=== PATIENT | male | born 1945 | race African-American/Black ===

== ENCOUNTER 2017-04-04 13:25 | Inpatient (IN) | payer OTHER, BC ==
[2017-04-04] MEDS ORDERED: VANCOMYCIN 1,000 MG in DEXTROSE 5%-WATER - 250 ML IVPB ONE (14:43)
[2017-04-04] MEDS ORDERED: PIPERACILLIN/TAZOB 3.375 GM 50 ML IVPB ONE (14:44)
[2017-04-04 14:45] LABS: BASO % 0.7 % (0-2.0); EOS % 0.5 % (0-4.5); MCH 29.4 pg (25.7-33.7); MCHC 32.6 g/dl (32.0-35.9); MEAN CELL VOLUME 90.2 fl (80-96); MEAN PLT VOLUME 8.1 fl (7.5-11.1); NEUT % 83.4 % (42.8-82.8); PLATELET COUNT 280 K/MM3 (134-434); RDW 16.9 % (11.9-15.9); WHITE BLOOD COUNT 18.4 K/mm3 (4.0-10.0)
[2017-04-04] MEDS ORDERED: VANCOMYCIN 1 GRAM (PRE-DOCKED) 1,000 MG/250 ML BAG IVPB ONE (14:48)
[2017-04-04] MEDS ORDERED: PIPERACILLIN/TAZOB 3.375 GM 3.375 GM/50 ML BAG IVPB ONE (14:48)
--- NOTE | 2017-04-04 14:48 | PDOC ---
History of Present Illness - General History Source: Patient - History of Present Illness Occurred: reports: other Severity: Yes: severe Lower Extremity Pain Location: right: 5th toe, leg <Francesco Valdivia - Last Filed: 04/04/17 16:01> <Sarah Yu - Last Filed: 04/04/17 16:41> - General Chief Complaint: Wound Infection Stated Complaint: WOUND CARE SENT Time Seen by Provider: 04/04/17 14:01 Past History - Past Medical History Cardiac Disorders: Yes (A-FIB) COPD: No Diabetes: Yes HTN: Yes - Suicide/Smoking/Psychosocial Hx Smoking History: Former smoker Have you smoked in the past 12 months: No Information on smoking cessation initiated: No <Francesco Valdivia - Last Filed: 04/04/17 16:01> <Sarah Yu - Last Filed: 04/04/17 16:41> - Past Medical History Allergies/Adverse Reactions: Allergies Allergy/AdvReac Type Severity Reaction Status Date / Time No Known Allergies Allergy Verified 04/04/17 13:40 Home Medications: Ambulatory Orders Finasteride 5 mg PO DAILY 04/04/17 Glipizide [Glipizide ER] 10 mg PO BID 04/04/17 Hydrochlorothiazide 50 mg PO BID 04/04/17 Metformin HCl [Glucophage -] 500 mg PO BID 04/04/17 Metoprolol Succinate [Toprol Xl -] 50 mg PO BID 04/04/17 Tamsulosin HCl [Flomax] 0.4 mg PO DAILY 04/04/17 Warfarin Sodium [Coumadin] 5 mg PO Q2D 04/04/17 Warfarin Sodium [Coumadin] 7.5 mg PO Q2D 04/04/17 Review of Systems - Review of Systems Constitutional: Yes: Chills. No: Fever Musculoskeletal: Yes: Joint Pain, Joint Swelling <Francesco Valdivia - Last Filed: 04/04/17 16:01> *Physical Exam - Vital Signs Last Vital Signs Temp Pulse Resp BP Pulse Ox 99.1 F 82 17 138/91 98 04/04/17 13:40 04/04/17 13:40 04/04/17 13:40 04/04/17 13:40 04/04/17 13:40 - Physical Exam General Appearance: Yes: Appropriately Dressed. No: Apparent Distress HEENT: positive: Normal Voice Neck: positive: Supple Respiratory/Chest: negative: Respiratory Distress Extremity: positive: Other (ulcer w/ foul odoor to lateral R 5th toe w/ erythema /warmth/ttp extending up to R lower leg, pedal pulses intact) Integumentary: positive: Dry, Warm Neurologic: positive: Fully Oriented, Alert, Normal Mood/Affect <PalauanFrancesco - Last Filed: 04/04/17 16:01> - Vital Signs Last Vital Signs Temp Pulse Resp BP Pulse Ox 99.1 F 82 17 138/91 98 04/04/17 13:40 04/04/17 13:40 04/04/17 13:40 04/04/17 13:40 04/04/17 13:40 <Sarah Yu - Last Filed: 04/04/17 16:41> ED Treatment Course - LABORATORY CBC & Chemistry Diagram: 04/04/17 14:35 04/04/17 14:35 - RADIOLOGY Radiology Studies Ordered: Category Date Time Status LOWER EXTREMITY MRI W/O-RIGHT [MRI] Stat MRI 04/04/17 14:43 Ordered FOOT-RIGHT [RAD] Stat Radiology 04/04/17 14:38 Ordered <PalauanColetteMarvel - Last Filed: 04/04/17 16:01> - LABORATORY CBC & Chemistry Diagram: 04/04/17 14:35 04/04/17 14:35 - ADDITIONAL ORDERS Additional order review: Laboratory Results 04/04/17 04/04/17 04/04/17 14:35 14:35 14:35 PT with INR 55.50 H INR 4.91 H* Sodium 138 Potassium 4.4 Chloride 103 Carbon Dioxide 25 Anion Gap 10 BUN 60 H D Creatinine 2.7 H D Creat Clearance w eGFR 23.41 Random Glucose 63 L D Calcium 7.9 L Total Bilirubin 1.0 D AST 121 H D ALT 94 H D Alkaline Phosphatase 134 H D C-Reactive Protein 27.1 H Total Protein 8.0 Albumin 3.0 L Blood Type Cancelled Antibody Screen Cancelled Spec Expiration Date Cancelled 04/04/17 14:35 RBC 3.81 L MCV 90.2 MCHC 32.6 RDW 16.9 H MPV 8.1 Neutrophils % 83.4 H Lymphocytes % 6.1 L Monocytes % 9.3 Eosinophils % 0.5 Basophils % 0.7 - Medications Given in the ED: ED Medications Discontinued Medications Generic Name Dose Route Start Last Admin Trade Name Karlie PRN Reason Stop Dose Admin Vancomycin HCl 1,000 mg/ 250 mls @ 250 mls/hr 04/04/17 14:43 04/04/17 15:06 Dextrose IVPB 04/04/17 15:42 250 mls/hr ONCE ONE Administration Protocol Piperacillin/Tazobactam/Dextrose 50 mls @ 100 mls/hr 04/04/17 14:44 04/04/17 15:06 Zosyn 3.375gm Ivpb (Premix) IVPB 04/04/17 15:13 100 mls/hr ONCE ONE Administration Protocol <Sarah Yu - Last Filed: 04/04/17 16:41> Medical Decision Making - Medical Decision Making 04/04/17 14:44 71-year-old male history of diabetes, hypertension, afib on coumadin, cardiomyopathy, sent to ER for admission for right foot ulcer and cellulitis by vascular. Patient states 4 weeks ago, he developed ulcer to lateral aspect of right fifth toe w/ foul odor, pain, swelling and erythema. Place on antibiotics several days ago by his manager athletics, but does not remember name at this time. Has some chills at home but no fever. Seen by Dr. Spencer of vascular today who was concerned about possible osteo. See exam Diabetic foot ulcer/cellulitis Stable w/ ulcer down to bone w/ foul odor to lateral R 5th digit w/ erythema/ warmth and ttp extending up to lower leg, pedal pulses intact -IV abx -labs -vascular requesting MRI r/o osteo -arrange admission 04/04/17 15:01 Case d/w Dr Conrad and pt admitted 04/04/17 16:01 INR 4, will hold coumadin. ARF w/ cr of 2.7, was 0.9 in 2014. IVF in progress 04/04/17 16:02 04/04/17 16:03 <Francesco Valdivia - Last Filed: 04/04/17 16:01> *DC/Admit/Observation/Transfer - Discharge Dispostion Admit: Yes <Francesco Valdivia - Last Filed: 04/04/17 16:01> - Attestations Physician Attestion: I reviewed the case with the mid-level practitioner and agree with the mid- level practitioner's assessment, diagnosis and disposition. <Sarah Yu - Last Filed: 04/04/17 16:41> Diagnosis at time of Disposition: Cellulitis of foot, Supratherapeutic INR Foot ulcer Qualifiers: Laterality: right Non-pressure ulcer stage: unspecified non-pressure ulcer stage Qualified Code(s): L97.519 - Non-pressure chronic ulcer of other part of right foot with unspecified severity ARF (acute renal failure) Qualifiers: Acute renal failure type: unspecified Qualified Code(s): N17.9 - Acute kidney failure, unspecified - Discharge Dispostion Condition at time of disposition: Fair
[2017-04-04 15:16] LABS: ANION GAP 10 (8-16); CALCIUM 7.9 mg/dL (8.5-10.1); CO2 25 mmol/L (21-32); CREATININE 2.7 mg/dL (0.7-1.3); GLUCOSE,RANDOM 63 mg/dL (74-106); SGPT/ALT 94 U/L (12-78)
[2017-04-04 15:20] LABS: PROTHROMBIN TIME (PATIENT) 55.5 SEC (9.98-11.88)
[2017-04-04 15:21] LABS: ALK PHOS 134 U/L (45-117); C-REACTIVE PROTEIN 27.1 MG/DL (0.00-0.3)
[2017-04-04 15:25] LABS: SGOT/AST 121 U/L (15-37)
[2017-04-04 15:26] LABS: INR 4.91 (0.82-1.09)
[2017-04-05] MEDS ORDERED: FINASTERIDE 5 MG TABLET (FP) PO SCH ×2 (10:30→10:33)
[2017-04-05] MEDS ORDERED: glipiZIDE-XL 10 MG TAB.ER.24 (FP) PO SCH (10:30)
[2017-04-05] MEDS ORDERED: HYDROCHLOROTHIAZIDE 50 MG TABLET PO SCH (10:30)
[2017-04-05] MEDS: TAMSULOSIN HCL 0.4 MG CAP.ER.24H (FP) PO SCH (10:52)
[2017-04-05] MEDS: metFORMIN HCL 500 MG TABLET (FP) PO SCH ×2 (10:52→16:38)
[2017-04-05] MEDS: METOPROLOL SUCCINATE 50 MG TAB.SR.24H (FP) PO SCH ×2 (10:52→21:11)
[2017-04-05] MEDS ORDERED: PIPERACILLIN/TAZOB 3.375 GM 3.375 GM in DEXTROSE 5%-WATER - 50 ML IVPB ONE (11:00)
[2017-04-05] MEDS ORDERED: VANCOMYCIN 1,000 MG in DEXTROSE 5%-WATER - 250 ML IVPB ONE (11:15)
[2017-04-05] MEDS: INSULIN SLIDING SCALE (NOVOLOG) 1 VIAL SQ SCH ×3 (11:24→21:11)
[2017-04-05] MEDS ORDERED: ACETAMINOPHEN 325 MG TABLET (FP) PO PRN (14:36)
[2017-04-05] MEDS: ALBUTEROL SO4 2.5/IPRATROPIUM 0.5 INH SOL 3 ML VIAL.NEB. NEB PRN (15:25)
[2017-04-05] MEDS: glipiZIDE-XL 10 MG TAB.ER.24 (FP) PO SCH (16:38)
[2017-04-05] MEDS ORDERED: PT OWN MED DRAWER 7, Y5N ONE ×2 (16:48→17:41)
--- NOTE | 2017-04-05 17:37 | HP ---
Admitting History and Physical - Admission History of Present Illness: Pt is a 71 y/o male who is a poor historian and presented to the ER bc of pain/ infection rt foot. Pt has PMH significant for HTN, Afib, cardiomyopathy, BPH and diabetes. Pt states that for the past month he has been having an ulcer on his rt 5th toe. This has gotten progressively gotten more painful and more foul smelling. Pt did she a doctor and was started on an antibx about 1 week but doesn't remember the name. Pt saw vascular surgeon(DR Spencer) who sent pt to ER bc of concern for osteo. Pt denies any fever but states he has been having some chills over the past week. Pt also c/o dry nonproductive cough x 1 week w/ some wheezing but no SOB and states he was supposed to see gauge maker apprentice for some ?testing but never went. History Source: Patient - Past Medical History Cardiovascular: Yes: AFIB, HTN Renal/: Yes: BPH Endocrine: Yes: Diabetes Mellitus - Smoking History Smoking history: Former smoker Have you smoked in the past 12 months: No - Alcohol/Substance Use Hx Alcohol Use: No Home Medications - Allergies Allergies/Adverse Reactions: Allergies Allergy/AdvReac Type Severity Reaction Status Date / Time No Known Allergies Allergy Verified 04/04/17 13:40 - Home Medications Home Medications: Ambulatory Orders Finasteride 5 mg PO DAILY 04/04/17 Glipizide [Glipizide ER] 10 mg PO BID 04/04/17 Hydrochlorothiazide 50 mg PO BID 04/04/17 Metformin HCl [Glucophage -] 500 mg PO BID 04/04/17 Metoprolol Succinate [Toprol Xl -] 50 mg PO BID 04/04/17 Tamsulosin HCl [Flomax] 0.4 mg PO DAILY 04/04/17 Warfarin Sodium [Coumadin] 5 mg PO Q2D 04/04/17 Warfarin Sodium [Coumadin] 7.5 mg PO Q2D 04/04/17 Family Disease History - Family Disease History Family History: Unremarkable Review of Systems - Review of Systems Constitutional: reports: Chills Eyes: reports: No Symptoms HENT: reports: No Symptoms Neck: reports: No Symptoms Cardiovascular: reports: No Symptoms Respiratory: reports: No Symptoms Gastrointestinal: reports: No Symptoms Physical Examination Vital Signs: Vital Signs Temperature 98.2 F 04/05/17 16:30 Pulse Rate 88 04/05/17 16:30 Respiratory Rate 20 04/05/17 16:30 Blood Pressure 138/90 04/05/17 16:30 O2 Sat by Pulse Oximetry (%) 100 04/05/17 15:32 Constitutional: Yes: Well Nourished HENT: Yes: WNL Neck: Yes: WNL, Supple Cardiovascular: Yes: WNL, Regular Rate and Rhythm Respiratory: Yes: Wheezes Gastrointestinal: Yes: WNL, Normal Bowel Sounds, Soft, Abdomen, Obese Extremities: Yes: Other (Rt 5th toe w/ ulcer and surrounding erythema) Edema: No Labs: CBC, BMP 04/04/17 14:35 04/04/17 14:35 Problem List - Problems (1) Diabetic foot ulcer Assessment/Plan: MRI Rt foot showed changes in 2nd/3rd/4th metatarsal suggestive of oste ID consult Cont IV vanco/zosyn Follow cultures Vascular consult Code(s): E11.621 - TYPE 2 DIABETES MELLITUS WITH FOOT ULCER; L97.509 - NON- PRESSURE CHRONIC ULCER OTH PRT UNSP FOOT W UNSP SEVERITY (2) Afib Assessment/Plan: PT/INR ws supratherapeutic Coumadi on hold Monitor pt/inr Heart rate controlled Code(s): I48.91 - UNSPECIFIED ATRIAL FIBRILLATION (3) Dyspnea Assessment/Plan: Cont duoneb q 6 prn Pulmonary consult Code(s): R06.00 - DYSPNEA, UNSPECIFIED (4) Diabetes Assessment/Plan: Cont metformin/glipizide Cont FS tid w/ sliding scale Code(s): E11.9 - TYPE 2 DIABETES MELLITUS WITHOUT COMPLICATIONS (5) HTN (hypertension) Assessment/Plan: BP stable Cont metoprolol Code(s): I10 - ESSENTIAL (PRIMARY) HYPERTENSION (6) BPH (benign prostatic hyperplasia) Assessment/Plan: Cont proscar Code(s): N40.0 - BENIGN PROSTATIC HYPERPLASIA WITHOUT LOWER URINRY TRACT SYMP (7) Cardiomyopathy Code(s): I42.9 - CARDIOMYOPATHY, UNSPECIFIED (8) Morbid obesity Code(s): E66.01 - MORBID (SEVERE) OBESITY DUE TO EXCESS CALORIES
[2017-04-05] MEDS ORDERED: PIPERACILLIN/TAZOB 3.375 GM 3.375 GM/50 ML BAG IVPB SCH (18:00)
[2017-04-06] MEDS ORDERED: PT OWN MED DRAWER 7, Y5N ONE ×3 (06:12→17:49)
[2017-04-06] MEDS: HYDROCHLOROTHIAZIDE 50 MG TABLET PO SCH ×2 (06:13→17:52)
[2017-04-06] MEDS: glipiZIDE-XL 10 MG TAB.ER.24 (FP) PO SCH ×2 (06:47→17:27)
[2017-04-06] MEDS: INSULIN SLIDING SCALE (NOVOLOG) 1 VIAL SQ SCH ×4 (06:49→21:34)
[2017-04-06] MEDS: metFORMIN HCL 500 MG TABLET (FP) PO SCH ×2 (06:49→17:27)
--- NOTE | 2017-04-06 08:27 | PN ---
Progress Note, Physician Chief Complaint: ID Full note dictated - Current Medication List Current Medications: Active Medications Acetaminophen (Tylenol -) 650 mg PO Q6H PRN PRN Reason: PAIN Albuterol/Ipratropium (Duoneb -) 1 amp NEB Q6H PRN Last Admin: 04/05/17 15:25 Dose: 1 amp Finasteride (Proscar -) 5 mg PO DAILY [facility] Glipizide (Glucotrol Xl -) 10 mg PO BIDAC [facility] Last Admin: 04/06/17 06:47 Dose: 10 mg Hydrochlorothiazide (Hctz -) 50 mg PO BID@0600,1800 [facility] Last Admin: 04/06/17 06:13 Dose: 50 mg Vancomycin HCl 1,000 mg/ (Dextrose) 250 mls @ 250 mls/hr IVPB BID [facility] PRN Reason: Protocol Piperacillin Sod/Tazobactam (Sod 3.375 gm/ Dextrose) 50 mls @ 100 mls/hr IVPB Q8H-IV [facility] Insulin Aspart (Novolog Vial Sliding Scale -) 1 vial SQ ACHS [facility] PRN Reason: Protocol Last Admin: 04/06/17 06:49 Dose: Not Given Metformin HCl (Glucophage -) 500 mg PO BIDAC [facility] Last Admin: 04/06/17 06:49 Dose: 500 mg Metoprolol Succinate (Toprol Xl -) 50 mg PO BID [facility] Last Admin: 04/05/17 21:11 Dose: 50 mg Tamsulosin HCl (Flomax -) 0.4 mg PO DAILY@0830 [facility] Last Admin: 04/05/17 10:52 Dose: 0.4 mg - Objective Vital Signs: Vital Signs Temperature 98.2 F 04/05/17 16:30 Pulse Rate 88 04/05/17 16:30 Respiratory Rate 20 04/05/17 16:30 Blood Pressure 138/90 04/05/17 16:30 O2 Sat by Pulse Oximetry (%) 100 04/05/17 21:00 Labs: CBC, BMP 04/04/17 14:35 04/04/17 14:35 INR, PTT INR 4.91 (0.82-1.09) H* 04/04/17 14:35 Problem List - Problems (1) Diabetes Code(s): E11.9 - TYPE 2 DIABETES MELLITUS WITHOUT COMPLICATIONS (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 Assessment/Plan Microbiology 04/04/17 14:30 Blood - Peripheral Venous Blood Culture - Preliminary NO GROWTH OBTAINED AFTER 24 HOURS, INCUBATION TO CONTINUE FOR 4 DAYS. Laboratory Tests 04/04/17 04/04/17 04/04/17 14:35 14:35 15:30 WBC 18.4 H D Hgb 11.2 L D Plt Count 280 D ESR 122 H BUN 60 H D Creatinine 2.7 H D C-Reactive Protein 27.1 H Assessment Diabetic wet gangrene right foot Plan Blood cultures x 2 Surgical debridement Vascular evaluation Deep wound cultures Will need assistant terminal manager treatment for osteomyelitis Sharan ENCISO
[2017-04-06] MEDS ORDERED: VANCOMYCIN 1,500 MG in DEXTROSE 5%-WATER - 500 ML IVPB ONE (08:28)
[2017-04-06] MEDS: PIPERACILLIN/TAZOB 3.375 GM 3.375 GM in DEXTROSE 5%-WATER - 50 ML IVPB SCH (08:39)
[2017-04-06] MEDS: VANCOMYCIN 1,000 MG in DEXTROSE 5%-WATER - 250 ML IVPB SCH (08:39)
--- NOTE | 2017-04-06 09:03 | CONS ---
DATE OF CONSULTATION: DATE OF DICTATION: 04/06/2017 INFECTIOUS DISEASE CONSULTATION HISTORY OF PRESENT ILLNESS: This is a 71-year-old male, known diabetic, on oral agents for his diabetes, admitted with a draining, foul-smelling wound of the lateral aspect of his right foot. He lives at home with his and denies any history of recent trauma to the foot. Within the last week he noted that he developed what he described as an ulcer on the lateral part of his foot near the 5th toe. It started to drain and he noted an odor. Intermittently he was experiencing fever, chills and sweats, for which he sought treatment in the emergency room yesterday. Already an MRI has been performed, which showed underlying osteomyelitis, and I am asked to see him for further evaluation and treatment. PAST MEDICAL HISTORY: Includes diabetes, hypertension, COPD, atrial fibrillation, cardiomyopathy, BPH, hepatitis C (treated, in remission). MEDICATIONS: Flomax, DuoNeb, Toprol, Glucophage, Proscar. ALLERGIES: None known. SOCIAL HISTORY: Former smoker. Retired school year nanny. Lives with his . States HIV tested previously in the past, negative. No travel. No pets. FAMILY HISTORY: Reviewed and noncontributory. REVIEW OF SYSTEMS: Respiratory: No cough, shortness of breath. Cardiac: History of atrial fibrillation. No palpitations, murmur. Gastrointestinal: No abdominal pain, nausea, vomiting, weight loss, diarrhea. Genitourinary: BPH. Denies dysuria, hematuria. PHYSICAL EXAMINATION: General: He was a heavyset, alert male in no acute distress. Vital Signs: Temperature 98.2, pulse 88, blood pressure 140/90, respirations 20. Neck: Supple, without adenopathy. Lungs: Clear to percussion and auscultation. Heart: S1, S2. Irregularly irregular, without murmur. Abdomen: Soft, nontender, without hepatosplenomegaly. Extremities: A necrotic 5-cm wound on the lateral aspect of the right foot adjacent to the 5th toe. Purulent drainage noted on the dressings. Cellulitis of the foot with erythema and swelling also noted. Ankle with full range of motion. DIAGNOSTIC STUDIES: White count 18.4, hemoglobin 11.2, platelets 280, ESR 122. INR 4.91. BUN 60, creatinine 2.7, bilirubin 1, AST 121, ALT 94, alkaline phosphatase 134, CRP 27. MRI of the foot obtained April 04 shows diffuse soft tissue swelling with loculated fluid adjacent to the lateral aspect of the distal 5th metatarsal bone, compatible with abscess, and signal intensity compatible with metatarsal osteomyelitis. ASSESSMENT: 1. Severe diabetic skin and soft tissue infection with wet gangrene and evolving abscess with underlying osteomyelitis. 2. History of atrial fibrillation, on anticoagulation. 3. History of hepatitis C, treated, sustained viral response. 4. Cardiomyopathy. 5. Diabetes mellitus. PLAN: Empiric antibiotic therapy with vancomycin, adjusted for creatinine, monitoring levels tomorrow, 1.5 g given now; piperacillin/tazobactam, adjusted for creatinine clearance. Vascular consultation with Dr. Spencer. Will need surgical debridement of the wound with deep wound cultures at the time of surgery. Ultimately I suspect going to need long-term therapy for treatment of osteomyelitis, including PICC line insertion. RISSA CASTILLO M.D. [id number]
[2017-04-06] MEDS: ALBUTEROL SO4 2.5/IPRATROPIUM 0.5 INH SOL 3 ML VIAL.NEB. NEB PRN (09:05)
[2017-04-06] MEDS: FINASTERIDE 5 MG TABLET (FP) PO SCH (09:41)
[2017-04-06] MEDS: TAMSULOSIN HCL 0.4 MG CAP.ER.24H (FP) PO SCH (09:41)
[2017-04-06] MEDS: METOPROLOL SUCCINATE 50 MG TAB.SR.24H (FP) PO SCH ×2 (09:41→21:33)
[2017-04-06] MEDS: PIPERACILLIN/TAZOB 2.25 GM 2.25 GM in DEXTROSE 5%-WATER - 50 ML IVPB SCH ×2 (09:41→17:27)
[2017-04-06] MEDS ORDERED: INSULIN (NOVOLOG) ASPART 100 UNITS/ML 10ML VIAL ONE (11:30)
--- NOTE | 2017-04-06 16:37 | PN ---
Progress Note (short form) - Note Progress Note: PULMONARY CONSULTATION DICTATED 04/06/17 IMP DYSPNEA COPD CHF CARDIOMYOPATHY AFIB RIGHT FOOT ULCER OSTEOMYELITIS LIKELY OSAS SUPRA-THERAPEUTIC INR PLAN IV ANTIBIOTICS O2 PRN INHALED BRONCHODILATORS CARDIOLOGY EVALUATION SLEEP SCREEN MONITOR INR DR VALERO Problem List - Problems (1) Dyspnea Code(s): R06.00 - DYSPNEA, UNSPECIFIED (2) Cellulitis of foot Code(s): L03.119 - CELLULITIS OF UNSPECIFIED PART OF LIMB (3) Diabetes Code(s): E11.9 - TYPE 2 DIABETES MELLITUS WITHOUT COMPLICATIONS (4) Foot ulcer Code(s): L97.509 - NON-PRESSURE CHRONIC ULCER OTH PRT UNSP FOOT W UNSP SEVERITY Qualifiers: Laterality: right Non-pressure ulcer stage: unspecified non-pressure ulcer stage Qualified Code(s): L97.519 - Non-pressure chronic ulcer of other part of right foot with unspecified severity (5) Supratherapeutic INR Code(s): R79.1 - ABNORMAL COAGULATION PROFILE (6) COPD (chronic obstructive pulmonary disease) Code(s): J44.9 - CHRONIC OBSTRUCTIVE PULMONARY DISEASE, UNSPECIFIED (7) Cardiomyopathy Code(s): I42.9 - CARDIOMYOPATHY, UNSPECIFIED (8) Cardiomyopathy Code(s): I42.9 - CARDIOMYOPATHY, UNSPECIFIED (9) Cardiomyopathy Code(s): I42.9 - CARDIOMYOPATHY, UNSPECIFIED (10) Afib Code(s): I48.91 - UNSPECIFIED ATRIAL FIBRILLATION (11) HTN (hypertension) Code(s): I10 - ESSENTIAL (PRIMARY) HYPERTENSION (12) Morbid obesity Code(s): E66.01 - MORBID (SEVERE) OBESITY DUE TO EXCESS CALORIES
--- NOTE | 2017-04-06 22:38 | PN ---
Progress Note, Physician History of Present Illness: NO new complaints - Current Medication List Current Medications: Active Medications Acetaminophen (Tylenol -) 650 mg PO Q6H PRN PRN Reason: PAIN Albuterol/Ipratropium (Duoneb -) 1 amp NEB Q6H PRN Last Admin: 04/06/17 09:05 Dose: 1 amp Finasteride (Proscar -) 5 mg PO DAILY [facility] Last Admin: 04/06/17 09:41 Dose: 5 mg Glipizide (Glucotrol Xl -) 10 mg PO BIDAC [facility] Last Admin: 04/06/17 17:27 Dose: 10 mg Hydrochlorothiazide (Hctz -) 50 mg PO BID@0600,1800 [facility] Last Admin: 04/06/17 17:52 Dose: 50 mg Piperacillin Sod/Tazobactam (Sod 2.25 gm/ Dextrose) 50 mls @ 100 mls/hr IVPB Q8H-IV [facility] PRN Reason: Protocol Last Admin: 04/06/17 17:27 Dose: 100 mls/hr Insulin Aspart (Novolog Vial Sliding Scale -) 1 vial SQ ACHS [facility] PRN Reason: Protocol Last Admin: 04/06/17 21:34 Dose: Not Given Metformin HCl (Glucophage -) 500 mg PO BIDAC [facility] Last Admin: 04/06/17 17:27 Dose: 500 mg Metoprolol Succinate (Toprol Xl -) 50 mg PO BID [facility] Last Admin: 04/06/17 21:33 Dose: 50 mg Tamsulosin HCl (Flomax -) 0.4 mg PO DAILY@0830 [facility] Last Admin: 04/06/17 09:41 Dose: 0.4 mg - Objective Vital Signs: Vital Signs Temperature 97.7 F 04/06/17 16:30 Pulse Rate 90 04/06/17 16:30 Respiratory Rate 20 04/06/17 16:30 Blood Pressure 142/48 04/06/17 16:30 O2 Sat by Pulse Oximetry (%) 100 04/06/17 09:00 Constitutional: Yes: Well Nourished HENT: Yes: WNL Neck: Yes: WNL, Supple Cardiovascular: Yes: WNL, Regular Rate and Rhythm Respiratory: Yes: WNL, Regular, CTA Bilaterally Gastrointestinal: Yes: WNL, Normal Bowel Sounds, Soft, Abdomen, Obese Extremities: Yes: Other (RT 5th RT toe w/ ulcer a/ surrounding erythema) Edema: LLE: Trace, RLE: Trace Labs: CBC, BMP 04/04/17 14:35 04/04/17 14:35 INR, PTT INR 4.91 (0.82-1.09) H* 04/04/17 14:35 Problem List - Problems (1) Diabetic foot ulcer Assessment/Plan: MRI Rt foot showed changes in 2nd/3rd/4th metatarsal suggestive of oste ID consult noted Cont IV vanco/zosyn Follow cultures Check WBC in am Vascular consult Code(s): E11.621 - TYPE 2 DIABETES MELLITUS WITH FOOT ULCER; L97.509 - NON- PRESSURE CHRONIC ULCER OTH PRT UNSP FOOT W UNSP SEVERITY (2) Afib Assessment/Plan: PT/INR ws supratherapeutic Coumadi on hold Monitor pt/inr Heart rate controlled Code(s): I48.91 - UNSPECIFIED ATRIAL FIBRILLATION (3) BPH (benign prostatic hyperplasia) Assessment/Plan: Cont proscar Code(s): N40.0 - BENIGN PROSTATIC HYPERPLASIA WITHOUT LOWER URINRY TRACT SYMP (4) COPD (chronic obstructive pulmonary disease) Assessment/Plan: As per pulmonary Cont nebulizers Code(s): J44.9 - CHRONIC OBSTRUCTIVE PULMONARY DISEASE, UNSPECIFIED (5) Cardiomyopathy Assessment/Plan: Will get cardio consult due to elevated BNP Code(s): I42.9 - CARDIOMYOPATHY, UNSPECIFIED (6) Diabetes Assessment/Plan: Cont metformin/glipizide Cont FS tid w/ sliding scale Code(s): E11.9 - TYPE 2 DIABETES MELLITUS WITHOUT COMPLICATIONS (7) HTN (hypertension) Assessment/Plan: BP stable Cont metoprolol Code(s): I10 - ESSENTIAL (PRIMARY) HYPERTENSION
[2017-04-07] MEDS: PIPERACILLIN/TAZOB 2.25 GM 2.25 GM in DEXTROSE 5%-WATER - 50 ML IVPB SCH ×3 (01:59→18:26)
[2017-04-07] MEDS ORDERED: PT OWN MED DRAWER 7, Y5N ONE ×4 (05:50→18:23)
[2017-04-07] MEDS: HYDROCHLOROTHIAZIDE 50 MG TABLET PO SCH ×2 (06:12→18:22)
--- NOTE | 2017-04-07 06:13 | CONS ---
PULMONARY CONSULTATION DATE OF CONSULTATION: 04/06/2017 REFERRING PHYSICIAN: Dr. Garcia. HISTORY OF PRESENT ILLNESS: The patient is a 71-year-old black male with past medical history of diabetes, hypertension, atrial fibrillation maintained on Coumadin, cardiomyopathy, COPD, admitted to [facility] secondary to cellulitis in the right foot. The patient was sent to the ER for admission by Dr. Spencer after noting progressive right foot ulcer and cellulitis. Apparently, 4 weeks prior to admission, he developed the ulcer on the lateral aspect of the right fifth toe with foul odor, pain, swelling and erythema. He was placed on antibiotics a few days ago by his real estate utilization officer, but does not recall his name. Apparently at home he started having chills but no fever. He was seen by Dr. Spencer on April 04, at which time he was advised to be admitted for further therapy. The patient underwent an MRI on April 04 with most likely osteomyelitis of the second, third and the base of the fourth metatarsal bones in the right foot. He was placed on broad-spectrum antibiotics per Infectious Disease. Earlier today the patient developed increasing shortness of breath. He denied any chest pain, nausea or vomiting, diaphoresis. Denied any cough or bronchospasm. He was started on nebulizer therapy with good clinical response. The patient has a history of smoking, quit years ago. There was no history of occupational exposure to chemical fumes. He does complain of shortness of breath with exertion. He states he has been placed on home O2 secondary to previous hospitalization with pneumonia. He denies any chronic cough or hemoptysis. Denies any chills. Denies any chest congestion. PAST MEDICAL HISTORY: Again includes atrial fibrillation, cardiomyopathy, COPD, hypertension, diabetes. REVIEW OF SYSTEMS: No orthopnea, no PND. Positive dyspnea on exertion. No chest pain, no palpitations, no cough, no hemoptysis. Positive right lower extremity foot pain. MEDICATIONS: Current medications include Flomax, Tylenol, tryptophan, DuoNeb, Toprol, Glucophage, NovoLog, Crestor, Glucotrol and hydrochlorothiazide. PHYSICAL EXAMINATION:General: The patient is an obese male, was awake, alert, in no acute distress. Vital Signs: He is afebrile. Blood pressure 158/82. Respirations 18. O2 saturation is 96% on room air. HEENT: Head is normocephalic, atraumatic. Neck: Supple. Heart: Irregular, irregular with normal S1, S2. Chest: Clear. Abdomen: Soft. Bowel sounds positive. Extremities: Right lower extremity there is a bandage. No cyanosis or edema appreciated. DIAGNOSTIC DATA: WBC is 18.4, hemoglobin 11.2, hematocrit 34.4, platelet count of 280,000. INR 4.91. Electrolytes: BUN 16, creatinine 0.9. Chest x-ray reveals no acute infiltrates and no effusions with cardiomegaly. IMPRESSION: 1. Right lower extremity wound, with cellulitis, possible osteomyelitis. 2. Dyspnea, likely exacerbation of mild chronic obstructive pulmonary disease. 3. Tachycardia. 4. Cardiomyopathy. 5. History of chronic obstructive pulmonary disease. 6. Diabetes. 7. Hypertension. 8. Likely obstructive sleep apnea. 9. Supratherapeutic INR. 10. Atrial fibrillation. PLAN: Inhaled bronchodilators, supplemental O2, check BMP, cardiology evaluation, broad-spectrum antibiotics as per Infectious Disease. Coumadin as per INR. CBC, electrolytes. CONCEPCION VALERO M.D. [id number]
[2017-04-07] MEDS: metFORMIN HCL 500 MG TABLET (FP) PO SCH ×2 (06:31→19:30)
[2017-04-07] MEDS: glipiZIDE-XL 10 MG TAB.ER.24 (FP) PO SCH ×2 (06:31→19:30)
[2017-04-07] MEDS: INSULIN SLIDING SCALE (NOVOLOG) 1 VIAL SQ SCH ×4 (06:31→21:51)
--- NOTE | 2017-04-07 07:43 | CONSULT ---
- Consultation REQUESTING PROVIDER: Romel Spencer DO CONSULT REQUEST: We have been asked to surgically evaluate this patient for right foot infection (5th toe). PCP: Romeo Conrad History Source: Patient HPI: Called to eval 71 yo male w/ PMHx noted below. Presents to [facility] ED w/ c/o right foot pain/infection (x1 month). Sent in by DO Tj to r/o osteo. Currently, resting comfortably in bed without complaint. Has numbness/tingling associated with his DM neuropathy. Since admit to hospital, he's had the following imaging studies: 1. RLE MRI 04/04: Osteo of 2nd, 3rd and base of 4th MT. Diffuse soft tissue swelling w/ loculated fluid adjacent to lateral aspect of 5th MT --> evolving abscess. 2. Foot Xray 04/04: Significant dorsal soft tissue swelling. Vascular calcifications. No fx, dislocations or bony destruction or periosteal elevation. Small soft tissue mass lateral to 5th toe Smoking history: Former smoker PMHx: DM, BPH, AFIB, HTN PSHx: Home Meds: Finasteride 5 mg PO DAILY 04/04/17 Glipizide [Glipizide ER] 10 mg PO BID 04/04/17 Hydrochlorothiazide 50 mg PO BID 04/04/17 Metformin HCl [Glucophage -] 500 mg PO BID 04/04/17 Metoprolol Succinate [Toprol Xl -] 50 mg PO BID 04/04/17 Tamsulosin HCl [Flomax] 0.4 mg PO DAILY 04/04/17 Warfarin Sodium [Coumadin] 5 mg PO Q2D 04/04/17 Warfarin Sodium [Coumadin] 7.5 mg PO Q2D 04/04/17 Allergies: NKDA ROS: Constitutional: reports: Chills Eyes: reports: No Symptoms HENT: reports: No Symptoms Neck: reports: No Symptoms Cardiovascular: reports: No Symptoms Respiratory: reports: No Symptoms Gastrointestinal: reports: No Symptoms PE: GENERAL: alert, oriented, in no acute distress. LUNGS: CTA bilat anteriorly HEART: afib (rate controlled) ABDOMEN: Obese. Soft. NT. RLE: ulcer to lateral aspect of 5th MT. + foul odor. Large necrotic eschar ( slightly boggy). Just distal to eschar is opening which probes to bone. Mild rosalind-wound erythema. Minimal drainage expressed. +DP/PT. Warm. Cap refill <2 seconds. No peripheral edema. Last Vital Signs Temp Pulse Resp BP Pulse Ox 98.1 F 88 20 150/98 100 04/07/17 06:42 04/07/17 06:42 04/07/17 06:42 04/07/17 06:42 04/06/17 21:00 Lab Results WBC 18.4 K/mm3 (4.0-10.0) H D 04/04/17 14:35 RBC 3.81 M/mm3 (4.00-5.60) L 04/04/17 14:35 Hgb 11.2 GM/dL (11.7-16.9) L D 04/04/17 14:35 Hct 34.4 % (35.4-49) L D 04/04/17 14:35 MCV 90.2 fl (80-96) 04/04/17 14:35 MCHC 32.6 g/dl (32.0-35.9) 04/04/17 14:35 RDW 16.9 % (11.9-15.9) H 04/04/17 14:35 Plt Count 280 K/MM3 (134-434) D 04/04/17 14:35 Sodium 138 mmol/L (136-145) 04/04/17 14:35 Potassium 4.4 mmol/L (3.5-5.1) 04/04/17 14:35 Chloride 103 mmol/L (98-107) 04/04/17 14:35 Carbon Dioxide 25 mmol/L (21-32) 04/04/17 14:35 Anion Gap 10 (8-16) 04/04/17 14:35 BUN 60 mg/dL (7-18) H D 04/04/17 14:35 Creatinine 2.7 mg/dL (0.7-1.3) H D 04/04/17 14:35 Random Glucose 63 mg/dL (74-106) L D 04/04/17 14:35 Calcium 7.9 mg/dL (8.5-10.1) L 04/04/17 14:35 Blood Type Cancelled 04/04/17 14:35 Antibody Screen Cancelled 04/04/17 14:35 INR 4.91 (0.82-1.09) H* 04/04/17 14:35 Microbiology 04/04/17 14:30 Blood - Peripheral Venous Blood Culture - Preliminary NO GROWTH AFTER 48 HOURS, INCUBATION TO CONT x3 days 04/06/17 11:30 Foot - Right Lateral Gram Stain - Final Problem List - Problems (1) Diabetic foot ulcer Assessment/Plan: After speaking with Dr. Spencer, he has asked JOSE Dos Santos for cousult to surgically decompress/debride RIGHT foot. IV abx per ID Type and Screen ordered Coags Medical optimization / clearance Cont medical management at this time Code(s): E11.621 - TYPE 2 DIABETES MELLITUS WITH FOOT ULCER; L97.509 - NON- PRESSURE CHRONIC ULCER OTH PRT UNSP FOOT W UNSP SEVERITY Qualifiers: Diabetic foot ulcer location: toe Laterality: right (2) Afib Code(s): I48.91 - UNSPECIFIED ATRIAL FIBRILLATION (3) HTN (hypertension) Code(s): I10 - ESSENTIAL (PRIMARY) HYPERTENSION Visit type - Case Type Case Type: ED Admission - Emergency Emergency Visit: Yes ED Registration Date: 04/04/17 Care time: The patient presented to the Emergency Department on the above date and was hospitalized for further evaluation of their emergent condition. - New patient This patient is new to me today: Yes Date on this admission: 04/07/17
[2017-04-07 07:55] LABS: MCH 29.5 pg (25.7-33.7); MCHC 32.8 g/dl (32.0-35.9); MEAN PLT VOLUME 8.8 fl (7.5-11.1); PLATELET COUNT 323 K/MM3 (134-434); RDW 17.1 % (11.9-15.9); WHITE BLOOD COUNT 11.9 K/mm3 (4.0-10.0)
[2017-04-07 08:07] LABS: INR 2.04 (0.82-1.09); PROTHROMBIN TIME (PATIENT) 23.1 SEC (9.98-11.88)
[2017-04-07 08:40] LABS: MCH 29.7 pg (25.7-33.7); MCHC 33.1 g/dl (32.0-35.9); MEAN CELL VOLUME 89.9 fl (80-96); MEAN PLT VOLUME 8.2 fl (7.5-11.1); PLATELET COUNT 339 K/MM3 (134-434); RDW 17.2 % (11.9-15.9); WHITE BLOOD COUNT 12.7 K/mm3 (4.0-10.0)
[2017-04-07 09:21] LABS: ALBUMIN 2.8 g/dl (3.4-5.0); ANION GAP 8 (8-16); BILIRUBIN,TOTAL 0.8 mg/dL (0.2-1.0); CALCIUM 8.9 mg/dL (8.5-10.1); CO2 26 mmol/L (21-32); CREATININE 1.3 mg/dL (0.7-1.3); GLUCOSE,RANDOM 85 mg/dL (74-106); SGOT/AST 75 U/L (15-37); SGPT/ALT 119 U/L (12-78); TOT PROT 8.2 g/dl (6.4-8.2)
[2017-04-07 09:22] LABS: ALK PHOS 226 U/L (45-117)
[2017-04-07 09:30] LABS: INR 1.97 (0.82-1.09); PROTHROMBIN TIME (PATIENT) 22.3 SEC (9.98-11.88)
[2017-04-07] MEDS: FINASTERIDE 5 MG TABLET (FP) PO SCH (09:45)
[2017-04-07] MEDS: TAMSULOSIN HCL 0.4 MG CAP.ER.24H (FP) PO SCH (09:45)
[2017-04-07] MEDS: METOPROLOL SUCCINATE 50 MG TAB.SR.24H (FP) PO SCH ×2 (09:45→21:53)
[2017-04-07] MEDS: ALBUTEROL SO4 2.5/IPRATROPIUM 0.5 INH SOL 3 ML VIAL.NEB. NEB PRN (09:47)
[2017-04-07] MEDS ORDERED: WARFARIN NA 5 MG TABLET (UD) PO SCH (10:00)
--- NOTE | 2017-04-07 10:17 | CON.CARD ---
Consult Consult Specialty:: Cardiology Referred by:: Dr. Nolan/Dr. Garcia Reason for Consultation:: SOB, Preop for foot debridement - History of Present Illness Chief Complaint: foot ulcer History of Present Illness: 71 year old man with a h/o HTN, DMII, HLD, Afib on coumadin, non-obs CAD, mild pulm HTN, mild thoracic aortic aneursym, HCV, ashtma admitted with R foot ulcer with discharge concerned for osteo. Pt seen and examined today in nad. Denies any complaints other than discomfort from his foot ulcer. He has chronic sob which is at baseline. Denies any chest pain, palpitations, pnd, orthopnea, or LE edema. no lightheadedness, dizziness, syncope, or near syncope. - History Source History Provided By: Patient, Medical Record Limitations to Obtaining History: No Limitations - Past Medical History Cardio/Vascular: Yes: AFIB, CAD, HTN, Hyperlipdemia Renal/: Yes: BPH Endocrine: Yes: Diabetes Mellitus - Alcohol/Substance Use Hx Alcohol Use: No - Smoking History Smoking history: Former smoker Have you smoked in the past 12 months: No - Social History Usual Living Arrangement: With Spouse ADL: Independent History of Recent Travel: No Home Medications - Allergies Allergies/Adverse Reactions: Allergies Allergy/AdvReac Type Severity Reaction Status Date / Time No Known Allergies Allergy Verified 04/04/17 13:40 - Home Medications Home Medications: Ambulatory Orders Finasteride 5 mg PO DAILY 04/04/17 Glipizide [Glipizide ER] 10 mg PO BID 04/04/17 Hydrochlorothiazide 50 mg PO BID 04/04/17 Metformin HCl [Glucophage -] 500 mg PO BID 04/04/17 Metoprolol Succinate [Toprol Xl -] 50 mg PO BID 04/04/17 Tamsulosin HCl [Flomax] 0.4 mg PO DAILY 04/04/17 Warfarin Sodium [Coumadin] 5 mg PO Q2D 04/04/17 Warfarin Sodium [Coumadin] 7.5 mg PO Q2D 04/04/17 Family Disease History - Family Disease History Family History: Denies Review of Systems - Review of Systems Constitutional: denies: No Symptoms, Chills, Diaphoresis, Fever, Lethargy, Loss of Appetite, Malaise, Night Sweats, Unintentional Wgt. Loss, Weakness, Other Eyes: denies: No Symptoms, Blind Spots, Blurred Vision, Double Vision, Eye Pain , Floaters, Photophobia, Recent Change in Vision, Other HENT: denies: No Symptoms, Difficult Swallowing, Ear Discharge, Ear Pain, Epistaxis, Gingival Bleeding, Hearing Loss, Mouth Swelling, Nasal Congestion, Ocular Prosthesis, Throat Pain, Toothache, Ringing in Ears, Other Neck: denies: No Symptoms, Decreased ROM, Lumps, Pain on Movement, Stiffness, Swollen Glands, Tenderness, Other Cardiovascular: reports: Edema, Shortness of Breath. denies: No Symptoms, Chest Pain, Palpitations, Other Respiratory: reports: SOB on Exertion. denies: No Symptoms, Cough, Exercise Intolerance, Hemoptysis, Orthopnea, PND, Snoring, SOB, Wheezing, Other Gastrointestinal: denies: No Symptoms, Abdominal Pain, Bloating, Constipation, Diarrhea, Dysphagia, Indigestion, Melena, Nausea, Rectal Bleeding, Vomiting, Vomiting Blood, Other Genitourinary: denies: No Symptoms, Burning, Discharge, Dysuria, Flank Pain, Frequency, Hematuria, Incontinence, Lesions, Menses, Pain, Testicular Mass, Testicular Pain, Testicular Swelling, Urgency, Vaginal Bleeding, Other Breasts: denies: No Symptoms Reported, See HPI, Breast Implants, Discharge from Nipple, Lumps, Pain, Skin Changes, Other Musculoskeletal: reports: Extremity Pain. denies: No Symptoms, Back Pain, Crepitus, Decreased ROM, Joint Pain, Joint Swelling, Muscle Pain, Muscle Cramps , Muscle Weakness, Other Integumentary: reports: Wound. denies: No Symptoms, Blister, Bruising, Change in Color, Eczema, Erythema, Incision, Lesions, Lump, Pallor, Pruritis, Rash, Other Neurological: denies: No Symptoms, Change in LOC, Change in Speech, Confusion, Dizziness, Headache, Incoordination, Numbness, Parasthesia, Pre-Existing Deficit , Seizure, Syncope, Tremors, Unsteady Gait, Weakness, Other Endocrine: denies: No Symptoms, Excessive Sweating, Flushing, Increased Hunger, Increased Thirst, Intolerance to Cold, Intolerance to Heat, Unexplained Weight Gain, Unexplained Weight Loss, Other Hematology/Lymphatic: denies: No Symptoms, Easily Bruised, Excessive Bleeding, Swollen Glands, Other Psychiatric: denies: No Symptoms, Altered Sleep Pattern, Anxiety, Depression, Hallucinations, Panic, Paranoia, Suicidal, Other - Risk Factors Known Risk Factors: Yes: Diabetes Mellitus, Hypercholesterolemia, Hypertension Vital Signs: Vital Signs Temperature 98.1 F 04/07/17 06:42 Pulse Rate 88 04/07/17 06:42 Respiratory Rate 20 04/07/17 06:42 Blood Pressure 150/98 04/07/17 06:42 O2 Sat by Pulse Oximetry (%) 100 04/06/17 21:00 Constitutional: Yes: Well Nourished, No Distress, Calm Eyes: Yes: WNL, Conjunctiva Clear, EOM Intact, PERRL HENT: Yes: WNL, Atraumatic, Normocephalic Neck: Yes: WNL, Supple, Trachea Midline Respiratory: Yes: WNL, Regular, CTA Bilaterally. No: Rales, Rhonchi, Wheezes Gastrointestinal: Yes: WNL, Normal Bowel Sounds, Soft. No: Distention, Tenderness Renal/: Yes: WNL Cardiovascular: Yes: Pulse Irregular. No: Regular Rate and Rhythm, Bradycardia , Tachycardia, Gallop, Rub, Varicosities JVD: No Carotid Bruit: No PMI: Non-Displaced Heart Sounds: Yes: S1, S2. No: Split S2, S3, S4, Clicks, Gallop, Rub, Bruit Murmur: No: Systolic Murmur, Diastolic Murmur Musculoskeletal: Yes: WNL Extremities: Yes: Other (ulcer). No: WNL, Amputation, Calf Tenderness, Cold, Cool, Cyanosis, Deformity, Delayed Capillary Refill, Erythema, External Rotation , Internal Rotation, Pallor, Shortened Edema: LLE: Trace, RLE: Trace Peripheral Pulses WNL: Yes Integumentary: Yes: Other (ulcer) Neurological: Yes: Alert, Oriented Psychiatric: Yes: Alert, Oriented - Other Data Labs, Other Data: CBC, BMP 04/07/17 08:10 04/07/17 06:40 INR, PTT INR 1.97 (0.82-1.09) H 04/07/17 08:10 Troponin, BNP 04/06/17 19:20 B-Natriuretic Peptide 1596.73 H Troponin, BNP 04/06/17 19:20 B-Natriuretic Peptide 1596.73 H reviewed Echo: Report Reviewed Ejection Fraction %: LVEF > or = 40 % Imaging - Results Chest X-ray: Report Reviewed, Image Reviewed EKG: Report Reviewed, Image Reviewed Other: Report Reviewed, Image Reviewed Assessment/Plan 71 year old man with a h/o HTN, DMII, HLD, Afib on coumadin, non-obs CAD, mild pulm HTN, mild thoracic aortic aneursym, HCV, ashtma admitted with R foot ulcer with discharge concerned for osteo. Preop for wound debridement -at this time there is no cardiac contraindication to the planned procedure and pt may proceed without delay for additional cardiac work up -INR is <2 today, coumadin was held, if procedure going to be delayed would start heparin gtt to bridge through surgery with plan to resume Coumadin barbra post op -nuclear stress test was done this year and showed no ischemia (09/18- 4:00 [place] , ecg neg, diaphragm, no ischemia, lvef 67%) -last echo 09/03/16- low nml/mildly reduced lv fxn, nml rv -CTA heart done 10/14- showed- <50% prox lad, otherwise nml coronary arteries, asc aorta 4.2cm Non-obstructive CAD based on CTA 2011 - Nuclear stress test this year showed no ischemia and normal LVEF -Echo this year showed borderline LV function -Euvolemic on exam -Chronic mild dyspnea multifactorieal including copd, pulm htn, likely chronic diastolic chf -cont home medical regimen Afib- HR adequately controlled currently -cont home medical regimen -AC plan as above
--- NOTE | 2017-04-07 10:36 | PN ---
Progress Note (short form) - Note Progress Note: Vascular surgery AVSS WBC count trending down Patient has 2+ DP pulses bilaterally with good capillary refill Right foot has lateral ulcer with foul smelling purulent discharge patient to go to OR with Podiatry for intervention and debridement No Vascular contraindication to proceeding with podiatry to OR for debridement Continue Anticoagulation consider switching to heparin gtt prior to procedure
[2017-04-07 11:21] LABS: TOTAL CELLS COUNTED 100
[2017-04-07 11:22] LABS: PLATELET ESTIMATE ADEQUATE
--- NOTE | 2017-04-07 11:25 | PN ---
Progress Note (short form) - Note Progress Note: Stable overnight. NAD on 2 L NC O2. CXR: yesterday: no acute findings Intake & Output 04/04/17 04/05/17 04/06/17 04/07/17 23:59 23:59 23:59 23:59 Intake Total 0 960 1560 450 Balance 0 960 1560 450 Weight 274 lb 14.4 oz Last Vital Signs Temp Pulse Resp BP Pulse Ox 98.1 F 88 20 150/98 100 04/07/17 06:42 04/07/17 06:42 04/07/17 06:42 04/07/17 06:42 04/06/17 21:00 Active Medications Acetaminophen (Tylenol -) 650 mg PO Q6H PRN PRN Reason: PAIN Albuterol/Ipratropium (Duoneb -) 1 amp NEB Q6H PRN Last Admin: 04/07/17 09:47 Dose: 1 amp Finasteride (Proscar -) 5 mg PO DAILY [facility] Last Admin: 04/07/17 09:45 Dose: 5 mg Glipizide (Glucotrol Xl -) 10 mg PO BIDAC [facility] Last Admin: 04/07/17 06:31 Dose: 10 mg Hydrochlorothiazide (Hctz -) 50 mg PO BID@0600,1800 [facility] Last Admin: 04/07/17 06:12 Dose: 50 mg Piperacillin Sod/Tazobactam (Sod 2.25 gm/ Dextrose) 50 mls @ 100 mls/hr IVPB Q8H-IV [facility] PRN Reason: Protocol Last Admin: 04/07/17 09:45 Dose: 100 mls/hr Insulin Aspart (Novolog Vial Sliding Scale -) 1 vial SQ ACHS [facility] PRN Reason: Protocol Last Admin: 04/07/17 06:31 Dose: Not Given Metformin HCl (Glucophage -) 500 mg PO BIDAC [facility] Last Admin: 04/07/17 06:31 Dose: 500 mg Metoprolol Succinate (Toprol Xl -) 50 mg PO BID [facility] Last Admin: 04/07/17 09:45 Dose: 50 mg Tamsulosin HCl (Flomax -) 0.4 mg PO DAILY@0830 [facility] Last Admin: 04/07/17 09:45 Dose: 0.4 mg Constitutional: Yes: NAD HENT: Yes: WNL Neck: Yes: WNL, Supple Cardiovascular: Yes: WNL, Regular Rate and Rhythm Respiratory: Yes: WNL, Regular, CTA Bilaterally Gastrointestinal: Yes: WNL, Normal Bowel Sounds, Soft, Abdomen, Obese Extremities: Yes: Other (RT 5th RT toe w/ ulcer a/ surrounding erythema) Edema: LLE: Trace, RLE: Trace Labs: Laboratory Results - last 24 hr 04/06/17 04/06/17 04/06/17 11:36 17:26 19:20 WBC RBC Hgb Hct MCV MCH MCHC RDW Plt Count MPV Total Counted Neutrophils % Neutrophils % (Manual) Lymphocytes % Lymphocytes % (Manual) Monocytes % (Manual) Eosinophils % (Manual) Basophils % (Manual) Platelet Estimate PT with INR INR Sodium Potassium Chloride Carbon Dioxide Anion Gap BUN Creatinine Creat Clearance w eGFR POC Glucometer 166 92 Random Glucose Calcium Total Bilirubin AST ALT Alkaline Phosphatase B-Natriuretic Peptide 1596.73 H Total Protein Albumin Random Vancomycin Blood Type Antibody Screen 04/06/17 04/07/17 04/07/17 21:09 05:36 06:40 WBC 11.9 H D RBC 3.85 L Hgb 11.4 L Hct 34.7 L MCV 90.0 MCH 29.5 MCHC 32.8 RDW 17.1 H Plt Count 323 MPV 8.8 Total Counted 100 Neutrophils % No Result Required. Neutrophils % (Manual) 57.0 Lymphocytes % No Result Required. Lymphocytes % (Manual) 24.0 Monocytes % (Manual) 16 H* Eosinophils % (Manual) 1.0 Basophils % (Manual) 2.0 Platelet Estimate Adequate PT with INR INR Sodium Potassium Chloride Carbon Dioxide Anion Gap BUN Creatinine Creat Clearance w eGFR POC Glucometer 139 107 Random Glucose Calcium Total Bilirubin AST ALT Alkaline Phosphatase B-Natriuretic Peptide Total Protein Albumin Random Vancomycin Blood Type Antibody Screen 04/07/17 04/07/17 04/07/17 06:40 06:40 08:10 WBC RBC Hgb Hct MCV MCH MCHC RDW Plt Count MPV Total Counted Neutrophils % Neutrophils % (Manual) Lymphocytes % Lymphocytes % (Manual) Monocytes % (Manual) Eosinophils % (Manual) Basophils % (Manual) Platelet Estimate PT with INR 23.10 H INR 2.04 H D Sodium 138 Potassium 4.2 Chloride 104 Carbon Dioxide 26 Anion Gap 8 BUN 37 H D Creatinine 1.3 D Creat Clearance w eGFR 54.42 POC Glucometer Random Glucose 85 D Calcium 8.9 Total Bilirubin 0.8 AST 75 H D ALT 119 H D Alkaline Phosphatase 226 H D B-Natriuretic Peptide Total Protein 8.2 Albumin 2.8 L Random Vancomycin 10.069 Blood Type Antibody Screen 04/07/17 04/07/17 04/07/17 08:10 08:10 08:10 WBC 12.7 H RBC 3.91 L Hgb 11.6 L Hct 35.1 L MCV 89.9 MCH 29.7 MCHC 33.1 RDW 17.2 H Plt Count 339 MPV 8.2 Total Counted Neutrophils % Neutrophils % (Manual) Lymphocytes % Lymphocytes % (Manual) Monocytes % (Manual) Eosinophils % (Manual) Basophils % (Manual) Platelet Estimate PT with INR 22.30 H INR 1.97 H Sodium Potassium Chloride Carbon Dioxide Anion Gap BUN Creatinine Creat Clearance w eGFR POC Glucometer Random Glucose Calcium Total Bilirubin AST ALT Alkaline Phosphatase B-Natriuretic Peptide Total Protein Albumin Random Vancomycin Blood Type AB POSITIVE Antibody Screen Negative Problem List - Problems (1) Dyspnea Code(s): R06.00 - DYSPNEA, UNSPECIFIED (2) Cellulitis of foot Code(s): L03.119 - CELLULITIS OF UNSPECIFIED PART OF LIMB (3) Diabetes Code(s): E11.9 - TYPE 2 DIABETES MELLITUS WITHOUT COMPLICATIONS (4) Foot ulcer Code(s): L97.509 - NON-PRESSURE CHRONIC ULCER OTH PRT UNSP FOOT W UNSP SEVERITY Qualifiers: Laterality: right Non-pressure ulcer stage: unspecified non-pressure ulcer stage Qualified Code(s): L97.519 - Non-pressure chronic ulcer of other part of right foot with unspecified severity (5) Supratherapeutic INR Code(s): R79.1 - ABNORMAL COAGULATION PROFILE (6) COPD (chronic obstructive pulmonary disease) Code(s): J44.9 - CHRONIC OBSTRUCTIVE PULMONARY DISEASE, UNSPECIFIED (7) Cardiomyopathy Code(s): I42.9 - CARDIOMYOPATHY, UNSPECIFIED (8) Cardiomyopathy Code(s): I42.9 - CARDIOMYOPATHY, UNSPECIFIED (9) Cardiomyopathy Code(s): I42.9 - CARDIOMYOPATHY, UNSPECIFIED (10) Afib Code(s): I48.91 - UNSPECIFIED ATRIAL FIBRILLATION (11) HTN (hypertension) Code(s): I10 - ESSENTIAL (PRIMARY) HYPERTENSION IMP DYSPNEA COPD CHF CARDIOMYOPATHY AFIB RIGHT FOOT ULCER OSTEOMYELITIS LIKELY OSAS SUPRA-THERAPEUTIC INR PLAN IV ANTIBIOTICS PER ID O2 PRN INHALED BRONCHODILATORS SLEEP SCREEN NO PULMONARY CONTRAINDICATION FOR OR DR POSADA
--- NOTE | 2017-04-07 15:51 | PN ---
Progress Note (short form) - Note Progress Note: no complaints reports he is having operative debridement tomorrow Vital Signs Period Temp Pulse Resp BP Sys/Servin Pulse Ox Last 24 Hr 97.7 F-98.5 F 86-90 16-20 126-150/48-98 98-100 cor-rrr lungs clear abd soft,nt ext +erythema of the right foot with open ulcer draining pus on lateral aspect + necrotic CBC, BMP 04/07/17 08:10 04/07/17 06:40 Microbiology 04/04/17 14:30 Blood - Peripheral Venous Blood Culture - Preliminary NO GROWTH OBTAINED AFTER 72 HOURS, INCUBATION TO CONTINUE FOR 2 DAYS. 04/04/17 14:30 Blood - Peripheral Venous Blood Culture - Preliminary NO GROWTH OBTAINED AFTER 72 HOURS, INCUBATION TO CONTINUE FOR 2 DAYS. 04/06/17 11:30 Foot - Right Lateral Gram Stain - Final 04/06/17 11:30 Foot - Right Lateral Wound Culture - Preliminary Staphylococcus Coagulase Neg MRI +osteo a/p diabetic foot infection- with abscess/gangrene- for debridement will require residential iv antibiotics for osteomyelitis
[2017-04-07] MEDS ORDERED: HEPARIN NA (PORCINE) 5,000 UNITS/ML 1ML VIAL IVPUSH PRN ×2 (18:53)
[2017-04-07] MEDS ORDERED: HEPARIN INFUSION - 25,000 UNITS/500 ML INFUS.BAG IV SCH (19:00)
--- NOTE | 2017-04-07 21:30 | PN ---
Progress Note, Physician History of Present Illness: No new complaints - Current Medication List Current Medications: Active Medications Acetaminophen (Tylenol -) 650 mg PO Q6H PRN PRN Reason: PAIN Albuterol/Ipratropium (Duoneb -) 1 amp NEB Q6H PRN Last Admin: 04/07/17 09:47 Dose: 1 amp Finasteride (Proscar -) 5 mg PO DAILY [facility] Last Admin: 04/07/17 09:45 Dose: 5 mg Glipizide (Glucotrol Xl -) 10 mg PO BIDAC [facility] Last Admin: 04/07/17 06:31 Dose: 10 mg Heparin Sodium (Porcine) (Heparin -) 1,000 unit IVPUSH PRN PRN PRN Reason: Heparin Heparin Sodium (Porcine) (Heparin -) 5,000 unit IVPUSH PRN PRN PRN Reason: Heparin Hydrochlorothiazide (Hctz -) 50 mg PO BID@0600,1800 [facility] Last Admin: 04/07/17 18:22 Dose: 50 mg Piperacillin Sod/Tazobactam (Sod 2.25 gm/ Dextrose) 50 mls @ 100 mls/hr IVPB Q8H-IV [facility] PRN Reason: Protocol Last Admin: 04/07/17 18:26 Dose: 100 mls/hr Heparin Sodium/Dextrose (Heparin Infusion -) 25,000 units in 500 mls @ 20 mls/ hr IV TITR [facility] ALBERTO; 1,000 UNITS/HR PRN Reason: Protocol Insulin Aspart (Novolog Vial Sliding Scale -) 1 vial SQ ACHS [facility] PRN Reason: Protocol Last Admin: 04/07/17 18:05 Dose: Not Given Metformin HCl (Glucophage -) 500 mg PO BIDAC [facility] Last Admin: 04/07/17 06:31 Dose: 500 mg Metoprolol Succinate (Toprol Xl -) 50 mg PO BID [facility] Last Admin: 04/07/17 09:45 Dose: 50 mg Tamsulosin HCl (Flomax -) 0.4 mg PO DAILY@0830 [facility] Last Admin: 04/07/17 09:45 Dose: 0.4 mg - Objective Vital Signs: Vital Signs Temperature 98.4 F 04/07/17 17:31 Pulse Rate 82 04/07/17 17:31 Respiratory Rate 20 04/07/17 17:31 Blood Pressure 143/80 04/07/17 17:31 O2 Sat by Pulse Oximetry (%) 98 04/07/17 09:00 Constitutional: Yes: Well Nourished HENT: Yes: WNL Neck: Yes: WNL, Supple Cardiovascular: Yes: WNL, Regular Rate and Rhythm Respiratory: Yes: WNL, Regular, CTA Bilaterally Gastrointestinal: Yes: WNL, Normal Bowel Sounds, Soft Extremities: Yes: Other (Rt 5th toe odorous ulcer) Labs: CBC, BMP 04/07/17 08:10 04/07/17 06:40 INR, PTT INR 1.97 (0.82-1.09) H 04/07/17 08:10 Problem List - Problems (1) Diabetic foot ulcer Assessment/Plan: MRI Rt foot showed changes in 2nd/3rd/4th metatarsal suggestive of oste Cont IV vanco/zosyn Follow cultures Pt for surgical debridement in am Code(s): E11.621 - TYPE 2 DIABETES MELLITUS WITH FOOT ULCER; L97.509 - NON- PRESSURE CHRONIC ULCER OTH PRT UNSP FOOT W UNSP SEVERITY Qualifiers: Diabetic foot ulcer location: toe Laterality: right (2) Afib Assessment/Plan: Restart coumadin in am Monitor daily pt/inr Code(s): I48.91 - UNSPECIFIED ATRIAL FIBRILLATION (3) BPH (benign prostatic hyperplasia) Assessment/Plan: Cont proscar Code(s): N40.0 - BENIGN PROSTATIC HYPERPLASIA WITHOUT LOWER URINRY TRACT SYMP (4) COPD (chronic obstructive pulmonary disease) Assessment/Plan: As per pulmonary Cont nebulizers Code(s): J44.9 - CHRONIC OBSTRUCTIVE PULMONARY DISEASE, UNSPECIFIED (5) Cardiomyopathy Code(s): I42.9 - CARDIOMYOPATHY, UNSPECIFIED (6) Diabetes Assessment/Plan: Cont metformin/glipizide Cont FS tid w/ sliding scale Code(s): E11.9 - TYPE 2 DIABETES MELLITUS WITHOUT COMPLICATIONS (7) HTN (hypertension) Code(s): I10 - ESSENTIAL (PRIMARY) HYPERTENSION
[2017-04-08] MEDS ORDERED: WARFARIN NA 3 MG TABLET PO SCH (02:00)
[2017-04-08] MEDS: PIPERACILLIN/TAZOB 2.25 GM 2.25 GM in DEXTROSE 5%-WATER - 50 ML IVPB SCH ×2 (02:00→10:34)
[2017-04-08] MEDS: HYDROCHLOROTHIAZIDE 50 MG TABLET PO SCH (05:30)
[2017-04-08] MEDS: INSULIN SLIDING SCALE (NOVOLOG) 1 VIAL SQ SCH ×4 (06:33→22:04)
[2017-04-08 08:27] LABS: INR 1.87 (0.82-1.09); PROTHROMBIN TIME (PATIENT) 21.1 SEC (9.98-11.88)
--- NOTE | 2017-04-08 08:46 | PN ---
Progress Note, Physician Chief Complaint: no chest pain or SOB - Current Medication List Current Medications: Active Medications Acetaminophen (Tylenol -) 650 mg PO Q6H PRN PRN Reason: PAIN Albuterol/Ipratropium (Duoneb -) 1 amp NEB Q6H PRN Last Admin: 04/07/17 09:47 Dose: 1 amp Finasteride (Proscar -) 5 mg PO DAILY [facility] Last Admin: 04/07/17 09:45 Dose: 5 mg Heparin Sodium (Porcine) (Heparin -) 1,000 unit IVPUSH PRN PRN PRN Reason: Heparin Last Admin: 04/08/17 05:28 Dose: 1,000 unit Heparin Sodium (Porcine) (Heparin -) 5,000 unit IVPUSH PRN PRN PRN Reason: Heparin Hydrochlorothiazide (Hctz -) 50 mg PO BID@0600,1800 [facility] Last Admin: 04/08/17 05:30 Dose: Not Given Piperacillin Sod/Tazobactam (Sod 2.25 gm/ Dextrose) 50 mls @ 100 mls/hr IVPB Q8H-IV [facility]ES[facility] ALBERTO PRN Reason: Protocol Last Admin: 04/08/17 02:00 Dose: 100 mls/hr Heparin Sodium/Dextrose (Heparin Infusion -) 25,000 units in 500 mls @ 20 mls/ hr IV TITR JESUS ALBERTO; 1,000 UNITS/HR PRN Reason: Protocol Last Titration: 04/08/17 05:30 Dose: 1,100 units/hr, 22 mls/hr Insulin Aspart (Novolog Vial Sliding Scale -) 1 vial SQ ACHS JES[facility] ALBERTO PRN Reason: Protocol Last Admin: 04/08/17 06:33 Dose: Not Given Metoprolol Succinate (Toprol Xl -) 50 mg PO BID [facility] Last Admin: 04/07/17 21:53 Dose: 50 mg Tamsulosin HCl (Flomax -) 0.4 mg PO DAILY@0830 [facility] Last Admin: 04/07/17 09:45 Dose: 0.4 mg Warfarin Sodium (Coumadin -) 3 mg PO DAILY@1800 [facility] Last Admin: 04/08/17 02:16 Dose: Not Given - Objective Vital Signs: Vital Signs Temperature 98.1 F 04/08/17 06:03 Pulse Rate 89 04/08/17 06:03 Respiratory Rate 20 04/08/17 06:03 Blood Pressure 135/96 04/08/17 06:03 O2 Sat by Pulse Oximetry (%) 97 04/07/17 21:00 Constitutional: Yes: No Distress Cardiovascular: Yes: Pulse Irregular Respiratory: Yes: CTA Bilaterally Gastrointestinal: Yes: Soft, Abdomen, Obese Edema: No Neurological: Yes: Alert, Oriented ...Motor Strength: WNL Labs: CBC, BMP 04/07/17 08:10 04/08/17 07:21 INR, PTT INR 1.87 (0.82-1.09) H 04/08/17 07:21 Microbiology 04/06/17 11:30 Foot - Right Lateral Gram Stain - Final 04/06/17 11:30 Foot - Right Lateral Wound Culture - Preliminary Staphylococcus Coagulase Neg 04/04/17 14:30 Blood - Peripheral Venous Blood Culture - Preliminary NO GROWTH OBTAINED AFTER 72 HOURS, INCUBATION TO CONTINUE FOR 2 DAYS. 04/04/17 14:30 Blood - Peripheral Venous Blood Culture - Preliminary NO GROWTH OBTAINED AFTER 72 HOURS, INCUBATION TO CONTINUE FOR 2 DAYS. Laboratory Tests 04/07/17 04/07/17 04/08/17 06:40 08:10 07:21 WBC 12.7 H Hgb 11.6 L Plt Count 339 INR 1.87 H Potassium 4.2 Creatinine 1.3 D 04/08/17 07:21 WBC Hgb Plt Count INR Potassium Cancelled Creatinine Cancelled Assessment/Plan Assessment/Plan 71 year old man with a h/o HTN, DMII, HLD, Afib on coumadin, non-obs CAD, mild pulm HTN, mild thoracic aortic aneursym, HCV, ashtma admitted with R foot ulcer with discharge concerned for osteo. Preop for wound debridement -at this time there is no cardiac contraindication to the planned procedure and pt may proceed without delay for additional cardiac work up -nuclear stress test was done this year and showed no ischemia (09/18- 4:00 [place] , ecg neg, diaphragm, no ischemia, lvef 67%) -last echo 09/03/16- low nml/mildly reduced lv fxn, nml rv -CTA heart done 10/14- showed- <50% prox lad, otherwise nml coronary arteries, asc aorta 4.2cm Non-obstructive CAD based on CTA 2011 - Nuclear stress test this year showed no ischemia and normal LVEF -Echo this year showed borderline LV function -Euvolemic on exam -Chronic mild dyspnea multifactorieal including copd, pulm htn, likely chronic diastolic chf -cont home medical regimen Afib- HR adequately controlled currently -cont home medical regimen -On heparin gtts, transition hep to coumadin postop
--- NOTE | 2017-04-08 10:06 | CONSULT ---
Consult - text type - Consultation Consultation Note: Podiatry Consultation: Pleasant 71 year old IDDM M presents for admission for R 5th MTPJ diabetic ulcer , abscess, cellulitis. Patient relates 1 week history of ulcer with increasing swelling/pain to the foot. 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 He denies F/V/N/C/SOB/CP. Sugars fairly controlled. Currently afebrile. PMHx: IDDM, HTN, HLP, AFib on coumadin Meds: noted ALL: NKMA CUCA: R foot: pedal pulses palpable, TG wnl, CFT warm-warmer RLE. There is a necrotic , boggy diabetic ulcer 5th MTPJ with underlying fibrotic, liquefactive tissue, ( +) purulence, (+) probing to bone, no soft tissue crepitus. No tenderness to palpation. WBC: 12.7 Blood Cx: no growth x 72 hrs ESR: 122 R foot XR: no radiographic evidence of OM R foot MRI: evolving abscess, osteomyelitis 5th MTPJ Imp: 71 year old IDDM M with R 5th MTPJ abscess, osteomyelitis 1. IV abx per Infectious Disease 2. Discussed risks, benefits, alternatives to sx at length with patient. He is amenable for planned procedure. Plan for debridement/lavage with 5th metatarsal head resection and bone biopsy 3. 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 Discussed case with Cardiology, plan to stop heparin drip around 11 for planned procedure at 1 5. Will closely follow perioperatively. Thank you for the courtesy of this consultation. Christian Dos Santos DPM
[2017-04-08] MEDS ORDERED: PT OWN MED DRAWER 7, Y5N ONE ×2 (10:27→17:46)
[2017-04-08] MEDS: TAMSULOSIN HCL 0.4 MG CAP.ER.24H (FP) PO SCH (10:34)
[2017-04-08] MEDS: METOPROLOL SUCCINATE 50 MG TAB.SR.24H (FP) PO SCH ×2 (10:34→22:02)
[2017-04-08] MEDS: FINASTERIDE 5 MG TABLET (FP) PO SCH (10:34)
[2017-04-08 10:51] LABS: MCHC 32.2 g/dl (32.0-35.9); MEAN CELL VOLUME 90.1 fl (80-96); MEAN PLT VOLUME 8.2 fl (7.5-11.1); PLATELET COUNT 402 K/MM3 (134-434); RDW 16.9 % (11.9-15.9); WHITE BLOOD COUNT 12.6 K/mm3 (4.0-10.0)
[2017-04-08 11:24] LABS: ALBUMIN 2.7 g/dl (3.4-5.0); ANION GAP 9 (8-16); CO2 27 mmol/L (21-32); GLUCOSE,RANDOM 91 mg/dL (74-106)
[2017-04-08 11:29] LABS: ALK PHOS 216 U/L (45-117); BILIRUBIN,TOTAL 0.7 mg/dL (0.2-1.0); CREATININE 1.3 mg/dL (0.7-1.3); SGOT/AST 36 U/L (15-37); SGPT/ALT 85 U/L (12-78); TOT PROT 8.2 g/dl (6.4-8.2)
--- NOTE | 2017-04-08 11:37 | PN ---
Progress Note (short form) - Note Progress Note: Stable overnight. NAD. No acute events overnight. Intake & Output 04/05/17 04/06/17 04/07/17 04/08/17 23:59 23:59 23:59 23:59 Intake Total 960 1560 840 140 Balance 960 1560 840 140 Last Vital Signs Temp Pulse Resp BP Pulse Ox 98.1 F 89 20 135/96 97 04/08/17 06:03 04/08/17 06:03 04/08/17 06:03 04/08/17 06:03 04/07/17 21:00 Active Medications Acetaminophen (Tylenol -) 650 mg PO Q6H PRN PRN Reason: PAIN Albuterol/Ipratropium (Duoneb -) 1 amp NEB Q6H PRN Last Admin: 04/07/17 09:47 Dose: 1 amp Finasteride (Proscar -) 5 mg PO DAILY [facility] Last Admin: 04/08/17 10:34 Dose: 5 mg Hydrochlorothiazide (Hctz -) 50 mg PO BID@0600,1800 [facility] Last Admin: 04/08/17 05:30 Dose: Not Given Piperacillin Sod/Tazobactam (Sod 2.25 gm/ Dextrose) 50 mls @ 100 mls/hr IVPB Q8H-IV [facility]ERTO PRN Reason: Protocol Last Admin: 04/08/17 10:34 Dose: 100 mls/hr Insulin Aspart (Novolog Vial Sliding Scale -) 1 vial SQ ACHS [facility]ES[facility] ALBERTO PRN Reason: Protocol Last Admin: 04/08/17 06:33 Dose: Not Given Metoprolol Succinate (Toprol Xl -) 50 mg PO BID [facility] Last Admin: 04/08/17 10:34 Dose: 50 mg Tamsulosin HCl (Flomax -) 0.4 mg PO DAILY@0830 [facility] Last Admin: 04/08/17 10:34 Dose: 0.4 mg Warfarin Sodium (Coumadin -) 3 mg PO DAILY@1800 [facility] Last Admin: 04/08/17 02:16 Dose: Not Given Constitutional: Yes: NAD HENT: Yes: WNL Neck: Yes: WNL, Supple Cardiovascular: Yes: WNL, Regular Rate and Rhythm Respiratory: Yes: WNL, Regular, CTA Bilaterally Gastrointestinal: Yes: WNL, Normal Bowel Sounds, Soft, Abdomen, Obese Extremities: Yes: Other (RT 5th RT toe w/ ulcer a/ surrounding erythema) Edema: LLE: Trace, RLE: Trace Labs: Laboratory Results - last 24 hr 04/07/17 04/07/17 04/07/17 11:31 17:11 21:51 WBC RBC Hgb Hct MCV MCH MCHC RDW Plt Count MPV Neutrophils % Lymphocytes % PT with INR INR PTT (Actin FS) Sodium Potassium Chloride Carbon Dioxide Anion Gap BUN Creatinine Creat Clearance w eGFR POC Glucometer 146 90 145 Random Glucose Calcium Total Bilirubin AST ALT Alkaline Phosphatase Total Protein Albumin 04/08/17 04/08/17 04/08/17 04:20 05:29 07:21 WBC RBC Hgb Hct MCV MCH MCHC RDW Plt Count MPV Neutrophils % Lymphocytes % PT with INR 21.10 H INR 1.87 H PTT (Actin FS) 45.2 H Sodium Potassium Chloride Carbon Dioxide Anion Gap BUN Creatinine Creat Clearance w eGFR POC Glucometer 161 Random Glucose Calcium Total Bilirubin AST ALT Alkaline Phosphatase Total Protein Albumin 04/08/17 04/08/17 04/08/17 07:21 09:40 09:40 WBC 12.6 H RBC 4.00 Hgb 11.6 L Hct 36.0 MCV 90.1 MCH 29.0 MCHC 32.2 RDW 16.9 H Plt Count 402 MPV 8.2 Neutrophils % No Result Required. Lymphocytes % No Result Required. PT with INR INR PTT (Actin FS) Sodium Cancelled 137 Potassium Cancelled 4.7 Chloride Cancelled 101 Carbon Dioxide Cancelled 27 Anion Gap Cancelled 9 BUN Cancelled 33 H Creatinine Cancelled 1.3 Creat Clearance w eGFR Cancelled 54.42 POC Glucometer Random Glucose Cancelled 91 Calcium Cancelled 9.0 Total Bilirubin Cancelled 0.7 AST Cancelled 36 D ALT Cancelled 85 H D Alkaline Phosphatase Cancelled 216 H Total Protein Cancelled 8.2 Albumin Cancelled 2.7 L Problem List - Problems (1) Dyspnea Code(s): R06.00 - DYSPNEA, UNSPECIFIED (2) Cellulitis of foot Code(s): L03.119 - CELLULITIS OF UNSPECIFIED PART OF LIMB (3) Diabetes Code(s): E11.9 - TYPE 2 DIABETES MELLITUS WITHOUT COMPLICATIONS (4) Foot ulcer Code(s): L97.509 - NON-PRESSURE CHRONIC ULCER OTH PRT UNSP FOOT W UNSP SEVERITY Qualifiers: Laterality: right Non-pressure ulcer stage: unspecified non-pressure ulcer stage Qualified Code(s): L97.519 - Non-pressure chronic ulcer of other part of right foot with unspecified severity (5) Supratherapeutic INR Code(s): R79.1 - ABNORMAL COAGULATION PROFILE (6) COPD (chronic obstructive pulmonary disease) Code(s): J44.9 - CHRONIC OBSTRUCTIVE PULMONARY DISEASE, UNSPECIFIED (7) Cardiomyopathy Code(s): I42.9 - CARDIOMYOPATHY, UNSPECIFIED (8) Cardiomyopathy Code(s): I42.9 - CARDIOMYOPATHY, UNSPECIFIED (9) Cardiomyopathy Code(s): I42.9 - CARDIOMYOPATHY, UNSPECIFIED (10) Afib Code(s): I48.91 - UNSPECIFIED ATRIAL FIBRILLATION (11) HTN (hypertension) Code(s): I10 - ESSENTIAL (PRIMARY) HYPERTENSION IMP DYSPNEA COPD CHF CARDIOMYOPATHY AFIB RIGHT FOOT ULCER OSTEOMYELITIS LIKELY OSAS SUPRA-THERAPEUTIC INR PLAN IV ANTIBIOTICS PER ID O2 PRN INHALED BRONCHODILATORS SLEEP SCREEN NO PULMONARY CONTRAINDICATION FOR OR DR POSADA
[2017-04-08 12:14] LABS: TOTAL CELLS COUNTED 100
[2017-04-08 12:15] LABS: METAMYELOCYTE 3 % (0-2); MYELOCYTE 1 % (0-2); PLATELET ESTIMATE ADEQUATE
[2017-04-08] MEDS ORDERED: LIDOCAINE HCL 2% (20ML MULTI-DOSE VIAL) NR ONE (13:27)
[2017-04-08] MEDS ORDERED: MIDAZOLAM HCL 2 MG/2 ML SINGLE DOSE VIAL ONE (13:31)
[2017-04-08] MEDS ORDERED: PROPOFOL 20 ML ONE (13:47)
--- NOTE | 2017-04-08 15:03 | PN ---
Physical Exam: SUBJECTIVE: Patient seen and examined at the bedside. States he feels well, denies shortness of breath or pain. OBJECTIVE: s/p right diabetic foot ulcer with osteomyelitis s/p rfoot debridement/lavage with 5th metatarsal head resection, bone biopsy Vital Signs Period Temp Pulse Resp BP Sys/Servin Pulse Ox Last 24 Hr 98.1 F-98.6 F 82-93 20-20 135-143/62-96 97-97 GENERAL: The patient is awake, alert, and fully oriented, in no acute distress. HEAD: Normal with no signs of trauma. EYES: PERRL, extraocular movements intact, sclera anicteric, conjunctiva clear. No ptosis. ENT: Ears normal, nares patent, oropharynx clear without exudates, moist mucous membranes. NECK: Trachea midline, full range of motion, supple. ABDOMEN: Soft, nontender, nondistended, normoactive bowel sounds, no guarding, no rebound, no hepatosplenomegaly, no masses. EXTREMITIES: right foot diabetic ulcer, wound wrapped: for surgical debridement today NEUROLOGICAL: Normal speech, gait not observed. PSYCH: Normal mood, normal affect. Laboratory Results - last 24 hr 04/07/17 04/07/17 04/08/17 17:11 21:51 04:20 WBC RBC Hgb Hct MCV MCH MCHC RDW Plt Count MPV Total Counted Neutrophils % Neutrophils % (Manual) Band Neutrophils % Lymphocytes % Lymphocytes % (Manual) Monocytes % (Manual) Eosinophils % (Manual) Basophils % (Manual) Myelocytes % (Man) Metamyelocytes Platelet Estimate PT with INR INR PTT (Actin FS) 45.2 H Sodium Potassium Chloride Carbon Dioxide Anion Gap BUN Creatinine Creat Clearance w eGFR POC Glucometer 90 145 Random Glucose Calcium Total Bilirubin AST ALT Alkaline Phosphatase Total Protein Albumin Stool Occult Blood 04/08/17 04/08/17 04/08/17 05:29 07:21 07:21 WBC RBC Hgb Hct MCV MCH MCHC RDW Plt Count MPV Total Counted Neutrophils % Neutrophils % (Manual) Band Neutrophils % Lymphocytes % Lymphocytes % (Manual) Monocytes % (Manual) Eosinophils % (Manual) Basophils % (Manual) Myelocytes % (Man) Metamyelocytes Platelet Estimate PT with INR 21.10 H INR 1.87 H PTT (Actin FS) Sodium Cancelled Potassium Cancelled Chloride Cancelled Carbon Dioxide Cancelled Anion Gap Cancelled BUN Cancelled Creatinine Cancelled Creat Clearance w eGFR Cancelled POC Glucometer 161 Random Glucose Cancelled Calcium Cancelled Total Bilirubin Cancelled AST Cancelled ALT Cancelled Alkaline Phosphatase Cancelled Total Protein Cancelled Albumin Cancelled Stool Occult Blood 04/08/17 04/08/17 04/08/17 09:40 09:40 10:50 WBC 12.6 H RBC 4.00 Hgb 11.6 L Hct 36.0 MCV 90.1 MCH 29.0 MCHC 32.2 RDW 16.9 H Plt Count 402 MPV 8.2 Total Counted 100 Neutrophils % No Result Required. Neutrophils % (Manual) 71.0 D Band Neutrophils % 1.0 Lymphocytes % No Result Required. Lymphocytes % (Manual) 16.0 D Monocytes % (Manual) 4 Eosinophils % (Manual) 1.0 Basophils % (Manual) 3.0 H Myelocytes % (Man) 1 Metamyelocytes 3 H Platelet Estimate Adequate PT with INR INR PTT (Actin FS) Sodium 137 Potassium 4.7 Chloride 101 Carbon Dioxide 27 Anion Gap 9 BUN 33 H Creatinine 1.3 Creat Clearance w eGFR 54.42 POC Glucometer Random Glucose 91 Calcium 9.0 Total Bilirubin 0.7 AST 36 D ALT 85 H D Alkaline Phosphatase 216 H Total Protein 8.2 Albumin 2.7 L Stool Occult Blood Negative 04/08/17 12:38 WBC RBC Hgb Hct MCV MCH MCHC RDW Plt Count MPV Total Counted Neutrophils % Neutrophils % (Manual) Band Neutrophils % Lymphocytes % Lymphocytes % (Manual) Monocytes % (Manual) Eosinophils % (Manual) Basophils % (Manual) Myelocytes % (Man) Metamyelocytes Platelet Estimate PT with INR INR PTT (Actin FS) Sodium Potassium Chloride Carbon Dioxide Anion Gap BUN Creatinine Creat Clearance w eGFR POC Glucometer 110 Random Glucose Calcium Total Bilirubin AST ALT Alkaline Phosphatase Total Protein Albumin Stool Occult Blood Active Medications Generic Name Dose Route Start Last Admin Trade Name Freq PRN Reason Stop Dose Admin Acetaminophen 650 mg 04/05/17 14:36 Tylenol - PO Q6H PRN PAIN Albuterol/Ipratropium 1 amp 04/05/17 14:32 04/07/17 09:47 Duoneb - NEB 1 amp Q6H PRN Administration Finasteride 5 mg 04/05/17 10:36 04/08/17 10:34 Proscar - PO 5 mg DAILY [facility] Administration Hydrochlorothiazide 50 mg 04/06/17 06:00 04/08/17 05:30 Hctz - PO Not Given BID@0600,1800 [facility] Piperacillin Sod/Tazobactam 50 mls @ 100 mls/hr 04/06/17 10:00 04/08/17 10:34 Sod 2.25 gm/ Dextrose IVPB 100 mls/hr Q8H-IV JESUS ALBERTO Administration Protocol Insulin Aspart 1 vial 04/05/17 11:00 04/08/17 12:39 Novolog Vial Sliding Scale - SQ Not Given ACHS [facility] Protocol Metoprolol Succinate 50 mg 04/05/17 10:30 04/08/17 10:34 Toprol Xl - PO 50 mg BID [facility] Administration Tamsulosin HCl 0.4 mg 04/05/17 10:30 04/08/17 10:34 Flomax - PO 0.4 mg DAILY@0830 [facility] Administration Warfarin Sodium 3 mg 04/08/17 02:00 04/08/17 02:16 Coumadin - PO Not Given DAILY@1800 [facility] ASSESSMENT/PLAN: Patient is a 71 y/o male with a past medical history of HTN, Afib, cardiomyopathy, BPH and diabetes. He presented to the ER because of worsening pain and infected right foot. Imaging: MRI of RLE, likely osteomylitis Vascular/ID: Right diabetic foot ulcer with osteomyelitis s/p rfoot debridement/lavage with 5th metatarsal head resection, bone biopsy On Vancomycin/Zosyn as per ID S/P surgical debridement of wound today heparin drip stopped post procedure, continue Coumadin tonight Cardiology: Atrial Fibrillation, chronic S/P heparin drip, stopped after procedure Continue Coumadin tonight Hypertension, chronic BP not at goal but improving HCTZ BID, Toprol 50mg BID Monitor BP Pulmonary: COPD, not in acute exacerbation On Nebs Tolerating room air Incentive spirometer post op Endocrine: Diabetes continue sliding scale F.E.N. Fluids: tolerating PO Electrolytes: monitor Nutrition: diabetic diet Prophylaxis: DVT: On coumadin, monitor INR GI: deferred Disposition: full code. Visit type - Emergency Visit Emergency Visit: Yes ED Registration Date: 04/04/17 Care time: The patient presented to the Emergency Department on the above date and was hospitalized for further evaluation of their emergent condition. - New Patient This patient is new to me today: Yes Date on this admission: 04/08/17 - Critical Care Critical Care patient: No - Discharge Referral Referred to [facility] No
--- NOTE | 2017-04-08 16:00 | OP ---
Operative Note - Note: Operative Date: 04/08/17 Pre-Operative Diagnosis: R foot diabetic ulcer with osteomyelitis Operation: R foot debridement/lavage with 5th metatarsal head resection and bone biopsy Post-Operative Diagnosis: Same as Pre-op Surgeon: Forrest Dos Santos Anesthesia: Local, MAC Specimens Removed: Bone and soft tissue right foot Estimated Blood Loss (mls): 20 Instrument used (Debridements only): #15 blade and scissors Operative Report Dictated: Yes
[2017-04-08] MEDS: oxyCODONE HCL 5 MG TABLET PO PRN ×2 (16:48→22:01)
[2017-04-08] MEDS: ACETAMINOPHEN 325 MG TABLET (FP) PO PRN ×2 (16:50→22:01)
[2017-04-08] MEDS ORDERED: PIPERACILLIN/TAZOB 3.375 GM/50 ML PRE-DOCKED IVPB SCH (17:15)
[2017-04-08] MEDS ORDERED: VANCOMYCIN 1,250 MG in DEXTROSE 5%-WATER - 250 ML IVPB ONE (17:30)
[2017-04-08] MEDS ORDERED: glipiZIDE 10 MG TABLET (FP) PO SCH (17:30)
[2017-04-08] MEDS: WARFARIN NA 3 MG TABLET PO SCH (17:50)
[2017-04-08] MEDS: PIPERACILLIN/TAZOB 3.375 GM 3.375 GM in DEXTROSE 5%-WATER - 50 ML IVPB SCH (17:50)
[2017-04-08] MEDS ORDERED: PIPERACILLIN/TAZOB 2.25 GM 2.25 GM in DEXTROSE 5%-WATER - 50 ML IVPB SCH (18:00)
[2017-04-08] MEDS ORDERED: HYDROCHLOROTHIAZIDE 50 MG TABLET PO SCH (18:00)
[2017-04-09] MEDS: PIPERACILLIN/TAZOB 3.375 GM 3.375 GM in DEXTROSE 5%-WATER - 50 ML IVPB SCH ×3 (03:54→17:35)
[2017-04-09] MEDS: INSULIN SLIDING SCALE (NOVOLOG) 1 VIAL SQ SCH ×4 (06:58→23:31)
[2017-04-09] MEDS: glipiZIDE 5 MG TABLET (FP) PO SCH (06:59)
[2017-04-09 07:46] LABS: BASO % 0.8 % (0-2.0); EOS % 2.2 % (0-4.5); MCHC 32.3 g/dl (32.0-35.9); MEAN CELL VOLUME 89.7 fl (80-96); NEUT % 72.5 % (42.8-82.8); PLATELET COUNT 381 K/MM3 (134-434); WHITE BLOOD COUNT 14.1 K/mm3 (4.0-10.0)
[2017-04-09 07:56] LABS: INR 1.99 (0.82-1.09); PROTHROMBIN TIME (PATIENT) 22.5 SEC (9.98-11.88)
[2017-04-09 08:10] LABS: ALBUMIN 2.5 g/dl (3.4-5.0); ANION GAP 10 (8-16); CALCIUM 8.5 mg/dL (8.5-10.1); CO2 25 mmol/L (21-32); CREATININE 1.5 mg/dL (0.7-1.3); GLUCOSE,RANDOM 123 mg/dL (74-106); SGOT/AST 28 U/L (15-37)
[2017-04-09 08:14] LABS: ALK PHOS 188 U/L (45-117); SGPT/ALT 65 U/L (12-78); TOT PROT 7.7 g/dl (6.4-8.2)
--- NOTE | 2017-04-09 08:56 | PN ---
Progress Note, Physician Chief Complaint: no CP or SOB - Current Medication List Current Medications: Active Medications Acetaminophen (Tylenol -) 650 mg PO Q6H PRN PRN Reason: PAIN Last Admin: 04/08/17 22:01 Dose: 650 mg Albuterol/Ipratropium (Duoneb -) 1 amp NEB Q6H PRN Finasteride (Proscar -) 5 mg PO DAILY [facility] Glipizide (Glucotrol -) 10 mg PO DAILY@0700 [facility] Last Admin: 04/09/17 06:59 Dose: 10 mg Hydrochlorothiazide (Hctz -) 50 mg PO BID [facility] Piperacillin Sod/Tazobactam (Sod 3.375 gm/ Dextrose) 50 mls @ 100 mls/hr IVPB Q8H-IV [facility] Last Admin: 04/09/17 03:54 Dose: 100 mls/hr Insulin Aspart (Novolog Vial Sliding Scale -) 1 vial SQ ACHS JESUS ALBERTO PRN Reason: Protocol Last Admin: 04/09/17 06:58 Dose: Not Given Metoprolol Succinate (Toprol Xl -) 50 mg PO BID [facility] Last Admin: 04/08/17 22:02 Dose: 50 mg Oxycodone HCl (Roxicodone -) 5 mg PO Q4H PRN PRN Reason: PAIN LEVEL 1-5 Last Admin: 04/08/17 22:01 Dose: 5 mg Tamsulosin HCl (Flomax -) 0.4 mg PO DAILY@0830 [facility] Warfarin Sodium (Coumadin -) 3 mg PO DAILY@1800 [facility] Last Admin: 04/08/17 17:50 Dose: 3 mg - Objective Vital Signs: Vital Signs Temperature 98 F 04/09/17 06:33 Pulse Rate 92 H 04/09/17 06:33 Respiratory Rate 20 04/09/17 06:33 Blood Pressure 152/95 04/09/17 06:33 O2 Sat by Pulse Oximetry (%) 97 04/08/17 21:00 Constitutional: Yes: No Distress, Calm Cardiovascular: Yes: Pulse Irregular Respiratory: Yes: CTA Bilaterally Gastrointestinal: Yes: Soft, Abdomen, Obese Edema: Yes Edema: LLE: 1+, RLE: 1+ Neurological: Yes: Alert, Oriented ...Motor Strength: WNL Labs: CBC, BMP 04/09/17 05:35 04/09/17 05:35 INR, PTT INR 1.99 (0.82-1.09) H 04/09/17 05:35 Laboratory Tests 04/09/17 04/09/17 04/09/17 05:35 05:35 05:35 WBC 14.1 H Hgb 10.6 L Plt Count 381 INR 1.99 H Sodium 133 L Potassium 4.7 BUN 35 H Creatinine 1.5 H Assessment/Plan Assessment/Plan 71 year old man with a h/o HTN, DMII, HLD, Afib on coumadin, non-obs CAD, mild pulm HTN, mild thoracic aortic aneursym, HCV, ashtma admitted with R foot ulcer with osteo. S/p right foot debridement: -Tolerated well. Non-obstructive CAD based on CTA 2011 - Nuclear stress test this year showed no ischemia and normal LVEF -Echo this year showed borderline LV function -Euvolemic on exam -Chronic mild dyspnea multifactorieal including copd, pulm htn, likely chronic diastolic chf -cont home medical regimen Afib- HR adequately controlled currently -cont home medical regimen -INR goal 2-3
[2017-04-09] MEDS ORDERED: PT OWN MED DRAWER 7, Y5N ONE ×3 (10:03→17:32)
[2017-04-09] MEDS: HYDROCHLOROTHIAZIDE 25 MG TABLET (FP) PO SCH ×2 (10:06→23:32)
[2017-04-09] MEDS: TAMSULOSIN HCL 0.4 MG CAP.ER.24H (FP) PO SCH (10:06)
[2017-04-09] MEDS: METOPROLOL SUCCINATE 50 MG TAB.SR.24H (FP) PO SCH ×2 (10:07→23:32)
[2017-04-09] MEDS: FINASTERIDE 5 MG TABLET (FP) PO SCH (10:07)
[2017-04-09] MEDS: oxyCODONE HCL 5 MG TABLET PO PRN ×2 (10:10→23:33)
[2017-04-09] MEDS: ACETAMINOPHEN 325 MG TABLET (FP) PO PRN ×2 (10:11→23:34)
[2017-04-09 10:53] LABS: MCH 29.1 pg (25.7-33.7); MCHC 32.5 g/dl (32.0-35.9); MEAN CELL VOLUME 89.4 fl (80-96); MEAN PLT VOLUME 8.1 fl (7.5-11.1); PLATELET COUNT 382 K/MM3 (134-434); RDW 16.8 % (11.9-15.9); WHITE BLOOD COUNT 14.3 K/mm3 (4.0-10.0)
--- NOTE | 2017-04-09 11:06 | PN ---
Progress Note (short form) - Note Progress Note: Podiatry F/U: Seen/evaluated at bedside, NAD. Pain well controlled, denies F/V/N/C/SOB/CP. Afebrile, VSS. S/p R foot debridement/lavage with fifth metatarsal head resection for severe diabetic foot infection POD #1. CUCA: R foot: pedal pulses palpable, TG wnl, CFT brisk to all toes. Large post- surgical ulcer lateral 5th MTPJ, diabetic, with mixed fibrogranular wound base, no purulence, no fluctuance, no periwound erythema, no ascending cellulitis, no signs of acute infection. No tenderness to palpation. No ischemic skin changes exhibited to the foot. WBC: 14.3 OR Cx: pending Blood Cx: no growth x 96 hrs Imp: 71 year old IDDM M s/p R foot debridement/lavage with fifth metatarsal head resection POD#1 1. Dakin's irrigation at bedside with dakins gauze and DSD R foot 2. C/w IV abx per infectious disease 3. F/u OR cultures, path 4. Given severity of infection, would recommend prolonged IV abx therapy. +/- ZOHREH, patient is amenable. 5. Discussed potential of fifth toe amputation if infection does not improve and he understands. 6. Will follow. Christian Dos Santos DPM
--- NOTE | 2017-04-09 11:07 | PN ---
Progress Note (short form) - Note Progress Note: PULMONARY OFFERS NO RESP COMPLAINTS VSS/AFEBRILE ANICTERIC DISTANT BUT CLEAR BREATH SOUNDS S1S2 BS+ SOFT RIGHT FOOT S/P DEBRIDEMENT LABS/IMAGES/MICRO/MEDS NOTED DYSPNEA COPD CHF CARDIOMYOPATHY AFIB RIGHT FOOT ULCER OSTEOMYELITIS LIKELY OSAS PLAN IV ANTIBIOTICS PER ID O2 PRN INHALED BRONCHODILATORS SLEEP SCREEN CONTINUE BRONCHODILATORS Concetta LIVINGSTON MD
[2017-04-09] MEDS: SODIUM HYPOCHLORITE 0.25%- 473 ML BULK BOTTLE TP SCH (11:29)
[2017-04-09] MEDS: ALBUTEROL SO4 2.5/IPRATROPIUM 0.5 INH SOL 3 ML VIAL.NEB. NEB PRN (12:43)
--- NOTE | 2017-04-09 13:27 | OP ---
DATE OF OPERATION: 04/08/2017 PREOPERATIVE DIAGNOSIS: Right foot diabetic ulcer with abscess and osteomyelitis. POSTOPERATIVE DIAGNOSIS: Right foot diabetic ulcer with abscess and osteomyelitis. PROCEDURE: Right foot debridement and lavage with 5th metatarsal head resection and biopsy. SURGEON: Forrest Dos Santos DPM FORM MAKER: None. HEMOSTASIS: Surgical dissection. ANESTHESIA: Local with IV sedation. ESTIMATED BLOOD LOSS: 20 mL. PATHOLOGY: Bone and soft tissue, right foot. COMPLICATIONS: None. DESCRIPTION OF PROCEDURE: The patient was brought to the operating room and placed on the operating table in the supine position. Following the induction of IV sedation, local anesthesia was achieved utilizing 10 mL of 2% lidocaine plain. The right foot was then scrubbed, prepped, and draped in the usual sterile fashion. I elected to not use a tourniquet during the course of this procedure. I directed my attention to the right foot where a large lateral 5th metatarsophalangeal joint ulcer, which was necrotic and purulent, was visualized and appreciated. I began by performing an excisional debridement of the eschar down to subcutaneous tissue, eschar, and muscle utilizing a combination of sterile 15-blade and scissors. Upon debridement, there was purulent material expressed from the 5th metatarsophalangeal joint mainly the 5th metatarsal bone. Debridement was continued until no further purulent material was expressed, and bleeding granular tissue persisted. Next, I performed a lateral capsular incision overlying the 5th metatarsophalangeal joint. Of note, there was exposed 5th metatarsal head. The deep capsule and periosteum were reflected medially and laterally to expose the 5th metatarsal head. The 5th metatarsal head was resected utilizing a sagittal saw. This was sent for pathology and bone culture. Next a sliver of 5th metatarsal shaft was resected proximally for margins. This was sent for both culture and pathology. An appropriate soft tissue culture was obtained. Surgical site was copiously irrigated with sterile saline. The proximal aspect of the incision was coapted loosely using 3-0 nylon in a retention suture fashion. Remainder of the surgical wound was packed utilizing 0.25-inch Iodoform packing. Following the conclusion of the procedure, the surgical site was covered with Xeroform and sterile compressive dressing was applied to the right foot consisting of sterile gauze, Carmel, Kerlix, and Matt wrap. Patient tolerated the procedure and anesthesia well without complications. He was transferred from the operating room to the recovery unit with vital signs stable and neurovasculature intact to the right foot. JOSE STACK/[id number] cc: [facility]
--- NOTE | 2017-04-09 13:53 | PN ---
Progress Note (short form) - Note Progress Note: no complaints pod #1 s/p 5th metatarsal head resection and bone biopsy Vital Signs Period Temp Pulse Resp BP Sys/Servin Pulse Ox Last 24 Hr 97.5 F-98.3 F 79-93 16-20 120-168/66-100 97-99 cor-rrr lungs clear abd soft,nt ext dressing intact CBC, BMP 06/ 10:14 04/09/ 05:35 operative cultures pending MRI +osteo a/p diabetic foot infection- with abscess/gangrene- for debridement will require nursing home iv antibiotics for osteomyelitis vanco/zosyn day #2 f/u operative cultures and bone biopsy
[2017-04-09] MEDS ORDERED: VANCOMYCIN 1 GRAM (PRE-DOCKED) 1,000 MG/250 ML BAG IVPB SCH (14:00)
--- NOTE | 2017-04-09 14:13 | PN ---
Progress Note (short form) - Note Progress Note: Subjective: The patient was seen and examined at the bedside, he has no complaints at this time. Current Medications Generic Name Dose Route Start Last Admin Trade Name Freq PRN Reason Stop Dose Admin Acetaminophen 650 mg 04/08/17 15:25 04/09/17 10:11 Tylenol - PO 650 mg Q6H PRN Administration PAIN Albuterol/Ipratropium 1 amp 04/08/17 15:25 04/09/17 12:43 Duoneb - NEB 1 amp Q6H PRN Administration Finasteride 5 mg 04/09/17 10:00 04/09/17 10:07 Proscar - PO 5 mg DAILY JESUS ALBERTO Administration Glipizide 10 mg 04/08/17 17:31 04/09/17 06:59 Glucotrol - PO 10 mg DAILY@0700 JESUS ALBERTO Administration Hydrochlorothiazide 50 mg 04/09/17 10:00 04/09/17 10:06 Hctz - PO 50 mg BID JESUS ALBERTO Administration Piperacillin Sod/Tazobactam 50 mls @ 100 mls/hr 04/08/17 18:00 04/09/17 10:07 Sod 3.375 gm/ Dextrose IVPB 100 mls/hr Q8H-IV JESUS ALBERTO Administration Vancomycin HCl 1,000 mg/ 250 mls @ 500 mls/hr 04/09/17 14:15 Dextrose IVPB DAILY JESUS ALBERTO Insulin Aspart 1 vial 04/08/17 16:30 04/09/17 12:28 Novolog Vial Sliding Scale - SQ Not Given ACHS JESUS ALBERTO Protocol Metoprolol Succinate 50 mg 04/08/17 22:00 04/09/17 10:07 Toprol Xl - PO 50 mg BID JESUS ALBERTO Administration Oxycodone HCl 5 mg 04/08/17 15:18 04/09/17 10:10 Roxicodone - PO 5 mg Q4H PRN Administration PAIN LEVEL 1-5 Sodium Hypochlorite 1 applic 04/09/17 10:00 04/09/17 11:29 Dakin's Solution 0.25% (Half-Strength) - TP Not Given DAILY JESUS ALBERTO Tamsulosin HCl 0.4 mg 04/09/17 08:30 04/09/17 10:06 Flomax - PO 0.4 mg DAILY@0830 JESUS ALBERTO Administration Warfarin Sodium 3 mg 04/08/17 18:00 04/08/17 17:50 Coumadin - PO 3 mg DAILY@1800 JESUS ALBERTO Administration Objective: Vital Signs Period Temp Pulse Resp BP Sys/Servin Pulse Ox Last 24 Hr 97.5 F-98.3 F 79-93 16-20 120-168/66-100 97-99 Physical Exam: General: NAD, A&Ox3 Lungs: CTA bilaterally Heart: Irregular rate and rhythm Abd: Soft, non-tender, non-distended. Normoactive bowels sounds Ext: R foot with dressing, c/d/i CBCD WBC 14.3 K/mm3 (4.0-10.0) H 04/09/17 10:14 RBC 3.81 M/mm3 (4.00-5.60) L 04/09/17 10:14 Hgb 11.1 GM/dL (11.7-16.9) L 04/09/17 10:14 Hct 34.1 % (35.4-49) L 04/09/17 10:14 MCV 89.4 fl (80-96) 04/09/17 10:14 MCHC 32.5 g/dl (32.0-35.9) 04/09/17 10:14 RDW 16.8 % (11.9-15.9) H 04/09/17 10:14 Plt Count 382 K/MM3 (134-434) 04/09/17 10:14 MPV 8.1 fl (7.5-11.1) 04/09/17 10:14 CMP Sodium 133 mmol/L (136-145) L 04/09/17 05:35 Potassium 4.7 mmol/L (3.5-5.1) 04/09/17 05:35 Chloride 98 mmol/L (98-107) 04/09/17 05:35 Carbon Dioxide 25 mmol/L (21-32) 04/09/17 05:35 Anion Gap 10 (8-16) 04/09/17 05:35 BUN 35 mg/dL (7-18) H 04/09/17 05:35 Creatinine 1.5 mg/dL (0.7-1.3) H 04/09/17 05:35 Creat Clearance w eGFR 46.13 (>60) 04/09/17 05:35 Random Glucose 123 mg/dL (74-106) H D 04/09/17 05:35 Calcium 8.5 mg/dL (8.5-10.1) 04/09/17 05:35 Total Bilirubin 1.0 mg/dL (0.2-1.0) D 04/09/17 05:35 AST 28 U/L (15-37) D 04/09/17 05:35 ALT 65 U/L (12-78) D 04/09/17 05:35 Alkaline Phosphatase 188 U/L (45-117) H 04/09/17 05:35 Total Protein 7.7 g/dl (6.4-8.2) 04/09/17 05:35 Albumin 2.5 g/dl (3.4-5.0) L 04/09/17 05:35 Microbiology 04/04/17 14:30 Blood - Peripheral Venous Blood Culture - Preliminary NO GROWTH OBTAINED AFTER 96 HOURS, INCUBATION TO CONTINUE FOR 1 DAYS. 04/04/17 14:30 Blood - Peripheral Venous Blood Culture - Preliminary NO GROWTH OBTAINED AFTER 96 HOURS, INCUBATION TO CONTINUE FOR 1 DAYS. 04/06/17 11:30 Foot - Right Lateral Gram Stain - Final 04/06/17 11:30 Foot - Right Lateral Wound Culture - Final Staphylococcus Coagulase Neg Assessment: This is a 71 year old male with PMHx of HTN, A.fib, cardiomyopathy, BPH, and diabetes who presented to the ED with worsening right foot pain. Plan: 1) Severe right diabetic foot infection - POD#1: right foot debridement/lavage with 5th metatarsal head resection and bone biopsy - Awaiting bone biopsy results - Continue Vancomycin and Zosyn (Day 2) - Will need watermelon inspector abx - Appreciate podiatry consult - Appreciate ID consult 2) Chronic A.fib - Restart on Coumadin last night - INR 1.99 3) HTN - Continue Hctz - Continue Toprol XL 4) DM - BGM ACHS - ISS ACHS 4) F/E/N: - Monitor electrolytes - Diabetic diet, sodium controlled diet 5) Prophylaxis: - On Coumadin 6) Dispo: - Requires continued inpatient care CODE STATUS: FULL CODE Visit type - Emergency Visit Emergency Visit: Yes ED Registration Date: 04/04/17 Care time: The patient presented to the Emergency Department on the above date and was hospitalized for further evaluation of their emergent condition. - New Patient This patient is new to me today: Yes Date on this admission: 04/09/17 - Critical Care Critical Care patient: No
[2017-04-09] MEDS: VANCOMYCIN 1,000 MG in DEXTROSE 5%-WATER - 250 ML IVPB SCH (15:58)
[2017-04-09] MEDS: WARFARIN NA 3 MG TABLET PO SCH (17:35)
[2017-04-09] MEDS ORDERED: INSULIN (NOVOLOG) ASPART 100 UNITS/ML 10ML VIAL ONE (21:56)
[2017-04-10] MEDS: PIPERACILLIN/TAZOB 3.375 GM 3.375 GM in DEXTROSE 5%-WATER - 50 ML IVPB SCH ×3 (03:19→17:03)
[2017-04-10] MEDS: glipiZIDE 5 MG TABLET (FP) PO SCH (06:00)
[2017-04-10] MEDS: INSULIN SLIDING SCALE (NOVOLOG) 1 VIAL SQ SCH ×4 (06:00→21:45)
[2017-04-10] MEDS: ALBUTEROL SO4 2.5/IPRATROPIUM 0.5 INH SOL 3 ML VIAL.NEB. NEB PRN (06:20)
[2017-04-10] MEDS ORDERED: INSULIN (NOVOLOG) ASPART 100 UNITS/ML 10ML VIAL ONE (06:46)
[2017-04-10 08:01] LABS: MCH 29.5 pg (25.7-33.7); MCHC 32.8 g/dl (32.0-35.9); MEAN PLT VOLUME 8.1 fl (7.5-11.1); PLATELET COUNT 418 K/MM3 (134-434); RDW 17.2 % (11.9-15.9); WHITE BLOOD COUNT 12.4 K/mm3 (4.0-10.0)
[2017-04-10 08:05] LABS: ALBUMIN 2.6 g/dl (3.4-5.0); ANION GAP 11 (8-16); BILIRUBIN,TOTAL 0.7 mg/dL (0.2-1.0); CALCIUM 8.9 mg/dL (8.5-10.1); CO2 25 mmol/L (21-32); CREATININE 1.6 mg/dL (0.7-1.3); GLUCOSE,RANDOM 121 mg/dL (74-106); SGOT/AST 31 U/L (15-37); SGPT/ALT 63 U/L (12-78); TOT PROT 8.3 g/dl (6.4-8.2)
[2017-04-10 08:06] LABS: ALK PHOS 195 U/L (45-117)
[2017-04-10 08:26] LABS: INR 1.8 (0.82-1.09); PROTHROMBIN TIME (PATIENT) 20.3 SEC (9.98-11.88)
[2017-04-10] MEDS: TAMSULOSIN HCL 0.4 MG CAP.ER.24H (FP) PO SCH (10:48)
[2017-04-10] MEDS: oxyCODONE HCL 5 MG TABLET PO PRN ×2 (10:48→21:38)
[2017-04-10] MEDS: HYDROCHLOROTHIAZIDE 25 MG TABLET (FP) PO SCH ×2 (10:48→21:38)
[2017-04-10] MEDS: VANCOMYCIN 1,000 MG in DEXTROSE 5%-WATER - 250 ML IVPB SCH (10:49)
[2017-04-10] MEDS: FINASTERIDE 5 MG TABLET (FP) PO SCH (10:49)
[2017-04-10] MEDS: METOPROLOL SUCCINATE 50 MG TAB.SR.24H (FP) PO SCH ×2 (10:49→21:38)
[2017-04-10] MEDS: SODIUM HYPOCHLORITE 0.25%- 473 ML BULK BOTTLE TP SCH (10:49)
[2017-04-10] MEDS: ACETAMINOPHEN 325 MG TABLET (FP) PO PRN ×2 (10:49→21:39)
--- NOTE | 2017-04-10 10:49 | PN ---
Progress Note (short form) - Note Progress Note: Stable overnight. NAD. No acute events overnight. No CP or SOB. Intake & Output 04/07/17 04/08/17 04/09/17 04/10/17 23:59 23:59 23:59 23:59 Intake Total 840 490 700 50 Output Total 1015 700 350 Balance 840 -525 0 -300 Last Vital Signs Temp Pulse Resp BP Pulse Ox 97.9 F 85 20 126/73 97 04/10/17 06:43 04/10/17 06:43 04/10/17 06:43 04/10/17 06:43 04/09/17 21:00 Active Medications Acetaminophen (Tylenol -) 650 mg PO Q6H PRN PRN Reason: PAIN Last Admin: 04/10/17 10:49 Dose: 650 mg Albuterol/Ipratropium (Duoneb -) 1 amp NEB Q6H PRN Last Admin: 04/10/17 06:20 Dose: 1 amp Finasteride (Proscar -) 5 mg PO DAILY [facility] Last Admin: 04/10/17 10:49 Dose: 5 mg Glipizide (Glucotrol -) 10 mg PO DAILY@0700 [facility] Last Admin: 04/10/17 06:00 Dose: 10 mg Hydrochlorothiazide (Hctz -) 50 mg PO BID [facility] Last Admin: 04/10/17 10:48 Dose: 50 mg Piperacillin Sod/Tazobactam (Sod 3.375 gm/ Dextrose) 50 mls @ 100 mls/hr IVPB Q8H-IV [facility] Last Admin: 04/10/17 10:49 Dose: 100 mls/hr Vancomycin HCl 1,000 mg/ (Dextrose) 250 mls @ 500 mls/hr IVPB DAILY [facility] Last Admin: 04/10/17 10:49 Dose: 500 mls/hr Insulin Aspart (Novolog Vial Sliding Scale -) 1 vial SQ ACHS JESUS ALBERTO PRN Reason: Protocol Last Admin: 04/10/17 06:00 Dose: Not Given Metoprolol Succinate (Toprol Xl -) 50 mg PO BID [facility] Last Admin: 04/10/17 10:49 Dose: 50 mg Oxycodone HCl (Roxicodone -) 5 mg PO Q4H PRN PRN Reason: PAIN LEVEL 1-5 Last Admin: 04/10/17 10:48 Dose: 5 mg Sodium Hypochlorite (Dakin's Solution 0.25% (Half-Strength) -) 1 applic TP DAILY [facility] Last Admin: 04/10/17 10:49 Dose: Not Given Tamsulosin HCl (Flomax -) 0.4 mg PO DAILY@0830 [facility] Last Admin: 04/10/17 10:48 Dose: 0.4 mg Warfarin Sodium (Coumadin -) 3 mg PO DAILY@1800 [facility] Last Admin: 04/09/17 17:35 Dose: 3 mg Constitutional: Yes: NAD HENT: Yes: WNL Neck: Yes: WNL, Supple Cardiovascular: Yes: WNL, Regular Rate and Rhythm Respiratory: Yes: WNL, Regular, CTA Bilaterally Gastrointestinal: Yes: WNL, Normal Bowel Sounds, Soft, Abdomen, Obese Extremities: Yes: Other (RT 5th RT toe w/ ulcer a/ surrounding erythema) Edema: LLE: Trace, RLE: Trace Labs: Laboratory Results - last 24 hr 04/09/17 04/09/17 04/09/17 10:14 10:14 12:27 WBC 14.3 H RBC 3.81 L Hgb 11.1 L Hct 34.1 L MCV 89.4 MCH 29.1 MCHC 32.5 RDW 16.8 H Plt Count 382 MPV 8.1 PT with INR INR PTT (Actin FS) 47.2 H Sodium Potassium Chloride Carbon Dioxide Anion Gap BUN Creatinine Creat Clearance w eGFR POC Glucometer 89 Random Glucose Calcium Total Bilirubin AST ALT Alkaline Phosphatase Total Protein Albumin 04/09/17 04/09/17 04/10/17 17:30 23:31 05:53 WBC RBC Hgb Hct MCV MCH MCHC RDW Plt Count MPV PT with INR INR PTT (Actin FS) Sodium Potassium Chloride Carbon Dioxide Anion Gap BUN Creatinine Creat Clearance w eGFR POC Glucometer 140 145 131 Random Glucose Calcium Total Bilirubin AST ALT Alkaline Phosphatase Total Protein Albumin 04/10/17 04/10/17 04/10/17 06:00 06:00 06:00 WBC 12.4 H RBC 3.86 L Hgb 11.4 L Hct 34.7 L MCV 90.0 MCH 29.5 MCHC 32.8 RDW 17.2 H Plt Count 418 MPV 8.1 PT with INR 20.30 H INR 1.80 H PTT (Actin FS) Sodium 135 L Potassium 4.5 Chloride 99 Carbon Dioxide 25 Anion Gap 11 BUN 40 H Creatinine 1.6 H Creat Clearance w eGFR 42.82 POC Glucometer Random Glucose 121 H Calcium 8.9 Total Bilirubin 0.7 D AST 31 ALT 63 Alkaline Phosphatase 195 H Total Protein 8.3 H Albumin 2.6 L Problem List - Problems (1) Dyspnea Code(s): R06.00 - DYSPNEA, UNSPECIFIED (2) Cellulitis of foot Code(s): L03.119 - CELLULITIS OF UNSPECIFIED PART OF LIMB (3) Diabetes Code(s): E11.9 - TYPE 2 DIABETES MELLITUS WITHOUT COMPLICATIONS (4) Foot ulcer Code(s): L97.509 - NON-PRESSURE CHRONIC ULCER OTH PRT UNSP FOOT W UNSP SEVERITY Qualifiers: Laterality: right Non-pressure ulcer stage: unspecified non-pressure ulcer stage Qualified Code(s): L97.519 - Non-pressure chronic ulcer of other part of right foot with unspecified severity (5) Supratherapeutic INR Code(s): R79.1 - ABNORMAL COAGULATION PROFILE (6) COPD (chronic obstructive pulmonary disease) Code(s): J44.9 - CHRONIC OBSTRUCTIVE PULMONARY DISEASE, UNSPECIFIED (7) Cardiomyopathy Code(s): I42.9 - CARDIOMYOPATHY, UNSPECIFIED (8) Cardiomyopathy Code(s): I42.9 - CARDIOMYOPATHY, UNSPECIFIED (9) Cardiomyopathy Code(s): I42.9 - CARDIOMYOPATHY, UNSPECIFIED (10) Afib Code(s): I48.91 - UNSPECIFIED ATRIAL FIBRILLATION (11) HTN (hypertension) Code(s): I10 - ESSENTIAL (PRIMARY) HYPERTENSION IMP DYSPNEA COPD CHF CARDIOMYOPATHY AFIB RIGHT FOOT ULCER OSTEOMYELITIS LIKELY OSAS SUPRA-THERAPEUTIC INR PLAN ABX PER ID O2 PRN INHALED BRONCHODILATORS OUTPATIENT CT CHEST LOCAL WOUND CARE DR POSADA
--- NOTE | 2017-04-10 10:54 | PN ---
Progress Note (short form) - Note Progress Note: ID S/P debridement and resection 5th metatarsal head Selected Entries 04/10/17 06:43 Temperature 97.9 F Pulse Rate 85 Respiratory 20 Rate Blood Pressure 126/73 Post operative dressing Microbiology 04/06/17 11:30 Foot - Right Lateral Gram Stain - Final 04/06/17 11:30 Foot - Right Lateral Wound Culture - Final Staphylococcus Coagulase Neg Laboratory Tests 04/07/17 04/10/17 04/10/17 08:10 06:00 06:00 WBC 12.4 H Hgb 11.4 L Hct 34.7 L Plt Count 418 BUN 40 H Creatinine 1.6 H Creat Clearance w eGFR 42.82 Random Vancomycin 10.069 Assessment empiric therapy for osteomyelitis Plan Await bone biopsy culture Continue current therapy Problem List - Problems (1) Diabetes Code(s): E11.9 - TYPE 2 DIABETES MELLITUS WITHOUT COMPLICATIONS (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
--- NOTE | 2017-04-10 11:39 | PN ---
Progress Note, Physician History of Present Illness: seen and examined today in nad. resting comfortably. no new complaints. no overnight events. - Current Medication List Current Medications: Active Medications Acetaminophen (Tylenol -) 650 mg PO Q6H PRN PRN Reason: PAIN Last Admin: 04/10/17 10:49 Dose: 650 mg Albuterol/Ipratropium (Duoneb -) 1 amp NEB Q6H PRN Last Admin: 04/10/17 06:20 Dose: 1 amp Finasteride (Proscar -) 5 mg PO DAILY [facility] Last Admin: 04/10/17 10:49 Dose: 5 mg Glipizide (Glucotrol -) 10 mg PO DAILY@0700 [facility] Last Admin: 04/10/17 06:00 Dose: 10 mg Hydrochlorothiazide (Hctz -) 50 mg PO BID [facility] Last Admin: 04/10/17 10:48 Dose: 50 mg Piperacillin Sod/Tazobactam (Sod 3.375 gm/ Dextrose) 50 mls @ 100 mls/hr IVPB Q8H-IV [facility] Last Admin: 04/10/17 10:49 Dose: 100 mls/hr Vancomycin HCl 1,000 mg/ (Dextrose) 250 mls @ 500 mls/hr IVPB DAILY [facility] Last Admin: 04/10/17 10:49 Dose: 500 mls/hr Insulin Aspart (Novolog Vial Sliding Scale -) 1 vial SQ ACHS [facility] PRN Reason: Protocol Last Admin: 04/10/17 06:00 Dose: Not Given Metoprolol Succinate (Toprol Xl -) 50 mg PO BID [facility] Last Admin: 04/10/17 10:49 Dose: 50 mg Oxycodone HCl (Roxicodone -) 5 mg PO Q4H PRN PRN Reason: PAIN LEVEL 1-5 Last Admin: 04/10/17 10:48 Dose: 5 mg Sodium Hypochlorite (Dakin's Solution 0.25% (Half-Strength) -) 1 applic TP DAILY [facility] Last Admin: 04/10/17 10:49 Dose: Not Given Tamsulosin HCl (Flomax -) 0.4 mg PO DAILY@0830 [facility] Last Admin: 04/10/17 10:48 Dose: 0.4 mg Warfarin Sodium (Coumadin -) 3 mg PO DAILY@1800 [facility] Last Admin: 04/09/17 17:35 Dose: 3 mg - Objective Vital Signs: Vital Signs Temperature 97.9 F 04/10/17 06:43 Pulse Rate 85 04/10/17 06:43 Respiratory Rate 20 04/10/17 06:43 Blood Pressure 126/73 04/10/17 06:43 O2 Sat by Pulse Oximetry (%) 97 04/09/17 21:00 Constitutional: Yes: No Distress, Calm Eyes: Yes: Conjunctiva Clear, EOM Intact HENT: Yes: Atraumatic, Normocephalic Neck: Yes: Supple, Trachea Midline Cardiovascular: Yes: Pulse Irregular, S1, S2. No: Regular Rate and Rhythm, Bradycardia, Tachycardia, Bruit, JVD, Gallop, Murmur, Rub, S3, S4, Varicosities Respiratory: Yes: Regular, CTA Bilaterally. No: Rales, Rhonchi, Wheezes Gastrointestinal: Yes: Normal Bowel Sounds, Soft. No: Distention, Tenderness Edema: No Neurological: Yes: Alert, Oriented Labs: CBC, BMP 04/10/17 06:00 04/10/17 06:00 INR, PTT INR 1.80 (0.82-1.09) H 04/10/17 06:00 - ....Imaging Chest X-ray: Report Reviewed, Image Reviewed EKG: Report Reviewed, Image Reviewed Other: Report Reviewed, Image Reviewed Assessment/Plan 71 year old man with a h/o HTN, DMII, HLD, Afib on coumadin, non-obs CAD, mild pulm HTN, mild thoracic aortic aneursym, HCV, ashtma admitted with R foot ulcer with osteo. S/p right foot debridement: -Tolerated well without cardiac complications Non-obstructive CAD based on CTA 2011 -cont home medical regimen -outpatient f/up Afib- HR remains adequately controlled -cont toprol xl 50mg bid for HR control -cont coumadin for goal INR 2-3, currently receiving 3mg daily, home dose is alternating days of 7.5mg and 5mg -caution with coumadin as Antibiotics can elevated INR -INR subtherapeutic today, cont hep gtt bridging to goal INR -will increase coumadin dose to 5mg daily (which is less than outpatient dose as above)
--- NOTE | 2017-04-10 12:18 | PN ---
Progress Note (short form) - Note Progress Note: Podiatry: Seen/evaluated at bedside, NAD. S/p R foot debridement with 5th metatarsal head resection, bone biopsy POD#2. Afebrile, VSS. CUCA: R foot: lateral 5th MTPJ large post-surgical wound with fibrogranular base, no purulence, no fluctuance, no periwound erythema, no ascending cellulitis, no soft tissue crepitus, no signs of active infection. No tenderness to palpation. Sutures coapted proximally. WBC: 12.4 OR Cx: no growth, preliminary OR Path: pending Imp: 71 year old IDDM M s/p R foot debridement/lavage, bone biopsy for severe diabetic foot infection 1. IV abx per ID 2. F/u OR cultures, path 3. Recommend IV abx treatment given severity of infection 4. Partial WB R Heel with surgical shoe. PT on the case. 5. Discussed ZOHREH placement with patient and his amenable. 6. Glycemic control 7. Dakin's irrigation with dakin's gauze + DSD R foot 8. Will follow. Christian Dos Santos DPM
--- NOTE | 2017-04-10 14:32 | PATH ---
Surgical Pathology Report Patient Name: AUSTYN SHER Med. Rec. #: [id number] /Age/Gender: 1945 (Age: 71) / M Account: [id number] Location: [facility] MED/SURG Taken: 04/09/2017 Received: 04/09/2017 Reported: 04/10/2017 Physicians: JOSE Obrien M.D. Specimen(s) Received A: RIGHT FOOT 5TH METATARSAL HEAD B: RIGHT FOOT PROXIMAL BONE C: RIGHT FOOT ABSCESS Clinical History Ulcer of right foot Final Diagnosis A. BONE, RIGHT, FIFTH METATARSAL HEAD, EXCISION: BONE WITH ACUTE AND CHRONIC OSTEOMYELITIS. ATTACHED SOFT TISSUE WITH ACUTE INFLAMMATION AND GRANULATION TISSUE. B. PROXIMAL BONE, RIGHT FOOT, EXCISION: ACUTE AND CHRONIC OSTEOMYELITIS. C. FOOT, RIGHT, ABSCESS, EXCISION: SOFT TISSUE WITH MARKED ACUTE INFLAMMATION, ULCERATION, AND GANGRENOUS NECROSIS. Electronically Signed Sunita Gonzalez M.D. Gross Description A. Received in formalin labeled "right fifth metatarsal head," is a 2.4 x 1.3 x 1.2 cm portion of bone, consistent with a metatarsal head. The specimen displays smooth articular cartilage at one end. The opposing end displays smooth trabecular bone. Also received within the same container is a 2.0 x 1.4 x 0.7 cm additional, undesignated portion of bone. Drug Purchaser sections are submitted in 3 cassettes as follows: 1-end of bone with articular cartilage, following decalcification; 2-end of bone with trabecular bone, following decalcification; 9-izvd-azriqcfat sections of second portion of bone, following decalcification. B. Received in formalin labeled "right foot proximal bone," is a 1.4 x 1.3 x 0.7 cm hunter-yellow, irregular portion of bone. Drug Purchaser sections are submitted in one cassette, following decalcification. C. Received in formalin labeled "right foot abscess," is a 4.3 x 3.0 x 0.8 cm aggregate of hunter, necrotic portions of skin and soft tissue. Drug Purchaser sections are submitted in one cassette /04/09/2017 saudi04/09/2017
[2017-04-10] MEDS ORDERED: WARFARIN NA 5 MG TABLET (UD) PO SCH (18:00)
--- NOTE | 2017-04-10 23:28 | PN ---
Progress Note, Physician - Current Medication List Current Medications: Active Medications Acetaminophen (Tylenol -) 650 mg PO Q6H PRN PRN Reason: PAIN Last Admin: 04/10/17 21:39 Dose: 650 mg Albuterol/Ipratropium (Duoneb -) 1 amp NEB Q6H PRN Last Admin: 04/10/17 06:20 Dose: 1 amp Finasteride (Proscar -) 5 mg PO DAILY [facility] Last Admin: 04/10/17 10:49 Dose: 5 mg Glipizide (Glucotrol -) 10 mg PO DAILY@0700 [facility] Last Admin: 04/10/17 06:00 Dose: 10 mg Hydrochlorothiazide (Hctz -) 50 mg PO BID [facility] Last Admin: 04/10/17 21:38 Dose: 50 mg Piperacillin Sod/Tazobactam (Sod 3.375 gm/ Dextrose) 50 mls @ 100 mls/hr IVPB Q8H-IV [facility] Last Admin: 04/10/17 17:03 Dose: 100 mls/hr Vancomycin HCl 1,000 mg/ (Dextrose) 250 mls @ 500 mls/hr IVPB DAILY [facility] Last Admin: 04/10/17 10:49 Dose: 500 mls/hr Insulin Aspart (Novolog Vial Sliding Scale -) 1 vial SQ ACHS [facility] PRN Reason: Protocol Last Admin: 04/10/17 21:45 Dose: Not Given Metoprolol Succinate (Toprol Xl -) 50 mg PO BID [facility] Last Admin: 04/10/17 21:38 Dose: 50 mg Oxycodone HCl (Roxicodone -) 5 mg PO Q4H PRN PRN Reason: PAIN LEVEL 1-5 Last Admin: 04/10/17 21:38 Dose: 5 mg Sodium Hypochlorite (Dakin's Solution 0.25% (Half-Strength) -) 1 applic TP DAILY [facility] Last Admin: 04/10/17 10:49 Dose: Not Given Tamsulosin HCl (Flomax -) 0.4 mg PO DAILY@0830 [facility] Last Admin: 04/10/17 10:48 Dose: 0.4 mg Warfarin Sodium (Coumadin -) 5 mg PO DAILY@1800 [facility] Last Admin: 04/10/17 17:03 Dose: 5 mg - Objective Vital Signs: Vital Signs Temperature 97.6 F 04/10/17 17:00 Pulse Rate 69 04/10/17 17:00 Respiratory Rate 18 04/10/17 17:00 Blood Pressure 155/81 04/10/17 17:00 O2 Sat by Pulse Oximetry (%) 99 04/10/17 09:00 Labs: CBC, BMP 04/10/17 06:00 04/10/17 06:00 INR, PTT INR 1.80 (0.82-1.09) H 04/10/17 06:00 Problem List - Problems (1) Diabetic foot ulcer Code(s): E11.621 - TYPE 2 DIABETES MELLITUS WITH FOOT ULCER; L97.509 - NON- PRESSURE CHRONIC ULCER OTH PRT UNSP FOOT W UNSP SEVERITY Qualifiers: Diabetic foot ulcer location: toe Laterality: right (2) Afib Code(s): I48.91 - UNSPECIFIED ATRIAL FIBRILLATION (3) BPH (benign prostatic hyperplasia) Code(s): N40.0 - BENIGN PROSTATIC HYPERPLASIA WITHOUT LOWER URINRY TRACT SYMP (4) COPD (chronic obstructive pulmonary disease) Code(s): J44.9 - CHRONIC OBSTRUCTIVE PULMONARY DISEASE, UNSPECIFIED (5) Cardiomyopathy Code(s): I42.9 - CARDIOMYOPATHY, UNSPECIFIED (6) Diabetes Code(s): E11.9 - TYPE 2 DIABETES MELLITUS WITHOUT COMPLICATIONS (7) HTN (hypertension) Code(s): I10 - ESSENTIAL (PRIMARY) HYPERTENSION
[2017-04-11] MEDS: PIPERACILLIN/TAZOB 3.375 GM 3.375 GM in DEXTROSE 5%-WATER - 50 ML IVPB SCH ×3 (02:39→17:10)
[2017-04-11] MEDS: INSULIN SLIDING SCALE (NOVOLOG) 1 VIAL SQ SCH ×4 (06:13→22:01)
[2017-04-11] MEDS: glipiZIDE 5 MG TABLET (FP) PO SCH (06:34)
[2017-04-11 07:47] LABS: MCH 29.8 pg (25.7-33.7); MCHC 32.9 g/dl (32.0-35.9); MEAN CELL VOLUME 90.6 fl (80-96); MEAN PLT VOLUME 8.1 fl (7.5-11.1); PLATELET COUNT 455 K/MM3 (134-434); RDW 16.9 % (11.9-15.9)
[2017-04-11 08:01] LABS: ALBUMIN 2.6 g/dl (3.4-5.0); ANION GAP 7 (8-16); CALCIUM 8.8 mg/dL (8.5-10.1); CO2 25 mmol/L (21-32); GLUCOSE,RANDOM 123 mg/dL (74-106)
[2017-04-11 08:06] LABS: ALK PHOS 189 U/L (45-117); BILIRUBIN,TOTAL 0.8 mg/dL (0.2-1.0); CREATININE 1.5 mg/dL (0.7-1.3); SGOT/AST 26 U/L (15-37); SGPT/ALT 54 U/L (12-78); TOT PROT 8.2 g/dl (6.4-8.2)
[2017-04-11] MEDS: TAMSULOSIN HCL 0.4 MG CAP.ER.24H (FP) PO SCH (08:29)
[2017-04-11] MEDS ORDERED: PT OWN MED DRAWER 7, Y5N ONE ×3 (09:34→17:42)
[2017-04-11] MEDS: METOPROLOL SUCCINATE 50 MG TAB.SR.24H (FP) PO SCH ×2 (09:39→22:04)
[2017-04-11] MEDS: HYDROCHLOROTHIAZIDE 25 MG TABLET (FP) PO SCH ×2 (09:39→22:03)
[2017-04-11] MEDS: FINASTERIDE 5 MG TABLET (FP) PO SCH (09:39)
--- NOTE | 2017-04-11 10:08 | PN ---
Progress Note, Physician History of Present Illness: seen and examined today in nad. no overnight events. no new complaints. - Current Medication List Current Medications: Active Medications Acetaminophen (Tylenol -) 650 mg PO Q6H PRN PRN Reason: PAIN Last Admin: 04/10/17 21:39 Dose: 650 mg Albuterol/Ipratropium (Duoneb -) 1 amp NEB Q6H PRN Last Admin: 04/10/17 06:20 Dose: 1 amp Finasteride (Proscar -) 5 mg PO DAILY [facility] Last Admin: 04/11/17 09:39 Dose: 5 mg Glipizide (Glucotrol -) 10 mg PO DAILY@0700 [facility] Last Admin: 04/11/17 06:34 Dose: 10 mg Hydrochlorothiazide (Hctz -) 50 mg PO BID [facility] Last Admin: 04/11/17 09:39 Dose: 50 mg Piperacillin Sod/Tazobactam (Sod 3.375 gm/ Dextrose) 50 mls @ 100 mls/hr IVPB Q8H-IV [facility] Last Admin: 04/11/17 02:39 Dose: 100 mls/hr Vancomycin HCl 1,000 mg/ (Dextrose) 250 mls @ 500 mls/hr IVPB DAILY [facility] Last Admin: 04/10/17 10:49 Dose: 500 mls/hr Insulin Aspart (Novolog Vial Sliding Scale -) 1 vial SQ ACHS [facility] PRN Reason: Protocol Last Admin: 04/11/17 06:13 Dose: Not Given Metoprolol Succinate (Toprol Xl -) 50 mg PO BID [facility] Last Admin: 04/11/17 09:39 Dose: 50 mg Oxycodone HCl (Roxicodone -) 5 mg PO Q4H PRN PRN Reason: PAIN LEVEL 1-5 Last Admin: 04/10/17 21:38 Dose: 5 mg Sodium Hypochlorite (Dakin's Solution 0.25% (Half-Strength) -) 1 applic TP DAILY [facility] Last Admin: 04/10/17 10:49 Dose: Not Given Tamsulosin HCl (Flomax -) 0.4 mg PO DAILY@0830 [facility] Last Admin: 04/11/17 08:29 Dose: 0.4 mg Warfarin Sodium (Coumadin -) 5 mg PO DAILY@1800 [facility] Last Admin: 04/10/17 17:03 Dose: 5 mg - Objective Vital Signs: Vital Signs Temperature 97.9 F 04/10/17 22:00 Pulse Rate 81 04/10/17 22:00 Respiratory Rate 18 04/10/17 22:00 Blood Pressure 140/95 04/10/17 22:00 O2 Sat by Pulse Oximetry (%) 98 04/10/17 21:00 Constitutional: Yes: No Distress, Calm, Obese Eyes: Yes: Conjunctiva Clear, EOM Intact, PERRL HENT: Yes: Atraumatic, Normocephalic Neck: Yes: Supple, Trachea Midline Cardiovascular: Yes: Pulse Irregular, S1, S2. No: Bradycardia, Tachycardia, Bruit, JVD, Gallop, Murmur, Rub, S3, S4, Varicosities Respiratory: Yes: Regular, CTA Bilaterally. No: Rales, Rhonchi, Wheezes Gastrointestinal: Yes: Normal Bowel Sounds, Soft. No: Distention, Tenderness Edema: No Neurological: Yes: Alert, Oriented Psychiatric: Yes: Alert, Oriented Labs: CBC, BMP 04/11/17 07:20 04/11/17 07:20 INR, PTT INR 1.80 (0.82-1.09) H 04/10/17 06:00 - ....Imaging Chest X-ray: Report Reviewed, Image Reviewed EKG: Report Reviewed, Image Reviewed Other: Report Reviewed, Image Reviewed Assessment/Plan 71 year old man with a h/o HTN, DMII, HLD, Afib on coumadin, non-obs CAD, mild pulm HTN, mild thoracic aortic aneursym, HCV, ashtma admitted with R foot ulcer with osteo. S/p right foot debridement: -Tolerated well without cardiac complications Non-obstructive CAD based on CTA 2011 -cont home medical regimen -outpatient f/up Afib- HR remains adequately controlled -cont toprol xl 50mg bid for HR control -caution with coumadin as Antibiotics can elevated INR -correction to yesterday note, pt was not on heparin gtt post op, will check PT/ INR/PTT this am, if INR still significantly subtherapeutic will start heparin gtt to bridge to therapeutic INR -cont coumadin 5mg daily for now (which is less than outpatient dose of alternating days of 7.5mg and 5mg, as he is on Abx) -monitor daily INR
[2017-04-11 10:14] LABS: ACANTHOCYTES 0; ANISOCYTOSIS 0; BURR CELLS 0; CABBOT RINGS 0; HELMET CELLS 0; HOWELL-JOLLY BODIES 0; HYPOCHROMIA 0; MACROCYTOSIS 0; METAMYELOCYTE 3 % (0-2); MICROCYTOSIS 0; MYELOCYTE 0 % (0-2); OVALOCYTE 0; PLATELET ESTIMATE NORMAL; POIKILOCYTOSIS 0; POLYCHROMASIA 0; REACTIVE LYMPHOCYTES 0 % (0-80); SCHISTOCYTES 0; SPHEROCYTE 0; STOMATOCYTE 0; TARGET CELLS 0; TEAR DROP CELLS 0; TOXIC GRANULATION 0
[2017-04-11 10:19] LABS: MCH 29.3 pg (25.7-33.7); MCHC 32.5 g/dl (32.0-35.9); MEAN CELL VOLUME 90.3 fl (80-96); PLATELET COUNT 397 K/MM3 (134-434); WHITE BLOOD COUNT 9.7 K/mm3 (4.0-10.0)
[2017-04-11] MEDS: VANCOMYCIN 1,000 MG in DEXTROSE 5%-WATER - 250 ML IVPB SCH (11:02)
[2017-04-11] MEDS: SODIUM HYPOCHLORITE 0.25%- 473 ML BULK BOTTLE TP SCH (11:25)
[2017-04-11] MEDS: ALBUTEROL SO4 2.5/IPRATROPIUM 0.5 INH SOL 3 ML VIAL.NEB. NEB PRN (11:55)
[2017-04-11 12:00] LABS: INR 1.59 (0.82-1.09)
[2017-04-11 12:01] LABS: ACTIVATED PTT 47.7 SECONDS (26.9-34.4)
--- NOTE | 2017-04-11 12:21 | PN ---
Progress Note (short form) - Note Progress Note: PULMONARY OFFERS NO RESP COMPLAINTS USING INCENTIVE SHREYA WANTS SNF REHAB VSS/AFEBRILE ANICTERIC DISTANT BUT CLEAR BREATH SOUNDS S1S2 BS+ SOFT RIGHT FOOT S/P DEBRIDEMENT LABS/IMAGES/MICRO/MEDS NOTED DYSPNEA COPD CHF CARDIOMYOPATHY AFIB RIGHT FOOT ULCER OSTEOMYELITIS LIKELY OSAS PLAN IV ANTIBIOTICS PER ID O2 PRN INHALED BRONCHODILATORS SLEEP SCREEN CONTINUE BRONCHODILATORS Concetta LIVINGSTON MD
--- NOTE | 2017-04-11 14:45 | PN ---
Progress Note (short form) - Note Progress Note: no complaints pod #3 s/p 5th metatarsal head resection and bone biopsy Vital Signs Period Temp Pulse Resp BP Sys/Servin Pulse Ox Last 24 Hr 97.6 F-98.1 F 69-81 18-18 140-155/71-95 98-100 cor-rrr lungs clear abd soft,nt ext wound is clean, no drainage CBC, BMP 04/11/17 10:13 04/11/17 07:20 Microbiology 04/08/17 15:00 Bone Gram Stain - Final 04/08/17 15:00 Bone Tissue Culture - Final NO GROWTH OF AEROBIC ORGANISMS AFTER 48 HOURS INCUBATION 04/08/17 15:00 Bone Anaerobic Culture - Final NO ANAEROBES WERE ISOLATED 04/08/17 15:00 Tissue-Other Gram Stain - Final 04/08/17 15:00 Tissue-Other Tissue Culture - Preliminary 04/08/17 15:00 Tissue-Other Anaerobic Culture - Preliminary No growth. 04/04/17 14:30 Blood - Peripheral Venous Blood Culture - Final NO GROWTH AFTER 5 DAYS INCUBATION 04/04/17 14:30 Blood - Peripheral Venous Blood Culture - Final NO GROWTH AFTER 5 DAYS INCUBATION 04/06/17 11:30 Foot - Right Lateral Gram Stain - Final 04/06/17 11:30 Foot - Right Lateral Wound Culture - Final Staphylococcus Coagulase Neg Current Medications Acetaminophen (Tylenol -) 650 mg PO Q6H PRN PRN Reason: PAIN Last Admin: 04/10/17 21:39 Dose: 650 mg Albuterol/Ipratropium (Duoneb -) 1 amp NEB Q6H PRN Last Admin: 04/11/17 11:55 Dose: 1 amp Finasteride (Proscar -) 5 mg PO DAILY [facility] Last Admin: 04/11/17 09:39 Dose: 5 mg Glipizide (Glucotrol -) 10 mg PO DAILY@0700 [facility] Last Admin: 04/11/17 06:34 Dose: 10 mg Hydrochlorothiazide (Hctz -) 50 mg PO BID [facility] Last Admin: 04/11/17 09:39 Dose: 50 mg Piperacillin Sod/Tazobactam (Sod 3.375 gm/ Dextrose) 50 mls @ 100 mls/hr IVPB Q8H-IV [facility] Last Admin: 04/11/17 11:01 Dose: 100 mls/hr Vancomycin HCl 1,000 mg/ (Dextrose) 250 mls @ 500 mls/hr IVPB DAILY [facility] Last Admin: 04/11/17 11:02 Dose: 500 mls/hr Insulin Aspart (Novolog Vial Sliding Scale -) 1 vial SQ ACHS [facility] PRN Reason: Protocol Last Admin: 04/11/17 11:16 Dose: Not Given Metoprolol Succinate (Toprol Xl -) 50 mg PO BID [facility] Last Admin: 04/11/17 09:39 Dose: 50 mg Oxycodone HCl (Roxicodone -) 5 mg PO Q4H PRN PRN Reason: PAIN LEVEL 1-5 Last Admin: 04/10/17 21:38 Dose: 5 mg Sodium Hypochlorite (Dakin's Solution 0.25% (Half-Strength) -) 1 applic TP DAILY [facility] Last Admin: 04/11/17 11:25 Dose: 1 applic Tamsulosin HCl (Flomax -) 0.4 mg PO DAILY@0830 [facility] Last Admin: 04/11/17 08:29 Dose: 0.4 mg Warfarin Sodium (Coumadin -) 5 mg PO DAILY@1800 [facility] Last Admin: 04/10/17 17:03 Dose: 5 mg MRI +osteo pathology osteo a/p diabetic foot infection- with abscess/gangrene- for debridement will require fdc iv antibiotics for osteomyelitis plan vancomycin/zosyn for 6 weeks repeat esr/crp check vanco level looking for SNF
[2017-04-11] MEDS ORDERED: HEPARIN NA (PORCINE) 5,000 UNITS/ML 1ML VIAL IVPUSH PRN ×2 (14:47)
[2017-04-11] MEDS: HEPARIN INFUSION - 25,000 UNITS/500 ML INFUS.BAG IVPB SCH (15:57)
[2017-04-11] MEDS: WARFARIN NA 7.5 MG TABLET (FP) PO SCH (17:49)
[2017-04-11] MEDS ORDERED: WARFARIN NA 7.5 MG TABLET (FP) PO SCH (18:00)
--- NOTE | 2017-04-11 18:17 | PN ---
Progress Note, Physician - Current Medication List Current Medications: Active Medications Acetaminophen (Tylenol -) 650 mg PO Q6H PRN PRN Reason: PAIN Last Admin: 04/10/17 21:39 Dose: 650 mg Albuterol/Ipratropium (Duoneb -) 1 amp NEB Q6H PRN Last Admin: 04/11/17 11:55 Dose: 1 amp Finasteride (Proscar -) 5 mg PO DAILY [facility] Last Admin: 04/11/17 09:39 Dose: 5 mg Glipizide (Glucotrol -) 10 mg PO DAILY@0700 [facility] Last Admin: 04/11/17 06:34 Dose: 10 mg Heparin Sodium (Porcine) (Heparin -) 1,000 unit IVPUSH PRN PRN PRN Reason: Heparin Heparin Sodium (Porcine) (Heparin -) 5,000 unit IVPUSH PRN PRN PRN Reason: Heparin Hydrochlorothiazide (Hctz -) 50 mg PO BID [facility] Last Admin: 04/11/17 09:39 Dose: 50 mg Piperacillin Sod/Tazobactam (Sod 3.375 gm/ Dextrose) 50 mls @ 100 mls/hr IVPB Q8H-IV [facility] Last Admin: 04/11/17 17:10 Dose: 100 mls/hr Vancomycin HCl 1,000 mg/ (Dextrose) 250 mls @ 500 mls/hr IVPB DAILY [facility] Last Admin: 04/11/17 11:02 Dose: 500 mls/hr Heparin Sodium/Dextrose (Heparin Infusion -) 25,000 units in 500 mls @ 20 mls/ hr IVPB TITR [facility]; 1,000 UNITS/HR PRN Reason: Protocol Last Admin: 04/11/17 15:57 Dose: 1,000 units/hr, 20 mls/hr Insulin Aspart (Novolog Vial Sliding Scale -) 1 vial SQ ACHS [facility] PRN Reason: Protocol Last Admin: 04/11/17 16:53 Dose: Not Given Metoprolol Succinate (Toprol Xl -) 50 mg PO BID [facility] Last Admin: 04/11/17 09:39 Dose: 50 mg Pantoprazole Sodium (Protonix -) 40 mg PO DAILY [facility] Sodium Hypochlorite (Dakin's Solution 0.25% (Half-Strength) -) 1 applic TP DAILY [facility] Last Admin: 04/11/17 11:25 Dose: 1 applic Tamsulosin HCl (Flomax -) 0.4 mg PO DAILY@0830 [facility] Last Admin: 04/11/17 08:29 Dose: 0.4 mg Warfarin Sodium (Coumadin -) 7.5 mg PO Q2D@1800 [facility] Last Admin: 04/11/17 17:49 Dose: 7.5 mg Warfarin Sodium (Coumadin -) 5 mg PO Q2D@1800 [facility] - Objective Vital Signs: Vital Signs Temperature 97.7 F 04/11/17 15:34 Pulse Rate 64 04/11/17 15:34 Respiratory Rate 18 04/11/17 15:34 Blood Pressure 156/84 04/11/17 15:34 O2 Sat by Pulse Oximetry (%) 98 04/11/17 10:54 Labs: CBC, BMP 04/11/17 10:13 04/11/17 07:20 INR, PTT INR 1.59 (0.82-1.09) H 04/11/17 11:00 Problem List - Problems (1) Diabetic foot ulcer Code(s): E11.621 - TYPE 2 DIABETES MELLITUS WITH FOOT ULCER; L97.509 - NON- PRESSURE CHRONIC ULCER OTH PRT UNSP FOOT W UNSP SEVERITY Qualifiers: Diabetic foot ulcer location: toe Laterality: right (2) Afib Code(s): I48.91 - UNSPECIFIED ATRIAL FIBRILLATION (3) BPH (benign prostatic hyperplasia) Code(s): N40.0 - BENIGN PROSTATIC HYPERPLASIA WITHOUT LOWER URINRY TRACT SYMP (4) COPD (chronic obstructive pulmonary disease) Code(s): J44.9 - CHRONIC OBSTRUCTIVE PULMONARY DISEASE, UNSPECIFIED (5) Cardiomyopathy Code(s): I42.9 - CARDIOMYOPATHY, UNSPECIFIED (6) Diabetes Code(s): E11.9 - TYPE 2 DIABETES MELLITUS WITHOUT COMPLICATIONS (7) HTN (hypertension) Code(s): I10 - ESSENTIAL (PRIMARY) HYPERTENSION
[2017-04-11] MEDS: oxyCODONE HCL 5 MG TABLET PO PRN (22:04)
[2017-04-11] MEDS: ACETAMINOPHEN 325 MG TABLET (FP) PO PRN (22:06)
[2017-04-12] MEDS: PIPERACILLIN/TAZOB 3.375 GM 3.375 GM in DEXTROSE 5%-WATER - 50 ML IVPB SCH ×3 (01:50→18:01)
[2017-04-12] MEDS: INSULIN SLIDING SCALE (NOVOLOG) 1 VIAL SQ SCH ×4 (06:33→21:45)
[2017-04-12] MEDS: glipiZIDE 5 MG TABLET (FP) PO SCH (06:34)
[2017-04-12] MEDS: ACETAMINOPHEN 325 MG TABLET (FP) PO PRN ×2 (07:47→21:48)
[2017-04-12] MEDS: oxyCODONE HCL 5 MG TABLET PO PRN ×2 (07:49→21:47)
--- NOTE | 2017-04-12 07:55 | PN ---
Progress Note (short form) - Note Progress Note: Podiatry: Seen/evaluated at bedside, NAD. Pain well controlled, denies F/V/N/C/SOB/CP. Afebrile, VSS. S/p R 5th metatarsal head resection, debridement/lavage. CUCA: R foot: dressing C/D/I, no active bleeding. Sutures coapted proximally, large post-surgical ulcer lateral 5th ray with mostly granular base, small area of fibrotic slough, no purulence, no fluctuance, no soft tissue crepitus, no periwound erythema, no ascending cellulitis, no signs of active infection. NO ischemic changes exhibited to the foot. OR Cx: no growth OR Path: proximal bone with acute on chronic osteomyelitis WBC: 9.7 Imp: 71 year old DM M s/p R foot debridement/lavage with 5th metatarsal head resection 1. C/w IV abx per ID 2. PICC line, treatment for osteomyelitis 3. Dakins gauze + DSD R foot 4. Partial WB R Heel with surgical shoe 5. For SNF. Patient needs wound vac with medium black granufoam, 125 mmHg continuous, changed 3x/week 6. Upon discharge, will f/u with me in [facility] wound healing center Christian Dos Santos DPM
[2017-04-12] MEDS: TAMSULOSIN HCL 0.4 MG CAP.ER.24H (FP) PO SCH (08:15)
[2017-04-12] MEDS: FINASTERIDE 5 MG TABLET (FP) PO SCH (10:15)
[2017-04-12] MEDS: METOPROLOL SUCCINATE 50 MG TAB.SR.24H (FP) PO SCH ×2 (10:15→21:46)
[2017-04-12] MEDS: PANTOPRAZOLE 40 MG TABLET (FP) PO SCH (10:15)
[2017-04-12] MEDS: VANCOMYCIN 1,000 MG in DEXTROSE 5%-WATER - 250 ML IVPB SCH (10:15)
[2017-04-12] MEDS: HYDROCHLOROTHIAZIDE 25 MG TABLET (FP) PO SCH ×2 (10:15→21:46)
[2017-04-12] MEDS: SODIUM HYPOCHLORITE 0.25%- 473 ML BULK BOTTLE TP SCH (10:19)
[2017-04-12 10:58] LABS: INR 1.62 (0.82-1.09); PROTHROMBIN TIME (PATIENT) 18.3 SEC (9.98-11.88)
--- NOTE | 2017-04-12 12:10 | PN ---
Progress Note (short form) - Note Progress Note: PULMONARY Denies shortness of breath, cough or wheezing. No fevers or chills. Last Vital Signs Temp Pulse Resp BP Pulse Ox 97.7 F 78 20 123/84 98 04/12/17 07:15 04/12/17 07:15 04/12/17 07:15 04/12/17 07:15 04/11/17 21:00 Gen: NAD at rest Heat: RRR Lung: clear to auscultation Abd: soft, nontender Ext: dressings dry CBC, BMP 04/11/17 10:13 04/11/17 07:20 Active Medications Acetaminophen (Tylenol -) 650 mg PO Q6H PRN PRN Reason: PAIN Last Admin: 04/12/17 07:47 Dose: 650 mg Albuterol/Ipratropium (Duoneb -) 1 amp NEB Q6H PRN Last Admin: 04/11/17 11:55 Dose: 1 amp Finasteride (Proscar -) 5 mg PO DAILY [facility] Last Admin: 04/12/17 10:15 Dose: 5 mg Glipizide (Glucotrol -) 10 mg PO DAILY@0700 [facility] Last Admin: 04/12/17 06:34 Dose: 10 mg Heparin Sodium (Porcine) (Heparin -) 1,000 unit IVPUSH PRN PRN PRN Reason: Heparin Heparin Sodium (Porcine) (Heparin -) 5,000 unit IVPUSH PRN PRN PRN Reason: Heparin Hydrochlorothiazide (Hctz -) 50 mg PO BID [facility] Last Admin: 04/12/17 10:15 Dose: 50 mg Piperacillin Sod/Tazobactam (Sod 3.375 gm/ Dextrose) 50 mls @ 100 mls/hr IVPB Q8H-IV [facility] Last Admin: 04/12/17 09:16 Dose: 100 mls/hr Vancomycin HCl 1,000 mg/ (Dextrose) 250 mls @ 500 mls/hr IVPB DAILY [facility] Last Admin: 04/12/17 10:15 Dose: 500 mls/hr Heparin Sodium/Dextrose (Heparin Infusion -) 25,000 units in 500 mls @ 20 mls/ hr IVPB TITR [facility]; 1,000 UNITS/HR PRN Reason: Protocol Last Titration: 04/11/17 23:50 Dose: 1,000 units/hr, 20 mls/hr Insulin Aspart (Novolog Vial Sliding Scale -) 1 vial SQ ACHS [facility] PRN Reason: Protocol Last Admin: 04/12/17 06:33 Dose: Not Given Metoprolol Succinate (Toprol Xl -) 50 mg PO BID [facility] Last Admin: 04/12/17 10:15 Dose: 50 mg Oxycodone HCl (Roxicodone -) 5 mg PO Q4H PRN Last Admin: 04/12/17 07:49 Dose: 5 mg Pantoprazole Sodium (Protonix -) 40 mg PO DAILY [facility] Last Admin: 04/12/17 10:15 Dose: 40 mg Sodium Hypochlorite (Dakin's Solution 0.25% (Half-Strength) -) 1 applic TP DAILY [facility] Last Admin: 04/12/17 10:19 Dose: 1 applic Tamsulosin HCl (Flomax -) 0.4 mg PO DAILY@0830 [facility] Last Admin: 04/12/17 08:15 Dose: 0.4 mg Warfarin Sodium (Coumadin -) 7.5 mg PO Q2D@1800 [facility] Last Admin: 04/11/17 17:49 Dose: 7.5 mg Warfarin Sodium (Coumadin -) 5 mg PO Q2D@1800 [facility] A/P Osteomyelitis COPD Atrial Fibrillation Pulmonary HTN HTN DM Hyperlipidemia Hep C - continue antibiotics per ID - wound care - will make his nebs standing per pt request - rate controlled - continue anticoagulation - O2 to keep SpO2 >90%
[2017-04-12] MEDS: HEPARIN INFUSION - 25,000 UNITS/500 ML INFUS.BAG IVPB SCH (15:01)
--- NOTE | 2017-04-12 15:11 | PN ---
Progress Note, Physician Chief Complaint: Pt A&Ox3; no chest pain or dyspnea; right LE not painful presently. History of Present Illness: 71-year-old male history of diabetes, hypertension, afib on coumadin, diastolic CHF, PAD, sent to ER for admission for right foot ulcer and cellulitis by vascular. Patient states 4 weeks ago, he developed ulcer to lateral aspect of right fifth toe w/ foul odor, pain, swelling and erythema. 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 Has some chills at home but no fever. Seen by Dr. Spencer of vascular today who was concerned about possible osteo. See exam Diabetic foot ulcer/cellulitis Stable w/ ulcer down to bone w/ foul odor to lateral R 5th digit w/ erythema/ warmth and ttp extending up to lower leg, pedal pulses intact -IV abx -labs - Current Medication List Current Medications: Active Medications Acetaminophen (Tylenol -) 650 mg PO Q6H PRN PRN Reason: PAIN Last Admin: 04/12/17 07:47 Dose: 650 mg Albuterol/Ipratropium (Duoneb -) 1 amp NEB Q6H PRN Last Admin: 04/11/17 11:55 Dose: 1 amp Albuterol/Ipratropium (Duoneb -) 1 amp NEB BID [facility] Finasteride (Proscar -) 5 mg PO DAILY [facility] Last Admin: 04/12/17 10:15 Dose: 5 mg Glipizide (Glucotrol -) 10 mg PO DAILY@0700 [facility] Last Admin: 04/12/17 06:34 Dose: 10 mg Heparin Sodium (Porcine) (Heparin -) 1,000 unit IVPUSH PRN PRN PRN Reason: Heparin Heparin Sodium (Porcine) (Heparin -) 5,000 unit IVPUSH PRN PRN PRN Reason: Heparin Hydrochlorothiazide (Hctz -) 50 mg PO BID [facility] Last Admin: 04/12/17 10:15 Dose: 50 mg Piperacillin Sod/Tazobactam (Sod 3.375 gm/ Dextrose) 50 mls @ 100 mls/hr IVPB Q8H-IV [facility] Last Admin: 04/12/17 09:16 Dose: 100 mls/hr Vancomycin HCl 1,000 mg/ (Dextrose) 250 mls @ 500 mls/hr IVPB DAILY [facility] Last Admin: 04/12/17 10:15 Dose: 500 mls/hr Heparin Sodium/Dextrose (Heparin Infusion -) 25,000 units in 500 mls @ 20 mls/ hr IVPB TITR [facility]; 1,000 UNITS/HR PRN Reason: Protocol Last Titration: 04/11/17 23:50 Dose: 1,000 units/hr, 20 mls/hr Insulin Aspart (Novolog Vial Sliding Scale -) 1 vial SQ ACHS [facility] PRN Reason: Protocol Last Admin: 04/12/17 12:07 Dose: Not Given Metoprolol Succinate (Toprol Xl -) 50 mg PO BID [facility] Last Admin: 04/12/17 10:15 Dose: 50 mg Oxycodone HCl (Roxicodone -) 5 mg PO Q4H PRN Last Admin: 04/12/17 07:49 Dose: 5 mg Pantoprazole Sodium (Protonix -) 40 mg PO DAILY [facility] Last Admin: 04/12/17 10:15 Dose: 40 mg Sodium Hypochlorite (Dakin's Solution 0.25% (Half-Strength) -) 1 applic TP DAILY [facility] Last Admin: 04/12/17 10:19 Dose: 1 applic Tamsulosin HCl (Flomax -) 0.4 mg PO DAILY@0830 [facility] Last Admin: 04/12/17 08:15 Dose: 0.4 mg Warfarin Sodium (Coumadin -) 7.5 mg PO Q2D@1800 [facility] Last Admin: 04/11/17 17:49 Dose: 7.5 mg Warfarin Sodium (Coumadin -) 5 mg PO Q2D@1800 [facility] - Objective Vital Signs: Vital Signs Temperature 97.9 F 04/12/17 14:39 Pulse Rate 83 04/12/17 14:39 Respiratory Rate 16 04/12/17 14:39 Blood Pressure 151/67 04/12/17 14:39 O2 Sat by Pulse Oximetry (%) 98 04/11/17 21:00 Constitutional: Yes: Calm Eyes: Yes: WNL HENT: Yes: WNL Neck: Yes: WNL Cardiovascular: Yes: Pulse Irregular, S1 (varies in intensity) Respiratory: Yes: Regular Gastrointestinal: Yes: Soft ...Rectal Exam: Yes: Deferred Genitourinary: No: Anuria Musculoskeletal: Yes: Joint Swelling, Muscle Weakness Extremities: Yes: Cool Edema: Yes Peripheral Pulses WNL: No Peripheral Pulses: Right Dorsalis Pedis: 1+ Integumentary: Yes: Bruising Wound/Incision: Yes: Dressing Dry and Intact Neurological: Yes: Alert, Oriented Psychiatric: Yes: Other Labs: CBC, BMP 04/11/17 10:13 04/11/17 07:20 INR, PTT INR 1.62 (0.82-1.09) H 04/12/17 06:30 Abnormal Lab Results 04/13/17 04/13/17 06:20 09:22 PT with INR 19.00 H INR 1.68 H PTT (Actin FS) 60.8 H Problem List - Problems (1) Afib Assessment/Plan: Continue beta blockers for HR control. On IV heparin until INR 2-3 on warfarin. 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
[2017-04-12] MEDS ORDERED: WARFARIN NA 5 MG TABLET (UD) PO SCH (18:00)
[2017-04-12] MEDS: ALBUTEROL SO4 2.5/IPRATROPIUM 0.5 INH SOL 3 ML VIAL.NEB. NEB PRN (19:43)
[2017-04-12] MEDS ORDERED: PT OWN MED DRAWER 7, Y5N ONE (19:55)
[2017-04-12] MEDS ORDERED: INSULIN (NOVOLOG) ASPART 100 UNITS/ML 10ML VIAL ONE (20:53)
[2017-04-12] MEDS: ALBUTEROL SO4 2.5/IPRATROPIUM 0.5 INH SOL 3 ML VIAL.NEB. NEB SCH (22:18)
--- NOTE | 2017-04-13 00:09 | PN ---
Progress Note, Physician - Current Medication List Current Medications: Active Medications Acetaminophen (Tylenol -) 650 mg PO Q6H PRN PRN Reason: PAIN Last Admin: 04/12/17 21:48 Dose: 650 mg Albuterol/Ipratropium (Duoneb -) 1 amp NEB Q6H PRN Last Admin: 04/12/17 19:43 Dose: 1 amp Albuterol/Ipratropium (Duoneb -) 1 amp NEB BID [facility] Last Admin: 04/12/17 22:18 Dose: Not Given Finasteride (Proscar -) 5 mg PO DAILY [facility] Last Admin: 04/12/17 10:15 Dose: 5 mg Glipizide (Glucotrol -) 10 mg PO DAILY@0700 [facility] Last Admin: 04/12/17 06:34 Dose: 10 mg Heparin Sodium (Porcine) (Heparin -) 1,000 unit IVPUSH PRN PRN PRN Reason: Heparin Heparin Sodium (Porcine) (Heparin -) 5,000 unit IVPUSH PRN PRN PRN Reason: Heparin Hydrochlorothiazide (Hctz -) 50 mg PO BID [facility] Last Admin: 04/12/17 21:46 Dose: 50 mg Piperacillin Sod/Tazobactam (Sod 3.375 gm/ Dextrose) 50 mls @ 100 mls/hr IVPB Q8H-IV [facility] Last Admin: 04/12/17 18:01 Dose: 100 mls/hr Vancomycin HCl 1,000 mg/ (Dextrose) 250 mls @ 500 mls/hr IVPB DAILY [facility] Last Admin: 04/12/17 10:15 Dose: 500 mls/hr Heparin Sodium/Dextrose (Heparin Infusion -) 25,000 units in 500 mls @ 20 mls/ hr IVPB TITR [facility]; 1,000 UNITS/HR PRN Reason: Protocol Last Titration: 04/12/17 18:02 Dose: 1,000 units/hr, 20 mls/hr Insulin Aspart (Novolog Vial Sliding Scale -) 1 vial SQ ACHS [facility] PRN Reason: Protocol Last Admin: 04/12/17 21:45 Dose: Not Given Metoprolol Succinate (Toprol Xl -) 50 mg PO BID [facility] Last Admin: 04/12/17 21:46 Dose: 50 mg Oxycodone HCl (Roxicodone -) 5 mg PO Q4H PRN Last Admin: 04/12/17 21:47 Dose: 5 mg Pantoprazole Sodium (Protonix -) 40 mg PO DAILY [facility] Last Admin: 04/12/17 10:15 Dose: 40 mg Sodium Hypochlorite (Dakin's Solution 0.25% (Half-Strength) -) 1 applic TP DAILY [facility] Last Admin: 04/12/17 10:19 Dose: 1 applic Tamsulosin HCl (Flomax -) 0.4 mg PO DAILY@0830 [facility] Last Admin: 04/12/17 08:15 Dose: 0.4 mg Warfarin Sodium (Coumadin -) 7.5 mg PO Q2D@1800 [facility] Last Admin: 04/11/17 17:49 Dose: 7.5 mg Warfarin Sodium (Coumadin -) 5 mg PO Q2D@1800 [facility] Last Admin: 04/12/17 18:01 Dose: 5 mg - Objective Vital Signs: Vital Signs Temperature 98.2 F 04/12/17 22:00 Pulse Rate 82 04/12/17 22:00 Respiratory Rate 20 04/12/17 22:00 Blood Pressure 132/77 04/12/17 22:00 O2 Sat by Pulse Oximetry (%) 97 04/12/17 21:00 Labs: CBC, BMP 04/11/17 10:13 04/11/17 07:20 INR, PTT INR 1.62 (0.82-1.09) H 04/12/17 06:30 Problem List - Problems (1) Diabetic foot ulcer Code(s): E11.621 - TYPE 2 DIABETES MELLITUS WITH FOOT ULCER; L97.509 - NON- PRESSURE CHRONIC ULCER OTH PRT UNSP FOOT W UNSP SEVERITY Qualifiers: Diabetic foot ulcer location: toe Laterality: right (2) Afib Code(s): I48.91 - UNSPECIFIED ATRIAL FIBRILLATION (3) BPH (benign prostatic hyperplasia) Code(s): N40.0 - BENIGN PROSTATIC HYPERPLASIA WITHOUT LOWER URINRY TRACT SYMP (4) COPD (chronic obstructive pulmonary disease) Code(s): J44.9 - CHRONIC OBSTRUCTIVE PULMONARY DISEASE, UNSPECIFIED (5) Cardiomyopathy Code(s): I42.9 - CARDIOMYOPATHY, UNSPECIFIED (6) Diabetes Code(s): E11.9 - TYPE 2 DIABETES MELLITUS WITHOUT COMPLICATIONS (7) HTN (hypertension) Code(s): I10 - ESSENTIAL (PRIMARY) HYPERTENSION
[2017-04-13] MEDS: PIPERACILLIN/TAZOB 3.375 GM 3.375 GM in DEXTROSE 5%-WATER - 50 ML IVPB SCH ×3 (02:05→17:51)
[2017-04-13] MEDS: INSULIN SLIDING SCALE (NOVOLOG) 1 VIAL SQ SCH ×4 (06:12→21:32)
[2017-04-13] MEDS: glipiZIDE 5 MG TABLET (FP) PO SCH (06:13)
[2017-04-13 07:04] LABS: MCH 29.7 pg (25.7-33.7); MEAN CELL VOLUME 90.2 fl (80-96); PLATELET COUNT 459 K/MM3 (134-434); WHITE BLOOD COUNT 8.5 K/mm3 (4.0-10.0)
[2017-04-13] MEDS: TAMSULOSIN HCL 0.4 MG CAP.ER.24H (FP) PO SCH (08:25)
[2017-04-13] MEDS: ACETAMINOPHEN 325 MG TABLET (FP) PO PRN (08:26)
[2017-04-13] MEDS: oxyCODONE HCL 5 MG TABLET PO PRN ×2 (08:26→17:55)
[2017-04-13] MEDS ORDERED: PT OWN MED DRAWER 7, Y5N ONE ×2 (09:01→17:46)
[2017-04-13] MEDS: HYDROCHLOROTHIAZIDE 25 MG TABLET (FP) PO SCH ×2 (09:04→21:44)
[2017-04-13] MEDS: METOPROLOL SUCCINATE 50 MG TAB.SR.24H (FP) PO SCH ×2 (09:04→21:44)
[2017-04-13] MEDS: PANTOPRAZOLE 40 MG TABLET (FP) PO SCH (09:04)
[2017-04-13] MEDS: SODIUM HYPOCHLORITE 0.25%- 473 ML BULK BOTTLE TP SCH (09:05)
[2017-04-13] MEDS: FINASTERIDE 5 MG TABLET (FP) PO SCH (09:05)
[2017-04-13 09:27] LABS: INR 1.68 (0.82-1.09)
[2017-04-13] MEDS: VANCOMYCIN 1,250 MG in DEXTROSE 5%-WATER - 250 ML IVPB SCH (10:21)
[2017-04-13] MEDS: ALBUTEROL SO4 2.5/IPRATROPIUM 0.5 INH SOL 3 ML VIAL.NEB. NEB SCH ×2 (10:40→22:17)
--- NOTE | 2017-04-13 11:52 | PN ---
Progress Note (short form) - Note Progress Note: PULMONARY Denies shortness of breath, cough or wheezing. No fevers or chills. Last Vital Signs Temp Pulse Resp BP Pulse Ox 97.8 F 76 18 136/73 97 04/13/17 09:58 04/13/17 09:58 04/13/17 09:58 04/13/17 09:58 04/13/17 09:00 Gen: NAD at rest Heat: RRR Lung: clear to auscultation Abd: soft, nontender Ext: dressings dry CBC, BMP 04/13/17 06:20 04/11/17 07:20 Active Medications Acetaminophen (Tylenol -) 650 mg PO Q6H PRN PRN Reason: PAIN Last Admin: 04/13/17 08:26 Dose: 650 mg Albuterol/Ipratropium (Duoneb -) 1 amp NEB Q6H PRN Last Admin: 04/12/17 19:43 Dose: 1 amp Albuterol/Ipratropium (Duoneb -) 1 amp NEB BID [facility] Last Admin: 04/13/17 10:40 Dose: 1 amp Finasteride (Proscar -) 5 mg PO DAILY [facility] Last Admin: 04/13/17 09:05 Dose: 5 mg Glipizide (Glucotrol -) 10 mg PO DAILY@0700 [facility] Last Admin: 04/13/17 06:13 Dose: 10 mg Heparin Sodium (Porcine) (Heparin -) 1,000 unit IVPUSH PRN PRN PRN Reason: Heparin Heparin Sodium (Porcine) (Heparin -) 5,000 unit IVPUSH PRN PRN PRN Reason: Heparin Hydrochlorothiazide (Hctz -) 50 mg PO BID [facility] Last Admin: 04/13/17 09:04 Dose: 50 mg Piperacillin Sod/Tazobactam (Sod 3.375 gm/ Dextrose) 50 mls @ 100 mls/hr IVPB Q8H-IV [facility] Last Admin: 04/13/17 09:38 Dose: 100 mls/hr Heparin Sodium/Dextrose (Heparin Infusion -) 25,000 units in 500 mls @ 20 mls/ hr IVPB TITR JESUS ALBERTO; 1,000 UNITS/HR PRN Reason: Protocol Last Titration: 04/12/17 18:02 Dose: 1,000 units/hr, 20 mls/hr Vancomycin HCl 1,250 mg/ (Dextrose) 250 mls @ 250 mls/hr IVPB DAILY [facility] PRN Reason: Protocol Last Admin: 04/13/17 10:21 Dose: 250 mls/hr Insulin Aspart (Novolog Vial Sliding Scale -) 1 vial SQ ACHS [facility] PRN Reason: Protocol Last Admin: 04/13/17 11:10 Dose: Not Given Metoprolol Succinate (Toprol Xl -) 50 mg PO BID [facility] Last Admin: 04/13/17 09:04 Dose: 50 mg Oxycodone HCl (Roxicodone -) 5 mg PO Q4H PRN Last Admin: 04/13/17 08:26 Dose: 5 mg Pantoprazole Sodium (Protonix -) 40 mg PO DAILY [facility] Last Admin: 04/13/17 09:04 Dose: 40 mg Sodium Hypochlorite (Dakin's Solution 0.25% (Half-Strength) -) 1 applic TP DAILY [facility] Last Admin: 04/13/17 09:05 Dose: 1 applic Tamsulosin HCl (Flomax -) 0.4 mg PO DAILY@0830 [facility] Last Admin: 04/13/17 08:25 Dose: 0.4 mg Warfarin Sodium (Coumadin -) 7.5 mg PO Q2D@1800 [facility] Last Admin: 04/11/17 17:49 Dose: 7.5 mg Warfarin Sodium (Coumadin -) 5 mg PO Q2D@1800 [facility] Last Admin: 04/12/17 18:01 Dose: 5 mg A/P Osteomyelitis COPD Atrial Fibrillation Pulmonary HTN HTN DM Hyperlipidemia Hep C - continue antibiotics per ID - wound care - inhaled bronchodilators - rate controlled - continue anticoagulation - O2 to keep SpO2 >90% - d/c planning
--- NOTE | 2017-04-13 12:56 | PN ---
Progress Note (short form) - Note Progress Note: Podiatry: Seen/evaluated at bedside, NAD. Denies F/V/N/C/SOB/CP. Afebrile, VSS. S/p R foot debridement/lavage with 5th metatarsal bone biopsy. CUCA: R foot: post-surgical ulcer lateral 5th MTPJ with mixed fibrogranular base, no purulence, no fluctuance, no periwound erythema, no ascending cellulitis, no signs of active infection. No ischemic tissue changes exhibited to the foot. Capillary refill 3 seconds to the 5th digit. No tenderness to palpation. WBC: 8.5 OR Cx: pending org OR Bone Path: acute on chronic osteomyelitis Imp: 71 year old IDDM M s/p R foot debridement/lavage with 5th metatarsal bone biopsy 1. IV abx per ID. Needs 6 weeks IV abx for treatment of osteomyelitis. For PICC line. 2. Plan for discharge to SNF. Needs wound vac. 125 mmHg continuous with black granufoam, changed 3x/week. Wound vac will accelerate healing and promote granulation tissue. If cannot get wound vac immediately, can bridge with dakins gauze and dry sterile dressing daily until wound vac arrives. 3. Stable for discharge from my standpoint. Will f/u with me on Friday, , in [facility] wound healing center. [phone] Christian Dos Santos DPM
[2017-04-13] MEDS: WARFARIN NA 7.5 MG TABLET (FP) PO SCH (17:51)
[2017-04-13] MEDS: HEPARIN INFUSION - 25,000 UNITS/500 ML INFUS.BAG IVPB SCH (19:39)
--- NOTE | 2017-04-13 23:35 | PN ---
Progress Note, Physician History of Present Illness: No new complaints - Current Medication List Current Medications: Active Medications Acetaminophen (Tylenol -) 650 mg PO Q6H PRN PRN Reason: PAIN Last Admin: 04/13/17 08:26 Dose: 650 mg Albuterol/Ipratropium (Duoneb -) 1 amp NEB BID [facility] Last Admin: 04/13/17 22:17 Dose: 1 amp Finasteride (Proscar -) 5 mg PO DAILY [facility] Last Admin: 04/13/17 09:05 Dose: 5 mg Glipizide (Glucotrol -) 10 mg PO DAILY@0700 [facility] Last Admin: 04/13/17 06:13 Dose: 10 mg Heparin Sodium (Porcine) (Heparin -) 1,000 unit IVPUSH PRN PRN PRN Reason: Heparin Heparin Sodium (Porcine) (Heparin -) 5,000 unit IVPUSH PRN PRN PRN Reason: Heparin Hydrochlorothiazide (Hctz -) 50 mg PO BID [facility] Last Admin: 04/13/17 21:44 Dose: 50 mg Piperacillin Sod/Tazobactam (Sod 3.375 gm/ Dextrose) 50 mls @ 100 mls/hr IVPB Q8H-IV [facility] Last Admin: 04/13/17 17:51 Dose: 100 mls/hr Heparin Sodium/Dextrose (Heparin Infusion -) 25,000 units in 500 mls @ 20 mls/ hr IVPB TITR JESUS ALBERTO; 1,000 UNITS/HR PRN Reason: Protocol Last Admin: 04/13/17 19:39 Dose: 1,000 units/hr, 20 mls/hr Vancomycin HCl 1,250 mg/ (Dextrose) 250 mls @ 250 mls/hr IVPB DAILY [facility] PRN Reason: Protocol Last Admin: 04/13/17 10:21 Dose: 250 mls/hr Insulin Aspart (Novolog Vial Sliding Scale -) 1 vial SQ ACHS [facility] PRN Reason: Protocol Last Admin: 04/13/17 21:32 Dose: Not Given Metoprolol Succinate (Toprol Xl -) 50 mg PO BID [facility] Last Admin: 04/13/17 21:44 Dose: 50 mg Oxycodone HCl (Roxicodone -) 5 mg PO Q4H PRN Last Admin: 04/13/17 17:55 Dose: 5 mg Pantoprazole Sodium (Protonix -) 40 mg PO DAILY [facility] Last Admin: 04/13/17 09:04 Dose: 40 mg Sodium Hypochlorite (Dakin's Solution 0.25% (Half-Strength) -) 1 applic TP DAILY [facility] Last Admin: 04/13/17 09:05 Dose: 1 applic Tamsulosin HCl (Flomax -) 0.4 mg PO DAILY@0830 [facility] Last Admin: 04/13/17 08:25 Dose: 0.4 mg Warfarin Sodium (Coumadin -) 7.5 mg PO Q2D@1800 [facility] Last Admin: 04/13/17 17:51 Dose: 7.5 mg Warfarin Sodium (Coumadin -) 5 mg PO Q2D@1800 [facility] Last Admin: 04/12/17 18:01 Dose: 5 mg - Objective Vital Signs: Vital Signs Temperature 97.8 F 04/13/17 22:00 Pulse Rate 76 04/13/17 22:00 Respiratory Rate 20 04/13/17 22:00 Blood Pressure 129/85 04/13/17 22:00 O2 Sat by Pulse Oximetry (%) 97 04/13/17 09:00 Constitutional: Yes: Well Nourished HENT: Yes: WNL Neck: Yes: WNL, Supple Cardiovascular: Yes: WNL, Regular Rate and Rhythm Respiratory: Yes: WNL, Regular, CTA Bilaterally Gastrointestinal: Yes: WNL, Normal Bowel Sounds, Soft Extremities: Yes: Other (Lt foot in dressing) Labs: CBC, BMP 04/13/17 06:20 04/11/17 07:20 INR, PTT INR 1.68 (0.82-1.09) H 04/13/17 09:22 Problem List - Problems (1) Diabetic foot ulcer Assessment/Plan: MRI Rt foot showed changes in 2nd/3rd/4th metatarsal suggestive of oste S/p surgical debridement/bone bx Tissue culture shows strept mitis/gram (+) bacilli Cont IV vanco/zosyn Will need 6 weeks of IV antibxs PICC line placement in am Cont wound care DC planning to STR Code(s): E11.621 - TYPE 2 DIABETES MELLITUS WITH FOOT ULCER; L97.509 - NON- PRESSURE CHRONIC ULCER OTH PRT UNSP FOOT W UNSP SEVERITY Qualifiers: Diabetic foot ulcer location: toe Laterality: right (2) Afib Assessment/Plan: IV heparin to be bridged w/ coumadin Will give extradose of coumadin tonight Check pt/inr in am Code(s): I48.91 - UNSPECIFIED ATRIAL FIBRILLATION (3) BPH (benign prostatic hyperplasia) Assessment/Plan: Cont proscar Code(s): N40.0 - BENIGN PROSTATIC HYPERPLASIA WITHOUT LOWER URINRY TRACT SYMP (4) COPD (chronic obstructive pulmonary disease) Assessment/Plan: As per pulmonary Cont nebulizers Code(s): J44.9 - CHRONIC OBSTRUCTIVE PULMONARY DISEASE, UNSPECIFIED (5) Cardiomyopathy Code(s): I42.9 - CARDIOMYOPATHY, UNSPECIFIED (6) Diabetes Assessment/Plan: Cont metformin/glipizide Cont FS tid w/ sliding scale Code(s): E11.9 - TYPE 2 DIABETES MELLITUS WITHOUT COMPLICATIONS (7) HTN (hypertension) Assessment/Plan: BP stable Cont metoprolol Code(s): I10 - ESSENTIAL (PRIMARY) HYPERTENSION
[2017-04-14] MEDS ORDERED: WARFARIN NA 5 MG TABLET (UD) PO ONE (00:13)
[2017-04-14] MEDS: PIPERACILLIN/TAZOB 3.375 GM 3.375 GM in DEXTROSE 5%-WATER - 50 ML IVPB SCH ×2 (02:47→11:11)
[2017-04-14] MEDS: INSULIN SLIDING SCALE (NOVOLOG) 1 VIAL SQ SCH ×4 (06:20→22:44)
[2017-04-14] MEDS: glipiZIDE 5 MG TABLET (FP) PO SCH (06:22)
--- NOTE | 2017-04-14 07:21 | PN ---
Progress Note, Physician Chief Complaint: Pt A&Ox3. History of Present Illness: 71-year-old male history of diabetes, hypertension, afib on coumadin, diastolic CHF, PAD, sent to ER for admission for right foot ulcer and cellulitis by vascular. Patient states 4 weeks ago, he developed ulcer to lateral aspect of right fifth toe w/ foul odor, pain, swelling and erythema. Place on antibiotics several days ago by his moss bleacher, but does not remember name at this time. Has some chills at home but no fever. Seen by Dr. Spencer of vascular today who was concerned about possible osteo. See exam Diabetic foot ulcer/cellulitis Stable w/ ulcer down to bone w/ foul odor to lateral R 5th digit w/ erythema/ warmth and ttp extending up to lower leg, pedal pulses intact -IV abx -labs - Current Medication List Current Medications: Active Medications Acetaminophen (Tylenol -) 650 mg PO Q6H PRN PRN Reason: PAIN Last Admin: 04/13/17 08:26 Dose: 650 mg Albuterol/Ipratropium (Duoneb -) 1 amp NEB BID [facility] Last Admin: 04/13/17 22:17 Dose: 1 amp Finasteride (Proscar -) 5 mg PO DAILY [facility] Last Admin: 04/13/17 09:05 Dose: 5 mg Glipizide (Glucotrol -) 10 mg PO DAILY@0700 [facility] Last Admin: 04/14/17 06:22 Dose: 10 mg Heparin Sodium (Porcine) (Heparin -) 1,000 unit IVPUSH PRN PRN PRN Reason: Heparin Heparin Sodium (Porcine) (Heparin -) 5,000 unit IVPUSH PRN PRN PRN Reason: Heparin Hydrochlorothiazide (Hctz -) 50 mg PO BID [facility] Last Admin: 04/13/17 21:44 Dose: 50 mg Piperacillin Sod/Tazobactam (Sod 3.375 gm/ Dextrose) 50 mls @ 100 mls/hr IVPB Q8H-IV [facility] Last Admin: 04/14/17 02:47 Dose: 100 mls/hr Heparin Sodium/Dextrose (Heparin Infusion -) 25,000 units in 500 mls @ 20 mls/ hr IVPB TITR JESUS ALBERTO; 1,000 UNITS/HR PRN Reason: Protocol Last Admin: 04/13/17 19:39 Dose: 1,000 units/hr, 20 mls/hr Vancomycin HCl 1,250 mg/ (Dextrose) 250 mls @ 250 mls/hr IVPB DAILY [facility] PRN Reason: Protocol Last Admin: 04/13/17 10:21 Dose: 250 mls/hr Insulin Aspart (Novolog Vial Sliding Scale -) 1 vial SQ ACHS [facility] PRN Reason: Protocol Last Admin: 04/14/17 06:20 Dose: Not Given Metoprolol Succinate (Toprol Xl -) 50 mg PO BID [facility] Last Admin: 04/13/17 21:44 Dose: 50 mg Oxycodone HCl (Roxicodone -) 5 mg PO Q4H PRN Last Admin: 04/13/17 17:55 Dose: 5 mg Pantoprazole Sodium (Protonix -) 40 mg PO DAILY [facility] Last Admin: 04/13/17 09:04 Dose: 40 mg Sodium Hypochlorite (Dakin's Solution 0.25% (Half-Strength) -) 1 applic TP DAILY [facility] Last Admin: 04/13/17 09:05 Dose: 1 applic Tamsulosin HCl (Flomax -) 0.4 mg PO DAILY@0830 [facility] Last Admin: 04/13/17 08:25 Dose: 0.4 mg Warfarin Sodium (Coumadin -) 7.5 mg PO Q2D@1800 [facility] Last Admin: 04/13/17 17:51 Dose: 7.5 mg Warfarin Sodium (Coumadin -) 5 mg PO Q2D@1800 [facility] Last Admin: 04/12/17 18:01 Dose: 5 mg - Objective Vital Signs: Vital Signs Temperature 97.6 F 04/14/17 06:00 Pulse Rate 78 04/14/17 06:00 Respiratory Rate 20 04/14/17 06:00 Blood Pressure 144/86 04/14/17 06:00 O2 Sat by Pulse Oximetry (%) 97 04/13/17 09:00 Constitutional: Yes: No Distress Eyes: Yes: WNL HENT: Yes: WNL Neck: Yes: WNL Cardiovascular: Yes: Pulse Irregular Respiratory: Yes: Regular Gastrointestinal: Yes: Soft, Abdomen, Obese ...Rectal Exam: Yes: Deferred Genitourinary: No: Anuria Extremities: Yes: Cool Edema: Yes Edema: RLE: 1+ Peripheral Pulses WNL: No Peripheral Pulses: Right Dorsalis Pedis: 1+ Integumentary: Yes: Pressure Ulcer Wound/Incision: Yes: Dressing Dry and Intact Neurological: Yes: Alert, Oriented Psychiatric: Yes: Alert, Oriented Labs: INR, PTT INR 1.68 (0.82-1.09) H 04/13/17 09:22 Abnormal Lab Results 04/13/17 04/13/17 06:20 09:22 PT with INR 19.00 H INR 1.68 H PTT (Actin FS) 60.8 H Problem List - Problems (1) Afib Assessment/Plan: Continue beta blockers for HR control. On IV heparin until INR 2-3 on warfarin. Code(s): I48.91 - UNSPECIFIED ATRIAL FIBRILLATION (2) Diabetic foot ulcer Code(s): E11.621 - TYPE 2 DIABETES MELLITUS WITH FOOT ULCER; L97.509 - NON- PRESSURE CHRONIC ULCER OTH PRT UNSP FOOT W UNSP SEVERITY Qualifiers: Diabetic foot ulcer location: toe Laterality: right (3) Diabetic gangrene Assessment/Plan: f/u with vascular surgeon. Code(s): E11.52 - TYPE 2 DIABETES W DIABETIC PERIPHERAL ANGIOPATHY W GANGRENE (4) HTN (hypertension) Assessment/Plan: Add ACEI (HTN; DM). On metoprolol ER. F/u TSH and lipids. Code(s): I10 - ESSENTIAL (PRIMARY) HYPERTENSION (5) Supratherapeutic INR Code(s): R79.1 - ABNORMAL COAGULATION PROFILE
[2017-04-14 07:32] LABS: MCH 29.6 pg (25.7-33.7); MEAN CELL VOLUME 89.8 fl (80-96); MEAN PLT VOLUME 8.4 fl (7.5-11.1); PLATELET COUNT 453 K/MM3 (134-434); RDW 17.4 % (11.9-15.9)
[2017-04-14 08:05] LABS: INR 1.62 (0.82-1.09); PROTHROMBIN TIME (PATIENT) 18.3 SEC (9.98-11.88)
[2017-04-14 08:40] LABS: ANION GAP 12 (8-16); CALCIUM 9.9 mg/dL (8.5-10.1); CO2 20 mmol/L (21-32); CREATININE 1.7 mg/dL (0.7-1.3); GLUCOSE,RANDOM 164 mg/dL (74-106)
[2017-04-14 08:58] LABS: CHOLESTEROL 179 mg/dL (50-200)
[2017-04-14 09:07] LABS: THYROID STIMULATING HORMONE 1.62 uIU/ml (0.358-3.74)
[2017-04-14] MEDS: HYDROCHLOROTHIAZIDE 25 MG TABLET (FP) PO SCH (09:10)
[2017-04-14] MEDS: METOPROLOL SUCCINATE 50 MG TAB.SR.24H (FP) PO SCH ×2 (09:10→22:44)
[2017-04-14] MEDS: FINASTERIDE 5 MG TABLET (FP) PO SCH (09:11)
[2017-04-14] MEDS: TAMSULOSIN HCL 0.4 MG CAP.ER.24H (FP) PO SCH (09:11)
[2017-04-14] MEDS: ALBUTEROL SO4 2.5/IPRATROPIUM 0.5 INH SOL 3 ML VIAL.NEB. NEB SCH ×2 (09:11→22:44)
[2017-04-14] MEDS: PANTOPRAZOLE 40 MG TABLET (FP) PO SCH (09:11)
[2017-04-14] MEDS: SODIUM HYPOCHLORITE 0.25%- 473 ML BULK BOTTLE TP SCH (09:13)
[2017-04-14] MEDS: VANCOMYCIN 1,250 MG in DEXTROSE 5%-WATER - 250 ML IVPB SCH (09:55)
--- NOTE | 2017-04-14 10:48 | PN ---
Progress Note (short form) - Note Progress Note: no complaints pod #6 s/p 5th metatarsal head resection and bone biopsy doing well Vital Signs Period Temp Pulse Resp BP Sys/Servin Pulse Ox Last 24 Hr 97.6 F-98.2 F 65-80 16-20 118-144/56-92 cor-rrr lungs clear abd soft,nt ext ulcer is clean CBC, BMP 04/14/17 06:30 04/14/17 06:30 Microbiology 04/08/17 15:00 Tissue-Other Gram Stain - Final 04/08/17 15:00 Tissue-Other Tissue Culture - Preliminary Streptococcus Mitis Gram Positive Bacillus 04/08/17 15:00 Tissue-Other Anaerobic Culture - Final NO ANAEROBES WERE ISOLATED 04/08/17 15:00 Bone Gram Stain - Final 04/08/17 15:00 Bone Tissue Culture - Final NO GROWTH OF AEROBIC ORGANISMS AFTER 48 HOURS INCUBATION 04/08/17 15:00 Bone Anaerobic Culture - Final NO ANAEROBES WERE ISOLATED 04/04/17 14:30 Blood - Peripheral Venous Blood Culture - Final NO GROWTH AFTER 5 DAYS INCUBATION 04/04/17 14:30 Blood - Peripheral Venous Blood Culture - Final NO GROWTH AFTER 5 DAYS INCUBATION 04/06/17 11:30 Foot - Right Lateral Gram Stain - Final 04/06/17 11:30 Foot - Right Lateral Wound Culture - Final Staphylococcus Coagulase Neg Laboratory Tests 04/04/17 04/04/17 04/12/17 14:35 15:30 06:30 ESR 122 H C-Reactive Protein 27.1 H 5.2 H D 04/12/17 06:30 ESR 112 H C-Reactive Protein MRI +osteo pathology osteo a/p diabetic foot infection- with abscess/gangrene- for debridement will require detention iv antibiotics for osteomyeliti strep mitis in the operative culture will switch to rocephin-will need 5 more weeks crp trending down would trend [facility] f/u in office with [phone]
--- NOTE | 2017-04-14 10:53 | PN ---
Progress Note (short form) - Note Progress Note: PULMONARY Denies shortness of breath, cough or wheezing. No fevers or chills. Last Vital Signs Temp Pulse Resp BP Pulse Ox 97.6 F 78 20 144/86 97 04/14/17 06:00 04/14/17 06:00 04/14/17 06:00 04/14/17 06:00 04/13/17 09:00 Gen: NAD at rest Heat: RRR Lung: clear to auscultation Abd: soft, nontender Ext: dressings dry CBC, BMP 04/14/17 06:30 04/14/17 06:30 Active Medications Acetaminophen (Tylenol -) 650 mg PO Q6H PRN PRN Reason: PAIN Last Admin: 04/13/17 08:26 Dose: 650 mg Albuterol/Ipratropium (Duoneb -) 1 amp NEB BID [facility] Last Admin: 04/14/17 09:11 Dose: 1 amp Ceftriaxone Sodium (Rocephin 2gm Ivpb (Pre-Docked)) 2 gm IVPB DAILY [facility] PRN Reason: Protocol Finasteride (Proscar -) 5 mg PO DAILY [facility] Last Admin: 04/14/17 09:11 Dose: 5 mg Glipizide (Glucotrol -) 10 mg PO DAILY@0700 [facility] Last Admin: 04/14/17 06:22 Dose: 10 mg Heparin Sodium (Porcine) (Heparin -) 1,000 unit IVPUSH PRN PRN PRN Reason: Heparin Heparin Sodium (Porcine) (Heparin -) 5,000 unit IVPUSH PRN PRN PRN Reason: Heparin Hydrochlorothiazide (Hctz -) 50 mg PO BID [facility] Last Admin: 04/14/17 09:10 Dose: 50 mg Heparin Sodium/Dextrose (Heparin Infusion -) 25,000 units in 500 mls @ 20 mls/ hr IVPB TITR [facility]ESUS ALBERTO; 1,000 UNITS/HR PRN Reason: Protocol Last Admin: 04/13/17 19:39 Dose: 1,000 units/hr, 20 mls/hr Insulin Aspart (Novolog Vial Sliding Scale -) 1 vial SQ ACHS [facility] PRN Reason: Protocol Last Admin: 04/14/17 06:20 Dose: Not Given Metoprolol Succinate (Toprol Xl -) 50 mg PO BID [facility] Last Admin: 04/14/17 09:10 Dose: 50 mg Oxycodone HCl (Roxicodone -) 5 mg PO Q4H PRN Last Admin: 04/13/17 17:55 Dose: 5 mg Pantoprazole Sodium (Protonix -) 40 mg PO DAILY [facility] Last Admin: 04/14/17 09:11 Dose: 40 mg Sodium Hypochlorite (Dakin's Solution 0.25% (Half-Strength) -) 1 applic TP DAILY [facility] Last Admin: 04/14/17 09:13 Dose: 1 applic Tamsulosin HCl (Flomax -) 0.4 mg PO DAILY@0830 [facility] Last Admin: 04/14/17 09:11 Dose: 0.4 mg Warfarin Sodium (Coumadin -) 7.5 mg PO Q2D@1800 [facility] Last Admin: 04/13/17 17:51 Dose: 7.5 mg Warfarin Sodium (Coumadin -) 5 mg PO Q2D@1800 [facility] Last Admin: 04/12/17 18:01 Dose: 5 mg A/P Osteomyelitis COPD Atrial Fibrillation Pulmonary HTN HTN DM Hyperlipidemia Hep C - continue antibiotics per ID - wound care - inhaled bronchodilators - rate controlled - continue anticoagulation - O2 to keep SpO2 >90% - PICC line and d/c planning
[2017-04-14] MEDS ORDERED: cefTRIAXone 2 GM/100 ML BAG (PRE-DOCKED) IVPB SCH (11:00)
[2017-04-14] MEDS ORDERED: DEXTROSE 5%-0.45% SALINE 1,000 ML IV SCH (12:00)
[2017-04-14] MEDS: CEFTRIAXONE 2 GM in DEXTROSE 5%-WATER - 100 ML IVPB SCH (12:09)
[2017-04-14 14:15] VITALS: BMI 35.3
--- NOTE | 2017-04-14 14:15 | CON.NEP ---
Consult Consult Specialty:: nephrology Reason for Consultation:: KYLE - History of Present Illness Chief Complaint: leg pain History of Present Illness: The pt is a 71 year old male with a significant PMH of HTN, A.Fib, cardiomyopathy, COPD on home oxygen, Asthma, BPH, DMII, right foot ulcer who presented to the hospital complaining of foot pain. He was admitted and treated for osteomyelitis in right foot. We were called to assessed his worsening kidney function, hyperkalemia and hyponatremia. Today he is feeling good. He is complaining of urinating more frequently since he came to the hospital (every hour) and pain in his right foot. He denies dysuria, hematuria, fever, chills. He saw Regional Hr Manager 10 years ago but doesn't remember his name but was told that he doesn't have any kidney problems. - History Source History Provided By: Patient Limitations to Obtaining History: No Limitations - Past Medical History Cardio/Vascular: Yes: AFIB, CAD, HTN, Hyperlipdemia Pulmonary: Yes: Asthma, COPD, O2 Dependent Gastrointestinal: Yes: GERD Renal/: Yes: BPH Rheumatology: Yes: Rheumatoid Arthritis Endocrine: Yes: Diabetes Mellitus - Past Surgical History Additional Surgical History: right foot wound debridement - Alcohol/Substance Use Hx Alcohol Use: No - Smoking History Smoking history: Former smoker Have you smoked in the past 12 months: No - Social History Usual Living Arrangement: With Spouse ADL: Independent History of Recent Travel: No Home Medications - Allergies Allergies/Adverse Reactions: Allergies Allergy/AdvReac Type Severity Reaction Status Date / Time No Known Allergies Allergy Verified 04/04/17 13:40 - Home Medications Home Medications: Ambulatory Orders Finasteride 5 mg PO DAILY 04/04/17 Glipizide [Glipizide ER] 10 mg PO BID 04/04/17 Hydrochlorothiazide 50 mg PO BID 04/04/17 Metformin HCl [Glucophage -] 500 mg PO BID 04/04/17 Metoprolol Succinate [Toprol Xl -] 50 mg PO BID 04/04/17 Tamsulosin HCl [Flomax] 0.4 mg PO DAILY 04/04/17 Warfarin Sodium [Coumadin] 5 mg PO Q2D 04/04/17 Warfarin Sodium [Coumadin] 7.5 mg PO Q2D 04/04/17 Albuterol Sulfate Inhaler - [Ventolin Hfa Inhaler -] 1 puff IH PRN PRN 04/09/17 Family Disease History - Family Disease History Family Disease History: Other: Father (N/A), Mother (HTN) Review of Systems - Review of Systems Constitutional: reports: No Symptoms. denies: Loss of Appetite, Weakness Eyes: reports: No Symptoms HENT: reports: No Symptoms Neck: reports: No Symptoms Cardiovascular: reports: No Symptoms. denies: Chest Pain, Palpitations Respiratory: reports: No Symptoms. denies: Cough Gastrointestinal: reports: No Symptoms. denies: Constipation, Diarrhea, Nausea Genitourinary: reports: Frequency. denies: Dysuria, Flank Pain, Hematuria, Incontinence Musculoskeletal: reports: Extremity Pain (right foot) Neurological: reports: No Symptoms. denies: Confusion, Dizziness, Headache, Numbness, Parasthesia Nephrology Consult - Height Height: 6 ft 2 in - Weight Weight: 274 lb 14.4 oz - BMI Body Mass Index (BMI): 35.3 - Lab Results CBC,BMP: CBC, BMP 04/14/17 06:30 04/14/17 06:30 Anion Gap: Anion Gap Anion Gap 12 (8-16) 04/14/17 06:30 - Physical Examination Vital Signs: Vital Signs Temperature 97.6 F 04/14/17 06:00 Pulse Rate 78 04/14/17 06:00 Respiratory Rate 20 04/14/17 06:00 Blood Pressure 144/86 04/14/17 06:00 O2 Sat by Pulse Oximetry (%) 97 04/13/17 09:00 Constitutional: Yes: Well Nourished, No Distress Eyes: Yes: WNL, Conjunctiva Clear, EOM Intact HENT: Yes: WNL, Atraumatic, Normocephalic Neck: Yes: WNL, Supple, Trachea Midline Cardiovascular: Yes: WNL, Pulse Irregular, S1, S2. No: Murmur Respiratory: Yes: WNL, Regular, CTA Bilaterally. No: Cough Gastrointestinal: Yes: WNL, Normal Bowel Sounds, Soft Renal/: Yes: WNL. No: CVA Tenderness - Left, CVA Tenderness - Right Musculoskeletal: Yes: WNL, Back Pain. No: Muscle Pain, Muscle Weakness Edema: No Edema: LLE: Trace, RLE: Trace Neurological: Yes: WNL, Alert, Oriented, Cran Nerves II-XII Intact. No: Unsteady Gait Problem List - Problems (1) ARF (acute renal failure) Code(s): N17.9 - ACUTE KIDNEY FAILURE, UNSPECIFIED Qualifiers: Acute renal failure type: unspecified Qualified Code(s): N17.9 - Acute kidney failure, unspecified (2) Afib Code(s): I48.91 - UNSPECIFIED ATRIAL FIBRILLATION (3) BPH (benign prostatic hyperplasia) Code(s): N40.0 - BENIGN PROSTATIC HYPERPLASIA WITHOUT LOWER URINRY TRACT SYMP (4) COPD (chronic obstructive pulmonary disease) Code(s): J44.9 - CHRONIC OBSTRUCTIVE PULMONARY DISEASE, UNSPECIFIED (5) Cardiomyopathy Code(s): I42.9 - CARDIOMYOPATHY, UNSPECIFIED (6) Foot ulcer Code(s): L97.509 - NON-PRESSURE CHRONIC ULCER OTH PRT UNSP FOOT W UNSP SEVERITY Qualifiers: Laterality: right Non-pressure ulcer stage: unspecified non-pressure ulcer stage Qualified Code(s): L97.519 - Non-pressure chronic ulcer of other part of right foot with unspecified severity (7) HTN (hypertension) Code(s): I10 - ESSENTIAL (PRIMARY) HYPERTENSION (8) Morbid obesity Code(s): E66.01 - MORBID (SEVERE) OBESITY DUE TO EXCESS CALORIES Assessment/Plan This is a 71 year old male with multiple comorbidities who was admitted for foot ulcer in right foot. He was found to have electrolyte abnormalities and elevated BUN and Cr. 1AKI 2hyponatremia 3Hyperkalemia 4Osteomyelitis 5A.Fib 6HTN 7COPD -his Cr and BUN are elevated today. His Cr since admission was fluctuating, not known baseline at this time. We will order renal US and bladder to r/o obstruction. We will check UA, electrolytes, urine sodium, creatinine, protein- creat ratio. -the pt will be started on NS at rate 75 cc/hr, will stop diuretics -we will monitor his electrolytes and CMP in AM tomorrow -continue antibiotics for infection -continue Coumadin, today it will be increased to 10 mg to adjust Thank you for this consultative opportunity.
--- NOTE | 2017-04-14 14:53 | EKG ---
Test Reason : Blood Pressure : / mmHG Vent. Rate : 067 BPM Atrial Rate : 062 BPM P-R Int : 000 ms QRS Dur : 118 ms QT Int : 404 ms P-R-T Axes : 000 -39 012 degrees QTc Int : 426 ms ATRIAL FIBRILLATION LEFT AXIS DEVIATION NONSPECIFIC T WAVE ABNORMALITY ABNORMAL ECG NO PREVIOUS ECGS AVAILABLE Confirmed by YISEL ENCISO, NAHID ([id number]) on 04/14/2017 2:53:04 PM Referred By: Confirmed By:NAHID MORILLO MD
[2017-04-14] MEDS ORDERED: SODIUM CHLORIDE 1,000 ML IV SCH (15:00)
[2017-04-14 17:05] LABS: URINE APPEARANCE CLEAR; URINE BILIRUBIN NEGATIVE (NEGATIVE); URINE BLOOD 1+ (NEGATIVE); URINE COLOR LTYELLOW; URINE GLUCOSE (UA) NEGATIVE (NEGATIVE); URINE KETONE NEGATIVE (NEGATIVE); URINE LEUK ESTERASE NEGATIVE (NEGATIVE); URINE NITRITE NEGATIVE (NEGATIVE); URINE PROTEIN NEGATIVE (NEGATIVE); URINE UROBILINOGEN NEGATIVE mg/dL (0.2-1.0)
[2017-04-14 17:12] LABS: URINE BACTERIA RARE /hpf (NONE SEEN); URINE HYALINE CAST 2 /lpf; URINE RBC <1 /hpf (0-3); URINE WBC 2 /hpf (3-5)
--- NOTE | 2017-04-14 17:28 | PN ---
Progress Note, Physician History of Present Illness: seen and examined today in nad. no overnight events or new complaints. - Current Medication List Current Medications: Active Medications Acetaminophen (Tylenol -) 650 mg PO Q6H PRN PRN Reason: PAIN Last Admin: 04/13/17 08:26 Dose: 650 mg Albuterol/Ipratropium (Duoneb -) 1 amp NEB BID [facility] Last Admin: 04/14/17 09:11 Dose: 1 amp Finasteride (Proscar -) 5 mg PO DAILY [facility] Last Admin: 04/14/17 09:11 Dose: 5 mg Glipizide (Glucotrol -) 10 mg PO DAILY@0700 [facility] Last Admin: 04/14/17 06:22 Dose: 10 mg Heparin Sodium (Porcine) (Heparin -) 1,000 unit IVPUSH PRN PRN PRN Reason: Heparin Heparin Sodium (Porcine) (Heparin -) 5,000 unit IVPUSH PRN PRN PRN Reason: Heparin Hydrochlorothiazide (Hctz -) 50 mg PO BID [facility] Last Admin: 04/14/17 09:10 Dose: 50 mg Heparin Sodium/Dextrose (Heparin Infusion -) 25,000 units in 500 mls @ 20 mls/ hr IVPB TITR [facility]; 1,000 UNITS/HR PRN Reason: Protocol Last Admin: 04/13/17 19:39 Dose: 1,000 units/hr, 20 mls/hr Ceftriaxone Sodium 2 gm/ (Dextrose) 100 mls @ 200 mls/hr IVPB DAILY [facility] Last Admin: 04/14/17 12:09 Dose: 200 mls/hr Sodium Chloride (Normal Saline -) 1,000 mls @ 75 mls/hr IV ASDIR [facility] Stop: 04/15/17 10:00 Last Admin: 04/14/17 15:01 Dose: 75 mls/hr Insulin Aspart (Novolog Vial Sliding Scale -) 1 vial SQ ACHS [facility] PRN Reason: Protocol Last Admin: 04/14/17 12:09 Dose: Not Given Metoprolol Succinate (Toprol Xl -) 50 mg PO BID [facility] Last Admin: 04/14/17 09:10 Dose: 50 mg Oxycodone HCl (Roxicodone -) 5 mg PO Q4H PRN Last Admin: 04/13/17 17:55 Dose: 5 mg Pantoprazole Sodium (Protonix -) 40 mg PO DAILY [facility] Last Admin: 04/14/17 09:11 Dose: 40 mg Sodium Hypochlorite (Dakin's Solution 0.25% (Half-Strength) -) 1 applic TP DAILY [facility] Last Admin: 04/14/17 09:13 Dose: 1 applic Tamsulosin HCl (Flomax -) 0.4 mg PO DAILY@0830 [facility] Last Admin: 04/14/17 09:11 Dose: 0.4 mg Warfarin Sodium (Coumadin -) 7.5 mg PO Q2D@1800 [facility] Last Admin: 04/13/17 17:51 Dose: 7.5 mg Warfarin Sodium (Coumadin -) 5 mg PO Q2D@1800 [facility] Last Admin: 04/12/17 18:01 Dose: 5 mg Warfarin Sodium (Coumadin -) 10 mg PO ONCE ONE Stop: 04/14/17 18:01 - Objective Vital Signs: Vital Signs Temperature 97.6 F 04/14/17 16:20 Pulse Rate 74 04/14/17 16:20 Respiratory Rate 20 04/14/17 16:20 Blood Pressure 106/68 04/14/17 16:20 O2 Sat by Pulse Oximetry (%) 97 04/13/17 09:00 Constitutional: Yes: No Distress, Calm Eyes: Yes: Conjunctiva Clear, EOM Intact HENT: Yes: Atraumatic, Normocephalic Neck: Yes: Supple, Trachea Midline Cardiovascular: Yes: Pulse Irregular, S1, S2. No: Regular Rate and Rhythm, Bradycardia, Tachycardia, Bruit, JVD, Gallop, Murmur, Rub, S3, S4, Varicosities Respiratory: Yes: Regular, CTA Bilaterally. No: Rales, Rhonchi, Wheezes Gastrointestinal: Yes: Normal Bowel Sounds, Soft. No: Distention, Tenderness Edema: No Neurological: Yes: Alert, Oriented Psychiatric: Yes: Alert, Oriented Labs: CBC, BMP 04/14/17 06:30 04/14/17 06:30 INR, PTT INR 1.62 (0.82-1.09) H 04/14/17 06:23 - ....Imaging Chest X-ray: Report Reviewed, Image Reviewed EKG: Report Reviewed, Image Reviewed Other: Report Reviewed, Image Reviewed Assessment/Plan 71 year old man with a h/o HTN, DMII, HLD, Afib on coumadin, non-obs CAD, mild pulm HTN, mild thoracic aortic aneursym, HCV, ashtma admitted with R foot ulcer with osteo. S/p right foot debridement: -Tolerated well without cardiac complications -further wound care planned Non-obstructive CAD based on CTA 2011 -cont home medical regimen -outpatient f/up Afib- HR remains adequately controlled -cont toprol xl 50mg bid for HR control -cont hep gtt bridge to coumadin, INR has been subtherapeutic despite increasing dose back to home dose, planned for 10mg tonight, repeat INR tomorrow and adjust dose as needed
[2017-04-14] MEDS ORDERED: WARFARIN NA 10 MG TABLET (FP) PO ONE (18:00)
--- NOTE | 2017-04-14 18:50 | PN ---
Teaching Attending Note Name of Resident: Cintia Umana (Nephrology) ATTENDING PHYSICIAN STATEMENT I saw and evaluated the patient. I reviewed the resident's note and discussed the case with the resident. I agree with the resident's findings and plan as documented. SUBJECTIVE: This is 71 year old gentleman with PMhx of HTN, A.Fib, cardiomyopathy, COPD on home oxygen, Asthma, BPH, DMII, right foot ulcer who presented to the hospital complaining of foot pain and found to have a diabetic foot infection/ osteomylitis with Cr of 2. Pt denies any history of CKD, kidney stones, recurrent UTI's. Denies any frequent NSAID use. No recent IV contrast exposure. No Abx exposure prior to admission. PMhx: As above Allergies: NKDA Family Hx: NC Social hx: No T/A/D OBJECTIVE: Vital Signs Temperature 97.6 F 04/14/17 16:20 Pulse Rate 74 04/14/17 16:20 Respiratory Rate 20 04/14/17 16:20 Blood Pressure 106/68 04/14/17 16:20 O2 Sat by Pulse Oximetry (%) 100 04/14/17 09:00 Intake & Output 04/11/17 04/12/17 04/13/17 04/14/17 23:59 23:59 23:59 23:59 Intake Total 1058 2140 1410 1420 Output Total 550 2280 1690 1215 Balance 508 -140 -280 205 Weight 124.693 kg NAD awake and alert MMM, No JVD RRR, no M/R Obese, NT Abd No LE edema right foot in dressing CBC, BMP 04/14/17 06:30 04/14/17 06:30 Current Medications Acetaminophen (Tylenol -) 650 mg PO Q6H PRN PRN Reason: PAIN Last Admin: 04/13/17 08:26 Dose: 650 mg Albuterol/Ipratropium (Duoneb -) 1 amp NEB BID [facility] Last Admin: 04/14/17 09:11 Dose: 1 amp Finasteride (Proscar -) 5 mg PO DAILY [facility] Last Admin: 04/14/17 09:11 Dose: 5 mg Glipizide (Glucotrol -) 10 mg PO DAILY@0700 [facility] Last Admin: 04/14/17 06:22 Dose: 10 mg Heparin Sodium (Porcine) (Heparin -) 1,000 unit IVPUSH PRN PRN PRN Reason: Heparin Heparin Sodium (Porcine) (Heparin -) 5,000 unit IVPUSH PRN PRN PRN Reason: Heparin Heparin Sodium/Dextrose (Heparin Infusion -) 25,000 units in 500 mls @ 20 mls/ hr IVPB TITR [facility]; 1,000 UNITS/HR PRN Reason: Protocol Last Admin: 04/13/17 19:39 Dose: 1,000 units/hr, 20 mls/hr Ceftriaxone Sodium 2 gm/ (Dextrose) 100 mls @ 200 mls/hr IVPB DAILY [facility] Last Admin: 04/14/17 12:09 Dose: 200 mls/hr Sodium Chloride (Normal Saline -) 1,000 mls @ 75 mls/hr IV ASDIR [facility] Stop: 04/15/17 10:00 Last Admin: 04/14/17 15:01 Dose: 75 mls/hr Insulin Aspart (Novolog Vial Sliding Scale -) 1 vial SQ ACHS [facility] PRN Reason: Protocol Last Admin: 04/14/17 17:43 Dose: Not Given Metoprolol Succinate (Toprol Xl -) 50 mg PO BID [facility] Last Admin: 04/14/17 09:10 Dose: 50 mg Oxycodone HCl (Roxicodone -) 5 mg PO Q4H PRN Last Admin: 04/13/17 17:55 Dose: 5 mg Pantoprazole Sodium (Protonix -) 40 mg PO DAILY [facility] Last Admin: 04/14/17 09:11 Dose: 40 mg Sodium Hypochlorite (Dakin's Solution 0.25% (Half-Strength) -) 1 applic TP DAILY [facility] Last Admin: 04/14/17 09:13 Dose: 1 applic Tamsulosin HCl (Flomax -) 0.4 mg PO DAILY@0830 [facility] Last Admin: 04/14/17 09:11 Dose: 0.4 mg Warfarin Sodium (Coumadin -) 7.5 mg PO Q2D@1800 [facility] Last Admin: 04/13/17 17:51 Dose: 7.5 mg Warfarin Sodium (Coumadin -) 5 mg PO Q2D@1800 [facility] Last Admin: 04/12/17 18:01 Dose: 5 mg ASSESSMENT AND PLAN: 71 year old gentleman with PMhx of HTN, A.Fib, cardiomyopathy, COPD on home oxygen, Asthma, BPH, DMII, right foot ulcer who presented to the hospital complaining of foot pain and found to have a diabetic foot infection/ osteomylitis with Cr of 2. #Acute Kidney Injury vs CKD will need to obtain baseline renal function from PMD Check UA, UPCR, FeNa, FeUrea check kidney and bladder US given infection and diuretic use volume depletion is high on the differential start NS at 75 cc per hour Trend BUN/cr Dose all meds for CrCl ~30 #Osteomylitis/Diabetic Foot ulcer continue Abx as per Id #DM continue glipizide #Hypertension continue metoprolol #Metabolic acidosis trend for now, if persitsely < 22 start oral bicarb Thank you will follow Moises Pelaez DO
--- NOTE | 2017-04-14 18:58 | PN ---
Progress Note, Physician History of Present Illness: No new complaints - Current Medication List Current Medications: Active Medications Acetaminophen (Tylenol -) 650 mg PO Q6H PRN PRN Reason: PAIN Last Admin: 04/13/17 08:26 Dose: 650 mg Albuterol/Ipratropium (Duoneb -) 1 amp NEB BID [facility] Last Admin: 04/14/17 09:11 Dose: 1 amp Finasteride (Proscar -) 5 mg PO DAILY [facility] Last Admin: 04/14/17 09:11 Dose: 5 mg Glipizide (Glucotrol -) 10 mg PO DAILY@0700 [facility] Last Admin: 04/14/17 06:22 Dose: 10 mg Heparin Sodium (Porcine) (Heparin -) 1,000 unit IVPUSH PRN PRN PRN Reason: Heparin Heparin Sodium (Porcine) (Heparin -) 5,000 unit IVPUSH PRN PRN PRN Reason: Heparin Heparin Sodium/Dextrose (Heparin Infusion -) 25,000 units in 500 mls @ 20 mls/ hr IVPB TITR [facility]; 1,000 UNITS/HR PRN Reason: Protocol Last Admin: 04/13/17 19:39 Dose: 1,000 units/hr, 20 mls/hr Ceftriaxone Sodium 2 gm/ (Dextrose) 100 mls @ 200 mls/hr IVPB DAILY [facility] Last Admin: 04/14/17 12:09 Dose: 200 mls/hr Sodium Chloride (Normal Saline -) 1,000 mls @ 75 mls/hr IV ASDIR [facility] Stop: 04/15/17 10:00 Last Admin: 04/14/17 15:01 Dose: 75 mls/hr Insulin Aspart (Novolog Vial Sliding Scale -) 1 vial SQ ACHS [facility] PRN Reason: Protocol Last Admin: 04/14/17 17:43 Dose: Not Given Metoprolol Succinate (Toprol Xl -) 50 mg PO BID [facility] Last Admin: 04/14/17 09:10 Dose: 50 mg Oxycodone HCl (Roxicodone -) 5 mg PO Q4H PRN Last Admin: 04/13/17 17:55 Dose: 5 mg Pantoprazole Sodium (Protonix -) 40 mg PO DAILY [facility] Last Admin: 04/14/17 09:11 Dose: 40 mg Sodium Hypochlorite (Dakin's Solution 0.25% (Half-Strength) -) 1 applic TP DAILY [facility] Last Admin: 04/14/17 09:13 Dose: 1 applic Tamsulosin HCl (Flomax -) 0.4 mg PO DAILY@0830 [facility] Last Admin: 04/14/17 09:11 Dose: 0.4 mg Warfarin Sodium (Coumadin -) 7.5 mg PO Q2D@1800 [facility] Last Admin: 04/13/17 17:51 Dose: 7.5 mg Warfarin Sodium (Coumadin -) 5 mg PO Q2D@1800 [facility] Last Admin: 04/12/17 18:01 Dose: 5 mg - Objective Vital Signs: Vital Signs Temperature 97.6 F 04/14/17 16:20 Pulse Rate 74 04/14/17 16:20 Respiratory Rate 20 04/14/17 16:20 Blood Pressure 106/68 04/14/17 16:20 O2 Sat by Pulse Oximetry (%) 100 04/14/17 09:00 Constitutional: Yes: Well Nourished HENT: Yes: WNL Neck: Yes: WNL, Supple Cardiovascular: Yes: WNL, Regular Rate and Rhythm Respiratory: Yes: WNL, Regular, CTA Bilaterally Gastrointestinal: Yes: WNL, Normal Bowel Sounds, Soft Extremities: Yes: Other (RT foot in dressing) Labs: CBC, BMP 04/14/17 06:30 04/14/17 06:30 INR, PTT INR 1.62 (0.82-1.09) H 04/14/17 06:23 Problem List - Problems (1) Diabetic foot ulcer Assessment/Plan: MRI Rt foot showed changes in 2nd/3rd/4th metatarsal suggestive of oste S/p surgical debridement/bone bx Tissue culture shows strept mitis/gram (+) bacilli Cont IV vanco/zosyn Will need 6 weeks of IV antibxs Will get tunnel catheter for IV antibxs Cont wound care Code(s): E11.621 - TYPE 2 DIABETES MELLITUS WITH FOOT ULCER; L97.509 - NON- PRESSURE CHRONIC ULCER OTH PRT UNSP FOOT W UNSP SEVERITY Qualifiers: Diabetic foot ulcer location: toe Laterality: right (2) Afib Assessment/Plan: IV heparin to be bridged w/ coumadin Increase coumadin dose PT/INR is subtherapeutic Check pt/inr in am Code(s): I48.91 - UNSPECIFIED ATRIAL FIBRILLATION (3) BPH (benign prostatic hyperplasia) Assessment/Plan: Cont proscar Code(s): N40.0 - BENIGN PROSTATIC HYPERPLASIA WITHOUT LOWER URINRY TRACT SYMP (4) COPD (chronic obstructive pulmonary disease) Assessment/Plan: As per pulmonary Cont nebulizers Code(s): J44.9 - CHRONIC OBSTRUCTIVE PULMONARY DISEASE, UNSPECIFIED (5) Cardiomyopathy Code(s): I42.9 - CARDIOMYOPATHY, UNSPECIFIED (6) Diabetes Assessment/Plan: Cont metformin/glipizide Cont FS tid w/ sliding scale Code(s): E11.9 - TYPE 2 DIABETES MELLITUS WITHOUT COMPLICATIONS (7) HTN (hypertension) Assessment/Plan: BP stable Cont metoprolol Code(s): I10 - ESSENTIAL (PRIMARY) HYPERTENSION
[2017-04-14 21:14] LABS: URINE LEUK ESTERASE NEGATIVE (NEGATIVE)
[2017-04-14] MEDS: ACETAMINOPHEN 325 MG TABLET (FP) PO PRN (22:41)
[2017-04-14] MEDS: HEPARIN INFUSION - 25,000 UNITS/500 ML INFUS.BAG IVPB SCH (22:43)
[2017-04-15] MEDS: INSULIN SLIDING SCALE (NOVOLOG) 1 VIAL SQ SCH ×4 (06:29→21:32)
[2017-04-15] MEDS: glipiZIDE 5 MG TABLET (FP) PO SCH (06:30)
[2017-04-15] MEDS: ACETAMINOPHEN 325 MG TABLET (FP) PO PRN ×2 (06:34→21:41)
[2017-04-15 08:21] LABS: BASO % 2.5 % (0-2.0); EOS % 3.1 % (0-4.5); MCH 29.3 pg (25.7-33.7); MCHC 32.3 g/dl (32.0-35.9); MEAN CELL VOLUME 90.6 fl (80-96); MEAN PLT VOLUME 8.5 fl (7.5-11.1); NEUT % 65.4 % (42.8-82.8); PLATELET COUNT 425 K/MM3 (134-434); RDW 17.4 % (11.9-15.9); WHITE BLOOD COUNT 7.6 K/mm3 (4.0-10.0)
[2017-04-15] MEDS: TAMSULOSIN HCL 0.4 MG CAP.ER.24H (FP) PO SCH (08:28)
[2017-04-15 08:48] LABS: PROTHROMBIN TIME (PATIENT) 18.4 SEC (9.98-11.88)
[2017-04-15 08:49] LABS: ALBUMIN 3.1 g/dl (3.4-5.0); ANION GAP 10 (8-16); BILIRUBIN,TOTAL 0.5 mg/dL (0.2-1.0); CALCIUM 8.9 mg/dL (8.5-10.1); CO2 21 mmol/L (21-32); CREATININE 1.5 mg/dL (0.7-1.3); GLUCOSE,RANDOM 157 mg/dL (74-106); INR 1.63 (0.82-1.09); SGOT/AST 18 U/L (15-37); SGPT/ALT 33 U/L (12-78)
[2017-04-15 08:50] LABS: ALK PHOS 149 U/L (45-117); TOT PROT 8.9 g/dl (6.4-8.2)
--- NOTE | 2017-04-15 09:09 | PN ---
Progress Note, Physician Chief Complaint: no distress - Current Medication List Current Medications: Active Medications Acetaminophen (Tylenol -) 650 mg PO Q6H PRN PRN Reason: PAIN Last Admin: 04/15/17 06:34 Dose: 650 mg Albuterol/Ipratropium (Duoneb -) 1 amp NEB BID [facility] Last Admin: 04/14/17 22:44 Dose: 1 amp Finasteride (Proscar -) 5 mg PO DAILY [facility] Last Admin: 04/14/17 09:11 Dose: 5 mg Glipizide (Glucotrol -) 10 mg PO DAILY@0700 [facility] Last Admin: 04/15/17 06:30 Dose: 10 mg Heparin Sodium (Porcine) (Heparin -) 1,000 unit IVPUSH PRN PRN PRN Reason: Heparin Last Admin: 04/15/17 08:55 Dose: 1,000 unit Heparin Sodium (Porcine) (Heparin -) 5,000 unit IVPUSH PRN PRN PRN Reason: Heparin Heparin Sodium/Dextrose (Heparin Infusion -) 25,000 units in 500 mls @ 20 mls/ hr IVPB TITR [facility]; 1,000 UNITS/HR PRN Reason: Protocol Last Titration: 04/15/17 08:55 Dose: 1,100 units/hr, 22 mls/hr Ceftriaxone Sodium 2 gm/ (Dextrose) 100 mls @ 200 mls/hr IVPB DAILY [facility] Last Admin: 04/14/17 12:09 Dose: 200 mls/hr Sodium Chloride (Normal Saline -) 1,000 mls @ 75 mls/hr IV ASDIR [facility] Stop: 04/15/17 10:00 Last Admin: 04/14/17 15:01 Dose: 75 mls/hr Insulin Aspart (Novolog Vial Sliding Scale -) 1 vial SQ ACHS [facility] PRN Reason: Protocol Last Admin: 04/15/17 06:29 Dose: Not Given Metoprolol Succinate (Toprol Xl -) 50 mg PO BID [facility] Last Admin: 04/14/17 22:44 Dose: 50 mg Pantoprazole Sodium (Protonix -) 40 mg PO DAILY [facility] Last Admin: 04/14/17 09:11 Dose: 40 mg Sodium Hypochlorite (Dakin's Solution 0.25% (Half-Strength) -) 1 applic TP DAILY [facility] Last Admin: 04/14/17 09:13 Dose: 1 applic Tamsulosin HCl (Flomax -) 0.4 mg PO DAILY@0830 [facility] Last Admin: 04/15/17 08:28 Dose: 0.4 mg Warfarin Sodium (Coumadin -) 7.5 mg PO Q2D@1800 [facility] Last Admin: 04/13/17 17:51 Dose: 7.5 mg Warfarin Sodium (Coumadin -) 5 mg PO Q2D@1800 [facility] Last Admin: 04/12/17 18:01 Dose: 5 mg - Objective Vital Signs: Vital Signs Temperature 97.9 F 04/14/17 22:00 Pulse Rate 55 L 04/14/17 22:00 Respiratory Rate 20 04/14/17 22:00 Blood Pressure 123/58 04/14/17 22:00 O2 Sat by Pulse Oximetry (%) 95 04/14/17 21:00 Constitutional: Yes: No Distress, Calm Cardiovascular: Yes: Pulse Irregular Respiratory: Yes: CTA Bilaterally Gastrointestinal: Yes: Soft Edema: No Neurological: Yes: Alert, Oriented Labs: CBC, BMP 04/15/17 07:30 04/15/17 07:30 INR, PTT INR 1.63 (0.82-1.09) H 04/15/17 07:30 Assessment/Plan Assessment/Plan 71 year old man with a h/o HTN, DMII, HLD, Afib on coumadin, non-obs CAD, mild pulm HTN, mild thoracic aortic aneursym, HCV, ashtma admitted with R foot ulcer with osteo. S/p right foot debridement: -Tolerated well without cardiac complications -further wound care planned Non-obstructive CAD based on CTA 2011 -cont home medical regimen -outpatient f/up Afib- HR remains adequately controlled -cont toprol xl 50mg bid for HR control -cont hep gtt bridge to coumadin, INR has been subtherapeutic. Goal INR 2-3
[2017-04-15 09:32] LABS: URINE CREATININE 88.4 mg/dL (20-370)
[2017-04-15] MEDS: ALBUTEROL SO4 2.5/IPRATROPIUM 0.5 INH SOL 3 ML VIAL.NEB. NEB SCH ×2 (10:15→22:25)
[2017-04-15 10:39] LABS: MCH 29.3 pg (25.7-33.7); MCHC 32.5 g/dl (32.0-35.9); MEAN CELL VOLUME 89.9 fl (80-96); MEAN PLT VOLUME 8.1 fl (7.5-11.1); PLATELET COUNT 452 K/MM3 (134-434); RDW 17.1 % (11.9-15.9); WHITE BLOOD COUNT 7.5 K/mm3 (4.0-10.0)
[2017-04-15] MEDS: FINASTERIDE 5 MG TABLET (FP) PO SCH (10:53)
[2017-04-15] MEDS: PANTOPRAZOLE 40 MG TABLET (FP) PO SCH (10:53)
[2017-04-15] MEDS: SODIUM HYPOCHLORITE 0.25%- 473 ML BULK BOTTLE TP SCH (10:53)
[2017-04-15] MEDS: CEFTRIAXONE 2 GM in DEXTROSE 5%-WATER - 100 ML IVPB SCH (10:53)
[2017-04-15] MEDS: METOPROLOL SUCCINATE 50 MG TAB.SR.24H (FP) PO SCH ×2 (10:53→21:37)
--- NOTE | 2017-04-15 11:17 | PN ---
Progress Note (short form) - Note Progress Note: PULMONARY Denies shortness of breath, cough or wheezing. Getting his nebulizers. No fevers or chills. Last Vital Signs Temp Pulse Resp BP Pulse Ox 97.9 F 55 L 20 123/58 95 04/14/17 22:00 04/14/17 22:00 04/14/17 22:00 04/14/17 22:00 04/14/17 21:00 Gen: NAD at rest Heat: RRR Lung: clear to auscultation Abd: soft, nontender Ext: dressings dry CBC, BMP 04/15/17 09:35 04/15/17 07:30 Active Medications Acetaminophen (Tylenol -) 650 mg PO Q6H PRN PRN Reason: PAIN Last Admin: 04/15/17 06:34 Dose: 650 mg Albuterol/Ipratropium (Duoneb -) 1 amp NEB BID [facility] Last Admin: 04/14/17 22:44 Dose: 1 amp Finasteride (Proscar -) 5 mg PO DAILY [facility] Last Admin: 04/15/17 10:53 Dose: 5 mg Glipizide (Glucotrol -) 10 mg PO DAILY@0700 [facility] Last Admin: 04/15/17 06:30 Dose: 10 mg Heparin Sodium (Porcine) (Heparin -) 1,000 unit IVPUSH PRN PRN PRN Reason: Heparin Last Admin: 04/15/17 08:55 Dose: 1,000 unit Heparin Sodium (Porcine) (Heparin -) 5,000 unit IVPUSH PRN PRN PRN Reason: Heparin Heparin Sodium/Dextrose (Heparin Infusion -) 25,000 units in 500 mls @ 20 mls/ hr IVPB TITR [facility]; 1,000 UNITS/HR PRN Reason: Protocol Last Titration: 04/15/17 08:55 Dose: 1,100 units/hr, 22 mls/hr Ceftriaxone Sodium 2 gm/ (Dextrose) 100 mls @ 200 mls/hr IVPB DAILY [facility] Last Admin: 04/15/17 10:53 Dose: 200 mls/hr Insulin Aspart (Novolog Vial Sliding Scale -) 1 vial SQ ACHS [facility] PRN Reason: Protocol Last Admin: 04/15/17 06:29 Dose: Not Given Metoprolol Succinate (Toprol Xl -) 50 mg PO BID [facility] Last Admin: 04/15/17 10:53 Dose: 50 mg Pantoprazole Sodium (Protonix -) 40 mg PO DAILY [facility] Last Admin: 04/15/17 10:53 Dose: 40 mg Sodium Hypochlorite (Dakin's Solution 0.25% (Half-Strength) -) 1 applic TP DAILY [facility] Last Admin: 04/15/17 10:53 Dose: 1 applic Tamsulosin HCl (Flomax -) 0.4 mg PO DAILY@0830 [facility] Last Admin: 04/15/17 08:28 Dose: 0.4 mg Warfarin Sodium (Coumadin -) 7.5 mg PO Q2D@1800 [facility] Last Admin: 04/13/17 17:51 Dose: 7.5 mg Warfarin Sodium (Coumadin -) 5 mg PO Q2D@1800 [facility] Last Admin: 04/12/17 18:01 Dose: 5 mg A/P Osteomyelitis COPD Atrial Fibrillation Pulmonary HTN HTN DM Hyperlipidemia Hep C - continue antibiotics per ID - wound care - inhaled bronchodilators - rate controlled - continue anticoagulation - O2 to keep SpO2 >90% - PICC line and d/c planning
--- NOTE | 2017-04-15 13:11 | PN ---
Progress Note (short form) - Note Progress Note: [facility] F/U: Seen/evaluated at bedside, NAD. Pain well controlled, denies F/V/N/C/SOB/CP. S /p R foot debridement/lavage with 5th metatarsal head resection. Afebrile, VSS. CUCA: R foot: pedal pulses palpable, TG wnl, CFT brisk to all toes. Post-surgical ulcer lateral 5th MTPJ and 5th ray with mixed fibrogranular base, minimal fibrotic slough, no purulence, no fluctuance, no periwound erythema, no ascending cellulitis, no signs of active infection. Sutures loosely coapted proximally. Plantar hallux IPJ ulcer with strong granular base, hyperkeratotic borders, no probing to bone, no purulence, no fluctuance, no ascending cellulitis, no signs of active infection. OR Cx: strep mitis, corynebacterium species Imp: 71 year old DM M s/p R foot debridement/lavage with 5th metatarsal head resection 1. Excisional debridement performed of R foot lateral 5th MTPJ post-surgical diabetic ulcer and plantar hallux diabetic ulcer to level of subcutaneous tissue utilizing sterile #15 blade scalpel. Patient tolerated procedure well. 2. Will need treatment 6 weeks IV abx for treatment of osteomyelitis 3. Plan to d/c to SNF. Will need wound vac, 125 mmHg continuous with black granufoam, changed 3x/week 4. Recommend bactroban to R great toe 3x/week 5. Partial WB R heel with surgical shoe and cane 6. Upon discharge, will f/u with me in [facility]. [phone] Christian Dos Santos DPM
[2017-04-15] MEDS: SODIUM CHLORIDE 1,000 ML IV SCH ×2 (15:46→20:38)
--- NOTE | 2017-04-15 15:46 | PN ---
Progress Note (short form) - Note Progress Note: Renal follow up for KYLE/CKD Pt seen and examined at the bedside no sob, chest pain, abd pain feels better getting IVF making urine Vital Signs Temperature 97.8 F 04/15/17 15:24 Pulse Rate 63 04/15/17 15:24 Respiratory Rate 18 04/15/17 15:24 Blood Pressure 135/82 04/15/17 15:24 O2 Sat by Pulse Oximetry (%) 97 04/15/17 11:10 Intake & Output 04/12/17 04/13/17 04/14/17 04/15/17 23:59 23:59 23:59 23:59 Intake Total 2140 1410 2920 1100 Output Total 2280 1690 2315 950 Balance -140 -280 605 150 Weight 124.693 kg NAD NO LE edema CBC, BMP 04/15/17 09:35 04/15/17 07:30 Current Medications Acetaminophen (Tylenol -) 650 mg PO Q6H PRN PRN Reason: PAIN Last Admin: 04/15/17 06:34 Dose: 650 mg Albuterol/Ipratropium (Duoneb -) 1 amp NEB BID [facility] Last Admin: 04/15/17 10:15 Dose: 1 amp Finasteride (Proscar -) 5 mg PO DAILY [facility] Last Admin: 04/15/17 10:53 Dose: 5 mg Glipizide (Glucotrol -) 10 mg PO DAILY@0700 [facility] Last Admin: 04/15/17 06:30 Dose: 10 mg Heparin Sodium (Porcine) (Heparin -) 1,000 unit IVPUSH PRN PRN PRN Reason: Heparin Last Admin: 04/15/17 08:55 Dose: 1,000 unit Heparin Sodium (Porcine) (Heparin -) 5,000 unit IVPUSH PRN PRN PRN Reason: Heparin Heparin Sodium/Dextrose (Heparin Infusion -) 25,000 units in 500 mls @ 20 mls/ hr IVPB TITR [facility]; 1,000 UNITS/HR PRN Reason: Protocol Last Titration: 04/15/17 08:55 Dose: 1,100 units/hr, 22 mls/hr Ceftriaxone Sodium 2 gm/ (Dextrose) 100 mls @ 200 mls/hr IVPB DAILY [facility] Last Admin: 04/15/17 10:53 Dose: 200 mls/hr Sodium Chloride (Normal Saline -) 1,000 mls @ 75 mls/hr IV ASDIR [facility] Insulin Aspart (Novolog Vial Sliding Scale -) 1 vial SQ ACHS [facility] PRN Reason: Protocol Last Admin: 04/15/17 12:54 Dose: Not Given Metoprolol Succinate (Toprol Xl -) 50 mg PO BID [facility] Last Admin: 04/15/17 10:53 Dose: 50 mg Pantoprazole Sodium (Protonix -) 40 mg PO DAILY [facility] Last Admin: 04/15/17 10:53 Dose: 40 mg Sodium Hypochlorite (Dakin's Solution 0.25% (Half-Strength) -) 1 applic TP DAILY [facility] Last Admin: 04/15/17 10:53 Dose: 1 applic Tamsulosin HCl (Flomax -) 0.4 mg PO DAILY@0830 [facility] Last Admin: 04/15/17 08:28 Dose: 0.4 mg Warfarin Sodium (Coumadin -) 7.5 mg PO Q2D@1800 [facility] Last Admin: 04/13/17 17:51 Dose: 7.5 mg Warfarin Sodium (Coumadin -) 5 mg PO Q2D@1800 [facility] Last Admin: 04/12/17 18:01 Dose: 5 mg Warfarin Sodium 10 mg/ (Warfarin Sodium 2 mg) 12 mg PO 1800 [facility] Stop: 04/15/17 18:01 71 year old gentleman with PMhx of HTN, A.Fib, cardiomyopathy, COPD on home oxygen, Asthma, BPH, DMII, right foot ulcer who presented to the hospital complaining of foot pain and found to have a diabetic foot infection/ osteomylitis with Cr of 2. #Acute Kidney Injury vs CKD FeNa was 0.77%, UPCR not signifincat renal function improving with IVF continue for additional 24 hours #Osteomylitis/Diabetic Foot ulcer continue Abx as per Id Thank you will follow Moises Pelaez DO
[2017-04-15] MEDS ORDERED: WARFARIN NA 2 MG TABLET (UD) ONE (17:19)
[2017-04-15] MEDS ORDERED: WARFARIN NA 10 MG TABLET (FP) ONE (17:19)
[2017-04-15] MEDS ORDERED: WARFARIN NA 10 MG, WARFARIN NA 2 MG PO ONE (18:00)
[2017-04-15] MEDS ORDERED: PT OWN MED DRAWER 7, Y5N ONE (20:52)
[2017-04-15] MEDS: HEPARIN INFUSION - 25,000 UNITS/500 ML INFUS.BAG IVPB SCH (21:38)
--- NOTE | 2017-04-15 23:08 | PN ---
Progress Note, Physician - Current Medication List Current Medications: Active Medications Acetaminophen (Tylenol -) 650 mg PO Q6H PRN PRN Reason: PAIN Last Admin: 04/15/17 21:41 Dose: 650 mg Albuterol/Ipratropium (Duoneb -) 1 amp NEB BID [facility] Last Admin: 04/15/17 22:25 Dose: 1 amp Finasteride (Proscar -) 5 mg PO DAILY [facility] Last Admin: 04/15/17 10:53 Dose: 5 mg Glipizide (Glucotrol -) 10 mg PO DAILY@0700 [facility] Last Admin: 04/15/17 06:30 Dose: 10 mg Heparin Sodium (Porcine) (Heparin -) 1,000 unit IVPUSH PRN PRN PRN Reason: Heparin Last Admin: 04/15/17 08:55 Dose: 1,000 unit Heparin Sodium (Porcine) (Heparin -) 5,000 unit IVPUSH PRN PRN PRN Reason: Heparin Heparin Sodium/Dextrose (Heparin Infusion -) 25,000 units in 500 mls @ 20 mls/ hr IVPB TITR [facility]; 1,000 UNITS/HR PRN Reason: Protocol Last Admin: 04/15/17 21:38 Dose: 1,100 units/hr, 22 mls/hr Ceftriaxone Sodium 2 gm/ (Dextrose) 100 mls @ 200 mls/hr IVPB DAILY [facility] Last Admin: 04/15/17 10:53 Dose: 200 mls/hr Sodium Chloride (Normal Saline -) 1,000 mls @ 75 mls/hr IV ASDIR [facility] Last Admin: 04/15/17 20:38 Dose: 75 mls/hr Insulin Aspart (Novolog Vial Sliding Scale -) 1 vial SQ ACHS [facility] PRN Reason: Protocol Last Admin: 04/15/17 21:32 Dose: Not Given Metoprolol Succinate (Toprol Xl -) 50 mg PO BID [facility] Last Admin: 04/15/17 21:37 Dose: 50 mg Pantoprazole Sodium (Protonix -) 40 mg PO DAILY [facility] Last Admin: 04/15/17 10:53 Dose: 40 mg Sodium Hypochlorite (Dakin's Solution 0.25% (Half-Strength) -) 1 applic TP DAILY [facility] Last Admin: 04/15/17 10:53 Dose: 1 applic Tamsulosin HCl (Flomax -) 0.4 mg PO DAILY@0830 [facility] Last Admin: 04/15/17 08:28 Dose: 0.4 mg Warfarin Sodium (Coumadin -) 7.5 mg PO Q2D@1800 [facility] Last Admin: 04/13/17 17:51 Dose: 7.5 mg Warfarin Sodium (Coumadin -) 5 mg PO Q2D@1800 [facility] Last Admin: 04/12/17 18:01 Dose: 5 mg - Objective Vital Signs: Vital Signs Temperature 97.9 F 04/15/17 18:56 Pulse Rate 65 04/15/17 18:56 Respiratory Rate 18 04/15/17 18:56 Blood Pressure 142/75 04/15/17 18:56 O2 Sat by Pulse Oximetry (%) 97 04/15/17 11:10 Labs: CBC, BMP 04/15/17 09:35 04/15/17 07:30 INR, PTT INR 1.63 (0.82-1.09) H 04/15/17 07:30 Problem List - Problems (1) Diabetic foot ulcer Code(s): E11.621 - TYPE 2 DIABETES MELLITUS WITH FOOT ULCER; L97.509 - NON- PRESSURE CHRONIC ULCER OTH PRT UNSP FOOT W UNSP SEVERITY Qualifiers: Diabetic foot ulcer location: toe Laterality: right (2) Afib Code(s): I48.91 - UNSPECIFIED ATRIAL FIBRILLATION (3) BPH (benign prostatic hyperplasia) Code(s): N40.0 - BENIGN PROSTATIC HYPERPLASIA WITHOUT LOWER URINRY TRACT SYMP (4) COPD (chronic obstructive pulmonary disease) Code(s): J44.9 - CHRONIC OBSTRUCTIVE PULMONARY DISEASE, UNSPECIFIED (5) Cardiomyopathy Code(s): I42.9 - CARDIOMYOPATHY, UNSPECIFIED (6) Diabetes Code(s): E11.9 - TYPE 2 DIABETES MELLITUS WITHOUT COMPLICATIONS (7) HTN (hypertension) Code(s): I10 - ESSENTIAL (PRIMARY) HYPERTENSION
[2017-04-16] MEDS: glipiZIDE 5 MG TABLET (FP) PO SCH (06:47)
[2017-04-16] MEDS: INSULIN SLIDING SCALE (NOVOLOG) 1 VIAL SQ SCH ×4 (06:48→21:58)
[2017-04-16 08:12] LABS: MCH 29.4 pg (25.7-33.7); MCHC 32.4 g/dl (32.0-35.9); MEAN CELL VOLUME 90.7 fl (80-96); MEAN PLT VOLUME 8.1 fl (7.5-11.1); PLATELET COUNT 436 K/MM3 (134-434); RDW 17.3 % (11.9-15.9); WHITE BLOOD COUNT 7.7 K/mm3 (4.0-10.0)
[2017-04-16] MEDS ORDERED: PT OWN MED DRAWER 7, Y5N ONE ×2 (09:47→18:00)
[2017-04-16 10:03] LABS: INR 1.75 (0.82-1.09); PROTHROMBIN TIME (PATIENT) 19.8 SEC (9.98-11.88)
--- NOTE | 2017-04-16 10:25 | PN ---
Progress Note, Physician Chief Complaint: no distress Awaits PICC - Current Medication List Current Medications: Active Medications Acetaminophen (Tylenol -) 650 mg PO Q6H PRN PRN Reason: PAIN Last Admin: 04/15/17 21:41 Dose: 650 mg Albuterol/Ipratropium (Duoneb -) 1 amp NEB BID [facility] Last Admin: 04/15/17 22:25 Dose: 1 amp Finasteride (Proscar -) 5 mg PO DAILY [facility] Last Admin: 04/15/17 10:53 Dose: 5 mg Glipizide (Glucotrol -) 10 mg PO DAILY@0700 [facility] Last Admin: 04/16/17 06:47 Dose: 10 mg Heparin Sodium (Porcine) (Heparin -) 1,000 unit IVPUSH PRN PRN PRN Reason: Heparin Last Admin: 04/15/17 08:55 Dose: 1,000 unit Heparin Sodium (Porcine) (Heparin -) 5,000 unit IVPUSH PRN PRN PRN Reason: Heparin Heparin Sodium/Dextrose (Heparin Infusion -) 25,000 units in 500 mls @ 20 mls/ hr IVPB TITR [facility]; 1,000 UNITS/HR PRN Reason: Protocol Last Titration: 04/16/17 00:31 Dose: 1,100 units/hr, 22 mls/hr Ceftriaxone Sodium 2 gm/ (Dextrose) 100 mls @ 200 mls/hr IVPB DAILY [facility] Last Admin: 04/15/17 10:53 Dose: 200 mls/hr Sodium Chloride (Normal Saline -) 1,000 mls @ 75 mls/hr IV ASDIR [facility] Last Admin: 04/15/17 20:38 Dose: 75 mls/hr Insulin Aspart (Novolog Vial Sliding Scale -) 1 vial SQ ACHS [facility] PRN Reason: Protocol Last Admin: 04/16/17 06:48 Dose: Not Given Metoprolol Succinate (Toprol Xl -) 50 mg PO BID [facility] Last Admin: 04/15/17 21:37 Dose: 50 mg Pantoprazole Sodium (Protonix -) 40 mg PO DAILY [facility] Last Admin: 04/15/17 10:53 Dose: 40 mg Sodium Hypochlorite (Dakin's Solution 0.25% (Half-Strength) -) 1 applic TP DAILY [facility] Last Admin: 04/15/17 10:53 Dose: 1 applic Tamsulosin HCl (Flomax -) 0.4 mg PO DAILY@0830 [facility] Last Admin: 04/15/17 08:28 Dose: 0.4 mg Warfarin Sodium (Coumadin -) 7.5 mg PO Q2D@1800 [facility] Last Admin: 04/13/17 17:51 Dose: 7.5 mg Warfarin Sodium (Coumadin -) 5 mg PO Q2D@1800 [facility] Last Admin: 04/12/17 18:01 Dose: 5 mg - Objective Vital Signs: Vital Signs Temperature 98.3 F 04/16/17 06:00 Pulse Rate 84 04/16/17 06:00 Respiratory Rate 20 04/16/17 06:00 Blood Pressure 152/90 04/16/17 06:00 O2 Sat by Pulse Oximetry (%) 97 04/15/17 11:10 Constitutional: Yes: No Distress Cardiovascular: Yes: Pulse Irregular Respiratory: Yes: CTA Bilaterally Gastrointestinal: Yes: Soft Edema: No Neurological: Yes: Alert, Oriented Labs: CBC, BMP 04/16/17 06:30 04/15/17 07:30 INR, PTT INR 1.75 (0.82-1.09) H 04/16/17 09:15 Assessment/Plan Assessment/Plan 71 year old man with a h/o HTN, DMII, HLD, Afib on coumadin, non-obs CAD, mild pulm HTN, mild thoracic aortic aneursym, HCV, ashtma admitted with R foot ulcer with osteo. S/p right foot debridement: -Tolerated well without cardiac complications -further wound care planned Non-obstructive CAD based on CTA 2011 -cont home medical regimen -outpatient f/up Afib- HR remains adequately controlled -cont toprol xl 50mg bid for HR control -cont hep gtt -Resume after PICC line until INR 2-3
[2017-04-16] MEDS: TAMSULOSIN HCL 0.4 MG CAP.ER.24H (FP) PO SCH (10:32)
[2017-04-16] MEDS: FINASTERIDE 5 MG TABLET (FP) PO SCH (10:32)
[2017-04-16] MEDS: PANTOPRAZOLE 40 MG TABLET (FP) PO SCH (10:33)
[2017-04-16] MEDS: SODIUM HYPOCHLORITE 0.25%- 473 ML BULK BOTTLE TP SCH (10:33)
[2017-04-16] MEDS: METOPROLOL SUCCINATE 50 MG TAB.SR.24H (FP) PO SCH ×2 (10:33→21:59)
[2017-04-16] MEDS: CEFTRIAXONE 2 GM in DEXTROSE 5%-WATER - 100 ML IVPB SCH (10:33)
[2017-04-16] MEDS: ALBUTEROL SO4 2.5/IPRATROPIUM 0.5 INH SOL 3 ML VIAL.NEB. NEB SCH ×2 (10:49→23:57)
[2017-04-16 10:58] LABS: ANION GAP 9 (8-16); CO2 19 mmol/L (21-32); CREATININE 1.3 mg/dL (0.7-1.3); GLUCOSE,RANDOM 143 mg/dL (74-106)
--- NOTE | 2017-04-16 12:20 | PN ---
Progress Note, Physician History of Present Illness: PULMONARY ALERT,NAD,-SOB,-COUGH,-CP - Current Medication List Current Medications: Active Medications Acetaminophen (Tylenol -) 650 mg PO Q6H PRN PRN Reason: PAIN Last Admin: 04/15/17 21:41 Dose: 650 mg Albuterol/Ipratropium (Duoneb -) 1 amp NEB BID [facility] Last Admin: 04/16/17 10:49 Dose: 1 amp Finasteride (Proscar -) 5 mg PO DAILY [facility] Last Admin: 04/16/17 10:32 Dose: 5 mg Glipizide (Glucotrol -) 10 mg PO DAILY@0700 [facility] Last Admin: 04/16/17 06:47 Dose: 10 mg Heparin Sodium (Porcine) (Heparin -) 1,000 unit IVPUSH PRN PRN PRN Reason: Heparin Last Admin: 04/15/17 08:55 Dose: 1,000 unit Heparin Sodium (Porcine) (Heparin -) 5,000 unit IVPUSH PRN PRN PRN Reason: Heparin Heparin Sodium/Dextrose (Heparin Infusion -) 25,000 units in 500 mls @ 20 mls/ hr IVPB TITR [facility]; 1,000 UNITS/HR PRN Reason: Protocol Last Titration: 04/16/17 00:31 Dose: 1,100 units/hr, 22 mls/hr Ceftriaxone Sodium 2 gm/ (Dextrose) 100 mls @ 200 mls/hr IVPB DAILY [facility] Last Admin: 04/16/17 10:33 Dose: 200 mls/hr Sodium Chloride (Normal Saline -) 1,000 mls @ 75 mls/hr IV ASDIR [facility] Last Admin: 04/15/17 20:38 Dose: 75 mls/hr Insulin Aspart (Novolog Vial Sliding Scale -) 1 vial SQ ACHS [facility] PRN Reason: Protocol Last Admin: 04/16/17 06:48 Dose: Not Given Metoprolol Succinate (Toprol Xl -) 50 mg PO BID [facility] Last Admin: 04/16/17 10:33 Dose: 50 mg Pantoprazole Sodium (Protonix -) 40 mg PO DAILY [facility] Last Admin: 04/16/17 10:33 Dose: 40 mg Sodium Hypochlorite (Dakin's Solution 0.25% (Half-Strength) -) 1 applic TP DAILY [facility] Last Admin: 04/16/17 10:33 Dose: 1 applic Tamsulosin HCl (Flomax -) 0.4 mg PO DAILY@0830 [facility] Last Admin: 04/16/17 10:32 Dose: 0.4 mg Warfarin Sodium (Coumadin -) 7.5 mg PO Q2D@1800 [facility] Last Admin: 04/13/17 17:51 Dose: 7.5 mg Warfarin Sodium (Coumadin -) 5 mg PO Q2D@1800 [facility] Last Admin: 04/12/17 18:01 Dose: 5 mg - Objective Vital Signs: Vital Signs Temperature 98.3 F 04/16/17 06:00 Pulse Rate 84 04/16/17 06:00 Respiratory Rate 20 04/16/17 06:00 Blood Pressure 152/90 04/16/17 06:00 O2 Sat by Pulse Oximetry (%) 97 04/15/17 11:10 Constitutional: Yes: Well Nourished, Calm Eyes: Yes: WNL HENT: Yes: WNL Neck: Yes: WNL Cardiovascular: Yes: Pulse Irregular, S1, S2 Respiratory: Yes: CTA Bilaterally Gastrointestinal: Yes: WNL Extremities: Yes: WNL, Other (DRESSING INTACT) Edema: No Labs: CBC, BMP 04/16/17 06:30 04/16/17 06:55 INR, PTT INR 1.75 (0.82-1.09) H 04/16/17 09:15 Problem List - Problems (1) Dyspnea Code(s): R06.00 - DYSPNEA, UNSPECIFIED (2) Cellulitis of foot Code(s): L03.119 - CELLULITIS OF UNSPECIFIED PART OF LIMB (3) Diabetes Code(s): E11.9 - TYPE 2 DIABETES MELLITUS WITHOUT COMPLICATIONS (4) Foot ulcer Code(s): L97.509 - NON-PRESSURE CHRONIC ULCER OTH PRT UNSP FOOT W UNSP SEVERITY Qualifiers: Laterality: right Non-pressure ulcer stage: unspecified non-pressure ulcer stage Qualified Code(s): L97.519 - Non-pressure chronic ulcer of other part of right foot with unspecified severity (5) Supratherapeutic INR Code(s): R79.1 - ABNORMAL COAGULATION PROFILE (6) COPD (chronic obstructive pulmonary disease) Code(s): J44.9 - CHRONIC OBSTRUCTIVE PULMONARY DISEASE, UNSPECIFIED (7) Cardiomyopathy Code(s): I42.9 - CARDIOMYOPATHY, UNSPECIFIED (8) Cardiomyopathy Code(s): I42.9 - CARDIOMYOPATHY, UNSPECIFIED (9) Cardiomyopathy Code(s): I42.9 - CARDIOMYOPATHY, UNSPECIFIED (10) Afib Code(s): I48.91 - UNSPECIFIED ATRIAL FIBRILLATION (11) HTN (hypertension) Code(s): I10 - ESSENTIAL (PRIMARY) HYPERTENSION (12) Morbid obesity Code(s): E66.01 - MORBID (SEVERE) OBESITY DUE TO EXCESS CALORIES Assessment/Plan A/P Osteomyelitis COPD Atrial Fibrillation Pulmonary HTN HTN DM Hyperlipidemia Hep C - continue antibiotics per ID - wound care - inhaled bronchodilators - rate controlled - continue anticoagulation - O2 to keep SpO2 >90% - PICC line and d/c planning DR VALERO
[2017-04-16] MEDS ORDERED: HEPARIN INFUSION - 25,000 UNITS/500 ML INFUS.BAG IVPB SCH (18:00)
--- NOTE | 2017-04-16 18:05 | PN ---
Progress Note (short form) - Note Progress Note: Renal follow up for KYLE/CKD Pt seen and examined at the bedside no complaints Vital Signs Temperature 98.0 F 04/16/17 15:44 Pulse Rate 77 04/16/17 15:44 Respiratory Rate 18 04/16/17 15:44 Blood Pressure 143/77 04/16/17 15:44 O2 Sat by Pulse Oximetry (%) 98 04/16/17 09:00 Intake & Output 04/13/17 04/14/17 04/15/17 04/16/17 23:59 23:59 23:59 23:59 Intake Total 1410 2920 4244 650 Output Total 1690 2315 1450 2600 Balance -576 020 9180 -1950 Weight 124.693 kg NAD awake and alert NO LE edema CBC, BMP 04/16/17 06:30 04/16/17 06:55 Current Medications Acetaminophen (Tylenol -) 650 mg PO Q6H PRN PRN Reason: PAIN Last Admin: 04/15/17 21:41 Dose: 650 mg Albuterol/Ipratropium (Duoneb -) 1 amp NEB BID [facility] Last Admin: 04/16/17 10:49 Dose: 1 amp Finasteride (Proscar -) 5 mg PO DAILY [facility] Last Admin: 04/16/17 10:32 Dose: 5 mg Glipizide (Glucotrol -) 10 mg PO DAILY@0700 [facility] Last Admin: 04/16/17 06:47 Dose: 10 mg Heparin Sodium (Porcine) (Heparin -) 1,000 unit IVPUSH PRN PRN PRN Reason: Heparin Last Admin: 04/15/17 08:55 Dose: 1,000 unit Heparin Sodium (Porcine) (Heparin -) 5,000 unit IVPUSH PRN PRN PRN Reason: Heparin Heparin Sodium/Dextrose (Heparin Infusion -) 25,000 units in 500 mls @ 20 mls/ hr IVPB TITR [facility]; 1,000 UNITS/HR PRN Reason: Protocol Last Titration: 04/16/17 00:31 Dose: 1,100 units/hr, 22 mls/hr Ceftriaxone Sodium 2 gm/ (Dextrose) 100 mls @ 200 mls/hr IVPB DAILY [facility] Last Admin: 04/16/17 10:33 Dose: 200 mls/hr Sodium Chloride (Normal Saline -) 1,000 mls @ 75 mls/hr IV ASDIR [facility] Last Admin: 04/15/17 20:38 Dose: 75 mls/hr Insulin Aspart (Novolog Vial Sliding Scale -) 1 vial SQ ACHS [facility] PRN Reason: Protocol Last Admin: 04/16/17 12:32 Dose: Not Given Metoprolol Succinate (Toprol Xl -) 50 mg PO BID [facility] Last Admin: 04/16/17 10:33 Dose: 50 mg Pantoprazole Sodium (Protonix -) 40 mg PO DAILY [facility] Last Admin: 04/16/17 10:33 Dose: 40 mg Sodium Hypochlorite (Dakin's Solution 0.25% (Half-Strength) -) 1 applic TP DAILY [facility] Last Admin: 04/16/17 10:33 Dose: 1 applic Tamsulosin HCl (Flomax -) 0.4 mg PO DAILY@0830 [facility] Last Admin: 04/16/17 10:32 Dose: 0.4 mg Warfarin Sodium (Coumadin -) 7.5 mg PO Q2D@1800 [facility] Last Admin: 04/13/17 17:51 Dose: 7.5 mg Warfarin Sodium (Coumadin -) 5 mg PO Q2D@1800 [facility] Last Admin: 04/12/17 18:01 Dose: 5 mg 71 year old gentleman with PMhx of HTN, A.Fib, cardiomyopathy, COPD on home oxygen, Asthma, BPH, DMII, right foot ulcer who presented to the hospital complaining of foot pain and found to have a diabetic foot infection/ osteomylitis with Cr of 2. #Acute Kidney Injury vs CKD Renal function improving s/p IVF continue oral diet as tolerated trend BUN/cr Us of kidney and bladder w/o overt structural abnormalities #Osteomylitis/Diabetic Foot ulcer continue Abx as per Id picc line to be placed Thank you will follow Moises Pelaez DO
[2017-04-16] MEDS: SODIUM CHLORIDE 1,000 ML IV SCH (18:14)
[2017-04-16] MEDS ORDERED: WARFARIN NA 10 MG, WARFARIN NA 2 MG PO ONE (18:30)
[2017-04-16] MEDS ORDERED: WARFARIN NA 10 MG TABLET (FP) ONE (18:51)
[2017-04-16] MEDS ORDERED: WARFARIN NA 2 MG TABLET (UD) ONE (18:52)
[2017-04-16] MEDS: ACETAMINOPHEN 325 MG TABLET (FP) PO PRN (21:59)
--- NOTE | 2017-04-16 23:39 | PN ---
Progress Note, Physician - Current Medication List Current Medications: Active Medications Acetaminophen (Tylenol -) 650 mg PO Q6H PRN PRN Reason: PAIN Last Admin: 04/16/17 21:59 Dose: 650 mg Albuterol/Ipratropium (Duoneb -) 1 amp NEB BID [facility] Last Admin: 04/16/17 10:49 Dose: 1 amp Finasteride (Proscar -) 5 mg PO DAILY [facility] Last Admin: 04/16/17 10:32 Dose: 5 mg Glipizide (Glucotrol -) 10 mg PO DAILY@0700 [facility] Last Admin: 04/16/17 06:47 Dose: 10 mg Heparin Sodium (Porcine) (Heparin -) 1,000 unit IVPUSH PRN PRN PRN Reason: Heparin Last Admin: 04/15/17 08:55 Dose: 1,000 unit Heparin Sodium (Porcine) (Heparin -) 5,000 unit IVPUSH PRN PRN PRN Reason: Heparin Ceftriaxone Sodium 2 gm/ (Dextrose) 100 mls @ 200 mls/hr IVPB DAILY [facility] Last Admin: 04/16/17 10:33 Dose: 200 mls/hr Sodium Chloride (Normal Saline -) 1,000 mls @ 75 mls/hr IV ASDIR [facility] Last Admin: 04/16/17 18:14 Dose: 75 mls/hr Heparin Sodium/Dextrose (Heparin Infusion -) 25,000 units in 500 mls @ 22 mls/ hr IVPB TITR [facility]; 1,100 UNITS/HR PRN Reason: Protocol Last Admin: 04/16/17 18:30 Dose: Not Given Insulin Aspart (Novolog Vial Sliding Scale -) 1 vial SQ ACHS [facility] PRN Reason: Protocol Last Admin: 04/16/17 21:58 Dose: Not Given Metoprolol Succinate (Toprol Xl -) 50 mg PO BID [facility] Last Admin: 04/16/17 21:59 Dose: 50 mg Pantoprazole Sodium (Protonix -) 40 mg PO DAILY [facility] Last Admin: 04/16/17 10:33 Dose: 40 mg Sodium Hypochlorite (Dakin's Solution 0.25% (Half-Strength) -) 1 applic TP DAILY [facility] Last Admin: 04/16/17 10:33 Dose: 1 applic Tamsulosin HCl (Flomax -) 0.4 mg PO DAILY@0830 [facility] Last Admin: 04/16/17 10:32 Dose: 0.4 mg Warfarin Sodium (Coumadin -) 7.5 mg PO Q2D@1800 [facility] Last Admin: 04/13/17 17:51 Dose: 7.5 mg Warfarin Sodium (Coumadin -) 5 mg PO Q2D@1800 [facility] Last Admin: 04/12/17 18:01 Dose: 5 mg - Objective Vital Signs: Vital Signs Temperature 98.6 F 04/16/17 22:00 Pulse Rate 79 04/16/17 22:00 Respiratory Rate 18 04/16/17 22:00 Blood Pressure 142/67 04/16/17 22:00 O2 Sat by Pulse Oximetry (%) 98 04/16/17 21:00 Labs: CBC, BMP 04/16/17 06:30 04/16/17 06:55 INR, PTT INR 1.75 (0.82-1.09) H 04/16/17 09:15 Problem List - Problems (1) Diabetic foot ulcer Code(s): E11.621 - TYPE 2 DIABETES MELLITUS WITH FOOT ULCER; L97.509 - NON- PRESSURE CHRONIC ULCER OTH PRT UNSP FOOT W UNSP SEVERITY Qualifiers: Diabetic foot ulcer location: toe Laterality: right (2) Afib Code(s): I48.91 - UNSPECIFIED ATRIAL FIBRILLATION (3) BPH (benign prostatic hyperplasia) Code(s): N40.0 - BENIGN PROSTATIC HYPERPLASIA WITHOUT LOWER URINRY TRACT SYMP (4) COPD (chronic obstructive pulmonary disease) Code(s): J44.9 - CHRONIC OBSTRUCTIVE PULMONARY DISEASE, UNSPECIFIED (5) Cardiomyopathy Code(s): I42.9 - CARDIOMYOPATHY, UNSPECIFIED (6) Diabetes Code(s): E11.9 - TYPE 2 DIABETES MELLITUS WITHOUT COMPLICATIONS (7) HTN (hypertension) Code(s): I10 - ESSENTIAL (PRIMARY) HYPERTENSION
[2017-04-17] MEDS: ACETAMINOPHEN 325 MG TABLET (FP) PO PRN (06:15)
[2017-04-17] MEDS: glipiZIDE 5 MG TABLET (FP) PO SCH (06:15)
[2017-04-17] MEDS: INSULIN SLIDING SCALE (NOVOLOG) 1 VIAL SQ SCH ×2 (06:15→12:42)
[2017-04-17 08:09] LABS: MCHC 31.5 g/dl (32.0-35.9); MEAN CELL VOLUME 92.1 fl (80-96); MEAN PLT VOLUME 8.2 fl (7.5-11.1); PLATELET COUNT 417 K/MM3 (134-434); RDW 17.4 % (11.9-15.9); WHITE BLOOD COUNT 7.4 K/mm3 (4.0-10.0)
[2017-04-17 08:23] LABS: INR 1.96 (0.82-1.09); PROTHROMBIN TIME (PATIENT) 22.2 SEC (9.98-11.88)
[2017-04-17 09:09] LABS: ANION GAP 12 (8-16); CALCIUM 8.9 mg/dL (8.5-10.1); CO2 20 mmol/L (21-32); GLUCOSE,RANDOM 161 mg/dL (74-106)
[2017-04-17 09:11] LABS: CREATININE 1.3 mg/dL (0.7-1.3)
--- NOTE | 2017-04-17 09:35 | PN ---
Progress Note (short form) - Note Progress Note: PULMONARY s/p PICC line yesterday. Denies shortness of breath, cough or wheezing. No fevers or chills. Last Vital Signs Temp Pulse Resp BP Pulse Ox 97.7 F 84 20 155/79 98 04/17/17 06:00 04/17/17 06:00 04/17/17 06:00 04/17/17 06:00 04/16/17 21:00 Gen: NAD at rest Heat: RRR Lung: clear to auscultation Abd: soft, nontender Ext: dressings dry CBC, BMP 04/17/17 06:30 04/17/17 06:30 Active Medications Acetaminophen (Tylenol -) 650 mg PO Q6H PRN PRN Reason: PAIN Last Admin: 04/17/17 06:15 Dose: 650 mg Albuterol/Ipratropium (Duoneb -) 1 amp NEB BID [facility] Last Admin: 04/16/17 23:57 Dose: 1 amp Finasteride (Proscar -) 5 mg PO DAILY [facility] Last Admin: 04/16/17 10:32 Dose: 5 mg Glipizide (Glucotrol -) 10 mg PO DAILY@0700 [facility] Last Admin: 04/17/17 06:15 Dose: 10 mg Heparin Sodium (Porcine) (Heparin -) 1,000 unit IVPUSH PRN PRN PRN Reason: Heparin Last Admin: 04/15/17 08:55 Dose: 1,000 unit Heparin Sodium (Porcine) (Heparin -) 5,000 unit IVPUSH PRN PRN PRN Reason: Heparin Ceftriaxone Sodium 2 gm/ (Dextrose) 100 mls @ 200 mls/hr IVPB DAILY [facility] Last Admin: 04/16/17 10:33 Dose: 200 mls/hr Sodium Chloride (Normal Saline -) 1,000 mls @ 75 mls/hr IV ASDIR [facility] Last Admin: 04/16/17 18:14 Dose: 75 mls/hr Heparin Sodium/Dextrose (Heparin Infusion -) 25,000 units in 500 mls @ 22 mls/ hr IVPB TITR [facility]; 1,100 UNITS/HR PRN Reason: Protocol Last Admin: 04/16/17 18:30 Dose: Not Given Insulin Aspart (Novolog Vial Sliding Scale -) 1 vial SQ ACHS [facility] PRN Reason: Protocol Last Admin: 04/17/17 06:15 Dose: 2 unit Metoprolol Succinate (Toprol Xl -) 50 mg PO BID [facility] Last Admin: 04/16/17 21:59 Dose: 50 mg Pantoprazole Sodium (Protonix -) 40 mg PO DAILY [facility] Last Admin: 04/16/17 10:33 Dose: 40 mg Sodium Hypochlorite (Dakin's Solution 0.25% (Half-Strength) -) 1 applic TP DAILY [facility] Last Admin: 04/16/17 10:33 Dose: 1 applic Tamsulosin HCl (Flomax -) 0.4 mg PO DAILY@0830 [facility] Last Admin: 04/16/17 10:32 Dose: 0.4 mg Warfarin Sodium (Coumadin -) 7.5 mg PO Q2D@1800 [facility] Last Admin: 04/13/17 17:51 Dose: 7.5 mg Warfarin Sodium (Coumadin -) 5 mg PO Q2D@1800 [facility] Last Admin: 04/12/17 18:01 Dose: 5 mg A/P Osteomyelitis COPD Atrial Fibrillation Pulmonary HTN HTN DM Hyperlipidemia Hep C - continue antibiotics per ID - wound care - inhaled bronchodilators - rate controlled - continue anticoagulation - O2 to keep SpO2 >90% - d/c planning
[2017-04-17] MEDS: ALBUTEROL SO4 2.5/IPRATROPIUM 0.5 INH SOL 3 ML VIAL.NEB. NEB SCH (10:05)
[2017-04-17] MEDS: TAMSULOSIN HCL 0.4 MG CAP.ER.24H (FP) PO SCH (10:19)
[2017-04-17] MEDS: FINASTERIDE 5 MG TABLET (FP) PO SCH (10:19)
[2017-04-17] MEDS: PANTOPRAZOLE 40 MG TABLET (FP) PO SCH (10:19)
[2017-04-17] MEDS: CEFTRIAXONE 2 GM in DEXTROSE 5%-WATER - 100 ML IVPB SCH (10:19)
[2017-04-17] MEDS: METOPROLOL SUCCINATE 50 MG TAB.SR.24H (FP) PO SCH (10:19)
[2017-04-17] MEDS: SODIUM HYPOCHLORITE 0.25%- 473 ML BULK BOTTLE TP SCH (10:20)
--- NOTE | 2017-04-17 11:04 | PN ---
Progress Note, Physician History of Present Illness: seen and examined today in nad. states he feels well and ready for discharge. - Current Medication List Current Medications: Active Medications Acetaminophen (Tylenol -) 650 mg PO Q6H PRN PRN Reason: PAIN Last Admin: 04/17/17 06:15 Dose: 650 mg Albuterol/Ipratropium (Duoneb -) 1 amp NEB BID [facility] Last Admin: 04/16/17 23:57 Dose: 1 amp Finasteride (Proscar -) 5 mg PO DAILY [facility] Last Admin: 04/17/17 10:19 Dose: 5 mg Glipizide (Glucotrol -) 10 mg PO DAILY@0700 [facility] Last Admin: 04/17/17 06:15 Dose: 10 mg Heparin Sodium (Porcine) (Heparin -) 1,000 unit IVPUSH PRN PRN PRN Reason: Heparin Last Admin: 04/15/17 08:55 Dose: 1,000 unit Heparin Sodium (Porcine) (Heparin -) 5,000 unit IVPUSH PRN PRN PRN Reason: Heparin Ceftriaxone Sodium 2 gm/ (Dextrose) 100 mls @ 200 mls/hr IVPB DAILY [facility] Last Admin: 04/17/17 10:19 Dose: 200 mls/hr Sodium Chloride (Normal Saline -) 1,000 mls @ 75 mls/hr IV ASDIR [facility] Last Admin: 04/16/17 18:14 Dose: 75 mls/hr Heparin Sodium/Dextrose (Heparin Infusion -) 25,000 units in 500 mls @ 22 mls/ hr IVPB TITR [facility]; 1,100 UNITS/HR PRN Reason: Protocol Last Admin: 04/16/17 18:30 Dose: Not Given Insulin Aspart (Novolog Vial Sliding Scale -) 1 vial SQ ACHS [facility] PRN Reason: Protocol Last Admin: 04/17/17 06:15 Dose: 2 unit Metoprolol Succinate (Toprol Xl -) 50 mg PO BID [facility] Last Admin: 04/17/17 10:19 Dose: 50 mg Pantoprazole Sodium (Protonix -) 40 mg PO DAILY [facility] Last Admin: 04/17/17 10:19 Dose: 40 mg Sodium Hypochlorite (Dakin's Solution 0.25% (Half-Strength) -) 1 applic TP DAILY [facility] Last Admin: 04/17/17 10:20 Dose: 1 applic Tamsulosin HCl (Flomax -) 0.4 mg PO DAILY@0830 [facility] Last Admin: 04/17/17 10:19 Dose: 0.4 mg Warfarin Sodium (Coumadin -) 7.5 mg PO Q2D@1800 [facility] Last Admin: 04/13/17 17:51 Dose: 7.5 mg Warfarin Sodium (Coumadin -) 5 mg PO Q2D@1800 [facility] Last Admin: 04/12/17 18:01 Dose: 5 mg - Objective Vital Signs: Vital Signs Temperature 97.7 F 04/17/17 06:00 Pulse Rate 84 04/17/17 06:00 Respiratory Rate 20 04/17/17 06:00 Blood Pressure 155/79 04/17/17 06:00 O2 Sat by Pulse Oximetry (%) 98 04/16/17 21:00 Constitutional: Yes: Well Nourished, No Distress, Calm Eyes: Yes: Conjunctiva Clear, EOM Intact, PERRL HENT: Yes: Atraumatic, Normocephalic Neck: Yes: Supple, Trachea Midline Cardiovascular: Yes: Pulse Irregular, S1, S2. No: Regular Rate and Rhythm, Bradycardia, Tachycardia, Bruit, JVD, Gallop, Murmur, Rub, S3, S4, Varicosities Respiratory: Yes: Regular, CTA Bilaterally. No: Rales, Rhonchi, SOB, Wheezes Gastrointestinal: Yes: Normal Bowel Sounds, Soft. No: Distention, Tenderness Musculoskeletal: Yes: WNL Extremities: Yes: WNL Edema: No Integumentary: Yes: Other (dressing in place) Neurological: Yes: Alert, Oriented Psychiatric: Yes: Alert, Oriented Labs: CBC, BMP 04/17/17 06:30 04/17/17 06:30 INR, PTT INR 1.96 (0.82-1.09) H 04/17/17 06:30 - ....Imaging Chest X-ray: Report Reviewed, Image Reviewed EKG: Report Reviewed, Image Reviewed Other: Report Reviewed, Image Reviewed Assessment/Plan 71 year old man with a h/o HTN, DMII, HLD, Afib on coumadin, non-obs CAD, mild pulm HTN, mild thoracic aortic aneursym, HCV, ashtma admitted with R foot ulcer with osteo. S/p right foot debridement: -Tolerated well without cardiac complications -further wound care planned at rehab -PICC line in place Non-obstructive CAD based on CTA 2011 -cont home medical regimen -outpatient f/up Afib- HR remains adequately controlled -cont toprol xl 50mg bid for HR control -INR close to therapeutic, can dc heparin and cont coumadin to be monitored at rehab for goal INR 2-3
--- NOTE | 2017-04-17 14:42 | PN ---
Progress Note (short form) - Note Progress Note: Renal follow up for KYLE/CKD Pt seen and examined at the bedside no complaints s/p picc line placement Vital Signs Temperature 98.4 F 04/17/17 10:00 Pulse Rate 82 04/17/17 10:00 Respiratory Rate 18 04/17/17 10:00 Blood Pressure 150/80 04/17/17 10:00 O2 Sat by Pulse Oximetry (%) 98 04/17/17 09:00 Intake & Output 04/14/17 04/15/17 04/16/17 04/17/17 23:59 23:59 23:59 23:59 Intake Total 2920 4244 1278 896 Output Total 2315 1450 3200 1100 Balance 605 3937 -2132 -573 Weight 124.693 kg NAD awake and alert NO LE edema CBC, BMP 04/17/17 06:30 04/17/17 06:30 Current Medications Acetaminophen (Tylenol -) 650 mg PO Q6H PRN PRN Reason: PAIN Last Admin: 04/17/17 06:15 Dose: 650 mg Albuterol/Ipratropium (Duoneb -) 1 amp NEB BID [facility] Last Admin: 04/16/17 23:57 Dose: 1 amp Finasteride (Proscar -) 5 mg PO DAILY [facility] Last Admin: 04/17/17 10:19 Dose: 5 mg Glipizide (Glucotrol -) 10 mg PO DAILY@0700 [facility] Last Admin: 04/17/17 06:15 Dose: 10 mg Ceftriaxone Sodium 2 gm/ (Dextrose) 100 mls @ 200 mls/hr IVPB DAILY [facility] Last Admin: 04/17/17 10:19 Dose: 200 mls/hr Sodium Chloride (Normal Saline -) 1,000 mls @ 75 mls/hr IV ASDIR [facility] Last Admin: 04/16/17 18:14 Dose: 75 mls/hr Insulin Aspart (Novolog Vial Sliding Scale -) 1 vial SQ ACHS [facility] PRN Reason: Protocol Last Admin: 04/17/17 12:42 Dose: Not Given Metoprolol Succinate (Toprol Xl -) 50 mg PO BID [facility] Last Admin: 04/17/17 10:19 Dose: 50 mg Pantoprazole Sodium (Protonix -) 40 mg PO DAILY [facility] Last Admin: 04/17/17 10:19 Dose: 40 mg Sodium Hypochlorite (Dakin's Solution 0.25% (Half-Strength) -) 1 applic TP DAILY [facility] Last Admin: 04/17/17 10:20 Dose: 1 applic Tamsulosin HCl (Flomax -) 0.4 mg PO DAILY@0830 [facility] Last Admin: 04/17/17 10:19 Dose: 0.4 mg Warfarin Sodium (Coumadin -) 7.5 mg PO Q2D@1800 [facility] Last Admin: 04/13/17 17:51 Dose: 7.5 mg Warfarin Sodium (Coumadin -) 5 mg PO Q2D@1800 [facility] Last Admin: 04/12/17 18:01 Dose: 5 mg 71 year old gentleman with PMhx of HTN, A.Fib, cardiomyopathy, COPD on home oxygen, Asthma, BPH, DMII, right foot ulcer who presented to the hospital complaining of foot pain and found to have a diabetic foot infection/ osteomylitis with Cr of 2. #Acute Kidney Injury vs CKD Renal function now improved and stable #Osteomylitis/Diabetic Foot ulcer continue abx as per ID picc line placed Moises Pelaez DO
[2017-04-17 15:12] VITALS: BP 158/78; PULSE 79; TEMP 97.8
== END 2017-04-17 17:28 | DRG 629 ==
LOC: JER 13:25 → JERBED 15:02 → J8W 20:13
PROVIDERS: ADMIT Internal Medicine; ATTEND Internal Medicine
PROC: 0QTN0ZZ Resection of Right Metatarsal, Open Approach (ICD-10-PCS; principal; 2017-04-08 13:00)
PROC: 0QBQ0ZZ Excision of Right Toe Phalanx, Open Approach (ICD-10-PCS; 2017-04-08 13:00)
PROC: 02HV33Z Insertion of Infusion Device into Superior Vena Cava, Percutaneous Approach (ICD-10-PCS; 2017-04-16)
DX: E11.621 Type 2 diabetes mellitus with foot ulcer (principal); E11.52 Type 2 diabetes mellitus with diabetic peripheral angiopathy with gangrene; M86.171 Other acute osteomyelitis, right ankle and foot; M86.671 Other chronic osteomyelitis, right ankle and foot; I42.9 Cardiomyopathy, unspecified; E87.2 Acidosis; E87.1 Hypo-osmolality and hyponatremia; I13.0 Hypertensive heart and chronic kidney disease with heart failure and stage 1 through stage 4 chronic kidney disease, or unspecified chronic kidney disease; I50.30 Unspecified diastolic (congestive) heart failure; L03.115 Cellulitis of right lower limb; N17.9 Acute kidney failure, unspecified; E11.69 Type 2 diabetes mellitus with other specified complication; I12.9 Hypertensive chronic kidney disease with stage 1 through stage 4 chronic kidney disease, or unspecified chronic kidney disease; E11.22 Type 2 diabetes mellitus with diabetic chronic kidney disease; N18.9 Chronic kidney disease, unspecified; N40.0 Benign prostatic hyperplasia without lower urinary tract symptoms; I25.10 Atherosclerotic heart disease of native coronary artery without angina pectoris; I48.91 Unspecified atrial fibrillation; I27.20 Pulmonary hypertension, unspecified; J44.9 Chronic obstructive pulmonary disease, unspecified; E78.5 Hyperlipidemia, unspecified; R79.1 Abnormal coagulation profile; E87.5 Hyperkalemia; E66.01 Morbid (severe) obesity due to excess calories; Z68.35 Body mass index [BMI] 35.0-35.9, adult
CPT/HCPCS: 11042; 11045; 36415; 36558; 71010-TC; 73630-TC-RT; 73718-TC; 76775-TC; 76856-TC; 77001-TC; 80048; 80053; 80061; 81003; 81015; 82272; 82436; 82570; 83721; 83880; 84133; 84156; 84300; 84443; 85025; 85027; 85610; 85651; 85730; 86140; 86850; 86900; 86901; 87040; 87070; 87075; 87077; 87186; 87205; 88304-TC; 88311-TC; 93005; 93010; 93306-TC; 94010; 94640; 94760; 97116-GP; 97161-GP; 99283-25; C1751; G0480; J1644

== ENCOUNTER → 2017-05-23 | Day surgery (SDC) | payer OTHER, BC | END | disposition home or self-care (01) | LOC: JRADIR 09:05 | PROVIDERS: ATTEND Nurse Practitioner Family | PROC: 0JPT0XZ Removal of Tunneled Vascular Access Device from Trunk Subcutaneous Tissue and Fascia, Open Approach (ICD-10-PCS; principal; 2017-05-23) | DX: Z45.2 Encounter for adjustment and management of vascular access device (principal) | CPT/HCPCS: 36590; 77001-TC ==

== ENCOUNTER 2017-12-18 07:40 | Day surgery (SDC) | payer OTHER, BC ==
[2017-12-17 16:06] VITALS: BMI 32.1
[2017-12-18 09:26] VITALS: TEMP 97.8
[2017-12-18 10:02] VITALS: BP 150/96; PULSE 61
--- NOTE | 2017-12-19 14:35 | PATH ---
Surgical Pathology Report Patient Name: AUSTYN [facility]ER [facility]. Rec. #: [id number] /Age/Gender: 1945 (Age: 72) / M Account: [id number] Location: [facility]-ENDOSCOPY Taken: 12/18/2017 Received: 12/18/2017 Reported: 12/19/2017 Physicians: Srinivasan Cunningham M.D. Specimen(s) Received BX MID TRANSVERSE COLON POLYP Clinical History Postoperative diagnosis: Mid transverse colon polyp, diverticulosis Final Diagnosis MID TRANSVERSE COLON, POLYP, BIOPSY: TUBULAR ADENOMA. Electronically Signed Monique Palacios M.D. Gross Description Received in formalin, labeled "biopsy mid transverse colon polyp" is a hunter, irregular portion of soft tissue measuring 0.4 cm. in greatest dimension. The specimen is submitted in toto in one cassette. /12/18/2017 saudi12/18/2017
== END 2017-12-18 10:02 | disposition home or self-care (01) ==
LOC: JASU-ENDO 07:40
PROVIDERS: ATTEND Internal Medicine Gastroenterology
PROC: 0DBL8ZX Excision of Transverse Colon, Via Natural or Artificial Opening Endoscopic, Diagnostic (ICD-10-PCS; principal; 2017-12-18 09:30)
DX: K57.30 Diverticulosis of large intestine without perforation or abscess without bleeding (principal); K64.8 Other hemorrhoids; K63.5 Polyp of colon
CPT/HCPCS: 88305-TC

== ENCOUNTER 2019-03-12 07:49 | Inpatient (IN) | payer OTHER, BC ==
--- NOTE | 2019-03-12 08:18 | PDOC ---
History of Present Illness - General Chief Complaint: Wound Stated Complaint: SENT BY PCP FOR ADMISSION Time Seen by Provider: 03/12/19 08:17 History Source: Patient Exam Limitations: No Limitations - History of Present Illness Initial Comments: Pt is a 73 yo M, with PMH of COPD, newly found lung mass, DM with recurrent non- healing ulcers and Charcot of R foot, anemia, HTN, Afib (on coumadin), who is presenting by direction of his leasing specialist for concern of osteomyelitis of the R foot. Pt was placed on abx (augmentin 500 mg BID) on 03/09 and debridement was done in [facility] (Dr. Dos Santos). Pt currently complains of pain in the bottom of the R foot, and has been walking using a support shoe. Pt endorses recent subjective fever, but has been cleaning the wound and changing the bandages daily, with no bleeding or pustular drainage noted. Pt denies any headache, vision changes, syncope, chest pain, palpitations, SOB from baseline, nausea/vomiting, abdominal pain, urinary symptoms, diarrhea/constipation, or leg swelling from baseline. Allergies: NKDA PCP: Dr. Romeo Conrad Social: Pt denies any cigarette, alcohol, or drug use. Pt denies any recent travel or sick contacts. Surgical: multiple debridements R foot wound Family: no relevant history. 03/12/19 09:18 03/12/19 09:24 Past History - Travel Traveled outside of the country in the last 30 days: No Close contact w/someone who was outside of country & ill: No - Past Medical History Allergies/Adverse Reactions: Allergies Allergy/AdvReac Type Severity Reaction Status Date / Time pregabalin [From Lyrica] Allergy Swelling Verified 03/12/19 07:57 Home Medications: Ambulatory Orders Hydrochlorothiazide 50 mg PO BID 04/04/17 Tamsulosin HCl [Flomax] 0.4 mg PO DAILY 04/04/17 metFORMIN HCL [Glucophage -] 500 mg PO BID 04/04/17 Albuterol Sulfate Inhaler - [Ventolin HFA Inhaler -] 1 puff IH PRN PRN 04/09/17 Warfarin Na [Coumadin -] 5 mg PO Q2D 10/07/17 Warfarin Sodium [Coumadin] 7.5 mg PO Q2D 10/07/17 Alfuzosin HCl [Alfuzosin HCl ER] 10 mg PO DAILY 12/17/17 Hydralazine HCl 1 tab PO BID 12/17/17 Metoprolol Tartrate 50 mg PO BID 12/17/17 Omeprazole 40 mg PO HS 12/17/17 Simvastatin 10 mg PO HS 12/17/17 Telmisartan/Amlodipine [Telmisartan-Amlodipine 80-5 mg] 1 tab PO DAILY 12/17/17 Ferrous Sulfate [Iron] 325 mg PO DAILY 12/18/17 Multivit-Min/FA/Lycopen/Lutein [Centrum Silver Tablet] 1 each PO DAILY 12/18/17 Ascorbic Acid [Vitamin C -] 500 mg PO DAILY 11/10/18 Amox-Tr/K Cl [Augmentin - 500Mg Tablet] 1 tab PO BID #20 tablet 03/09/19 Anemia: Yes Asthma: Yes Cancer: No Cardiac Disorders: Yes (A-FIB, CAD, MILD PULM HTN, MILD THORACIC AORTIC ANEURYSM ) CVA: No COPD: No Dementia: No Diabetes: Yes GI Disorders: Yes Disorders: No HTN: Yes Hypercholesterolemia: Yes Liver Disease: No Seizures: No Thyroid Disease: No - Surgical History Orthopedic Surgery: Yes (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 No: Diaphoresis , Loss of Appetite, Malaise, Weakness HEENTM: No: Recent change in vision, Nose Congestion, Throat Pain, Throat Swelling, Difficulty Swallowing Respiratory: No: Cough, Orthopnea, Shortness of Breath (COPD, no change from baseline) Cardiac (ROS): No: Chest Pain, Edema, Irregular Heart Rate, Lightheadedness, Palpitations, Syncope, Chest Tightness ABD/GI: No: Constipated, Diarrhea, Nausea, Poor Appetite, Poor Fluid Intake, Vomiting : No: Burning, Dysuria, Pain, Urgency Musculoskeletal: Yes: See HPI, Joint Pain. No: Back Pain, Joint Swelling, Muscle Pain, Muscle Weakness, Neck Pain Integumentary: No: Rash Neurological: No: Headache, Numbness, Weakness, Dizziness Psychiatric: No: Sleep Pattern Change, Change in Appetite Endocrine: No: Increased Urine, Change in Weight Hematologic/Lymphatic: Yes: Anemia. No: Blood Clots, Easy Bleeding, Easy Bruising *Physical Exam - Vital Signs Last Vital Signs Temp Pulse Resp BP Pulse Ox 98.9 F 56 L 18 155/67 98 03/12/19 07:58 03/12/19 07:58 03/12/19 07:58 03/12/19 07:58 03/12/19 07:58 - Physical Exam Comments: Vitals stable, pt afebrile. Pt in NAD, obese body habitus. Pt alert and oriented x3. vinegar maker generally intact, muscular strength and sensation intact. No midline spinal tenderness, step-offs, or crepitus. Head normocephalic, atraumatic. Eyes PERRLA, EOMI. Oropharynx without erythema or exudates, no LAD b/l. No nasal congestion. Hearing intact. Clear heart sounds, S1/S2, no JVD, or heart murmur. Clear lung sounds, no respiratory distress, wheezes, crackles, or accessory muscle use. No abdominal or CVA tenderness to palpation, no rebound, no guarding. Abdomen soft, protuberant, and with normoactive bowel sounds. +~4 cm circular ulcer into subcut on middle of plantar R foot. Recent debridement, well-healing with no drainage or bleeding at this time. +Edema of RLE with warmth. Skin otherwise without jaundice or rash. 03/12/19 09:27 ED Treatment Course - LABORATORY CBC & Chemistry Diagram: 03/12/19 09:16 03/12/19 09:16 Medical Decision Making - Medical Decision Making Pt was seen at bedside, also will be seen by attending Dr. Izagurire. Pt presenting with non-healing R foot ulcer, recent debridement performed, wound cultures growing Klebsiella, staph, strep. Will admit for cellulitis and IV abx. Will evaluate with inflammatory markers and X-ray for osteomyelitis, needs inpatient MRI for further evaluation of the bone. Provided 1 g ofirmev, 600 mg IV clindamycin, 1g IV rocephin for improvement of pain and abx coverage. Will continue to reassess pt and monitor for symptomatic improvement. Pending x-ray of R foot and labs. 03/12/19 09:25 ECG: Afib, low voltage, incomplete LBBB (HR 62, QRS 114, QTC 401). No TWIs or significant ST segment changes. No significant changes from prior ECG (2016). 03/12/19 09:52 CBC: anemia worsened from baseline but not at transfusion level CMP WNL CRP 3.2 (lower than previous visits) INR 3.[address] Garcia for admission (admits for Dr. Romeo Conrad). 03/12/19 10:45 Placed consults for ID and Wound (Dr. Bell and Dr. Dos Santos) 03/12/19 10:[address] Garcia. Pt stable and resting comfortably. 03/12/19 11:05 Discharge - Discharge Information Problems reviewed: Yes Clinical Impression/Diagnosis: Open wound Cellulitis Qualifiers: Site of cellulitis: extremity Site of cellulitis of extremity: lower extremity Laterality: right Qualified Code(s): L03.115 - Cellulitis of right lower limb Condition: Stable - Follow up/Referral Referrals: Romeo Conrad MD [Primary Care Provider] - Forrest Dos Santos MD [Staff Physician] - - Patient Discharge Instructions - Post Discharge Activity
[2019-03-12] MEDS ORDERED: CEFTRIAXONE 1,000 MG in DEXTROSE 5%-WATER - 50 ML IVPB ONE (08:36)
[2019-03-12] MEDS ORDERED: CLINDAMYCIN 600MG PREMIX IVPB 600 MG/50 ML BAG IVPB ONE ×2 (08:37→09:13)
--- NOTE | 2019-03-12 08:37 | PDOC ---
Attending Attestation - Resident Resident Name: Genie Mariscal - ED Attending Attestation I have performed the following: I have examined & evaluated the patient, The case was reviewed & discussed with the resident, I agree w/resident's findings & plan, Exceptions are as noted - HPI HPI: 03/12/19 09:11 Mr. Bryant is a 73 yo M who presents to the ER for admission upon the recommendation of his communication and outreach manager He has a h/o HTN, HLD, CAD, Afib, Charcot foot with chronic right lower extremity wound He has been treated for this foot wound which continues to drain No fevers or chills 03/12/19 09:19 - Physicial Exam PE: 03/12/19 08:36 GENERAL: The patient is in no acute distress. ENT: Moist mucous membranes. NECK: Normal range of motion, supple LUNGS: Breath sounds equal, clear to auscultation bilaterally. No wheezes, and no crackles. HEART: Irregularly irregular, normal S1 and S2 without murmur, rub or gallop. ABDOMEN: Soft, nontender, normoactive bowel sounds. EXTREMITIES: Right charcot foot, chronic plantar surgace wound with drainage NEUROLOGICAL: Cranial nerves II through XII grossly intact. Normal speech. No focal neurological deficits. SKIN: as above 03/12/19 09:19 03/12/19 09:20 - Medical Decision Making 03/12/19 09:20 73 yo M presenting to the ER with persistent drainage from right foot Concerning for possible osteomyelitis/deep infection Plan is fr IV abx and MRI Will do: Labs EKG Xray MRI Admit Abx EKG: Afib rate of 62 bpm, axis nml, inervals nml, no st elevation or depression, low voltage Laboratory Tests 03/12/19 03/12/19 03/12/19 09:16 09:16 09:16 WBC 8.4 Hgb 9.2 L Hct 28.4 L D Plt Count 336 ESR 63 H INR BUN 19.2 H Creatinine 1.2 C-Reactive Protein 3.2 H 03/12/19 09:16 WBC Hgb Hct Plt Count ESR INR 3.40 H BUN Creatinine C-Reactive Protein Clinical impression: suspicious for osteomyelitis, initial presentation
[2019-03-12] MEDS ORDERED: CEFTRIAXONE 1 GM/50 ML BAG ONE (09:13)
[2019-03-12] MEDS ORDERED: ACETAMINOPHEN INJECTION 100 ML IVPB ONE (09:23)
[2019-03-12] MEDS ORDERED: ACETAMINOPHEN 1000 MG/100 ML VIAL (NON FORMULARY) IVPB ONE (09:27)
[2019-03-12 09:41] LABS: BASO % 0.3 % (0-2.0); EOS % 5.5 % (0-4.5); HEMATOCRIT 28.4 % (35.4-49); HEMOGLOBIN 9.2 GM/dL (11.7-16.9); LYMPH % 21.6 % (8-40); MCH 28.7 pg (25.7-33.7); MCHC 32.5 g/dl (32.0-35.9); MEAN CELL VOLUME 88.3 fl (80-96); MONO % 9.4 % (3.8-10.2); NEUT % 63.2 % (42.8-82.8); PLATELET COUNT 336 K/MM3 (134-434); RBC 3.22 M/mm3 (4.00-5.60); RDW 16.5 % (11.9-15.9); WHITE BLOOD COUNT 8.4 K/mm3 (4.0-10.0)
[2019-03-12 09:56] LABS: ALBUMIN 3.1 g/dl (3.4-5.0); BILIRUBIN,TOTAL 0.2 mg/dL (0.2-1); BLOOD UREA NITROGEN 19.2 mg/dL (7-18); CREATININE 1.2 mg/dL (0.55-1.3); POTASSIUM 4.6 mmol/L (3.5-5.1); TOT PROT 7.8 g/dl (6.4-8.2)
[2019-03-12 10:23] LABS: INR 3.4 (0.83-1.09); PROTHROMBIN TIME (PATIENT) 40.6 SEC (9.7-13.0)
[2019-03-12] MEDS ORDERED: PNEUMOC 13-VAL CONJ-DIP CRM/PF 0.5 ML DISP.SYRIN IM ONE (12:48)
[2019-03-12] MEDS ORDERED: FLU VACCINE QUAD 60 MCG/0.5 ML (MDV 19-20) IM ONE (12:48)
--- NOTE | 2019-03-12 13:34 | CONSULT ---
Consult - text type - Consultation Consultation Note: 73 y/o male well known to my partner Dr. Dos Santos sent in for admission after worsening of ulcerationon right foot and concern for osteomyelitis. Patient had been instructed earlier this week to present to ER and came in today. patient was not in the room yet when rounding at this time. Xray: reveals charcot breakdown of the midfoot, no gas in the soft tissues noted A: Right foot charcot foot, ulceration, cellulitis, concern for OM P: Spoke to nurse about instructions for patient Can change daily with wet to dry DSD MRI to be ordered for workup for osteo I had discussed with my partner prior that patient has a good foot type for charcot recon if patient amenable and osteo is negative I will discuss with patient and patient will been seen this weekend on rounds after MRI is done Iv abx per ID while admitted If positive for osteo will likely need bone biopsy and ad terminal makeup operator Iv Abx. Will f/u over weekend with patient for continued care.
--- NOTE | 2019-03-12 13:51 | EKG ---
Test Reason : Blood Pressure : / mmHG Vent. Rate : 062 BPM Atrial Rate : 066 BPM P-R Int : 000 ms QRS Dur : 114 ms QT Int : 396 ms P-R-T Axes : 000 -27 -05 degrees QTc Int : 401 ms ATRIAL FIBRILLATION LOW VOLTAGE QRS INCOMPLETE LEFT BUNDLE BRANCH BLOCK ABNORMAL ECG WHEN COMPARED WITH ECG OF 14-APR-2017 08:42, NO SIGNIFICANT CHANGE WAS FOUND Confirmed by FRANK TOMPKINS MD ([id number]) on 03/12/2019 1:50:58 PM Referred By: Confirmed By:FRANK TOMPKINS MD
--- NOTE | 2019-03-12 14:20 | CON.ID ---
Consult Consult Specialty:: infectious diseases Referred by:: Reason for Consultation:: plantar diabetic ulcer - History of Present Illness Chief Complaint: non healing ulcer of the plantar surface History of Present Illness: 73 yo M, with PMH of COPD, newly found lung mass, DM with recurrent non-healing ulcers and Charcot of R foot, anemia, HTN, Afib (on coumadin), admitted for concern of osteomyelitis of the R foot. and non healing ulcer of the foot Pt was placed on abx (augmentin 500 mg BID) on 03/09 and debridement was done ulcer still not healing. Pt currently complains of pain in the bottom of the R foot, and has been walking using a support shoe. Pt endorses recent subjective fever, but has been cleaning the wound and changing the bandages daily, with no bleeding or pustular drainage noted. Pt denies any headache, vision changes, syncope, chest pain, palpitations, SOB from baseline, nausea/vomiting, abdominal pain, urinary symptoms, diarrhea/constipation, or leg swelling from baseline. - History Source History Provided By: Patient Limitations to Obtaining History: No Limitations - Past Medical History Cardio/Vascular: Yes: AFIB, CAD, HTN, Hyperlipdemia Pulmonary: Yes: Asthma, COPD, O2 Dependent Gastrointestinal: Yes: GERD Renal/: Yes: BPH Rheumatology: Yes: Rheumatoid Arthritis Endocrine: Yes: Diabetes Mellitus - Alcohol/Substance Use Hx Alcohol Use: Yes - Smoking History Smoking history: Former smoker Have you smoked in the past 12 months: No If you are a former smoker, when did you quit?: 2003 - Social History Usual Living Arrangement: With Spouse ADL: Independent History of Recent Travel: No Home Medications - Allergies Allergies/Adverse Reactions: Allergies Allergy/AdvReac Type Severity Reaction Status Date / Time pregabalin [From Lyrica] Allergy Swelling Verified 03/12/19 07:57 - Home Medications Home Medications: Ambulatory Orders Hydrochlorothiazide 25 mg PO DAILY 04/04/17 Tamsulosin HCl [Flomax] 0.4 mg PO DAILY 04/04/17 metFORMIN HCL [Glucophage -] 500 mg PO BID 04/04/17 Albuterol Sulfate Inhaler - [Ventolin HFA Inhaler -] 1 puff IH PRN PRN 04/09/17 Warfarin Na [Coumadin -] 5 mg PO Q2D 10/07/17 Warfarin Sodium [Coumadin] 7.5 mg PO Q2D 10/07/17 Alfuzosin HCl [Alfuzosin HCl ER] 10 mg PO DAILY 12/17/17 Hydralazine HCl 1 tab PO BID 12/17/17 Metoprolol Tartrate 50 mg PO BID 12/17/17 Omeprazole 40 mg PO HS 12/17/17 Simvastatin 10 mg PO HS 12/17/17 Telmisartan/Amlodipine [Telmisartan-Amlodipine 80-5 mg] 1 tab PO DAILY 12/17/17 Ferrous Sulfate [Iron] 325 mg PO DAILY 12/18/17 Multivit-Min/FA/Lycopen/Lutein [Centrum Silver Tablet] 1 each PO DAILY 12/18/17 Ascorbic Acid [Vitamin C -] 500 mg PO DAILY 11/10/18 Amox-Tr/K Cl [Augmentin - 500Mg Tablet] 1 tab PO BID #20 tablet 03/09/19 Finasteride 5 mg PO DAILY 03/12/19 Glyburide 5 mg PO DAILY 03/12/19 Telmisartan [Micardis] 80 mg PO DAILY 03/12/19 Review of Systems - Review of Systems Constitutional: reports: Fever Eyes: reports: No Symptoms HENT: reports: No Symptoms Neck: reports: No Symptoms Cardiovascular: reports: No Symptoms Respiratory: reports: No Symptoms Gastrointestinal: reports: No Symptoms Breasts: reports: No Symptoms Reported Musculoskeletal: reports: Other Integumentary: reports: Erythema (of the rt foot), Wound Neurological: reports: No Symptoms Endocrine: reports: No Symptoms Hematology/Lymphatic: reports: No Symptoms Psychiatric: reports: No Symptoms Physical Exam Vital Signs: Vital Signs Temperature 98.6 F 03/12/19 12:53 Pulse Rate 73 03/12/19 12:53 Respiratory Rate 18 03/12/19 12:53 Blood Pressure 158/89 03/12/19 12:53 O2 Sat by Pulse Oximetry (%) 98 03/12/19 12:02 Constitutional: Yes: Well Nourished, No Distress, Calm Cardiovascular: Yes: Regular Rate and Rhythm Respiratory: Yes: Regular, CTA Bilaterally Gastrointestinal: Yes: Normal Bowel Sounds, Soft Musculoskeletal: Yes: Other Extremities: Yes: Erythema (of the foot), Other Wound/Incision: Yes: Clean/Dry, Dressing Removed, Other Neurological: Yes: Alert, Oriented Psychiatric: Yes: Alert, Oriented Labs: CBC, BMP 11/08/19 09:16 03/12/19 09:16 Assessment/Plan patient with multiple medical problems coming with non healing ulcer of the plantar surface wound cx noted multiple organisms plan will start patient on zosyn mri wound care rest as per the team
[2019-03-12] MEDS: ALBUTEROL SO4 2.5/IPRATROPIUM 0.5 INH SOL 3 ML VIAL.NEB. NEB PRN (15:20)
[2019-03-12] MEDS: PIPERACILLIN/TAZOB 3.375 GM 3.375 GM in DEXTROSE 5%-WATER - 50 ML IVPB SCH ×2 (16:51→18:06)
[2019-03-12] MEDS ORDERED: PIPERACILLIN/TAZOBACTAM 3.375 GM VIAL IVPB ONE (17:06)
[2019-03-12] MEDS ORDERED: DEXTROSE 5%-WATER - 50 ML IVPB ONE (17:06)
[2019-03-12 17:59] VITALS: BMI 34.8
[2019-03-12] MEDS: METOPROLOL TARTRATE 50 MG TABLET (FP) PO SCH (21:00)
[2019-03-12] MEDS: hydrALAZINE HCL 50 MG TABLET (FP) PO SCH (21:00)
[2019-03-12] MEDS: INSULIN SLIDING SCALE (NOVOLOG) 1 VIAL SQ SCH (21:41)
[2019-03-12] MEDS: guaiFENesin/D-M SUGAR-FREE/ACLHOL-FREE 118 ML BOTTLE PO PRN (21:42)
--- NOTE | 2019-03-12 23:44 | HP ---
Admitting History and Physical - Past Medical History Cardiovascular: Yes: AFIB, CAD, HTN, Hyperlipdemia Pulmonary: Yes: Asthma, COPD, O2 Dependent Gastrointestinal: Yes: GERD Renal/: Yes: BPH Rheumatology: Yes: Rheumatoid Arthritis Endocrine: Yes: Diabetes Mellitus - Smoking History Smoking history: Former smoker Have you smoked in the past 12 months: No If you are a former smoker, when did you quit?: 2004 - Alcohol/Substance Use Hx Alcohol Use: Yes - Social History ADL: Independent History of Recent Travel: No Home Medications - Allergies Allergies/Adverse Reactions: Allergies Allergy/AdvReac Type Severity Reaction Status Date / Time pregabalin [From Lyrica] Allergy Swelling Verified 03/12/19 07:57 - Home Medications Home Medications: Ambulatory Orders Hydrochlorothiazide 25 mg PO DAILY 04/04/17 Tamsulosin HCl [Flomax] 0.4 mg PO DAILY 04/04/17 metFORMIN HCL [Glucophage -] 500 mg PO BID 04/04/17 Albuterol Sulfate Inhaler - [Ventolin HFA Inhaler -] 1 puff IH PRN PRN 04/09/17 Warfarin Na [Coumadin -] 5 mg PO Q2D 10/07/17 Warfarin Sodium [Coumadin] 7.5 mg PO Q2D 10/07/17 Alfuzosin HCl [Alfuzosin HCl ER] 10 mg PO DAILY 12/17/17 Hydralazine HCl 1 tab PO BID 12/17/17 Metoprolol Tartrate 50 mg PO BID 12/17/17 Omeprazole 40 mg PO HS 12/17/17 Simvastatin 10 mg PO HS 12/17/17 Telmisartan/Amlodipine [Telmisartan-Amlodipine 80-5 mg] 1 tab PO DAILY 12/17/17 Ferrous Sulfate [Iron] 325 mg PO DAILY 12/18/17 Multivit-Min/FA/Lycopen/Lutein [Centrum Silver Tablet] 1 each PO DAILY 12/18/17 Ascorbic Acid [Vitamin C -] 500 mg PO DAILY 11/10/18 Finasteride 5 mg PO DAILY 03/12/19 Glyburide 5 mg PO DAILY 03/12/19 Telmisartan [Micardis] 80 mg PO DAILY 03/12/19 Amoxicillin/Potassium Clav [Augmentin 875-125 Tablet] 1 each PO BID #28 tablet 03/15/19 Physical Examination Vital Signs: Vital Signs Temperature 97.3 F L 03/12/19 20:59 Pulse Rate 89 03/12/19 20:59 Respiratory Rate 20 03/12/19 20:59 Blood Pressure 168/77 03/12/19 20:59 O2 Sat by Pulse Oximetry (%) 98 03/12/19 21:00 Labs: CBC, BMP 03/12/19 09:16 03/12/19 09:16 Problem List - Problems (1) Afib Code(s): I48.91 - UNSPECIFIED ATRIAL FIBRILLATION (2) BPH (benign prostatic hyperplasia) Code(s): N40.0 - BENIGN PROSTATIC HYPERPLASIA WITHOUT LOWER URINRY TRACT SYMP (3) COPD (chronic obstructive pulmonary disease) Code(s): J44.9 - CHRONIC OBSTRUCTIVE PULMONARY DISEASE, UNSPECIFIED (4) Cardiomyopathy Code(s): I42.9 - CARDIOMYOPATHY, UNSPECIFIED (5) Cellulitis Code(s): L03.90 - CELLULITIS, UNSPECIFIED Qualifiers: Site of cellulitis: extremity Site of cellulitis of extremity: lower extremity Laterality: right Qualified Code(s): L03.115 - Cellulitis of right lower limb (6) Charcot's joint of right foot Code(s): M14.671 - CHARCOT'S JOINT, RIGHT ANKLE AND FOOT (7) Diabetes Code(s): E11.9 - TYPE 2 DIABETES MELLITUS WITHOUT COMPLICATIONS (8) Diabetic foot ulcer Code(s): E11.621 - TYPE 2 DIABETES MELLITUS WITH FOOT ULCER; L97.509 - NON- PRESSURE CHRONIC ULCER OTH PRT UNSP FOOT W UNSP SEVERITY Qualifiers: Diabetic foot ulcer location: toe Laterality: right (9) HTN (hypertension) Code(s): I10 - ESSENTIAL (PRIMARY) HYPERTENSION (10) Morbid obesity Code(s): E66.01 - MORBID (SEVERE) OBESITY DUE TO EXCESS CALORIES
[2019-03-13] MEDS ORDERED: PIPERACILLIN/TAZOBACTAM 3.375 GM VIAL IVPB ONE ×3 (02:46→17:15)
[2019-03-13] MEDS ORDERED: DEXTROSE 5%-WATER - 50 ML IVPB ONE ×3 (02:47→17:15)
[2019-03-13] MEDS: PIPERACILLIN/TAZOB 3.375 GM 3.375 GM in DEXTROSE 5%-WATER - 50 ML IVPB SCH ×3 (03:18→18:03)
[2019-03-13] MEDS: ALBUTEROL SO4 2.5/IPRATROPIUM 0.5 INH SOL 3 ML VIAL.NEB. NEB PRN ×3 (03:39→20:40)
[2019-03-13] MEDS: guaiFENesin/D-M SUGAR-FREE/ACLHOL-FREE 118 ML BOTTLE PO PRN ×2 (06:15→21:11)
[2019-03-13] MEDS: glyBURIDE 5 MG TABLET (UD) PO SCH (06:24)
[2019-03-13] MEDS: metFORMIN HCL 500 MG TABLET (FP) PO SCH ×2 (06:24→18:03)
[2019-03-13] MEDS: INSULIN SLIDING SCALE (NOVOLOG) 1 VIAL SQ SCH ×4 (06:30→21:12)
[2019-03-13 08:00] LABS: BASO % 2.1 % (0-2.0); EOS % 4.7 % (0-4.5); HEMATOCRIT 29.7 % (35.4-49); HEMOGLOBIN 9.6 GM/dL (11.7-16.9); LYMPH % 25.2 % (8-40); MCH 28.5 pg (25.7-33.7); MCHC 32.3 g/dl (32.0-35.9); MEAN CELL VOLUME 88.3 fl (80-96); MONO % 9.6 % (3.8-10.2); NEUT % 58.4 % (42.8-82.8); PLATELET COUNT 341 K/MM3 (134-434); RBC 3.37 M/mm3 (4.00-5.60); RDW 16.8 % (11.9-15.9)
[2019-03-13 08:27] LABS: BILIRUBIN,TOTAL 0.4 mg/dL (0.2-1); BLOOD UREA NITROGEN 14.7 mg/dL (7-18); CREATININE 1.1 mg/dL (0.55-1.3); POTASSIUM 4.5 mmol/L (3.5-5.1); TOT PROT 7.5 g/dl (6.4-8.2)
[2019-03-13] MEDS: TAMSULOSIN HCL 0.4 MG CAP PO SCH (08:35)
[2019-03-13] MEDS ORDERED: PT OWN MED DRAWER 7, Y5N ONE ×3 (09:47→20:02)
[2019-03-13] MEDS: hydrALAZINE HCL 50 MG TABLET (FP) PO SCH ×2 (09:52→21:11)
[2019-03-13] MEDS: FERROUS SO4 325 MG TABLET (FP) PO SCH (09:52)
[2019-03-13] MEDS: HYDROCHLOROTHIAZIDE 25 MG TABLET (FP) PO SCH (09:52)
[2019-03-13] MEDS: METOPROLOL TARTRATE 50 MG TABLET (FP) PO SCH ×2 (09:53→21:12)
[2019-03-13] MEDS: FINASTERIDE 5 MG TABLET (FP) PO SCH (09:53)
[2019-03-13 14:14] LABS: INR 2.5 (0.83-1.09); PROTHROMBIN TIME (PATIENT) 29.8 SEC (9.7-13.0)
[2019-03-13] MEDS: WARFARIN NA 2.5 MG TABLET (FP) PO SCH (18:02)
--- NOTE | 2019-03-13 19:55 | PN ---
Progress Note, Physician History of Present Illness: Pt states he feels ok. Less pain in Rt foot but still with edema. +non- productive cough, no SOB/fever/chills. - Current Medication List Current Medications: Active Medications Albuterol/Ipratropium (Duoneb -) 1 amp NEB Q6H PRN PRN Reason: SHORTNESS OF BREATH Last Admin: 03/13/19 11:43 Dose: 1 amp Ferrous Sulfate (Feosol -) 325 mg PO DAILY [facility] Last Admin: 03/13/19 09:52 Dose: 325 mg Finasteride (Proscar -) 5 mg PO DAILY [facility] Last Admin: 03/13/19 09:53 Dose: 5 mg Glyburide (Diabeta -) 5 mg PO AM [facility] Last Admin: 03/13/19 06:24 Dose: 5 mg Guaifenesin (Diabetic Tussin Dm -) 5 ml PO Q6H PRN PRN Reason: COUGH Last Admin: 03/13/19 06:15 Dose: 5 ml Hydralazine HCl (Apresoline -) 100 mg PO BID [facility] Last Admin: 03/13/19 09:52 Dose: 100 mg Hydrochlorothiazide (Hctz -) 25 mg PO DAILY [facility] Last Admin: 03/13/19 09:52 Dose: 25 mg Piperacillin Sod/Tazobactam (Sod 3.375 gm/ Dextrose) 50 mls @ 100 mls/hr IVPB Q8H-IV [facility]; Protocol Last Admin: 03/13/19 18:03 Dose: 100 mls/hr Insulin Aspart (Novolog Vial Sliding Scale -) 1 vial SQ ACHS [facility]; Protocol Last Admin: 03/13/19 16:41 Dose: Not Given Metformin HCl (Glucophage -) 500 mg PO BIDI [facility] Last Admin: 03/13/19 18:03 Dose: Not Given Metoprolol Tartrate (Lopressor -) 50 mg PO BID [facility] Last Admin: 03/13/19 09:53 Dose: 50 mg Tamsulosin HCl (Flomax -) 0.4 mg PO DAILY@0830 [facility] Last Admin: 03/13/19 08:35 Dose: 0.4 mg Warfarin Sodium (Coumadin -) 2.5 mg PO DAILY@1800 [facility] Last Admin: 03/13/19 18:02 Dose: 2.5 mg - Objective Vital Signs: Vital Signs Temperature 98.3 F 03/13/19 17:35 Pulse Rate 84 03/13/19 17:35 Respiratory Rate 20 03/13/19 17:35 Blood Pressure 147/67 03/13/19 17:35 O2 Sat by Pulse Oximetry (%) 98 03/13/19 09:00 Constitutional: Yes: No Distress, Calm Eyes: Yes: Conjunctiva Clear Cardiovascular: Yes: Regular Rate and Rhythm Respiratory: Yes: CTA Bilaterally Gastrointestinal: Yes: Normal Bowel Sounds, Soft, Abdomen, Obese Genitourinary: Yes: WNL Extremities: Yes: Other (Rt foot edema/erythema/warmth/mild tenderness with plantar ulcer) Peripheral Pulses WNL: Yes Wound/Incision: Yes: Other (rt plantar foot ulcer, +granulation, no pus/malodor) Neurological: Yes: Alert, Oriented Labs: CBC, BMP 03/13/19 07:08 03/13/19 07:08 INR, PTT INR 2.50 (0.83-1.09) H 03/13/19 13:33 Laboratory Results - last 24 hr 03/12/19 03/13/19 03/13/19 20:54 06:12 07:08 WBC 8.0 RBC 3.37 L Hgb 9.6 L Hct 29.7 L MCV 88.3 MCH 28.5 MCHC 32.3 RDW 16.8 H Plt Count 341 MPV 8.0 Absolute Neuts (auto) 4.7 Neutrophils % 58.4 Lymphocytes % 25.2 Monocytes % 9.6 Eosinophils % 4.7 H Basophils % 2.1 H D Nucleated RBC % 0 PT with INR INR Sodium Potassium Chloride Carbon Dioxide Anion Gap BUN Creatinine Est GFR (CKD-EPI)AfAm Est GFR (CKD-EPI)NonAf POC Glucometer 103 90 Random Glucose Calcium Total Bilirubin AST ALT Alkaline Phosphatase Total Protein Albumin 03/13/19 03/13/19 03/13/19 07:08 11: 12:25 WBC RBC Hgb Hct MCV MCH MCHC RDW Plt Count MPV Absolute Neuts (auto) Neutrophils % Lymphocytes % Monocytes % Eosinophils % Basophils % Nucleated RBC % PT with INR INR Sodium 137 Potassium 4.5 Chloride 106 Carbon Dioxide 24 Anion Gap 7 L BUN 14.7 Creatinine 1.1 Est GFR (CKD-EPI)AfAm 76.78 Est GFR (CKD-EPI)NonAf 66.24 POC Glucometer 51 67 Random Glucose 113 H Calcium 9.0 Total Bilirubin 0.4 AST 18 ALT 30 Alkaline Phosphatase 86 Total Protein 7.5 Albumin 3.0 L 03/13/19 03/13/19 13:33 16:37 WBC RBC Hgb Hct MCV MCH MCHC RDW Plt Count MPV Absolute Neuts (auto) Neutrophils % Lymphocytes % Monocytes % Eosinophils % Basophils % Nucleated RBC % PT with INR 29.80 H INR 2.50 H Sodium Potassium Chloride Carbon Dioxide Anion Gap BUN Creatinine Est GFR (CKD-EPI)AfAm Est GFR (CKD-EPI)NonAf POC Glucometer 73 Random Glucose Calcium Total Bilirubin AST ALT Alkaline Phosphatase Total Protein Albumin Microbiology 03/12/19 09:16 Blood - Peripheral Venous Blood Culture - Preliminary NO GROWTH OBTAINED AFTER 24 HOURS, INCUBATION TO CONTINUE FOR 4 DAYS. 03/12/19 09:16 Blood - Peripheral Venous Blood Culture - Preliminary NO GROWTH OBTAINED AFTER 24 HOURS, INCUBATION TO CONTINUE FOR 4 DAYS. - ....Imaging Chest X-ray: Pending MRI: Report Reviewed 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 Code(s): L97.412 - NON-PRS CHR ULCER OF RIGHT HEEL AND MIDFT W FAT LAYER EXPOS (7) Diabetes Code(s): E11.9 - TYPE 2 DIABETES MELLITUS WITHOUT COMPLICATIONS (8) HTN (hypertension) Code(s): I10 - ESSENTIAL (PRIMARY) HYPERTENSION (9) Morbid obesity Code(s): E66.01 - MORBID (SEVERE) OBESITY DUE TO EXCESS CALORIES (10) Type 2 diabetes mellitus with foot ulcer Code(s): E11.621 - TYPE 2 DIABETES MELLITUS WITH FOOT ULCER; L97.509 - NON- PRESSURE CHRONIC ULCER OTH PRT UNSP FOOT W UNSP SEVERITY Assessment/Plan Nonhealing Rt plantar foot ulcer s/p recent debridement RLE cellulitis COPD DM AFIB CAD -- continue Zosyn -- MRI without evidence of abscess/OM -- Podiatry following -- continue wound care -- f/u CXR, pt is on O2 NC at home
[2019-03-13] MEDS ORDERED: INSULIN (NOVOLOG) ASPART 100 UNITS/ML 10ML VIAL ONE (20:52)
--- NOTE | 2019-03-13 22:25 | PN ---
Progress Note, Physician - Current Medication List Current Medications: Active Medications Albuterol/Ipratropium (Duoneb -) 1 amp NEB Q6H PRN PRN Reason: SHORTNESS OF BREATH Last Admin: 03/13/19 20:40 Dose: 1 amp Ferrous Sulfate (Feosol -) 325 mg PO DAILY [facility] Last Admin: 03/13/19 09:52 Dose: 325 mg Finasteride (Proscar -) 5 mg PO DAILY [facility] Last Admin: 03/13/19 09:53 Dose: 5 mg Glyburide (Diabeta -) 5 mg PO AM [facility] Last Admin: 03/13/19 06:24 Dose: 5 mg Guaifenesin (Diabetic Tussin Dm -) 5 ml PO Q6H PRN PRN Reason: COUGH Last Admin: 03/13/19 21:11 Dose: 5 ml Hydralazine HCl (Apresoline -) 100 mg PO BID [facility] Last Admin: 03/13/19 21:11 Dose: 100 mg Hydrochlorothiazide (Hctz -) 25 mg PO DAILY [facility] Last Admin: 03/13/19 09:52 Dose: 25 mg Piperacillin Sod/Tazobactam (Sod 3.375 gm/ Dextrose) 50 mls @ 100 mls/hr IVPB Q8H-IV [facility]; Protocol Last Admin: 03/13/19 18:03 Dose: 100 mls/hr Insulin Aspart (Novolog Vial Sliding Scale -) 1 vial SQ ACHS [facility]; Protocol Last Admin: 03/13/19 21:12 Dose: Not Given Metformin HCl (Glucophage -) 500 mg PO BIDI [facility] Last Admin: 03/13/19 18:03 Dose: Not Given Metoprolol Tartrate (Lopressor -) 50 mg PO BID [facility] Last Admin: 03/13/19 21:12 Dose: 50 mg Tamsulosin HCl (Flomax -) 0.4 mg PO DAILY@0830 [facility] Last Admin: 03/13/19 08:35 Dose: 0.4 mg Warfarin Sodium (Coumadin -) 2.5 mg PO DAILY@1800 [facility] Last Admin: 03/13/19 18:02 Dose: 2.5 mg - Objective Vital Signs: Vital Signs Temperature 98.3 F 03/13/19 17:35 Pulse Rate 84 03/13/19 17:35 Respiratory Rate 20 03/13/19 17:35 Blood Pressure 147/67 03/13/19 17:35 O2 Sat by Pulse Oximetry (%) 98 03/13/19 09:00 Labs: CBC, BMP 03/13/19 07:08 03/13/19 07:08 INR, PTT INR 2.50 (0.83-1.09) H 03/13/19 13:33
[2019-03-14] MEDS ORDERED: PIPERACILLIN/TAZOBACTAM 3.375 GM VIAL IVPB ONE ×3 (02:07→17:11)
[2019-03-14] MEDS ORDERED: DEXTROSE 5%-WATER - 50 ML IVPB ONE ×3 (02:07→17:11)
[2019-03-14] MEDS: PIPERACILLIN/TAZOB 3.375 GM 3.375 GM in DEXTROSE 5%-WATER - 50 ML IVPB SCH ×3 (02:10→17:22)
[2019-03-14] MEDS: ALBUTEROL SO4 2.5/IPRATROPIUM 0.5 INH SOL 3 ML VIAL.NEB. NEB PRN ×2 (06:13→22:39)
[2019-03-14] MEDS: metFORMIN HCL 500 MG TABLET (FP) PO SCH ×2 (06:28→17:49)
[2019-03-14] MEDS: glyBURIDE 5 MG TABLET (UD) PO SCH (06:28)
[2019-03-14] MEDS: INSULIN SLIDING SCALE (NOVOLOG) 1 VIAL SQ SCH ×4 (06:29→21:04)
[2019-03-14] MEDS ORDERED: INSULIN (NOVOLOG) ASPART 100 UNITS/ML 10ML VIAL ONE (06:44)
[2019-03-14] MEDS ORDERED: PT OWN MED DRAWER 7, Y5N ONE ×6 (06:44→17:37)
[2019-03-14] MEDS: TAMSULOSIN HCL 0.4 MG CAP PO SCH (08:29)
[2019-03-14] MEDS: FERROUS SO4 325 MG TABLET (FP) PO SCH (09:57)
[2019-03-14] MEDS: hydrALAZINE HCL 50 MG TABLET (FP) PO SCH ×2 (09:57→21:04)
[2019-03-14] MEDS: FINASTERIDE 5 MG TABLET (FP) PO SCH (09:58)
[2019-03-14] MEDS: METOPROLOL TARTRATE 50 MG TABLET (FP) PO SCH ×2 (09:58→21:04)
[2019-03-14] MEDS: HYDROCHLOROTHIAZIDE 25 MG TABLET (FP) PO SCH (09:58)
[2019-03-14 10:41] LABS: INR 1.89 (0.83-1.09); PROTHROMBIN TIME (PATIENT) 22.5 SEC (9.7-13.0)
[2019-03-14] MEDS: guaiFENesin/D-M SUGAR-FREE/ACLHOL-FREE 118 ML BOTTLE PO PRN ×2 (10:46→17:26)
--- NOTE | 2019-03-14 14:41 | PN ---
Progress Note (short form) - Note Progress Note: 73 yo M, with PMH of COPD, newly found lung mass, DM with recurrent non-healing ulcers and Charcot of R foot, anemia, HTN, Afib (on coumadin), admitted for concern of osteomyelitis of the R foot. and non healing ulcer of the foot. Stats taht he has been feeling well. Had his MRI done which revealed no osteo in the bone. Denies any pain. Been trying to be MWB . O: Foot with gross charcot midfoot changes, platnr laterally there is a roughly 3x 3 x superficial ulceration, does not probe, no streaking, no erythema, mild edema noted consitent with charcot, no pain on palpation noted, no signs of acute infection a: 73 y/o with right foot charcot deformity with resolved cellultis P: Evaluated and reviewed from pod standpoint patient stable for d/c would d/c on PO abx but would defer final decision for ID Wound stable and non infected broached discussed of charcot recon with the patient and will continue discussion as outpatient changed with wet to dry DSD if D/c tomorrow can change dressing with the same has f/u with Dr. Dos Santos in [facility] on friday.
[2019-03-14] MEDS: WARFARIN NA 2.5 MG TABLET (FP) PO SCH (17:43)
--- NOTE | 2019-03-14 19:13 | PN ---
Progress Note, Physician History of Present Illness: Pt states he feels well. Has less discomfort in RLE. Remains afebrile. - Current Medication List Current Medications: Active Medications Albuterol/Ipratropium (Duoneb -) 1 amp NEB Q6H PRN PRN Reason: SHORTNESS OF BREATH Last Admin: 03/14/19 06:13 Dose: 1 amp Ferrous Sulfate (Feosol -) 325 mg PO DAILY [facility] Last Admin: 03/14/19 09:57 Dose: 325 mg Finasteride (Proscar -) 5 mg PO DAILY [facility] Last Admin: 03/14/19 09:58 Dose: 5 mg Glyburide (Diabeta -) 5 mg PO AM [facility] Last Admin: 03/14/19 06:28 Dose: 5 mg Guaifenesin (Diabetic Tussin Dm -) 5 ml PO Q6H PRN PRN Reason: COUGH Last Admin: 03/14/19 17:26 Dose: 5 ml Hydralazine HCl (Apresoline -) 100 mg PO BID [facility] Last Admin: 03/14/19 09:57 Dose: 100 mg Hydrochlorothiazide (Hctz -) 25 mg PO DAILY [facility] Last Admin: 03/14/19 09:58 Dose: 25 mg Piperacillin Sod/Tazobactam (Sod 3.375 gm/ Dextrose) 50 mls @ 100 mls/hr IVPB Q8H-IV [facility]; Protocol Last Admin: 03/14/19 17:22 Dose: 100 mls/hr Insulin Aspart (Novolog Vial Sliding Scale -) 1 vial SQ ACHS [facility]; Protocol Last Admin: 03/14/19 16:41 Dose: Not Given Metformin HCl (Glucophage -) 500 mg PO BIDI [facility] Last Admin: 03/14/19 17:49 Dose: Not Given Metoprolol Tartrate (Lopressor -) 50 mg PO BID [facility] Last Admin: 03/14/19 09:58 Dose: 50 mg Tamsulosin HCl (Flomax -) 0.4 mg PO DAILY@0830 [facility] Last Admin: 03/14/19 08:29 Dose: 0.4 mg Warfarin Sodium (Coumadin -) 2.5 mg PO DAILY@1800 [facility] Last Admin: 03/14/19 17:43 Dose: 2.5 mg - Objective Vital Signs: Vital Signs Temperature 98.2 F 03/14/19 14:49 Pulse Rate 68 03/14/19 14:49 Respiratory Rate 20 03/14/19 14:49 Blood Pressure 143/78 03/14/19 14:49 O2 Sat by Pulse Oximetry (%) 97 03/14/19 09:00 Constitutional: Yes: No Distress, Calm Cardiovascular: Yes: Regular Rate and Rhythm Respiratory: Yes: Regular Gastrointestinal: Yes: Normal Bowel Sounds, Soft, Abdomen, Obese Wound/Incision: Yes: Dressing Dry and Intact, Other (RLE with less swelling/ warmth) Neurological: Yes: Alert, Oriented Labs: CBC, BMP 03/13/19 07:08 03/13/19 07:08 INR, PTT INR 1.89 (0.83-1.09) H 03/14/19 09:20 Microbiology 03/12/19 09:16 Blood - Peripheral Venous Blood Culture - Preliminary NO GROWTH OBTAINED AFTER 48 HOURS, INCUBATION TO CONTINUE FOR 3 DAYS. 03/12/19 09:16 Blood - Peripheral Venous Blood Culture - Preliminary NO GROWTH OBTAINED AFTER 48 HOURS, INCUBATION TO CONTINUE FOR 3 DAYS. 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 Code(s): L97.412 - NON-PRS CHR ULCER OF RIGHT HEEL AND MIDFT W FAT LAYER EXPOS (7) Diabetes Code(s): E11.9 - TYPE 2 DIABETES MELLITUS WITHOUT COMPLICATIONS (8) HTN (hypertension) Code(s): I10 - ESSENTIAL (PRIMARY) HYPERTENSION (9) Morbid obesity Code(s): E66.01 - MORBID (SEVERE) OBESITY DUE TO EXCESS CALORIES (10) Type 2 diabetes mellitus with foot ulcer Code(s): E11.621 - TYPE 2 DIABETES MELLITUS WITH FOOT ULCER; L97.509 - NON- PRESSURE CHRONIC ULCER OTH PRT UNSP FOOT W UNSP SEVERITY Assessment/Plan Nonhealing Rt plantar foot ulcer s/p recent debridement RLE cellulitis COPD DM AFIB CAD -- Pt is clinically improving - less edema/warmth/pain in RLE -- Wound culture results from 03/09/19 noted -- If d/c home tomorrow may switch to Augmentin 875 mg po BID x 11 days -- MRI without evidence of abscess/OM -- Podiatry/wound care follow up as outpt
--- NOTE | 2019-03-14 22:19 | PN ---
Progress Note, Physician - Current Medication List Current Medications: Active Medications Albuterol/Ipratropium (Duoneb -) 1 amp NEB Q6H PRN PRN Reason: SHORTNESS OF BREATH Last Admin: 03/14/19 06:13 Dose: 1 amp Ferrous Sulfate (Feosol -) 325 mg PO DAILY [facility] Last Admin: 03/14/19 09:57 Dose: 325 mg Finasteride (Proscar -) 5 mg PO DAILY [facility] Last Admin: 03/14/19 09:58 Dose: 5 mg Glyburide (Diabeta -) 5 mg PO AM [facility] Last Admin: 03/14/19 06:28 Dose: 5 mg Guaifenesin (Diabetic Tussin Dm -) 5 ml PO Q6H PRN PRN Reason: COUGH Last Admin: 03/14/19 17:26 Dose: 5 ml Hydralazine HCl (Apresoline -) 100 mg PO BID [facility] Last Admin: 03/14/19 21:04 Dose: 100 mg Hydrochlorothiazide (Hctz -) 25 mg PO DAILY [facility] Last Admin: 03/14/19 09:58 Dose: 25 mg Piperacillin Sod/Tazobactam (Sod 3.375 gm/ Dextrose) 50 mls @ 100 mls/hr IVPB Q8H-IV [facility]; Protocol Last Admin: 03/14/19 17:22 Dose: 100 mls/hr Insulin Aspart (Novolog Vial Sliding Scale -) 1 vial SQ ACHS [facility]; Protocol Last Admin: 03/14/19 21:04 Dose: Not Given Metformin HCl (Glucophage -) 500 mg PO BIDI [facility] Last Admin: 03/14/19 17:49 Dose: Not Given Metoprolol Tartrate (Lopressor -) 50 mg PO BID [facility] Last Admin: 03/14/19 21:04 Dose: 50 mg Tamsulosin HCl (Flomax -) 0.4 mg PO DAILY@0830 [facility] Last Admin: 03/14/19 08:29 Dose: 0.4 mg Warfarin Sodium (Coumadin -) 2.5 mg PO DAILY@1800 [facility] Last Admin: 03/14/19 17:43 Dose: 2.5 mg - Objective Vital Signs: Vital Signs Temperature 98.1 F 03/14/19 19:00 Pulse Rate 73 03/14/19 19:00 Respiratory Rate 20 03/14/19 19:00 Blood Pressure 138/65 03/14/19 19:00 O2 Sat by Pulse Oximetry (%) 97 03/14/19 09:00 Labs: CBC, BMP 03/13/19 07:08 03/13/19 07:08 INR, PTT INR 1.89 (0.83-1.09) H 03/14/19 09:20
[2019-03-15] MEDS ORDERED: PIPERACILLIN/TAZOBACTAM 3.375 GM VIAL IVPB ONE ×2 (01:15→10:17)
[2019-03-15] MEDS ORDERED: DEXTROSE 5%-WATER - 50 ML IVPB ONE ×2 (01:15→10:17)
[2019-03-15] MEDS: PIPERACILLIN/TAZOB 3.375 GM 3.375 GM in DEXTROSE 5%-WATER - 50 ML IVPB SCH ×2 (01:26→10:20)
[2019-03-15] MEDS ORDERED: PT OWN MED DRAWER 7, Y5N ONE ×3 (05:58→10:17)
[2019-03-15] MEDS: guaiFENesin/D-M SUGAR-FREE/ACLHOL-FREE 118 ML BOTTLE PO PRN (06:31)
[2019-03-15] MEDS: glyBURIDE 5 MG TABLET (UD) PO SCH (06:31)
[2019-03-15] MEDS: metFORMIN HCL 500 MG TABLET (FP) PO SCH (06:31)
[2019-03-15] MEDS: INSULIN SLIDING SCALE (NOVOLOG) 1 VIAL SQ SCH ×2 (06:31→12:21)
[2019-03-15] MEDS: METOPROLOL TARTRATE 50 MG TABLET (FP) PO SCH (10:20)
[2019-03-15] MEDS: HYDROCHLOROTHIAZIDE 25 MG TABLET (FP) PO SCH (10:20)
[2019-03-15] MEDS: TAMSULOSIN HCL 0.4 MG CAP PO SCH (10:20)
[2019-03-15] MEDS: FERROUS SO4 325 MG TABLET (FP) PO SCH (10:20)
[2019-03-15] MEDS: FINASTERIDE 5 MG TABLET (FP) PO SCH (10:20)
[2019-03-15] MEDS: hydrALAZINE HCL 50 MG TABLET (FP) PO SCH (10:22)
--- NOTE | 2019-03-15 11:06 | PN ---
Progress Note, Physician History of Present Illness: stable no new issues dressing dry and intact - Current Medication List Current Medications: Active Medications Albuterol/Ipratropium (Duoneb -) 1 amp NEB Q6H PRN PRN Reason: SHORTNESS OF BREATH Last Admin: 03/14/19 22:39 Dose: 1 amp Ferrous Sulfate (Feosol -) 325 mg PO DAILY [facility] Last Admin: 03/15/19 10:20 Dose: 325 mg Finasteride (Proscar -) 5 mg PO DAILY [facility] Last Admin: 03/15/19 10:20 Dose: 5 mg Glyburide (Diabeta -) 5 mg PO AM [facility] Last Admin: 03/15/19 06:31 Dose: 5 mg Guaifenesin (Diabetic Tussin Dm -) 5 ml PO Q6H PRN PRN Reason: COUGH Last Admin: 03/15/19 06:31 Dose: 5 ml Hydralazine HCl (Apresoline -) 100 mg PO BID [facility] Last Admin: 03/15/19 10:22 Dose: 100 mg Hydrochlorothiazide (Hctz -) 25 mg PO DAILY [facility] Last Admin: 03/15/19 10:20 Dose: 25 mg Piperacillin Sod/Tazobactam (Sod 3.375 gm/ Dextrose) 50 mls @ 100 mls/hr IVPB Q8H-IV [facility]; Protocol Last Admin: 03/15/19 10:20 Dose: 100 mls/hr Insulin Aspart (Novolog Vial Sliding Scale -) 1 vial SQ ACHS [facility]; Protocol Last Admin: 03/15/19 06:31 Dose: Not Given Metformin HCl (Glucophage -) 500 mg PO BIDI [facility] Last Admin: 03/15/19 06:31 Dose: 500 mg Metoprolol Tartrate (Lopressor -) 50 mg PO BID [facility] Last Admin: 03/15/19 10:20 Dose: 50 mg Tamsulosin HCl (Flomax -) 0.4 mg PO DAILY@0830 [facility] Last Admin: 03/15/19 10:20 Dose: 0.4 mg Warfarin Sodium (Coumadin -) 2.5 mg PO DAILY@1800 [facility] Last Admin: 03/14/19 17:43 Dose: 2.5 mg - Objective Vital Signs: Vital Signs Temperature 98 F 03/15/19 06:00 Pulse Rate 86 03/15/19 06:00 Respiratory Rate 20 03/15/19 06:00 Blood Pressure 146/98 03/15/19 06:00 O2 Sat by Pulse Oximetry (%) 98 03/14/19 21:00 Constitutional: Yes: No Distress, Calm Cardiovascular: Yes: S1, S2 Respiratory: Yes: Regular, CTA Bilaterally Gastrointestinal: Yes: Normal Bowel Sounds, Soft Musculoskeletal: Yes: WNL Extremities: Yes: WNL Neurological: Yes: Alert, Oriented Psychiatric: Yes: Alert, Oriented Labs: CBC, BMP 03/13/19 07:08 03/13/19 07:08 INR, PTT INR 1.89 (0.83-1.09) H 03/14/19 09:20 Assessment/Plan patient with multiple medical problems coming with non healing ulcer of the plantar surface wound cx noted multiple organisms plan continue augmentin for 11 days more rest as per the team
[2019-03-15 11:57] VITALS: BP 161/69; PULSE 90; TEMP 98.2
[2019-03-15] MEDS: ALBUTEROL SO4 2.5/IPRATROPIUM 0.5 INH SOL 3 ML VIAL.NEB. NEB PRN (12:12)
--- NOTE | 2019-03-15 14:11 | PN ---
Progress Note (short form) - Note Progress Note: Podiatry F/U: Seen/evaluated at bedside, NAD, in good spirits. Notes improvement in soreness , swelling to the right foot. Denies F/V/N/C/SOB/CP. Afebrile. MRI obtained. CUCA: R foot: pedal pulses 2/4, TG wnl, CFT brisk to all toes. There is a right plantar midfoot diabetic Charcot ulcer with fibrogranular base, hyperkeratotic borders with no maceration, no probing to bone, no purulence, no fluctuance, no periwound erythema, no streaking cellulitis, no signs of acute infection. Mild tenderness to palpation. Wound Cx: mixed orgs MRI: negative for osteomyelitis, neuropathic joint Imp: 73 year old diabetic male with right plantar midfoot diabetic Charcot ulcer and resolved cellulitis 1. Abx per infectious disease 2. MRI reviewed with patient, no evidence of osteomyelitis 3. Local wound care with collagen Ag 3x/week at home. Will establish through wound healing center. 4. Discussed appropriate glycemic management and minimizing weightbearing. 5. Okay for discharge from podiatric standpoint, will f/u with me next Friday in wound healing center. Christian Dos Santos DPM
== END 2019-03-15 13:52 | disposition home health service (06) | DRG 74 ==
LOC: JER 07:49 → JERBED 10:47 → J8W 12:34
PROVIDERS: ADMIT Internal Medicine; ATTEND Internal Medicine
DX: E11.610 Type 2 diabetes mellitus with diabetic neuropathic arthropathy (principal); L03.115 Cellulitis of right lower limb; E11.621 Type 2 diabetes mellitus with foot ulcer; E11.69 Type 2 diabetes mellitus with other specified complication; E66.01 Morbid (severe) obesity due to excess calories; I10 Essential (primary) hypertension; I25.10 Atherosclerotic heart disease of native coronary artery without angina pectoris; I48.91 Unspecified atrial fibrillation; Z68.34 Body mass index [BMI] 34.0-34.9, adult; K21.9 Gastro-esophageal reflux disease without esophagitis; N40.0 Benign prostatic hyperplasia without lower urinary tract symptoms; D64.9 Anemia, unspecified
CPT/HCPCS: 11042; 36415; 71046-TC-FY; 73630-TC-RT-FY; 73718-TC-RT; 80053; 82962; 85025; 85610; 85651; 86140; 87040; 87070; 87186; 87205; 90670; 93005; 93010; 94640; 99284-25; G0008; G0009; J0131; Q2036

== ENCOUNTER 2020-05-30 04:48 | Inpatient (IN) | payer OTHER, BC ==
[2020-05-29 13:59] VITALS: BMI 29.7
[2020-05-30] MEDS ORDERED: MIDAZOLAM HCL 2 MG/2 ML SINGLE DOSE VIAL ONE ×2 (11:32→12:13)
[2020-05-30] MEDS ORDERED: LIDOCAINE HCL 2% (20ML MULTI-DOSE VIAL) ONE (12:03)
[2020-05-30] MEDS ORDERED: PROPOFOL 20 ML ONE ×2 (12:13)
[2020-05-30] MEDS ORDERED: ONDANSETRON 4 MG/2 ML VIAL IVPUSH PRN (12:18)
[2020-05-30] MEDS ORDERED: LIDOCAINE HCL 2% (50ML VIAL) NR ONE (12:52)
[2020-05-30] MEDS ORDERED: BACITRACIN 50,000 UNITS VIAL NR ONE (12:53)
[2020-05-30] MEDS ORDERED: ceFAZolin SODIUM 1 GM VIAL IVPB ONE (13:37)
[2020-05-30] MEDS ORDERED: hydrALAZINE HCL 20 MG/ML VIAL ONE (15:11)
[2020-05-30] MEDS ORDERED: hydrALAZINE HCL 20 MG/ML VIAL IVPUSH ONE ×2 (15:13→15:17)
[2020-05-30] MEDS: LACTATED RINGERS SOLUTION 1,000 ML IV SCH ×2 (16:25→22:24)
[2020-05-30] MEDS ORDERED: ALBUTEROL SO4 HFA INHALER IH PRN (22:23)
[2020-05-30] MEDS ORDERED: WARFARIN NA 5 MG TABLET PO SCH (22:30)
[2020-05-30] MEDS: oxyCODONE HCL 5 MG TABLET PO PRN (22:34)
[2020-05-30] MEDS: METOPROLOL TARTRATE 50 MG TABLET (FP) PO SCH (22:35)
[2020-05-30] MEDS ORDERED: DEXTROSE 5%-WATER - 50 ML IVPB ONE (22:51)
[2020-05-30] MEDS ORDERED: cefTRIAXone SODIUM 1 GM VIAL ONE (22:51)
[2020-05-30] MEDS: CEFTRIAXONE 1 GM in DEXTROSE 5%-WATER - 50 ML IVPB SCH (22:54)
[2020-05-31] MEDS: oxyCODONE HCL 5 MG TABLET PO PRN ×2 (06:40→21:38)
[2020-05-31] MEDS: metFORMIN HCL 500 MG TABLET (FP) PO SCH ×2 (06:40→17:12)
[2020-05-31] MEDS: hydrALAZINE HCL 50 MG TABLET (FP) PO SCH ×3 (06:40→21:39)
[2020-05-31] MEDS: INSULIN SLIDING SCALE (NOVOLOG) 1 VIAL SQ SCH ×4 (06:48→21:40)
[2020-05-31] MEDS: LACTATED RINGERS SOLUTION 1,000 ML IV SCH ×3 (08:45→17:43)
[2020-05-31] MEDS ORDERED: DEXTROSE 5%-WATER - 50 ML IVPB ONE ×3 (09:47→17:08)
[2020-05-31] MEDS ORDERED: cefTRIAXone SODIUM 1 GM VIAL ONE (09:47)
[2020-05-31] MEDS: FINASTERIDE 5 MG TABLET (FP) PO SCH (09:49)
[2020-05-31] MEDS: CEFTRIAXONE 1 GM in DEXTROSE 5%-WATER - 50 ML IVPB SCH (09:49)
[2020-05-31] MEDS: FERROUS SO4 325 MG TABLET (FP) PO SCH ×2 (09:49→21:38)
[2020-05-31] MEDS: METOPROLOL TARTRATE 50 MG TABLET (FP) PO SCH ×2 (09:49→21:39)
[2020-05-31 10:52] LABS: BASO % 1.3 % (0-2.0); EOS % 4.8 % (0-4.5); HEMATOCRIT 30.5 % (35.4-49); HEMOGLOBIN 9.8 GM/dL (11.7-16.9); LYMPH % 27.9 % (8-40); MCH 26.4 pg (25.7-33.7); MCHC 32.1 g/dl (32.0-35.9); MEAN CELL VOLUME 82.5 fl (80-96); MEAN PLT VOLUME 7.7 fl (7.5-11.1); MONO % 10.1 % (3.8-10.2); NEUT % 55.9 % (42.8-82.8); PLATELET COUNT 231 K/MM3 (134-434); RDW 22.5 % (11.9-15.9); WHITE BLOOD COUNT 7.1 K/mm3 (4.0-10.0)
[2020-05-31 10:58] LABS: INR 1.51 (0.83-1.09); PROTHROMBIN TIME (PATIENT) 18.1 SEC (9.7-13.0)
[2020-05-31] MEDS ORDERED: PIPERACILLIN/TAZOBACTAM 3.375 GM VIAL IVPB ONE ×2 (11:01→17:08)
[2020-05-31 11:11] LABS: POTASSIUM 3.8 mmol/L (3.5-5.1)
[2020-05-31 11:13] LABS: CALCIUM 8.3 mg/dL (8.5-10.1)
[2020-05-31 11:14] LABS: ALBUMIN 2.6 g/dl (3.4-5.0); BLOOD UREA NITROGEN 17.7 mg/dL (7-18)
[2020-05-31 11:17] LABS: CREATININE 1.1 mg/dL (0.55-1.3)
[2020-05-31 11:18] LABS: BILIRUBIN,TOTAL 0.3 mg/dL (0.2-1)
[2020-05-31 11:29] LABS: ANISOCYTOSIS 1+; MACROCYTOSIS 1+; PLATELET ESTIMATE NORMAL
[2020-05-31] MEDS: PIPERACILLIN/TAZOB 3.375 GM 3.375 GM in DEXTROSE 5%-WATER - 50 ML IVPB SCH ×2 (11:41→17:13)
[2020-05-31] MEDS ORDERED: INSULIN (NOVOLOG) ASPART 100 UNITS/ML 10ML VIAL ONE (17:08)
[2020-05-31] MEDS: WARFARIN NA 5 MG TABLET PO SCH (17:12)
[2020-05-31] MEDS: ATORVASTATIN CA 10 MG TABLET (FP) PO SCH (21:38)
[2020-06-01] MEDS ORDERED: PIPERACILLIN/TAZOBACTAM 3.375 GM VIAL IVPB ONE ×3 (01:35→18:19)
[2020-06-01] MEDS ORDERED: DEXTROSE 5%-WATER - 50 ML IVPB ONE ×4 (01:36→18:19)
[2020-06-01] MEDS: PIPERACILLIN/TAZOB 3.375 GM 3.375 GM in DEXTROSE 5%-WATER - 50 ML IVPB SCH ×3 (01:40→18:27)
[2020-06-01] MEDS ORDERED: ALBUTEROL SO4 0.083% IH SOL 2.5 MG/3 ML VIAL.NEB. NEB ONE (05:15)
[2020-06-01] MEDS: metFORMIN HCL 500 MG TABLET (FP) PO SCH ×2 (06:12→16:03)
[2020-06-01] MEDS: hydrALAZINE HCL 50 MG TABLET (FP) PO SCH ×3 (06:12→21:52)
[2020-06-01] MEDS: INSULIN SLIDING SCALE (NOVOLOG) 1 VIAL SQ SCH ×4 (06:13→22:00)
[2020-06-01 09:01] LABS: INR 1.36 (0.83-1.09); PROTHROMBIN TIME (PATIENT) 16.6 SEC (9.7-13.0)
[2020-06-01 09:03] LABS: BASO % 1.3 % (0-2.0); EOS % 4.2 % (0-4.5); HEMATOCRIT 33.9 % (35.4-49); HEMOGLOBIN 10.9 GM/dL (11.7-16.9); LYMPH % 30.2 % (8-40); MCH 26.5 pg (25.7-33.7); MEAN CELL VOLUME 82.9 fl (80-96); MONO % 9.2 % (3.8-10.2); NEUT % 55.1 % (42.8-82.8); PLATELET COUNT 250 K/MM3 (134-434); RBC 4.09 M/mm3 (4.00-5.60); RDW 22.9 % (11.9-15.9); WHITE BLOOD COUNT 6.5 K/mm3 (4.0-10.0)
[2020-06-01] MEDS ORDERED: cefTRIAXone SODIUM 1 GM VIAL ONE (09:09)
[2020-06-01 09:13] LABS: CALCIUM 8.9 mg/dL (8.5-10.1)
[2020-06-01 09:14] LABS: ALBUMIN 3.1 g/dl (3.4-5.0); BLOOD UREA NITROGEN 17.9 mg/dL (7-18)
[2020-06-01 09:17] LABS: CREATININE 1.2 mg/dL (0.55-1.3)
[2020-06-01 09:18] LABS: BILIRUBIN,TOTAL 0.4 mg/dL (0.2-1)
[2020-06-01] MEDS: FERROUS SO4 325 MG TABLET (FP) PO SCH ×2 (09:22→21:51)
[2020-06-01] MEDS: FINASTERIDE 5 MG TABLET (FP) PO SCH (09:23)
[2020-06-01] MEDS: CEFTRIAXONE 1 GM in DEXTROSE 5%-WATER - 50 ML IVPB SCH (09:23)
[2020-06-01] MEDS: METOPROLOL TARTRATE 50 MG TABLET (FP) PO SCH ×2 (09:23→21:52)
[2020-06-01] MEDS: ALBUTEROL SO4 2.5/IPRATROPIUM 0.5 INH SOL 3 ML VIAL.NEB. NEB PRN (11:49)
[2020-06-01] MEDS: WARFARIN NA 5 MG TABLET PO SCH (18:27)
[2020-06-01] MEDS: ATORVASTATIN CA 10 MG TABLET (FP) PO SCH (21:52)
[2020-06-01] MEDS: PANTOPRAZOLE 40 MG TABLET PO SCH (21:52)
[2020-06-02] MEDS ORDERED: PIPERACILLIN/TAZOBACTAM 3.375 GM VIAL IVPB ONE ×3 (00:48→17:08)
[2020-06-02] MEDS ORDERED: DEXTROSE 5%-WATER - 50 ML IVPB ONE ×4 (00:48→17:08)
[2020-06-02] MEDS: PIPERACILLIN/TAZOB 3.375 GM 3.375 GM in DEXTROSE 5%-WATER - 50 ML IVPB SCH ×3 (01:12→17:50)
[2020-06-02] MEDS: hydrALAZINE HCL 50 MG TABLET (FP) PO SCH ×3 (05:49→21:10)
[2020-06-02] MEDS: metFORMIN HCL 500 MG TABLET (FP) PO SCH ×2 (06:00→16:52)
[2020-06-02] MEDS: INSULIN SLIDING SCALE (NOVOLOG) 1 VIAL SQ SCH ×4 (06:00→22:00)
[2020-06-02] MEDS: ALBUTEROL SO4 2.5/IPRATROPIUM 0.5 INH SOL 3 ML VIAL.NEB. NEB PRN ×2 (08:52→15:40)
[2020-06-02 09:47] LABS: INR 1.41 (0.83-1.09); PROTHROMBIN TIME (PATIENT) 16.9 SEC (9.7-13.0)
[2020-06-02] MEDS ORDERED: cefTRIAXone SODIUM 1 GM VIAL ONE (10:05)
[2020-06-02] MEDS: CEFTRIAXONE 1 GM in DEXTROSE 5%-WATER - 50 ML IVPB SCH (10:11)
[2020-06-02] MEDS: PANTOPRAZOLE 40 MG TABLET PO SCH (10:12)
[2020-06-02] MEDS: METOPROLOL TARTRATE 50 MG TABLET (FP) PO SCH ×2 (10:12→21:09)
[2020-06-02] MEDS: FINASTERIDE 5 MG TABLET (FP) PO SCH (10:12)
[2020-06-02] MEDS: FERROUS SO4 325 MG TABLET (FP) PO SCH ×2 (10:12→21:09)
[2020-06-02] MEDS ORDERED: INSULIN (NOVOLOG) ASPART 100 UNITS/ML 10ML VIAL ONE (11:46)
[2020-06-02] MEDS ORDERED: PT OWN MED DRAWER 7, Y5N ONE (13:38)
[2020-06-02] MEDS: VANCOMYCIN/WATER BAGS 1,250 MG/250 ML BAG IVPB SCH (14:46)
[2020-06-02] MEDS: WARFARIN NA 5 MG TABLET PO SCH (17:50)
[2020-06-02] MEDS: ATORVASTATIN CA 10 MG TABLET (FP) PO SCH (21:09)
[2020-06-03] MEDS ORDERED: PIPERACILLIN/TAZOBACTAM 3.375 GM VIAL IVPB ONE ×3 (01:22→17:48)
[2020-06-03] MEDS ORDERED: DEXTROSE 5%-WATER - 50 ML IVPB ONE ×3 (01:22→17:48)
[2020-06-03] MEDS: PIPERACILLIN/TAZOB 3.375 GM 3.375 GM in DEXTROSE 5%-WATER - 50 ML IVPB SCH ×3 (01:25→18:09)
[2020-06-03] MEDS: hydrALAZINE HCL 50 MG TABLET (FP) PO SCH ×3 (06:12→22:23)
[2020-06-03] MEDS: metFORMIN HCL 500 MG TABLET (FP) PO SCH ×2 (06:12→18:07)
[2020-06-03] MEDS: INSULIN SLIDING SCALE (NOVOLOG) 1 VIAL SQ SCH ×4 (06:19→22:23)
[2020-06-03 08:28] LABS: INR 1.42 (0.83-1.09); PROTHROMBIN TIME (PATIENT) 17.3 SEC (9.7-13.0)
[2020-06-03] MEDS: PANTOPRAZOLE 40 MG TABLET PO SCH (11:18)
[2020-06-03] MEDS: METOPROLOL TARTRATE 50 MG TABLET (FP) PO SCH ×2 (11:19→22:23)
[2020-06-03] MEDS: FINASTERIDE 5 MG TABLET (FP) PO SCH (11:19)
[2020-06-03] MEDS: FERROUS SO4 325 MG TABLET (FP) PO SCH ×2 (11:19→22:23)
[2020-06-03] MEDS: VANCOMYCIN/WATER BAGS 1,250 MG/250 ML BAG IVPB SCH (13:04)
[2020-06-03] MEDS: WARFARIN NA 5 MG TABLET PO SCH (18:07)
[2020-06-03] MEDS: ATORVASTATIN CA 10 MG TABLET (FP) PO SCH (22:23)
[2020-06-04] MEDS ORDERED: DEXTROSE 5%-WATER - 50 ML IVPB ONE ×3 (02:38→17:48)
[2020-06-04] MEDS ORDERED: PIPERACILLIN/TAZOBACTAM 3.375 GM VIAL IVPB ONE ×3 (02:38→17:48)
[2020-06-04] MEDS: PIPERACILLIN/TAZOB 3.375 GM 3.375 GM in DEXTROSE 5%-WATER - 50 ML IVPB SCH ×3 (02:49→17:59)
[2020-06-04] MEDS: hydrALAZINE HCL 50 MG TABLET (FP) PO SCH ×3 (06:30→22:01)
[2020-06-04] MEDS: metFORMIN HCL 500 MG TABLET (FP) PO SCH ×2 (06:30→17:59)
[2020-06-04] MEDS: INSULIN SLIDING SCALE (NOVOLOG) 1 VIAL SQ SCH ×4 (06:30→22:00)
[2020-06-04 08:42] LABS: BASO % 2.3 % (0-2.0); EOS % 5.1 % (0-4.5); HEMATOCRIT 35.2 % (35.4-49); HEMOGLOBIN 11.3 GM/dL (11.7-16.9); MCH 26.6 pg (25.7-33.7); MCHC 32.2 g/dl (32.0-35.9); MEAN CELL VOLUME 82.6 fl (80-96); MONO % 5.9 % (3.8-10.2); NEUT % 48.7 % (42.8-82.8); PLATELET COUNT 260 K/MM3 (134-434); RBC 4.26 M/mm3 (4.00-5.60); RDW 21.7 % (11.9-15.9); WHITE BLOOD COUNT 6.6 K/mm3 (4.0-10.0)
[2020-06-04 08:53] LABS: INR 1.33 (0.83-1.09)
[2020-06-04 09:01] LABS: POTASSIUM 4.4 mmol/L (3.5-5.1)
[2020-06-04 09:07] LABS: ALBUMIN 3.2 g/dl (3.4-5.0); BLOOD UREA NITROGEN 19.5 mg/dL (7-18); CALCIUM 8.7 mg/dL (8.5-10.1)
[2020-06-04 09:11] LABS: CREATININE 1.3 mg/dL (0.55-1.3)
[2020-06-04 09:12] LABS: BILIRUBIN,TOTAL 0.2 mg/dL (0.2-1); TOT PROT 8.4 g/dl (6.4-8.2)
[2020-06-04 09:59] LABS: ANISOCYTOSIS 2+; MACROCYTOSIS 0; PLATELET ESTIMATE NORMAL
[2020-06-04] MEDS ORDERED: PT OWN MED DRAWER 7, Y5N ONE (11:04)
[2020-06-04] MEDS: METOPROLOL TARTRATE 50 MG TABLET (FP) PO SCH ×2 (11:08→22:02)
[2020-06-04] MEDS: PANTOPRAZOLE 40 MG TABLET PO SCH (11:08)
[2020-06-04] MEDS: FERROUS SO4 325 MG TABLET (FP) PO SCH ×2 (11:08→22:01)
[2020-06-04] MEDS: FINASTERIDE 5 MG TABLET (FP) PO SCH (11:08)
[2020-06-04] MEDS ORDERED: INSULIN (NOVOLOG) ASPART 100 UNITS/ML 10ML VIAL ONE (11:26)
[2020-06-04] MEDS: VANCOMYCIN/WATER BAGS 1,250 MG/250 ML BAG IVPB SCH (14:19)
[2020-06-04] MEDS: WARFARIN NA 5 MG TABLET PO SCH (17:59)
[2020-06-04] MEDS: ATORVASTATIN CA 10 MG TABLET (FP) PO SCH (22:01)
[2020-06-05] MEDS ORDERED: DEXTROSE 5%-WATER - 50 ML IVPB ONE ×2 (00:35→09:47)
[2020-06-05] MEDS ORDERED: PIPERACILLIN/TAZOBACTAM 3.375 GM VIAL IVPB ONE ×3 (00:35→17:06)
[2020-06-05] MEDS: PIPERACILLIN/TAZOB 3.375 GM 3.375 GM in DEXTROSE 5%-WATER - 50 ML IVPB SCH ×3 (01:17→17:46)
[2020-06-05] MEDS: ALBUTEROL SO4 2.5/IPRATROPIUM 0.5 INH SOL 3 ML VIAL.NEB. NEB PRN (02:06)
[2020-06-05] MEDS: metFORMIN HCL 500 MG TABLET (FP) PO SCH ×2 (06:44→17:45)
[2020-06-05] MEDS: INSULIN SLIDING SCALE (NOVOLOG) 1 VIAL SQ SCH ×4 (06:44→23:07)
[2020-06-05] MEDS: hydrALAZINE HCL 50 MG TABLET (FP) PO SCH ×3 (06:48→23:06)
[2020-06-05 08:38] LABS: BASO % 0.3 % (0-2.0); EOS % 4.6 % (0-4.5); HEMATOCRIT 34.3 % (35.4-49); HEMOGLOBIN 10.7 GM/dL (11.7-16.9); LYMPH % 35.4 % (8-40); MCH 26.4 pg (25.7-33.7); MCHC 31.3 g/dl (32.0-35.9); MEAN CELL VOLUME 84.3 fl (80-96); MEAN PLT VOLUME 8.1 fl (7.5-11.1); MONO % 8.9 % (3.8-10.2); NEUT % 50.8 % (42.8-82.8); PLATELET COUNT 213 K/MM3 (134-434); RBC 4.07 M/mm3 (4.00-5.60); RDW 22.3 % (11.9-15.9); WHITE BLOOD COUNT 5.3 K/mm3 (4.0-10.0)
[2020-06-05 08:48] LABS: INR 1.37 (0.83-1.09); PROTHROMBIN TIME (PATIENT) 16.7 SEC (9.7-13.0)
[2020-06-05 09:03] LABS: CALCIUM 8.5 mg/dL (8.5-10.1)
[2020-06-05 09:04] LABS: BLOOD UREA NITROGEN 22.7 mg/dL (7-18)
[2020-06-05 09:07] LABS: CREATININE 1.3 mg/dL (0.55-1.3)
[2020-06-05 09:08] LABS: BILIRUBIN,TOTAL 0.6 mg/dL (0.2-1); TOT PROT 7.6 g/dl (6.4-8.2)
[2020-06-05] MEDS: FERROUS SO4 325 MG TABLET (FP) PO SCH ×2 (09:54→23:07)
[2020-06-05] MEDS: FINASTERIDE 5 MG TABLET (FP) PO SCH (09:54)
[2020-06-05] MEDS: METOPROLOL TARTRATE 50 MG TABLET (FP) PO SCH ×2 (09:54→23:07)
[2020-06-05] MEDS: PANTOPRAZOLE 40 MG TABLET PO SCH (09:54)
[2020-06-05 10:33] LABS: ANISOCYTOSIS 0; MACROCYTOSIS 0; PLATELET ESTIMATE NORMAL
[2020-06-05] MEDS: VANCOMYCIN/WATER BAGS 1,250 MG/250 ML BAG IVPB SCH (13:55)
[2020-06-05] MEDS ORDERED: PT OWN MED DRAWER 7, Y5N ONE (14:08)
[2020-06-05] MEDS ORDERED: WARFARIN NA 2.5 MG TABLET PO ONE (18:00)
[2020-06-05] MEDS: ATORVASTATIN CA 10 MG TABLET (FP) PO SCH (23:07)
[2020-06-06] MEDS ORDERED: DEXTROSE 5%-WATER - 50 ML IVPB ONE ×2 (01:53→09:20)
[2020-06-06] MEDS ORDERED: PIPERACILLIN/TAZOBACTAM 3.375 GM VIAL IVPB ONE ×2 (01:53→09:20)
[2020-06-06] MEDS: PIPERACILLIN/TAZOB 3.375 GM 3.375 GM in DEXTROSE 5%-WATER - 50 ML IVPB SCH ×2 (02:18→09:28)
[2020-06-06] MEDS: hydrALAZINE HCL 50 MG TABLET (FP) PO SCH ×2 (06:53→15:22)
[2020-06-06] MEDS: INSULIN SLIDING SCALE (NOVOLOG) 1 VIAL SQ SCH ×2 (07:02→12:19)
[2020-06-06] MEDS: metFORMIN HCL 500 MG TABLET (FP) PO SCH (07:49)
[2020-06-06] MEDS ORDERED: INSULIN (NOVOLOG) ASPART 100 UNITS/ML 10ML VIAL ONE (09:04)
[2020-06-06] MEDS: FERROUS SO4 325 MG TABLET (FP) PO SCH (09:27)
[2020-06-06] MEDS: FINASTERIDE 5 MG TABLET (FP) PO SCH (09:27)
[2020-06-06] MEDS: METOPROLOL TARTRATE 50 MG TABLET (FP) PO SCH (09:28)
[2020-06-06] MEDS: PANTOPRAZOLE 40 MG TABLET PO SCH (09:28)
[2020-06-06 10:59] LABS: BASO % 2.6 % (0-2.0); EOS % 4.5 % (0-4.5); HEMATOCRIT 38.2 % (35.4-49); HEMOGLOBIN 12.3 GM/dL (11.7-16.9); LYMPH % 39.7 % (8-40); MCH 26.8 pg (25.7-33.7); MCHC 32.2 g/dl (32.0-35.9); MEAN CELL VOLUME 83.1 fl (80-96); MEAN PLT VOLUME 8.1 fl (7.5-11.1); MONO % 7.3 % (3.8-10.2); NEUT % 45.9 % (42.8-82.8); PLATELET COUNT 269 K/MM3 (134-434); RBC 4.59 M/mm3 (4.00-5.60); RDW 22.1 % (11.9-15.9); WHITE BLOOD COUNT 6.6 K/mm3 (4.0-10.0)
[2020-06-06 11:03] VITALS: BP 155/88; PULSE 73; TEMP 97.8
[2020-06-06 11:06] LABS: INR 1.43 (0.83-1.09); PROTHROMBIN TIME (PATIENT) 17.1 SEC (9.7-13.0)
[2020-06-06 11:14] LABS: POTASSIUM 3.7 mmol/L (3.5-5.1)
[2020-06-06 11:20] LABS: ALBUMIN 3.4 g/dl (3.4-5.0); BLOOD UREA NITROGEN 21.9 mg/dL (7-18); CALCIUM 9.5 mg/dL (8.5-10.1)
[2020-06-06 11:24] LABS: BILIRUBIN,TOTAL 0.6 mg/dL (0.2-1); CREATININE 1.2 mg/dL (0.55-1.3); TOT PROT 8.7 g/dl (6.4-8.2)
[2020-06-06] MEDS: VANCOMYCIN/WATER BAGS 1,250 MG/250 ML BAG IVPB SCH (13:26)
== END 2020-06-06 17:59 | disposition home health service (06) | DRG 623 ==
LOC: J2C 04:48 → EDSTATUS 12:00 → J6S 16:10
PROVIDERS: ADMIT Student in an Organized Health Care Education/Training Program; ATTEND Internal Medicine
PROC: 0QBN0ZX Excision of Right Metatarsal, Open Approach, Diagnostic (ICD-10-PCS; 2020-05-30)
PROC: 0JBQ0ZZ Excision of Right Foot Subcutaneous Tissue and Fascia, Open Approach (ICD-10-PCS; principal; 2020-05-30 12:00)
PROC: 02HV33Z Insertion of Infusion Device into Superior Vena Cava, Percutaneous Approach (ICD-10-PCS; 2020-06-06)
PROC: B518ZZA Fluoroscopy of Superior Vena Cava, Guidance (ICD-10-PCS; 2020-06-06)
DX: E11.69 Type 2 diabetes mellitus with other specified complication (principal); L97.518 Non-pressure chronic ulcer of other part of right foot with other specified severity; M86.8X7 Other osteomyelitis, ankle and foot; I42.9 Cardiomyopathy, unspecified; E11.621 Type 2 diabetes mellitus with foot ulcer; E11.610 Type 2 diabetes mellitus with diabetic neuropathic arthropathy; J44.9 Chronic obstructive pulmonary disease, unspecified; I25.10 Atherosclerotic heart disease of native coronary artery without angina pectoris; E78.5 Hyperlipidemia, unspecified; I48.91 Unspecified atrial fibrillation; K21.9 Gastro-esophageal reflux disease without esophagitis; N40.0 Benign prostatic hyperplasia without lower urinary tract symptoms; M06.9 Rheumatoid arthritis, unspecified; D64.9 Anemia, unspecified; R91.8 Other nonspecific abnormal finding of lung field; Z99.81 Dependence on supplemental oxygen; Z79.01 Long term (current) use of anticoagulants
CPT/HCPCS: 36415; 36569; 77001-TC-FY; 80053; 82962; 85025; 85610; 87070; 87075; 87077; 87186; 87205; 94640; 94760; C1751; C9803; G0480; U0003

== ENCOUNTER 2021-02-01 10:34 | Observation (INO) | payer OTHER, BC ==
[2021-02-01 10:59] VITALS: BMI 29.7
[2021-02-01 14:20] LABS: BASO % 1.3 % (0-2.0); EOS % 3.1 % (0-4.5); HEMATOCRIT 20.9 % (35.4-49); LYMPH % 23.9 % (8-40); MCH 25.4 pg (25.7-33.7); MCHC 31.6 g/dl (32.0-35.9); MEAN CELL VOLUME 80.4 fl (80-96); MEAN PLT VOLUME 7.1 fl (7.5-11.1); MONO % 9.8 % (3.8-10.2); NEUT % 61.9 % (42.8-82.8); PLATELET COUNT 277 10^3/uL (134-434)
[2021-02-01 14:25] LABS: HEMOGLOBIN 6.6 GM/dL (11.7-16.9)
[2021-02-01 14:32] LABS: INR 3.74 (0.83-1.09); PROTHROMBIN TIME (PATIENT) 46.6 SEC (9.7-13.0)
[2021-02-01 14:34] LABS: ACTIVATED PTT 48.9 SECONDS (25.2-36.5)
[2021-02-01 14:43] LABS: CALCIUM 8.5 mg/dL (8.5-10.1)
[2021-02-01 14:44] LABS: ALBUMIN 3.4 g/dl (3.4-5.0); BLOOD UREA NITROGEN 30.4 mg/dL (7-18)
[2021-02-01 14:47] LABS: CREATININE 1.7 mg/dL (0.55-1.3)
[2021-02-01 14:49] LABS: BILIRUBIN,TOTAL 0.3 mg/dL (0.2-1); TOT PROT 8.3 g/dl (6.4-8.2)
[2021-02-02] MEDS ORDERED: DEXTROSE 5%-0.45% SALINE 1,000 ML IV SCH (09:00)
[2021-02-02] MEDS ORDERED: amLODIPine BESYLATE 5 MG TABLET (FP) PO SCH (10:00)
[2021-02-02] MEDS ORDERED: METOPROLOL TARTRATE 50 MG TABLET (FP) PO SCH (10:00)
[2021-02-02] MEDS ORDERED: FERROUS SO4 325 MG TABLET (FP) PO SCH (10:00)
[2021-02-02 10:40] LABS: BASO % 1.2 % (0-2.0); EOS % 3.5 % (0-4.5); HEMATOCRIT 23.2 % (35.4-49); HEMOGLOBIN 7.6 GM/dL (11.7-16.9); LYMPH % 24.5 % (8-40); MCH 26.5 pg (25.7-33.7); MCHC 32.8 g/dl (32.0-35.9); MEAN CELL VOLUME 80.6 fl (80-96); MEAN PLT VOLUME 7.4 fl (7.5-11.1); MONO % 10.2 % (3.8-10.2); NEUT % 60.6 % (42.8-82.8); PLATELET COUNT 273 10^3/uL (134-434); RBC 2.88 M/mm3 (4.00-5.60); RDW 18.6 % (11.9-15.9); WHITE BLOOD COUNT 6.1 K/mm3 (4.0-10.0)
[2021-02-02 10:47] LABS: INR 3.41 (0.83-1.09); PROTHROMBIN TIME (PATIENT) 42.5 SEC (9.7-13.0)
[2021-02-02 11:03] LABS: ALBUMIN 3.2 g/dl (3.4-5.0); CALCIUM 8.7 mg/dL (8.5-10.1)
[2021-02-02 11:06] LABS: CREATININE 1.5 mg/dL (0.55-1.3)
[2021-02-02 11:08] LABS: BILIRUBIN,TOTAL 0.6 mg/dL (0.2-1); TOT PROT 8.1 g/dl (6.4-8.2)
[2021-02-02] MEDS: INSULIN SLIDING SCALE (NOVOLOG) 1 VIAL SQ SCH ×2 (11:59→16:43)
[2021-02-02 14:59] VITALS: TEMP 98.3
[2021-02-02] MEDS ORDERED: hydrALAZINE HCL 50 MG TABLET (FP) PO SCH (18:00)
[2021-02-02 18:03] VITALS: BP 180/84; PULSE 73
[2021-02-02] MEDS ORDERED: ATORVASTATIN CA 10 MG TABLET (FP) PO SCH (22:00)
[2021-02-03] MEDS ORDERED: PANTOPRAZOLE 40 MG TABLET PO SCH (10:00)
== END 2021-02-02 19:45 | disposition left against medical advice (07) ==
LOC: JER 10:34 → JERBED 14:53 → J4S 02-02 00:17
PROVIDERS: ADMIT Internal Medicine; ATTEND Internal Medicine
PROC: 3E033GC Introduction of Other Therapeutic Substance into Peripheral Vein, Percutaneous Approach (ICD-10-PCS; principal; 2021-02-01)
DX: E11.621 Type 2 diabetes mellitus with foot ulcer (principal); N17.9 Acute kidney failure, unspecified; D64.9 Anemia, unspecified; I48.91 Unspecified atrial fibrillation; N40.0 Benign prostatic hyperplasia without lower urinary tract symptoms; J44.9 Chronic obstructive pulmonary disease, unspecified; I42.9 Cardiomyopathy, unspecified; L03.119 Cellulitis of unspecified part of limb; M14.671 Charcot's joint, right ankle and foot; L97.412 Non-pressure chronic ulcer of right heel and midfoot with fat layer exposed; L03.115 Cellulitis of right lower limb; R06.00 Dyspnea, unspecified; R79.1 Abnormal coagulation profile; Z88.8 Allergy status to other drugs, medicaments and biological substances
CPT/HCPCS: 36415; 36430; 80053; 80061; 82272; 82962; 83036; 84443; 85025; 85610; 85730; 86850; 86900; 86901; 86922; 93306-TC; 96365; 99285-25; C9803; G0378; P9058; U0003; U0005

== ENCOUNTER 2021-02-13 04:31 | Day surgery (SDC) | payer OTHER, BC ==
[2021-02-05 12:19] VITALS: BMI 29.4
[2021-02-13] MEDS ORDERED: MIDAZOLAM HCL 2 MG/2 ML SINGLE DOSE VIAL ONE ×2 (11:39→12:04)
[2021-02-13] MEDS ORDERED: PROPOFOL 20 ML ONE (12:04)
[2021-02-13] MEDS ORDERED: LIDOCAINE HCL 1%, 10 MG/ML (20ML VIAL) ONE (12:29)
[2021-02-13] MEDS ORDERED: LIDOCAINE HCL 1%, 10 MG/ML (20ML VIAL) PNB ONE (12:31)
[2021-02-13] MEDS ORDERED: ceFAZolin SODIUM 1 GM VIAL IVPB ONE (12:39)
[2021-02-13] MEDS ORDERED: BENZOIN/ALOE VERA/STORAX/TOLU 58 ML BOTTLE ONE (13:06)
[2021-02-13] MEDS ORDERED: ONDANSETRON 4 MG/2 ML VIAL IVPUSH PRN (13:34)
[2021-02-13] MEDS ORDERED: oxyCODONE HCL 5 MG TABLET PO PRN (13:34)
[2021-02-13] MEDS ORDERED: LACTATED RINGERS SOLUTION 1,000 ML IV SCH (13:45)
[2021-02-13 15:49] VITALS: BP 145/80; PULSE 80; TEMP 97.7
== END 2021-02-13 15:00 | disposition home or self-care (01) ==
LOC: JASU-SURG 04:31
PROVIDERS: ATTEND Student in an Organized Health Care Education/Training Program
PROC: 0JBQ0ZZ Excision of Right Foot Subcutaneous Tissue and Fascia, Open Approach (ICD-10-PCS; principal; 2021-02-13 12:00)
DX: E11.621 Type 2 diabetes mellitus with foot ulcer (principal); L97.418 Non-pressure chronic ulcer of right heel and midfoot with other specified severity
CPT/HCPCS: 82962

== ENCOUNTER 2021-08-07 10:14 | Inpatient (IN) | payer OTHER, BC ==
[2021-08-07 10:58] VITALS: BMI 28.2
[2021-08-07] MEDS ORDERED: ACETAMINOPHEN 1000 MG/100 ML BAG IVPB ONE (11:09)
[2021-08-07] MEDS ORDERED: ACETAMINOPHEN INJECTION 100 ML IVPB ONE (11:40)
[2021-08-07 11:56] LABS: PROTHROMBIN TIME (PATIENT) 61.1 SEC (9.7-13.0)
[2021-08-07 11:57] LABS: BASO % 1.2 % (0-2.0); EOS % 0.3 % (0-4.5); HEMATOCRIT 15.7 % (35.4-49); LYMPH % 4.1 % (8-40); MCH 22.2 pg (25.7-33.7); MCHC 29.8 g/dl (32.0-35.9); MEAN CELL VOLUME 74.7 fl (80-96); MEAN PLT VOLUME 7.1 fl (7.5-11.1); MONO % 6.7 % (3.8-10.2); NEUT % 87.7 % (42.8-82.8); PLATELET COUNT 470 10^3/uL (134-434); RDW 21.7 % (11.9-15.9); WHITE BLOOD COUNT 11.4 K/mm3 (4.0-10.0)
[2021-08-07 11:58] LABS: ACTIVATED PTT 53.5 SECONDS (25.2-36.5)
[2021-08-07 12:02] LABS: HEMOGLOBIN 4.7 GM/dL (11.7-16.9)
[2021-08-07 12:04] LABS: INR 5.23 (0.83-1.09)
[2021-08-07] MEDS ORDERED: PHYTONADIONE 5 MG TABLET PO ONE ×2 (12:10→12:30)
[2021-08-07 12:13] LABS: ALBUMIN 2.7 g/dl (3.4-5.0); BLOOD UREA NITROGEN 57.7 mg/dL (7-18)
[2021-08-07] MEDS ORDERED: PANTOPRAZOLE SODIUM 40 MG VIAL IVPUSH ONE (12:13)
[2021-08-07] MEDS ORDERED: VANCOMYCIN 1 GM PREMIX - 1 GM/200 ML BAG IVPB ONE (12:13)
[2021-08-07] MEDS ORDERED: PIPERACILLIN/TAZOB 4.5 GM 4.5 GM in DEXTROSE 5%-WATER 100 ML IVPB ONE (12:13)
[2021-08-07 12:16] LABS: CREATININE 2.3 mg/dL (0.55-1.3)
[2021-08-07 12:17] LABS: BILIRUBIN,TOTAL 0.3 mg/dL (0.2-1); TOT PROT 7.9 g/dl (6.4-8.2)
[2021-08-07 12:22] LABS: ANISOCYTOSIS 2+; MACROCYTOSIS 0; TEAR DROP CELLS 1+
[2021-08-07] MEDS ORDERED: PANTOPRAZOLE SODIUM 80 MG/200 ML BAG IVPB ONE (12:23)
[2021-08-07] MEDS ORDERED: VANCOMYCIN 1 GRAM (PRE-DOCKED) 1,000 MG/250 ML BAG IVPB ONE (12:23)
[2021-08-07] MEDS ORDERED: PIPERACILLIN/TAZOB 4.5 GM 4.5 GM/100 ML BAG IVPB ONE (12:23)
[2021-08-07] MEDS ORDERED: PHYTONADIONE 5 MG TABLET ONE (12:45)
[2021-08-07 14:33] LABS: N-TERMINAL BNP 4767.7 pg/ml (5-450)
[2021-08-07 15:20] LABS: URINE APPEARANCE CLEAR; URINE BILIRUBIN NEGATIVE (NEGATIVE); URINE COLOR YELLOW; URINE GLUCOSE (UA) NEGATIVE (NEGATIVE); URINE KETONE NEGATIVE (NEGATIVE)
[2021-08-07 15:21] LABS: EPI CELLS 2 /uL (0-25.1); HYALINE CASTS 1 /uL (0-3.1); URINE BACTERIA 1 /uL (0-1359); URINE LEUK ESTERASE NEGATIVE (NEGATIVE); URINE NITRITE NEGATIVE (NEGATIVE); URINE PROTEIN 1+ (NEGATIVE); URINE RBC 7 /uL (0-23.9); URINE UROBILINOGEN 0.2 mg/dL (0.2-1.0); URINE WBC 2 /uL (0-25.8)
[2021-08-07 16:16] LABS: IRON SERUM 10 ug/dL (50-175); TOTAL IRON BINDING CAPACITY 169 ug/dL (250-450)
[2021-08-07] MEDS ORDERED: ALBUTEROL SO4 2.5/IPRATROPIUM 0.5 INH SOL 3 ML VIAL.NEB. NEB ONE ×2 (17:48→17:54)
[2021-08-07] MEDS: ALBUTEROL SO4 2.5/IPRATROPIUM 0.5 INH SOL 3 ML VIAL.NEB. NEB SCH ×3 (17:56→18:17)
[2021-08-07] MEDS ORDERED: FUROSEMIDE 40 MG/4 ML INJECTABLE VIAL IVPUSH ONE (19:10)
[2021-08-07] MEDS ORDERED: DEXTROSE 5%-0.45% SALINE 1,000 ML IV SCH (21:30)
[2021-08-07] MEDS ORDERED: FUROSEMIDE 40 MG/4 ML INJECTABLE VIAL ONE (22:04)
[2021-08-07 22:37] LABS: HEMATOCRIT 18.4 % (35.4-49); MCH 24.9 pg (25.7-33.7); MCHC 32.3 g/dl (32.0-35.9); MEAN PLT VOLUME 7.2 fl (7.5-11.1); PLATELET COUNT 380 10^3/uL (134-434); RBC 2.39 M/mm3 (4.00-5.60); RDW 21.4 % (11.9-15.9); WHITE BLOOD COUNT 11.5 K/mm3 (4.0-10.0)
[2021-08-07 22:46] LABS: HEMOGLOBIN 5.9 GM/dL (11.7-16.9)
[2021-08-07 22:51] LABS: PROTHROMBIN TIME (PATIENT) 56.7 SEC (9.7-13.0)
[2021-08-07 23:07] LABS: INR 4.85 (0.83-1.09)
[2021-08-08 06:42] LABS: BASO % 1.2 % (0-2.0); EOS % 1.6 % (0-4.5); LYMPH % 7.8 % (8-40); MCH 25.8 pg (25.7-33.7); MCHC 33.7 g/dl (32.0-35.9); MEAN CELL VOLUME 76.6 fl (80-96); MEAN PLT VOLUME 6.9 fl (7.5-11.1); MONO % 7.7 % (3.8-10.2); NEUT % 81.7 % (42.8-82.8); PLATELET COUNT 417 10^3/uL (134-434); RBC 2.62 M/mm3 (4.00-5.60); RDW 20.5 % (11.9-15.9); WHITE BLOOD COUNT 10.8 K/mm3 (4.0-10.0)
[2021-08-08 06:59] LABS: CALCIUM 8.9 mg/dL (8.5-10.1)
[2021-08-08 07:00] LABS: ALBUMIN 2.7 g/dl (3.4-5.0); BLOOD UREA NITROGEN 48.4 mg/dL (7-18)
[2021-08-08 07:05] LABS: BILIRUBIN,TOTAL 0.9 mg/dL (0.2-1); TOT PROT 7.9 g/dl (6.4-8.2)
[2021-08-08 07:09] LABS: HEMOGLOBIN 6.7 GM/dL (11.7-16.9)
[2021-08-08 07:20] LABS: PROTHROMBIN TIME (PATIENT) 66.2 SEC (9.7-13.0)
[2021-08-08 07:21] LABS: INR 5.66 (0.83-1.09)
[2021-08-08] MEDS ORDERED: PANTOPRAZOLE SODIUM 40 MG/100 ML BAG IVPB ONE (09:22)
[2021-08-08] MEDS ORDERED: PANTOPRAZOLE SODIUM 40 MG in SODIUM CHLORIDE 100 ML IVPUSH SCH (10:00)
[2021-08-08] MEDS ORDERED: PANTOPRAZOLE SODIUM 40 MG in SODIUM CHLORIDE 100 ML IVPB SCH (10:00)
[2021-08-08] MEDS ORDERED: PHYTONADIONE 10 MG/1 ML AMP IM ONE (10:38)
[2021-08-08] MEDS ORDERED: PHYTONADIONE 10 MG/1 ML AMP ONE (11:01)
[2021-08-08 15:08] LABS: SARS-CoV-2 NAA Not Detected (Not Detected)
[2021-08-08 21:44] LABS: HEMATOCRIT 21.5 % (35.4-49); HEMOGLOBIN 7.2 GM/dL (11.7-16.9); MCH 25.4 pg (25.7-33.7); MCHC 33.4 g/dl (32.0-35.9); MEAN PLT VOLUME 6.7 fl (7.5-11.1); PLATELET COUNT 425 10^3/uL (134-434); RBC 2.83 M/mm3 (4.00-5.60)
[2021-08-08 21:50] LABS: INR 3.95 (0.83-1.09); PROTHROMBIN TIME (PATIENT) 46.1 SEC (9.7-13.0)
[2021-08-08 21:53] LABS: ACTIVATED PTT 46.4 SECONDS (25.2-36.5)
[2021-08-09 07:30] LABS: INR 2.64 (0.83-1.09); PROTHROMBIN TIME (PATIENT) 30.7 SEC (9.7-13.0)
[2021-08-09 07:41] LABS: CALCIUM 8.9 mg/dL (8.5-10.1); EOS % 4.8 % (0-4.5); HEMATOCRIT 24.6 % (35.4-49); HEMOGLOBIN 8.1 GM/dL (11.7-16.9); LYMPH % 10.5 % (8-40); MCH 25.5 pg (25.7-33.7); MCHC 32.9 g/dl (32.0-35.9); MEAN CELL VOLUME 77.7 fl (80-96); MEAN PLT VOLUME 7.2 fl (7.5-11.1); NEUT % 74.7 % (42.8-82.8); PLATELET COUNT 440 10^3/uL (134-434); RBC 3.16 M/mm3 (4.00-5.60); RDW 19.5 % (11.9-15.9); WHITE BLOOD COUNT 9.1 K/mm3 (4.0-10.0)
[2021-08-09 07:42] LABS: ALBUMIN 2.4 g/dl (3.4-5.0); BLOOD UREA NITROGEN 32.6 mg/dL (7-18)
[2021-08-09 07:45] LABS: CREATININE 1.4 mg/dL (0.55-1.3)
[2021-08-09 07:47] LABS: BILIRUBIN,TOTAL 1.6 mg/dL (0.2-1); TOT PROT 7.3 g/dl (6.4-8.2)
[2021-08-09] MEDS: PANTOPRAZOLE SODIUM 40 MG VIAL IVPUSH SCH (09:51)
[2021-08-09] MEDS: METOPROLOL TARTRATE 50 MG TABLET (FP) PO SCH ×2 (11:30→21:54)
[2021-08-09] MEDS ORDERED: BISACODYL 5 MG TABLET.DR (FP) PO ONE (12:17)
[2021-08-09] MEDS ORDERED: MAGNESIUM CITRATE 300 ML BOTTLE PO SCH (12:30)
[2021-08-09] MEDS ORDERED: POLYETHYLENE GLYCOL 3350 255 GM BTL PO ONE (13:59)
[2021-08-09] MEDS: SODIUM PHOSPHATE/NA BIPHOS 133 ML ENEMA RC SCH (14:27)
[2021-08-09] MEDS ORDERED: PHYTONADIONE 10 MG/1 ML AMP SQ ONE (19:23)
[2021-08-09 20:55] LABS: INR 2.16 (0.83-1.09)
[2021-08-09 20:58] LABS: ACTIVATED PTT 41.3 SECONDS (25.2-36.5)
[2021-08-10] MEDS: SODIUM PHOSPHATE/NA BIPHOS 133 ML ENEMA RC SCH ×3 (03:50→05:45)
[2021-08-10 05:24] LABS: INR 1.82 (0.83-1.09)
[2021-08-10 05:26] LABS: ALBUMIN 2.5 g/dl (3.4-5.0); BLOOD UREA NITROGEN 28.2 mg/dL (7-18); CALCIUM 8.7 mg/dL (8.5-10.1)
[2021-08-10 05:27] LABS: ACTIVATED PTT 38.9 SECONDS (25.2-36.5)
[2021-08-10 05:31] LABS: CREATININE 1.4 mg/dL (0.55-1.3)
[2021-08-10 05:32] LABS: BILIRUBIN,TOTAL 0.7 mg/dL (0.2-1); HEMATOCRIT 24.5 % (35.4-49); HEMOGLOBIN 7.9 GM/dL (11.7-16.9); MCH 25.3 pg (25.7-33.7); MCHC 32.5 g/dl (32.0-35.9); MEAN PLT VOLUME 7.1 fl (7.5-11.1); PLATELET COUNT 447 10^3/uL (134-434); RBC 3.13 M/mm3 (4.00-5.60); RDW 19.8 % (11.9-15.9); TOT PROT 7.4 g/dl (6.4-8.2); WHITE BLOOD COUNT 8.2 K/mm3 (4.0-10.0)
[2021-08-10] MEDS ORDERED: EPINEPHrine 1:10,000 (P-F SYR) 1 MG/10 ML DISP.SYRIN ONE (07:49)
[2021-08-10] MEDS: METOPROLOL TARTRATE 50 MG TABLET (FP) PO SCH ×2 (09:14→22:18)
[2021-08-10] MEDS: PANTOPRAZOLE SODIUM 40 MG VIAL IVPUSH SCH (09:14)
[2021-08-11 06:54] LABS: BASO % 1.7 % (0-2.0); EOS % 4.8 % (0-4.5); HEMATOCRIT 25.1 % (35.4-49); HEMOGLOBIN 8.4 GM/dL (11.7-16.9); LYMPH % 20.4 % (8-40); MCH 26.4 pg (25.7-33.7); MCHC 33.4 g/dl (32.0-35.9); MEAN PLT VOLUME 6.7 fl (7.5-11.1); MONO % 10.6 % (3.8-10.2); NEUT % 62.5 % (42.8-82.8); PLATELET COUNT 452 10^3/uL (134-434); RBC 3.18 M/mm3 (4.00-5.60); RDW 20.3 % (11.9-15.9)
[2021-08-11 07:12] LABS: ALBUMIN 2.2 g/dl (3.4-5.0); CALCIUM 8.7 mg/dL (8.5-10.1)
[2021-08-11 07:13] LABS: BLOOD UREA NITROGEN 24.2 mg/dL (7-18)
[2021-08-11 07:15] LABS: CREATININE 1.3 mg/dL (0.55-1.3)
[2021-08-11 07:18] LABS: BILIRUBIN,TOTAL 0.6 mg/dL (0.2-1); TOT PROT 7.4 g/dl (6.4-8.2)
[2021-08-11] MEDS: PANTOPRAZOLE SODIUM 40 MG VIAL IVPUSH SCH (09:18)
[2021-08-11] MEDS: METOPROLOL TARTRATE 50 MG TABLET (FP) PO SCH ×2 (09:18→21:46)
[2021-08-11] MEDS ORDERED: LOSARTAN POTASSIUM 50 MG TABLET PO ONE (10:42)
[2021-08-11] MEDS ORDERED: APIXABAN 5 MG TABLET PO SCH (10:45)
[2021-08-11] MEDS: amLODIPine BESYLATE 5 MG TABLET (FP) PO SCH (10:58)
[2021-08-11] MEDS ORDERED: IRON SUCROSE INJECTION 200 MG in SODIUM CHLORIDE 90 ML IVPB ONE (14:34)
[2021-08-11 14:42] LABS: BASO % 1.7 % (0-2.0); EOS % 3.1 % (0-4.5); HEMATOCRIT 29.4 % (35.4-49); HEMOGLOBIN 9.5 GM/dL (11.7-16.9); MCH 25.8 pg (25.7-33.7); MCHC 32.4 g/dl (32.0-35.9); MEAN CELL VOLUME 79.9 fl (80-96); MEAN PLT VOLUME 6.9 fl (7.5-11.1); MONO % 8.7 % (3.8-10.2); NEUT % 67.5 % (42.8-82.8); PLATELET COUNT 492 10^3/uL (134-434); RBC 3.68 M/mm3 (4.00-5.60); RDW 20.1 % (11.9-15.9); WHITE BLOOD COUNT 9.1 K/mm3 (4.0-10.0)
[2021-08-11] MEDS ORDERED: WARFARIN NA 2 MG TABLET PO SCH (18:00)
[2021-08-12 07:33] LABS: INR 1.67 (0.83-1.09); PROTHROMBIN TIME (PATIENT) 19.3 SEC (9.7-13.0)
[2021-08-12 07:42] LABS: BASO % 1.5 % (0-2.0); EOS % 3.2 % (0-4.5); HEMOGLOBIN 8.5 GM/dL (11.7-16.9); LYMPH % 19.5 % (8-40); MCH 25.8 pg (25.7-33.7); MCHC 32.6 g/dl (32.0-35.9); MEAN CELL VOLUME 79.2 fl (80-96); MEAN PLT VOLUME 7.2 fl (7.5-11.1); MONO % 10.5 % (3.8-10.2); NEUT % 65.3 % (42.8-82.8); PLATELET COUNT 474 10^3/uL (134-434); RBC 3.28 M/mm3 (4.00-5.60); RDW 20.3 % (11.9-15.9); WHITE BLOOD COUNT 7.5 K/mm3 (4.0-10.0)
[2021-08-12 07:45] LABS: CALCIUM 8.5 mg/dL (8.5-10.1)
[2021-08-12 07:46] LABS: ALBUMIN 2.3 g/dl (3.4-5.0); BLOOD UREA NITROGEN 21.1 mg/dL (7-18)
[2021-08-12 07:49] LABS: CREATININE 1.3 mg/dL (0.55-1.3)
[2021-08-12 07:50] LABS: BILIRUBIN,TOTAL 0.5 mg/dL (0.2-1); TOT PROT 7.4 g/dl (6.4-8.2)
[2021-08-12] MEDS: amLODIPine BESYLATE 5 MG TABLET (FP) PO SCH (09:29)
[2021-08-12] MEDS: METOPROLOL TARTRATE 50 MG TABLET (FP) PO SCH ×2 (09:29→21:11)
[2021-08-12] MEDS: PANTOPRAZOLE SODIUM 40 MG VIAL IVPUSH SCH (09:29)
[2021-08-12] MEDS ORDERED: LOSARTAN POTASSIUM 50 MG TABLET PO ONE (12:22)
[2021-08-12] MEDS: APIXABAN 5 MG TABLET PO SCH ×2 (13:07→21:11)
[2021-08-12] MEDS: hydrALAZINE HCL 50 MG TABLET (FP) PO SCH ×2 (13:07→21:11)
[2021-08-13 08:49] LABS: BASO % 1.6 % (0-2.0); EOS % 3.3 % (0-4.5); HEMATOCRIT 27.5 % (35.4-49); HEMOGLOBIN 8.7 GM/dL (11.7-16.9); LYMPH % 20.7 % (8-40); MCH 25.5 pg (25.7-33.7); MCHC 31.5 g/dl (32.0-35.9); MEAN CELL VOLUME 80.7 fl (80-96); MEAN PLT VOLUME 7.2 fl (7.5-11.1); MONO % 8.4 % (3.8-10.2); PLATELET COUNT 448 10^3/uL (134-434); RBC 3.41 M/mm3 (4.00-5.60); RDW 20.7 % (11.9-15.9); WHITE BLOOD COUNT 8.2 K/mm3 (4.0-10.0)
[2021-08-13 09:10] VITALS: BP 143/54; PULSE 83; TEMP 97.9
[2021-08-13] MEDS: amLODIPine BESYLATE 5 MG TABLET (FP) PO SCH (09:11)
[2021-08-13] MEDS: hydrALAZINE HCL 50 MG TABLET (FP) PO SCH (09:11)
[2021-08-13] MEDS: APIXABAN 5 MG TABLET PO SCH (09:11)
[2021-08-13] MEDS: PANTOPRAZOLE SODIUM 40 MG VIAL IVPUSH SCH (09:11)
[2021-08-13] MEDS: METOPROLOL TARTRATE 50 MG TABLET (FP) PO SCH (09:11)
[2021-08-13 09:16] LABS: ANISOCYTOSIS 2+; MACROCYTOSIS 0
[2021-08-13 12:10] LABS: ALBUMIN 2.4 g/dl (3.4-5.0); BILIRUBIN,TOTAL 0.4 mg/dL (0.2-1); BLOOD UREA NITROGEN 23.4 mg/dL (7-18); CALCIUM 8.2 mg/dL (8.5-10.1); CREATININE 1.4 mg/dL (0.55-1.3); TOT PROT 7.8 g/dl (6.4-8.2)
[2021-08-13 20:07] LABS: GLIADIN ANTIBODY IGA 9 units (0-19); GLIADIN ANTIBODY IGG 4 units (0-19); TRANSGLUTAMINASE IGG 3 U/mL (0-5)
== END 2021-08-13 14:09 | disposition home or self-care (01) | DRG 813 ==
LOC: JER 10:14 → JERBED 14:23 → J4W 20:50 → JERBED 20:59 → J4W 08-08 15:17
PROVIDERS: ADMIT Internal Medicine; ATTEND Internal Medicine
PROC: 30233L1 Transfusion of Nonautologous Fresh Plasma into Peripheral Vein, Percutaneous Approach (ICD-10-PCS; 2021-08-07)
PROC: 30233N1 Transfusion of Nonautologous Red Blood Cells into Peripheral Vein, Percutaneous Approach (ICD-10-PCS; 2021-08-07)
PROC: 30233K1 Transfusion of Nonautologous Frozen Plasma into Peripheral Vein, Percutaneous Approach (ICD-10-PCS; 2021-08-07)
PROC: 0W3P8ZZ Control Bleeding in Gastrointestinal Tract, Via Natural or Artificial Opening Endoscopic (ICD-10-PCS; 2021-08-10)
PROC: 0DJ08ZZ Inspection of Upper Intestinal Tract, Via Natural or Artificial Opening Endoscopic (ICD-10-PCS; principal; 2021-08-10 07:30)
DX: D68.32 Hemorrhagic disorder due to extrinsic circulating anticoagulants (principal); K63.3 Ulcer of intestine; N17.9 Acute kidney failure, unspecified; L97.419 Non-pressure chronic ulcer of right heel and midfoot with unspecified severity; I42.9 Cardiomyopathy, unspecified; K92.2 Gastrointestinal hemorrhage, unspecified; I48.91 Unspecified atrial fibrillation; Z79.01 Long term (current) use of anticoagulants; E78.5 Hyperlipidemia, unspecified; D64.9 Anemia, unspecified; J44.9 Chronic obstructive pulmonary disease, unspecified; Z99.81 Dependence on supplemental oxygen; M06.9 Rheumatoid arthritis, unspecified; E66.9 Obesity, unspecified; N40.0 Benign prostatic hyperplasia without lower urinary tract symptoms; Z68.28 Body mass index [BMI] 28.0-28.9, adult; E11.22 Type 2 diabetes mellitus with diabetic chronic kidney disease; I12.9 Hypertensive chronic kidney disease with stage 1 through stage 4 chronic kidney disease, or unspecified chronic kidney disease; N18.9 Chronic kidney disease, unspecified; M14.671 Charcot's joint, right ankle and foot; E11.621 Type 2 diabetes mellitus with foot ulcer; Z79.84 Long term (current) use of oral hypoglycemic drugs
CPT/HCPCS: 36415; 36430; 71045-TC-FY; 73630-TC-RT-FY; 74176-TC; 80048; 80053; 81003; 82272; 82784; 82962; 83516; 83540; 83550; 83605; 83880; 84484; 85025; 85027; 85045; 85384; 85610; 85730; 86850; 86900; 86901; 86922; 87040; 87086; 93005; 93010; 99291; A6022; C9803-CS; G0463-25; J1756; P9017; P9058; U0003; U0005

== ENCOUNTER 2021-09-04 11:42 | Inpatient (IN) | payer OTHER, BC ==
[2021-09-04] MEDS ORDERED: PIPERACILLIN/TAZOB 4.5 GM 4.5 GM in DEXTROSE 5%-WATER 100 ML IVPB ONE (12:40)
[2021-09-04] MEDS ORDERED: VANCOMYCIN 1 GM in D5W (PRE-DOCKED) 1,000 MG/250 ML IVPB ONE (12:40)
[2021-09-04] MEDS ORDERED: VANCOMYCIN 1 GRAM (PRE-DOCKED) 1,000 MG/250 ML BAG IVPB ONE (13:41)
[2021-09-04 14:06] LABS: BASO % 1.3 % (0-2.0); EOS % 0.4 % (0-4.5); HEMATOCRIT 22.8 % (35.4-49); HEMOGLOBIN 7.3 GM/dL (11.7-16.9); LYMPH % 10.3 % (8-40); MCHC 32.2 g/dl (32.0-35.9); MEAN CELL VOLUME 77.9 fl (80-96); MEAN PLT VOLUME 7.1 fl (7.5-11.1); PLATELET COUNT 474 10^3/uL (134-434); RBC 2.93 M/mm3 (4.00-5.60); RDW 22.3 % (11.9-15.9); WHITE BLOOD COUNT 10.7 K/mm3 (4.0-10.0)
[2021-09-04] MEDS ORDERED: PIPERACILLIN/TAZOB 4.5 GM 4.5 GM/100 ML BAG IVPB ONE (14:18)
[2021-09-04] MEDS ORDERED: ACETAMINOPHEN 1000 MG/100 ML BAG IVPB ONE (14:22)
[2021-09-04 14:25] LABS: CALCIUM 8.3 mg/dL (8.5-10.1)
[2021-09-04 14:26] LABS: ALBUMIN 2.2 g/dl (3.4-5.0); BLOOD UREA NITROGEN 56.1 mg/dL (7-18)
[2021-09-04 14:30] LABS: TOT PROT 8.2 g/dl (6.4-8.2)
[2021-09-04 14:31] LABS: BILIRUBIN,TOTAL 0.4 mg/dL (0.2-1); CREATININE 1.9 mg/dL (0.55-1.3)
[2021-09-04 14:40] LABS: ANISOCYTOSIS 1+; MACROCYTOSIS 1+
[2021-09-04] MEDS ORDERED: LACTATED RINGERS SOLUTION 1000 ML INFUS.BAG IV ONE (14:42)
[2021-09-04] MEDS ORDERED: ACETAMINOPHEN INJECTION 100 ML IVPB ONE (15:17)
[2021-09-04 15:23] LABS: INR 3.61 (0.83-1.09); PROTHROMBIN TIME (PATIENT) 42.1 SEC (9.7-13.0)
[2021-09-04 15:26] LABS: ACTIVATED PTT 52.3 SECONDS (25.2-36.5)
[2021-09-04 16:36] VITALS: BMI 26.3
[2021-09-04] MEDS ORDERED: APIXABAN 5 MG TABLET PO SCH (22:00)
[2021-09-04] MEDS: PANTOPRAZOLE SODIUM 40 MG VIAL IVPUSH SCH (22:54)
[2021-09-04] MEDS: INSULIN SLIDING SCALE (NOVOLOG) 1 VIAL SQ SCH (22:54)
[2021-09-04] MEDS: METOPROLOL TARTRATE 50 MG TABLET (FP) PO SCH (22:54)
[2021-09-04] MEDS: ATORVASTATIN CA 10 MG TABLET (FP) PO SCH (22:54)
[2021-09-04] MEDS ORDERED: DEXTROSE 5%-WATER - 50 ML IVPB ONE (23:48)
[2021-09-04] MEDS ORDERED: PIPERACILLIN/TAZOBACTAM 3.375 GM VIAL IVPB ONE (23:48)
[2021-09-04] MEDS: PIPERACILLIN/TAZOB 3.375 GM 3.375 GM in DEXTROSE 5%-WATER - 50 ML IVPB SCH (23:51)
[2021-09-05] MEDS ORDERED: ACETAMINOPHEN 325 MG TABLET (FP) PO ONE ×2 (02:15→16:00)
[2021-09-05] MEDS: INSULIN SLIDING SCALE (NOVOLOG) 1 VIAL SQ SCH ×4 (07:07→21:04)
[2021-09-05 08:40] LABS: BASO % 2.6 % (0-2.0); EOS % 2.4 % (0-4.5); HEMATOCRIT 26.5 % (35.4-49); HEMOGLOBIN 8.3 GM/dL (11.7-16.9); LYMPH % 16.8 % (8-40); MCH 24.8 pg (25.7-33.7); MCHC 31.4 g/dl (32.0-35.9); MEAN CELL VOLUME 79.1 fl (80-96); MEAN PLT VOLUME 6.9 fl (7.5-11.1); MONO % 7.9 % (3.8-10.2); NEUT % 70.3 % (42.8-82.8); PLATELET COUNT 466 10^3/uL (134-434); RBC 3.35 M/mm3 (4.00-5.60); RDW 21.3 % (11.9-15.9)
[2021-09-05] MEDS: PIPERACILLIN/TAZOB 3.375 GM 3.375 GM in DEXTROSE 5%-WATER - 50 ML IVPB SCH ×2 (08:45→16:29)
[2021-09-05 08:49] LABS: INR 2.45 (0.83-1.09); PROTHROMBIN TIME (PATIENT) 28.4 SEC (9.7-13.0)
[2021-09-05 08:57] LABS: ALBUMIN 2.1 g/dl (3.4-5.0); BLOOD UREA NITROGEN 53.8 mg/dL (7-18); CALCIUM 8.2 mg/dL (8.5-10.1)
[2021-09-05 09:00] LABS: CREATININE 1.8 mg/dL (0.55-1.3)
[2021-09-05] MEDS ORDERED: PIPERACILLIN/TAZOBACTAM 3.375 GM VIAL IVPB ONE ×3 (09:00→23:20)
[2021-09-05] MEDS ORDERED: DEXTROSE 5%-WATER - 50 ML IVPB ONE ×3 (09:00→23:20)
[2021-09-05 09:02] LABS: BILIRUBIN,TOTAL 0.7 mg/dL (0.2-1); TOT PROT 8.1 g/dl (6.4-8.2)
[2021-09-05] MEDS: METOPROLOL TARTRATE 50 MG TABLET (FP) PO SCH ×2 (09:02→21:02)
[2021-09-05] MEDS: PANTOPRAZOLE SODIUM 40 MG VIAL IVPUSH SCH (09:02)
[2021-09-05] MEDS: amLODIPine BESYLATE 5 MG TABLET (FP) PO SCH (09:08)
[2021-09-05] MEDS ORDERED: VANCOMYCIN/WATER FOR INJ (PEG) 1,000 MG/200 ML BAG IVPB ONE (14:01)
[2021-09-05] MEDS ORDERED: INSULIN (NOVOLOG) ASPART 100 UNITS/ML 10ML VIAL ONE (16:51)
[2021-09-05] MEDS: ATORVASTATIN CA 10 MG TABLET (FP) PO SCH (21:02)
[2021-09-05] MEDS: hydrALAZINE HCL 50 MG TABLET (FP) PO SCH (22:59)
[2021-09-06] MEDS: PIPERACILLIN/TAZOB 3.375 GM 3.375 GM in DEXTROSE 5%-WATER - 50 ML IVPB SCH ×3 (00:38→15:52)
[2021-09-06] MEDS: INSULIN SLIDING SCALE (NOVOLOG) 1 VIAL SQ SCH ×4 (06:08→21:53)
[2021-09-06] MEDS ORDERED: DEXTROSE 5%-WATER - 50 ML IVPB ONE ×2 (07:47→15:31)
[2021-09-06] MEDS ORDERED: PIPERACILLIN/TAZOBACTAM 3.375 GM VIAL IVPB ONE ×2 (07:47→15:31)
[2021-09-06] MEDS ORDERED: PANTOPRAZOLE 40 MG TABLET PO SCH (10:00)
[2021-09-06] MEDS: METOPROLOL TARTRATE 50 MG TABLET (FP) PO SCH ×2 (10:06→21:53)
[2021-09-06] MEDS: FUROSEMIDE 40 MG TABLET (FP) PO SCH (10:06)
[2021-09-06] MEDS: PANTOPRAZOLE 40 MG TABLET PO SCH (10:06)
[2021-09-06] MEDS: amLODIPine BESYLATE 5 MG TABLET (FP) PO SCH (10:06)
[2021-09-06] MEDS: hydrALAZINE HCL 50 MG TABLET (FP) PO SCH ×2 (10:06→21:53)
[2021-09-06] MEDS: FINASTERIDE 5 MG TABLET (FP) PO SCH (10:06)
[2021-09-06 10:42] LABS: HEMATOCRIT 26.3 % (35.4-49); HEMOGLOBIN 8.6 GM/dL (11.7-16.9); MCH 25.7 pg (25.7-33.7); MCHC 32.7 g/dl (32.0-35.9); MEAN CELL VOLUME 78.6 fl (80-96); MEAN PLT VOLUME 6.8 fl (7.5-11.1); PLATELET COUNT 450 10^3/uL (134-434); RBC 3.34 M/mm3 (4.00-5.60); RDW 20.3 % (11.9-15.9); WHITE BLOOD COUNT 7.2 K/mm3 (4.0-10.0)
[2021-09-06 11:34] LABS: CALCIUM 8.4 mg/dL (8.5-10.1)
[2021-09-06 11:35] LABS: BLOOD UREA NITROGEN 51.7 mg/dL (7-18)
[2021-09-06 11:38] LABS: CREATININE 1.5 mg/dL (0.55-1.3)
[2021-09-06 11:40] LABS: BILIRUBIN,TOTAL 0.4 mg/dL (0.2-1)
[2021-09-06 11:41] LABS: TOT PROT 7.7 g/dl (6.4-8.2)
[2021-09-06] MEDS: ALBUTEROL SO4 HFA INHALER IH PRN ×2 (13:11→21:53)
[2021-09-06] MEDS ORDERED: INSULIN (NOVOLOG) ASPART 100 UNITS/ML 10ML VIAL ONE (21:48)
[2021-09-06] MEDS: ATORVASTATIN CA 10 MG TABLET (FP) PO SCH (21:53)
[2021-09-07] MEDS ORDERED: DEXTROSE 5%-WATER - 50 ML IVPB ONE ×3 (01:05→16:54)
[2021-09-07] MEDS ORDERED: PIPERACILLIN/TAZOBACTAM 3.375 GM VIAL IVPB ONE ×3 (01:05→16:54)
[2021-09-07] MEDS: PIPERACILLIN/TAZOB 3.375 GM 3.375 GM in DEXTROSE 5%-WATER - 50 ML IVPB SCH ×2 (01:06→08:54)
[2021-09-07] MEDS: INSULIN SLIDING SCALE (NOVOLOG) 1 VIAL SQ SCH ×3 (07:52→17:15)
[2021-09-07] MEDS: hydrALAZINE HCL 50 MG TABLET (FP) PO SCH (08:59)
[2021-09-07] MEDS: METOPROLOL TARTRATE 50 MG TABLET (FP) PO SCH (08:59)
[2021-09-07] MEDS: amLODIPine BESYLATE 5 MG TABLET (FP) PO SCH (08:59)
[2021-09-07] MEDS: FUROSEMIDE 40 MG TABLET (FP) PO SCH (08:59)
[2021-09-07] MEDS: FINASTERIDE 5 MG TABLET (FP) PO SCH (08:59)
[2021-09-07] MEDS: PANTOPRAZOLE 40 MG TABLET PO SCH (08:59)
[2021-09-07] MEDS ORDERED: VANCOMYCIN/WATER FOR INJ (PEG) 1,000 MG/200 ML BAG IVPB ONE (11:30)
[2021-09-07] MEDS ORDERED: LACTOBACILLUS ACIDOPHILUS 1 TABLET PO SCH (12:00)
[2021-09-07 14:07] VITALS: BP 131/66; PULSE 62; TEMP 96.6
[2021-09-07] MEDS ORDERED: CLINDAMYCIN HCL 150 MG CAPSULE (FP) PO SCH (22:00)
== END 2021-09-07 18:23 | disposition home or self-care (01) | DRG 638 ==
LOC: JER 11:42 → JERBED 12:35 → J6S 16:20
PROVIDERS: ADMIT Internal Medicine; ATTEND Internal Medicine
DX: E11.621 Type 2 diabetes mellitus with foot ulcer (principal); M86.8X7 Other osteomyelitis, ankle and foot; L03.115 Cellulitis of right lower limb; L02.415 Cutaneous abscess of right lower limb; I42.8 Other cardiomyopathies; D68.32 Hemorrhagic disorder due to extrinsic circulating anticoagulants; L97.519 Non-pressure chronic ulcer of other part of right foot with unspecified severity; I48.91 Unspecified atrial fibrillation; N17.9 Acute kidney failure, unspecified; Z79.01 Long term (current) use of anticoagulants; D64.9 Anemia, unspecified; I10 Essential (primary) hypertension; E78.5 Hyperlipidemia, unspecified; Z79.84 Long term (current) use of oral hypoglycemic drugs; I25.10 Atherosclerotic heart disease of native coronary artery without angina pectoris; N40.0 Benign prostatic hyperplasia without lower urinary tract symptoms; K59.00 Constipation, unspecified; N18.9 Chronic kidney disease, unspecified; E11.69 Type 2 diabetes mellitus with other specified complication; Z99.81 Dependence on supplemental oxygen; M06.9 Rheumatoid arthritis, unspecified; K21.9 Gastro-esophageal reflux disease without esophagitis; E78.00 Pure hypercholesterolemia, unspecified; M14.671 Charcot's joint, right ankle and foot; T45.515A Adverse effect of anticoagulants, initial encounter
CPT/HCPCS: 10060; 36415; 36430; 73630-TC-RT-FY; 73721-RT-TC; 80053; 82962; 84484; 85025; 85027; 85610; 85730; 86140; 86850; 86900; 86901; 86922; 87040; 87070; 87205; 93005; 93010; 93970-TC; 99285-25; C9803-CS; G0480; P9058; U0003; U0005

== ENCOUNTER 2021-09-25 09:54 | Inpatient (IN) | payer OTHER, BC ==
[2021-09-25] MEDS ORDERED: PIPERACILLIN/TAZOB 4.5 GM 4.5 GM in DEXTROSE 5%-WATER 100 ML IVPB ONE (11:34)
[2021-09-25] MEDS ORDERED: VANCOMYCIN 1 GM in D5W (PRE-DOCKED) 1,000 MG/250 ML IVPB ONE (11:34)
[2021-09-25] MEDS ORDERED: PIPERACILLIN/TAZOB 4.5 GM 4.5 GM/100 ML BAG IVPB ONE (12:02)
[2021-09-25] MEDS ORDERED: VANCOMYCIN 1 GRAM (PRE-DOCKED) 1,000 MG/250 ML BAG IVPB ONE (12:03)
[2021-09-25 12:20] LABS: BASO % 1.7 % (0-2.0); EOS % 1.4 % (0-4.5); HEMATOCRIT 23.3 % (35.4-49); HEMOGLOBIN 7.5 GM/dL (11.7-16.9); LYMPH % 20.1 % (8-40); MCH 25.3 pg (25.7-33.7); MCHC 32.2 g/dl (32.0-35.9); MEAN CELL VOLUME 78.6 fl (80-96); MEAN PLT VOLUME 7.3 fl (7.5-11.1); MONO % 7.7 % (3.8-10.2); NEUT % 69.1 % (42.8-82.8); PLATELET COUNT 456 10^3/uL (134-434); RBC 2.96 M/mm3 (4.00-5.60); RDW 21.8 % (11.9-15.9); WHITE BLOOD COUNT 9.2 K/mm3 (4.0-10.0)
[2021-09-25 12:21] LABS: VENOUS BASE EXCESS -5.5 mmol/L (-2-2); VENOUS O2 SATURATION 53.9 % (70-80); VENOUS PH 7.328 (7.310-7.410)
[2021-09-25 12:27] LABS: INR 2.54 (0.83-1.09); PROTHROMBIN TIME (PATIENT) 29.5 SEC (9.7-13.0)
[2021-09-25 12:30] LABS: ACTIVATED PTT 46.8 SECONDS (25.2-36.5)
[2021-09-25 12:44] LABS: CHLORIDE 105 mmol/L (98-107); SODIUM 134 mmol/L (136-145)
[2021-09-25 12:45] LABS: CALCIUM 8.7 mg/dL (8.5-10.1)
[2021-09-25 12:46] LABS: ALBUMIN 2.1 g/dl (3.4-5.0); CO2 22 mmol/L (21-32); GLUCOSE,RANDOM 84 mg/dL (74-106)
[2021-09-25 12:49] LABS: CREATININE 1.5 mg/dL (0.55-1.3); SGOT/AST 77 U/L (15-37); SGPT/ALT 21 U/L (13-61)
[2021-09-25 12:51] LABS: BILIRUBIN,TOTAL 0.8 mg/dL (0.2-1)
[2021-09-25 12:52] LABS: ALK PHOS 207 U/L (45-117)
[2021-09-25 13:01] LABS: ANION GAP 7 MMOL/L (8-16)
[2021-09-25 13:36] LABS: ANISOCYTOSIS 3+; MACROCYTOSIS 0
[2021-09-25] MEDS ORDERED: ACETAMINOPHEN 325 MG TABLET (FP) PO ONE (14:42)
[2021-09-25] MEDS ORDERED: ACETAMINOPHEN 325 MG TABLET (FP) ONE (15:01)
[2021-09-25 16:22] LABS: CALCIUM 8.7 mg/dL (8.5-10.1)
[2021-09-25 16:23] LABS: BLOOD UREA NITROGEN 29.8 mg/dL (7-18)
[2021-09-25 16:26] LABS: CREATININE 1.4 mg/dL (0.55-1.3)
[2021-09-25] MEDS ORDERED: ACETAMINOPHEN 325 MG TABLET (FP) PO PRN (18:47)
[2021-09-25] MEDS ORDERED: HEPARIN NA (PORCINE) 5,000 UNITS/ML 1ML VIAL ONE (22:18)
[2021-09-25] MEDS ORDERED: METOPROLOL TARTRATE 50 MG TABLET (FP) ONE (22:18)
[2021-09-25] MEDS ORDERED: ATORVASTATIN CA 10 MG TABLET (FP) ONE (22:18)
[2021-09-25] MEDS: HEPARIN NA (PORCINE) 5,000 UNITS/ML 1ML VIAL SQ SCH (22:30)
[2021-09-25] MEDS: ATORVASTATIN CA 10 MG TABLET (FP) PO SCH (22:30)
[2021-09-25] MEDS: METOPROLOL TARTRATE 50 MG TABLET (FP) PO SCH (22:30)
[2021-09-26] MEDS ORDERED: ACETAMINOPHEN 325 MG TABLET (FP) ONE (03:23)
[2021-09-26 05:34] VITALS: BMI 25.4
[2021-09-26] MEDS: metFORMIN HCL 500 MG TABLET (FP) PO SCH ×2 (06:38→16:59)
[2021-09-26] MEDS: PANTOPRAZOLE 40 MG TABLET PO SCH (09:57)
[2021-09-26] MEDS: METOPROLOL TARTRATE 50 MG TABLET (FP) PO SCH ×2 (09:57→21:52)
[2021-09-26] MEDS: HEPARIN NA (PORCINE) 5,000 UNITS/ML 1ML VIAL SQ SCH ×2 (09:57→21:52)
[2021-09-26 12:09] LABS: BASO % 1.5 % (0-2.0); EOS % 3.2 % (0-4.5); HEMOGLOBIN 8.5 GM/dL (11.7-16.9); LYMPH % 21.6 % (8-40); MCH 24.9 pg (25.7-33.7); MCHC 31.5 g/dl (32.0-35.9); MEAN CELL VOLUME 79.1 fl (80-96); MEAN PLT VOLUME 6.9 fl (7.5-11.1); MONO % 5.5 % (3.8-10.2); NEUT % 68.2 % (42.8-82.8); PLATELET COUNT 498 10^3/uL (134-434); RBC 3.42 M/mm3 (4.00-5.60); RDW 21.5 % (11.9-15.9); WHITE BLOOD COUNT 8.7 K/mm3 (4.0-10.0)
[2021-09-26 12:38] LABS: ALBUMIN 2.2 g/dl (3.4-5.0); BLOOD UREA NITROGEN 29.9 mg/dL (7-18)
[2021-09-26 12:40] LABS: CREATININE 1.3 mg/dL (0.55-1.3)
[2021-09-26 12:42] LABS: BILIRUBIN,TOTAL 0.3 mg/dL (0.2-1)
[2021-09-26] MEDS ORDERED: PIPERACILLIN/TAZOBACTAM 3.375 GM VIAL IVPB ONE ×2 (13:32→17:32)
[2021-09-26] MEDS ORDERED: DEXTROSE 5%-WATER - 50 ML IVPB ONE ×2 (13:32→17:32)
[2021-09-26] MEDS: PIPERACILLIN/TAZOB 3.375 GM 3.375 GM in DEXTROSE 5%-WATER - 50 ML IVPB SCH ×2 (13:38→17:41)
[2021-09-26] MEDS: ATORVASTATIN CA 10 MG TABLET (FP) PO SCH (21:52)
[2021-09-27] MEDS ORDERED: DEXTROSE 5%-WATER - 50 ML IVPB ONE ×2 (01:04→09:55)
[2021-09-27] MEDS ORDERED: PIPERACILLIN/TAZOBACTAM 3.375 GM VIAL IVPB ONE ×2 (01:04→09:55)
[2021-09-27] MEDS: PIPERACILLIN/TAZOB 3.375 GM 3.375 GM in DEXTROSE 5%-WATER - 50 ML IVPB SCH ×2 (01:06→10:03)
[2021-09-27] MEDS: metFORMIN HCL 500 MG TABLET (FP) PO SCH ×2 (06:18→17:12)
[2021-09-27] MEDS: PANTOPRAZOLE 40 MG TABLET PO SCH (10:02)
[2021-09-27] MEDS: METOPROLOL TARTRATE 50 MG TABLET (FP) PO SCH ×2 (10:02→22:20)
[2021-09-27] MEDS: HEPARIN NA (PORCINE) 5,000 UNITS/ML 1ML VIAL SQ SCH ×2 (10:04→22:20)
[2021-09-27 10:40] LABS: ALBUMIN 2.1 g/dl (3.4-5.0)
[2021-09-27 10:41] LABS: BLOOD UREA NITROGEN 28.2 mg/dL (7-18); CALCIUM 8.7 mg/dL (8.5-10.1)
[2021-09-27 10:42] LABS: BILIRUBIN,TOTAL 1.2 mg/dL (0.2-1); CREATININE 1.3 mg/dL (0.55-1.3); TOT PROT 8.3 g/dl (6.4-8.2)
[2021-09-27] MEDS ORDERED: PIPERACILLIN/TAZOBACTAM 4.5 GM VIAL IVPB ONE (17:28)
[2021-09-27] MEDS ORDERED: DEXTROSE 5%-WATER 100 ML IVPB ONE (17:28)
[2021-09-27] MEDS: POLYETHYLENE GLYCOL (HEALTHYLAX) 3350 17 GM PACKET PO SCH (17:34)
[2021-09-27] MEDS: PIPERACILLIN/TAZOB 4.5 GM 4.5 GM in DEXTROSE 5%-WATER 100 ML IVPB SCH (17:34)
[2021-09-27] MEDS ORDERED: DOCUSATE SODIUM 100 MG CAPSULE (FP) PO SCH (22:00)
[2021-09-27] MEDS: ATORVASTATIN CA 10 MG TABLET (FP) PO SCH (22:20)
[2021-09-28] MEDS ORDERED: PIPERACILLIN/TAZOBACTAM 4.5 GM VIAL IVPB ONE ×2 (02:09→10:15)
[2021-09-28] MEDS ORDERED: DEXTROSE 5%-WATER 100 ML IVPB ONE ×2 (02:10→10:15)
[2021-09-28] MEDS: PIPERACILLIN/TAZOB 4.5 GM 4.5 GM in DEXTROSE 5%-WATER 100 ML IVPB SCH ×2 (02:16→10:24)
[2021-09-28] MEDS: metFORMIN HCL 500 MG TABLET (FP) PO SCH (06:17)
[2021-09-28 06:42] VITALS: BP 131/60; PULSE 67; TEMP 97.6
[2021-09-28] MEDS: METOPROLOL TARTRATE 50 MG TABLET (FP) PO SCH (10:24)
[2021-09-28] MEDS: POLYETHYLENE GLYCOL (HEALTHYLAX) 3350 17 GM PACKET PO SCH (10:24)
[2021-09-28] MEDS: HEPARIN NA (PORCINE) 5,000 UNITS/ML 1ML VIAL SQ SCH (10:24)
[2021-09-28] MEDS: PANTOPRAZOLE 40 MG TABLET PO SCH (10:24)
== END 2021-09-28 17:42 | DRG 74 ==
LOC: JER 09:54 → JERBED 12:43 → J8W 09-26 05:10
PROVIDERS: ADMIT Internal Medicine; ATTEND Internal Medicine
PROC: 05HB33Z Insertion of Infusion Device into Right Basilic Vein, Percutaneous Approach (ICD-10-PCS; principal; 2021-09-28)
PROC: B51MZZA Fluoroscopy of Right Upper Extremity Veins, Guidance (ICD-10-PCS; 2021-09-28)
DX: E11.610 Type 2 diabetes mellitus with diabetic neuropathic arthropathy (principal); L03.115 Cellulitis of right lower limb; L97.909 Non-pressure chronic ulcer of unspecified part of unspecified lower leg with unspecified severity; M86.9 Osteomyelitis, unspecified; I48.91 Unspecified atrial fibrillation; I10 Essential (primary) hypertension; E78.5 Hyperlipidemia, unspecified; D64.9 Anemia, unspecified; J44.9 Chronic obstructive pulmonary disease, unspecified; J45.909 Unspecified asthma, uncomplicated; N40.0 Benign prostatic hyperplasia without lower urinary tract symptoms; N18.9 Chronic kidney disease, unspecified; K21.9 Gastro-esophageal reflux disease without esophagitis; E11.69 Type 2 diabetes mellitus with other specified complication
CPT/HCPCS: 11042; 36415; 36569; 71045-TC-FY; 73610-TC-RT-FY; 73630-TC-RT-FY; 80048; 80053; 82803; 82962; 85025; 85610; 85651; 85730; 86140; 86850; 86900; 86901; 87040; 87070; 87186; 87205; 93005; 93010; 93971-TC; 99285-25; A6022; C9803-CS; J1644; U0003; U0005

== ENCOUNTER 2022-06-11 10:33 | Inpatient (IN) | payer OTHER, BC ==
[2022-06-11] MEDS ORDERED: PIPERACILLIN/TAZOB 3.375 GM 3.375 GM in DEXTROSE 5%-WATER - 50 ML IVPB ONE (12:09)
[2022-06-11] MEDS ORDERED: VANCOMYCIN 1 GM in D5W (PRE-DOCKED) 1,000 MG/250 ML IVPB ONE (12:09)
[2022-06-11] MEDS ORDERED: ACETAMINOPHEN 1000 MG/100 ML BAG IVPB ONE (12:12)
[2022-06-11] MEDS ORDERED: ACETAMINOPHEN INJECTION 100 ML IVPB ONE (12:25)
[2022-06-11] MEDS ORDERED: VANCOMYCIN/WATER FOR INJ (PEG) 1,000 MG/200 ML BAG IVPB ONE (12:26)
[2022-06-11] MEDS ORDERED: PIPERACILLIN/TAZOB 3.375 GM 3.375 GM/50 ML BAG IVPB ONE (12:26)
[2022-06-11 14:10] LABS: BASO % 1.1 % (0-2.0); EOS % 0.3 % (0-4.5); HEMATOCRIT 15.3 % (35.4-49); LYMPH % 8.8 % (8-40); MCH 25.1 pg (25.7-33.7); MCHC 31.8 g/dl (32.0-35.9); MEAN CELL VOLUME 78.8 fl (80-96); MEAN PLT VOLUME 7.1 fl (7.5-11.1); MONO % 7.9 % (3.8-10.2); NEUT % 81.9 % (42.8-82.8); PLATELET COUNT 497 10^3/uL (134-434); RBC 1.95 M/mm3 (4.00-5.60); WHITE BLOOD COUNT 13.7 K/mm3 (4.0-10.0)
[2022-06-11 14:13] LABS: HEMOGLOBIN 4.9 GM/dL (11.7-16.9)
[2022-06-11 14:16] LABS: INR 3.76 (0.83-1.09)
[2022-06-11 14:18] LABS: ACTIVATED PTT 51.3 SECONDS (25.2-36.5)
[2022-06-11 14:30] LABS: ALBUMIN 2.2 g/dl (3.4-5.0); BLOOD UREA NITROGEN 50.6 mg/dL (7-18); CALCIUM 8.6 mg/dL (8.5-10.1)
[2022-06-11 14:33] LABS: CREATININE 2.1 mg/dL (0.55-1.3)
[2022-06-11 14:35] LABS: BILIRUBIN,TOTAL 0.3 mg/dL (0.2-1); TOT PROT 7.8 g/dl (6.4-8.2)
[2022-06-11 14:50] LABS: ERYTHROCYTE SEDIMENTATION RATE > 140 mm/hr (0-20)
[2022-06-12] MEDS ORDERED: ACETAMINOPHEN 1000 MG/100 ML BAG IVPB PRN (00:05)
[2022-06-12] MEDS: PIPERACILLIN/TAZOB 3.375 GM 3.375 GM in DEXTROSE 5%-WATER - 50 ML IVPB SCH ×3 (01:23→17:12)
[2022-06-12] MEDS ORDERED: FERROUS GLUCONATE 324 MG TAB (FP) PO SCH (10:00)
[2022-06-12] MEDS: PANTOPRAZOLE 40 MG TABLET PO SCH (10:28)
[2022-06-12] MEDS: metoPROLOL SUCCINATE 25 MG TAB.SR.24H (FP) PO SCH (10:28)
[2022-06-12] MEDS: FINASTERIDE 5 MG TABLET (FP) PO SCH (10:28)
[2022-06-12 11:09] LABS: BASO % 1.5 % (0-2.0); EOS % 1.4 % (0-4.5); HEMATOCRIT 20.3 % (35.4-49); LYMPH % 10.1 % (8-40); MCH 26.5 pg (25.7-33.7); MCHC 33.7 g/dl (32.0-35.9); MEAN CELL VOLUME 78.8 fl (80-96); MONO % 6.8 % (3.8-10.2); NEUT % 80.2 % (42.8-82.8); PLATELET COUNT 484 10^3/uL (134-434); RBC 2.58 M/mm3 (4.00-5.60); RDW 20.3 % (11.9-15.9); WHITE BLOOD COUNT 10.5 K/mm3 (4.0-10.0)
[2022-06-12 11:18] LABS: HEMOGLOBIN 6.8 GM/dL (11.7-16.9)
[2022-06-12 11:34] LABS: ALBUMIN 2.2 g/dl (3.4-5.0); BLOOD UREA NITROGEN 45.2 mg/dL (7-18)
[2022-06-12 11:35] LABS: CALCIUM 8.6 mg/dL (8.5-10.1)
[2022-06-12 11:37] LABS: CREATININE 1.9 mg/dL (0.55-1.3)
[2022-06-12 11:39] LABS: BILIRUBIN,TOTAL 0.7 mg/dL (0.2-1); TOT PROT 7.5 g/dl (6.4-8.2)
[2022-06-12] MEDS ORDERED: ALBUTEROL SO4 HFA INHALER IH PRN (15:06)
[2022-06-12] MEDS: RIFAXIMIN 550 MG TABLET PO SCH ×2 (15:30→22:06)
[2022-06-12] MEDS ORDERED: POLYETHYLENE GLYCOL 3350 255 GM BTL PO ONE (16:00)
[2022-06-12] MEDS: LIPASE/PROTEASE/AMYLASE 36,000 UNIT CAPSULE PO SCH (17:12)
[2022-06-12] MEDS: FERROUS GLUCONATE 324 MG TAB (FP) PO SCH (17:13)
[2022-06-12] MEDS ORDERED: ASCORBIC ACID 500 MG TABLET (FP) PO SCH (22:00)
[2022-06-12] MEDS: ATORVASTATIN CA 10 MG TABLET (FP) PO SCH (22:06)
[2022-06-13] MEDS: RIFAXIMIN 550 MG TABLET PO SCH ×3 (06:22→21:36)
[2022-06-13] MEDS: POLYETHYLENE GLYCOL (HEALTHYLAX) 3350 17 GM PACKET PO SCH ×4 (09:00→21:37)
[2022-06-13] MEDS: FERROUS GLUCONATE 324 MG TAB (FP) PO SCH ×3 (09:20→18:04)
[2022-06-13] MEDS: ASCORBIC ACID 500 MG TABLET (FP) PO SCH (09:20)
[2022-06-13] MEDS: FOLIC ACID 1 MG TABLET (FP) PO SCH (09:20)
[2022-06-13] MEDS: FINASTERIDE 5 MG TABLET (FP) PO SCH (09:20)
[2022-06-13] MEDS: metoPROLOL SUCCINATE 25 MG TAB.SR.24H (FP) PO SCH (09:20)
[2022-06-13] MEDS: MULTIVITAMINS (DAILY MVI) TABLET (FP) PO SCH (09:21)
[2022-06-13] MEDS: PANTOPRAZOLE 40 MG TABLET PO SCH (09:21)
[2022-06-13] MEDS: LIPASE/PROTEASE/AMYLASE 36,000 UNIT CAPSULE PO SCH ×3 (09:21→18:04)
[2022-06-13 11:18] LABS: BASO % 1.2 % (0-2.0); EOS % 2.1 % (0-4.5); HEMATOCRIT 21.3 % (35.4-49); LYMPH % 8.2 % (8-40); MCH 26.4 pg (25.7-33.7); MCHC 32.5 g/dl (32.0-35.9); MEAN CELL VOLUME 81.3 fl (80-96); MEAN PLT VOLUME 6.8 fl (7.5-11.1); MONO % 6.1 % (3.8-10.2); NEUT % 82.4 % (42.8-82.8); PLATELET COUNT 443 10^3/uL (134-434); RBC 2.62 M/mm3 (4.00-5.60); RDW 19.4 % (11.9-15.9); WHITE BLOOD COUNT 11.2 K/mm3 (4.0-10.0)
[2022-06-13 11:26] LABS: HEMOGLOBIN 6.9 GM/dL (11.7-16.9)
[2022-06-13 11:32] LABS: BLOOD UREA NITROGEN 36.5 mg/dL (7-18); CALCIUM 8.5 mg/dL (8.5-10.1)
[2022-06-13 11:35] LABS: CREATININE 1.7 mg/dL (0.55-1.3)
[2022-06-13 11:36] LABS: BILIRUBIN,TOTAL 0.5 mg/dL (0.2-1)
[2022-06-13] MEDS: CEFTRIAXONE 2 GM in DEXTROSE 5%-WATER 100 ML IVPB SCH (16:32)
[2022-06-13] MEDS: ATORVASTATIN CA 10 MG TABLET (FP) PO SCH (21:36)
[2022-06-13] MEDS: INSULIN SLIDING SCALE (NOVOLOG) 1 VIAL SQ SCH (21:38)
[2022-06-13] MEDS: PIPERACILLIN/TAZOB 3.375 GM 3.375 GM in DEXTROSE 5%-WATER - 50 ML IVPB SCH (23:16)
[2022-06-14] MEDS: RIFAXIMIN 550 MG TABLET PO SCH ×3 (05:56→23:32)
[2022-06-14] MEDS: POLYETHYLENE GLYCOL (HEALTHYLAX) 3350 17 GM PACKET PO SCH ×3 (05:56→23:35)
[2022-06-14] MEDS: INSULIN SLIDING SCALE (NOVOLOG) 1 VIAL SQ SCH ×4 (06:13→23:34)
[2022-06-14] MEDS: FERROUS GLUCONATE 324 MG TAB (FP) PO SCH ×3 (09:02→17:48)
[2022-06-14] MEDS: LIPASE/PROTEASE/AMYLASE 36,000 UNIT CAPSULE PO SCH ×3 (09:03→17:48)
[2022-06-14 09:37] LABS: HEMOGLOBIN 8.4 GM/dL (11.7-16.9); MCH 25.6 pg (25.7-33.7); MEAN CELL VOLUME 82.6 fl (80-96); MEAN PLT VOLUME 7.6 fl (7.5-11.1); PLATELET COUNT 411 10^3/uL (134-434); RBC 3.27 M/mm3 (4.00-5.60); RDW 21.9 % (11.9-15.9); WHITE BLOOD COUNT 10.1 K/mm3 (4.0-10.0)
[2022-06-14] MEDS: FINASTERIDE 5 MG TABLET (FP) PO SCH (10:02)
[2022-06-14] MEDS: PANTOPRAZOLE 40 MG TABLET PO SCH (10:02)
[2022-06-14] MEDS: MULTIVITAMINS (DAILY MVI) TABLET (FP) PO SCH (10:02)
[2022-06-14] MEDS: CEFTRIAXONE 2 GM in DEXTROSE 5%-WATER 100 ML IVPB SCH (10:02)
[2022-06-14] MEDS: FOLIC ACID 1 MG TABLET (FP) PO SCH (10:02)
[2022-06-14] MEDS: metoPROLOL SUCCINATE 25 MG TAB.SR.24H (FP) PO SCH (10:02)
[2022-06-14] MEDS: ASCORBIC ACID 500 MG TABLET (FP) PO SCH (10:02)
[2022-06-14 12:32] LABS: INR 1.73 (0.83-1.09)
[2022-06-14 12:53] LABS: CALCIUM 8.7 mg/dL (8.5-10.1)
[2022-06-14 12:54] LABS: BLOOD UREA NITROGEN 33.9 mg/dL (7-18)
[2022-06-14 12:57] LABS: CREATININE 1.5 mg/dL (0.55-1.3)
[2022-06-14 12:58] LABS: BILIRUBIN,TOTAL 0.4 mg/dL (0.2-1); TOT PROT 7.2 g/dl (6.4-8.2)
[2022-06-14] MEDS: ATORVASTATIN CA 10 MG TABLET (FP) PO SCH (23:32)
[2022-06-15] MEDS: POLYETHYLENE GLYCOL (HEALTHYLAX) 3350 17 GM PACKET PO SCH ×3 (05:07→21:02)
[2022-06-15] MEDS: RIFAXIMIN 550 MG TABLET PO SCH ×3 (06:03→21:01)
[2022-06-15] MEDS: INSULIN SLIDING SCALE (NOVOLOG) 1 VIAL SQ SCH ×4 (06:06→21:12)
[2022-06-15] MEDS: FERROUS GLUCONATE 324 MG TAB (FP) PO SCH ×3 (08:12→17:03)
[2022-06-15] MEDS: LIPASE/PROTEASE/AMYLASE 36,000 UNIT CAPSULE PO SCH ×3 (08:13→17:03)
[2022-06-15] MEDS: FINASTERIDE 5 MG TABLET (FP) PO SCH (09:38)
[2022-06-15] MEDS: FOLIC ACID 1 MG TABLET (FP) PO SCH (09:38)
[2022-06-15] MEDS: metoPROLOL SUCCINATE 25 MG TAB.SR.24H (FP) PO SCH (09:39)
[2022-06-15] MEDS: ASCORBIC ACID 500 MG TABLET (FP) PO SCH (09:39)
[2022-06-15] MEDS: PANTOPRAZOLE 40 MG TABLET PO SCH (09:39)
[2022-06-15] MEDS: CEFTRIAXONE 2 GM in DEXTROSE 5%-WATER 100 ML IVPB SCH (09:39)
[2022-06-15] MEDS: MULTIVITAMINS (DAILY MVI) TABLET (FP) PO SCH (09:39)
[2022-06-15 10:37] LABS: BASO % 1.4 % (0-2.0); EOS % 3.9 % (0-4.5); HEMATOCRIT 25.4 % (35.4-49); HEMOGLOBIN 8.4 GM/dL (11.7-16.9); LYMPH % 13.3 % (8-40); MCH 26.5 pg (25.7-33.7); MCHC 32.9 g/dl (32.0-35.9); MEAN CELL VOLUME 80.6 fl (80-96); MEAN PLT VOLUME 6.8 fl (7.5-11.1); MONO % 5.4 % (3.8-10.2); PLATELET COUNT 507 10^3/uL (134-434); RBC 3.16 M/mm3 (4.00-5.60); RDW 21.9 % (11.9-15.9); WHITE BLOOD COUNT 9.4 K/mm3 (4.0-10.0)
[2022-06-15 10:54] LABS: ALBUMIN 2.2 g/dl (3.4-5.0); BLOOD UREA NITROGEN 34.9 mg/dL (7-18); CALCIUM 8.9 mg/dL (8.5-10.1)
[2022-06-15 10:55] LABS: CHOLESTEROL 97 mg/dL (50-200)
[2022-06-15 10:56] LABS: TRIGLYCERIDES 81 mg/dL (0-150)
[2022-06-15 10:57] LABS: LDL CHOLESTEROL (ONLY SJRH) 52 mg/dL (5-100)
[2022-06-15 10:58] LABS: HDL CHOLESTEROL 35 mg/dL (40-60)
[2022-06-15 10:59] LABS: CREATININE 1.4 mg/dL (0.55-1.3); TOT PROT 7.9 g/dl (6.4-8.2)
[2022-06-15 11:01] LABS: BILIRUBIN,TOTAL 0.3 mg/dL (0.2-1)
[2022-06-15] MEDS: ALBUTEROL SO4 2.5/IPRATROPIUM 0.5 INH SOL 3 ML VIAL.NEB. NEB PRN (13:45)
[2022-06-15] MEDS: amLODIPine BESYLATE 2.5 MG TABLET (FP) PO SCH (21:01)
[2022-06-15] MEDS: ATORVASTATIN CA 10 MG TABLET (FP) PO SCH (21:01)
[2022-06-16] MEDS: RIFAXIMIN 550 MG TABLET PO SCH ×3 (05:08→21:03)
[2022-06-16] MEDS: POLYETHYLENE GLYCOL (HEALTHYLAX) 3350 17 GM PACKET PO SCH ×3 (05:33→21:01)
[2022-06-16] MEDS: INSULIN SLIDING SCALE (NOVOLOG) 1 VIAL SQ SCH ×4 (06:18→21:06)
[2022-06-16] MEDS: FERROUS GLUCONATE 324 MG TAB (FP) PO SCH ×3 (08:40→17:15)
[2022-06-16] MEDS: LIPASE/PROTEASE/AMYLASE 36,000 UNIT CAPSULE PO SCH ×3 (08:40→17:15)
[2022-06-16] MEDS: MULTIVITAMINS (DAILY MVI) TABLET (FP) PO SCH (09:59)
[2022-06-16] MEDS: amLODIPine BESYLATE 2.5 MG TABLET (FP) PO SCH (09:59)
[2022-06-16] MEDS: metoPROLOL SUCCINATE 25 MG TAB.SR.24H (FP) PO SCH (09:59)
[2022-06-16] MEDS: ASCORBIC ACID 500 MG TABLET (FP) PO SCH (09:59)
[2022-06-16] MEDS: FOLIC ACID 1 MG TABLET (FP) PO SCH (09:59)
[2022-06-16] MEDS: PANTOPRAZOLE 40 MG TABLET PO SCH (09:59)
[2022-06-16] MEDS: FINASTERIDE 5 MG TABLET (FP) PO SCH (09:59)
[2022-06-16] MEDS: CEFTRIAXONE 2 GM in DEXTROSE 5%-WATER 100 ML IVPB SCH (10:00)
[2022-06-16 10:08] LABS: BASO % 1.8 % (0-2.0); EOS % 3.3 % (0-4.5); HEMATOCRIT 25.4 % (35.4-49); HEMOGLOBIN 8.2 GM/dL (11.7-16.9); MCH 25.8 pg (25.7-33.7); MCHC 32.3 g/dl (32.0-35.9); MEAN CELL VOLUME 80.1 fl (80-96); MONO % 7.2 % (3.8-10.2); NEUT % 74.7 % (42.8-82.8); PLATELET COUNT 498 10^3/uL (134-434); RBC 3.17 M/mm3 (4.00-5.60); RDW 21.5 % (11.9-15.9)
[2022-06-16 10:22] LABS: ALBUMIN 2.1 g/dl (3.4-5.0); BLOOD UREA NITROGEN 37.3 mg/dL (7-18)
[2022-06-16 10:25] LABS: CREATININE 1.4 mg/dL (0.55-1.3)
[2022-06-16 10:26] LABS: BILIRUBIN,TOTAL 0.3 mg/dL (0.2-1)
[2022-06-16 10:27] LABS: TOT PROT 7.6 g/dl (6.4-8.2)
[2022-06-16 12:38] VITALS: BMI 27.3
[2022-06-16] MEDS: ALBUTEROL SO4 2.5/IPRATROPIUM 0.5 INH SOL 3 ML VIAL.NEB. NEB PRN (14:49)
[2022-06-16] MEDS ORDERED: amLODIPine BESYLATE 5 MG TABLET (FP) PO SCH (18:02)
[2022-06-16] MEDS ORDERED: amLODIPine BESYLATE 2.5 MG TABLET (FP) PO ONE (18:03)
[2022-06-16] MEDS: ATORVASTATIN CA 10 MG TABLET (FP) PO SCH (21:03)
[2022-06-17] MEDS: POLYETHYLENE GLYCOL (HEALTHYLAX) 3350 17 GM PACKET PO SCH ×3 (05:05→21:16)
[2022-06-17] MEDS: RIFAXIMIN 550 MG TABLET PO SCH ×3 (05:05→21:15)
[2022-06-17] MEDS: INSULIN SLIDING SCALE (NOVOLOG) 1 VIAL SQ SCH ×4 (06:15→21:19)
[2022-06-17] MEDS ORDERED: REGADENOSON 0.4 MG/5 ML PRE-FILLED SYRINGE IVPUSH ONE ×2 (10:13→10:30)
[2022-06-17] MEDS: FERROUS GLUCONATE 324 MG TAB (FP) PO SCH ×3 (15:08→18:07)
[2022-06-17] MEDS: LIPASE/PROTEASE/AMYLASE 36,000 UNIT CAPSULE PO SCH ×3 (15:08→18:07)
[2022-06-17] MEDS: amLODIPine BESYLATE 5 MG TABLET (FP) PO SCH (15:14)
[2022-06-17] MEDS ORDERED: MULTIVITAMINS (DAILY MVI) TABLET (FP) PO SCH (15:15)
[2022-06-17] MEDS ORDERED: FOLIC ACID 1 MG TABLET (FP) PO SCH (15:15)
[2022-06-17] MEDS ORDERED: metoPROLOL SUCCINATE 25 MG TAB.SR.24H (FP) PO SCH (15:15)
[2022-06-17] MEDS ORDERED: PANTOPRAZOLE 40 MG TABLET PO SCH (15:15)
[2022-06-17] MEDS ORDERED: ASCORBIC ACID 500 MG TABLET (FP) PO SCH (15:15)
[2022-06-17] MEDS ORDERED: FINASTERIDE 5 MG TABLET (FP) PO SCH (15:15)
[2022-06-17] MEDS: FINASTERIDE 5 MG TABLET (FP) PO SCH (16:44)
[2022-06-17] MEDS: PANTOPRAZOLE 40 MG TABLET PO SCH (16:44)
[2022-06-17] MEDS: FOLIC ACID 1 MG TABLET (FP) PO SCH (16:44)
[2022-06-17] MEDS: CEFTRIAXONE 2 GM in DEXTROSE 5%-WATER 100 ML IVPB SCH (16:45)
[2022-06-17] MEDS: metoPROLOL SUCCINATE 25 MG TAB.SR.24H (FP) PO SCH (16:45)
[2022-06-17] MEDS: MULTIVITAMINS (DAILY MVI) TABLET (FP) PO SCH (16:45)
[2022-06-17] MEDS: ASCORBIC ACID 500 MG TABLET (FP) PO SCH (16:45)
[2022-06-17 18:33] LABS: BASO % 2.3 % (0-2.0); EOS % 3.3 % (0-4.5); HEMATOCRIT 25.9 % (35.4-49); HEMOGLOBIN 8.5 GM/dL (11.7-16.9); LYMPH % 17.8 % (8-40); MCH 26.3 pg (25.7-33.7); MCHC 32.7 g/dl (32.0-35.9); MEAN CELL VOLUME 80.6 fl (80-96); MONO % 6.6 % (3.8-10.2); PLATELET COUNT 464 10^3/uL (134-434); RBC 3.22 M/mm3 (4.00-5.60); RDW 21.7 % (11.9-15.9); WHITE BLOOD COUNT 8.1 K/mm3 (4.0-10.0)
[2022-06-17 19:09] LABS: ALBUMIN 2.2 g/dl (3.4-5.0); BLOOD UREA NITROGEN 31.4 mg/dL (7-18); CALCIUM 8.9 mg/dL (8.5-10.1)
[2022-06-17 19:13] LABS: CREATININE 1.2 mg/dL (0.55-1.3)
[2022-06-17 19:14] LABS: BILIRUBIN,TOTAL 0.3 mg/dL (0.2-1)
[2022-06-17] MEDS: ATORVASTATIN CA 10 MG TABLET (FP) PO SCH (21:15)
[2022-06-18] MEDS: RIFAXIMIN 550 MG TABLET PO SCH ×2 (06:09→14:12)
[2022-06-18] MEDS: POLYETHYLENE GLYCOL (HEALTHYLAX) 3350 17 GM PACKET PO SCH ×2 (06:14→14:12)
[2022-06-18] MEDS: INSULIN SLIDING SCALE (NOVOLOG) 1 VIAL SQ SCH ×4 (06:14→21:53)
[2022-06-18] MEDS: LIPASE/PROTEASE/AMYLASE 36,000 UNIT CAPSULE PO SCH ×3 (09:15→17:26)
[2022-06-18] MEDS: FERROUS GLUCONATE 324 MG TAB (FP) PO SCH ×3 (09:16→17:26)
[2022-06-18] MEDS: CEFTRIAXONE 2 GM in DEXTROSE 5%-WATER 100 ML IVPB SCH (09:21)
[2022-06-18] MEDS: ASCORBIC ACID 500 MG TABLET (FP) PO SCH (09:23)
[2022-06-18] MEDS: FOLIC ACID 1 MG TABLET (FP) PO SCH (09:23)
[2022-06-18] MEDS: FINASTERIDE 5 MG TABLET (FP) PO SCH (09:23)
[2022-06-18] MEDS: PANTOPRAZOLE 40 MG TABLET PO SCH (09:23)
[2022-06-18] MEDS: amLODIPine BESYLATE 5 MG TABLET (FP) PO SCH (09:24)
[2022-06-18] MEDS: MULTIVITAMINS (DAILY MVI) TABLET (FP) PO SCH (09:24)
[2022-06-18] MEDS: metoPROLOL SUCCINATE 25 MG TAB.SR.24H (FP) PO SCH (09:24)
[2022-06-18] MEDS ORDERED: MIDAZOLAM HCL 2 MG/2 ML SINGLE DOSE VIAL ONE ×2 (14:16→15:18)
[2022-06-18] MEDS ORDERED: VANCOMYCIN 1,000 MG VIAL (RESTRICTED TO ID ONLY) ONE (14:23)
[2022-06-18] MEDS ORDERED: LIDOCAINE HCL 2% (20ML MULTI-DOSE VIAL) ONE (14:54)
[2022-06-18] MEDS ORDERED: LIDOCAINE HCL 2% (50ML VIAL) NR ONE ×2 (14:57)
[2022-06-18] MEDS ORDERED: PROPOFOL 20 ML ONE (14:59)
[2022-06-18] MEDS ORDERED: ONDANSETRON 4 MG/2 ML VIAL ONE (15:19)
[2022-06-18] MEDS ORDERED: DEXAMETHASONE SOD PHOSPHATE 4 MG/1 ML VIAL ONE (15:19)
[2022-06-18] MEDS ORDERED: VANCOMYCIN 1 GM in D5W (PRE-DOCKED) 1,000 MG/250 ML IVPB ONE (15:35)
[2022-06-18] MEDS ORDERED: ALBUTEROL SO4 2.5/IPRATROPIUM 0.5 INH SOL 3 ML VIAL.NEB. NEB PRN (16:55)
[2022-06-18 17:09] LABS: FREE KAPPA,SERUM 223.2 mg/L (3.3-19.4)
[2022-06-18] MEDS: ALBUTEROL SO4 HFA INHALER IH PRN (17:26)
[2022-06-18] MEDS: ATORVASTATIN CA 10 MG TABLET (FP) PO SCH (21:50)
[2022-06-18] MEDS ORDERED: POLYETHYLENE GLYCOL (HEALTHYLAX) 3350 17 GM PACKET PO SCH (22:00)
[2022-06-18] MEDS ORDERED: RIFAXIMIN 550 MG TABLET PO SCH (22:00)
[2022-06-19] MEDS: INSULIN SLIDING SCALE (NOVOLOG) 1 VIAL SQ SCH ×4 (07:36→22:41)
[2022-06-19] MEDS: LIPASE/PROTEASE/AMYLASE 36,000 UNIT CAPSULE PO SCH ×3 (08:17→17:38)
[2022-06-19] MEDS: FERROUS GLUCONATE 324 MG TAB (FP) PO SCH ×3 (08:21→17:37)
[2022-06-19] MEDS: CEFTRIAXONE 2 GM in DEXTROSE 5%-WATER 100 ML IVPB SCH (09:02)
[2022-06-19] MEDS: metoPROLOL SUCCINATE 25 MG TAB.SR.24H (FP) PO SCH (09:03)
[2022-06-19] MEDS: ASCORBIC ACID 500 MG TABLET (FP) PO SCH (09:03)
[2022-06-19] MEDS: PANTOPRAZOLE 40 MG TABLET PO SCH (09:03)
[2022-06-19] MEDS: POLYETHYLENE GLYCOL (HEALTHYLAX) 3350 17 GM PACKET PO SCH (09:04)
[2022-06-19] MEDS: amLODIPine BESYLATE 5 MG TABLET (FP) PO SCH (10:11)
[2022-06-19] MEDS: FINASTERIDE 5 MG TABLET (FP) PO SCH (10:11)
[2022-06-19] MEDS: MULTIVITAMINS (DAILY MVI) TABLET (FP) PO SCH (10:11)
[2022-06-19] MEDS: FOLIC ACID 1 MG TABLET (FP) PO SCH (10:11)
[2022-06-19] MEDS: ATORVASTATIN CA 10 MG TABLET (FP) PO SCH (22:38)
[2022-06-20] MEDS: INSULIN SLIDING SCALE (NOVOLOG) 1 VIAL SQ SCH ×4 (06:04→21:13)
[2022-06-20] MEDS: LIPASE/PROTEASE/AMYLASE 36,000 UNIT CAPSULE PO SCH ×3 (09:34→16:53)
[2022-06-20] MEDS: PANTOPRAZOLE 40 MG TABLET PO SCH (09:34)
[2022-06-20] MEDS: metoPROLOL SUCCINATE 25 MG TAB.SR.24H (FP) PO SCH (09:34)
[2022-06-20] MEDS: FOLIC ACID 1 MG TABLET (FP) PO SCH (09:34)
[2022-06-20] MEDS: POLYETHYLENE GLYCOL (HEALTHYLAX) 3350 17 GM PACKET PO SCH (09:35)
[2022-06-20] MEDS: ASCORBIC ACID 500 MG TABLET (FP) PO SCH (09:35)
[2022-06-20] MEDS: MULTIVITAMINS (DAILY MVI) TABLET (FP) PO SCH (09:35)
[2022-06-20] MEDS: CEFTRIAXONE 2 GM in DEXTROSE 5%-WATER 100 ML IVPB SCH (09:35)
[2022-06-20] MEDS: amLODIPine BESYLATE 5 MG TABLET (FP) PO SCH (09:35)
[2022-06-20] MEDS: FERROUS GLUCONATE 324 MG TAB (FP) PO SCH ×3 (09:35→16:53)
[2022-06-20] MEDS: FINASTERIDE 5 MG TABLET (FP) PO SCH (09:35)
[2022-06-20 09:59] LABS: BASO % 2.2 % (0-2.0); EOS % 2.4 % (0-4.5); HEMATOCRIT 25.2 % (35.4-49); HEMOGLOBIN 8.4 GM/dL (11.7-16.9); LYMPH % 20.5 % (8-40); MCH 26.7 pg (25.7-33.7); MCHC 33.3 g/dl (32.0-35.9); MEAN CELL VOLUME 80.3 fl (80-96); MONO % 5.1 % (3.8-10.2); NEUT % 69.8 % (42.8-82.8); PLATELET COUNT 497 10^3/uL (134-434); RBC 3.14 M/mm3 (4.00-5.60); RDW 21.2 % (11.9-15.9); WHITE BLOOD COUNT 9.9 K/mm3 (4.0-10.0)
[2022-06-20 10:26] LABS: CALCIUM 8.9 mg/dL (8.5-10.1)
[2022-06-20 10:29] LABS: CREATININE 1.5 mg/dL (0.55-1.3)
[2022-06-20] MEDS: hydrALAZINE HCL 25 MG TABLET (FP) PO SCH ×2 (15:48→21:13)
[2022-06-20] MEDS ORDERED: ceFAZolin 2 GRAM PREMIX BAG IVPB SCH (16:00)
[2022-06-20] MEDS: CEFAZOLIN SODIUM 2 GM in DEXTROSE 5%-WATER 100 ML IVPB SCH (16:52)
[2022-06-20] MEDS: ATORVASTATIN CA 10 MG TABLET (FP) PO SCH (21:13)
[2022-06-21] MEDS: CEFAZOLIN SODIUM 2 GM in DEXTROSE 5%-WATER 100 ML IVPB SCH ×3 (00:03→16:44)
[2022-06-21] MEDS: hydrALAZINE HCL 25 MG TABLET (FP) PO SCH ×3 (05:17→21:39)
[2022-06-21] MEDS: INSULIN SLIDING SCALE (NOVOLOG) 1 VIAL SQ SCH ×4 (06:27→21:40)
[2022-06-21] MEDS: amLODIPine BESYLATE 5 MG TABLET (FP) PO SCH (09:06)
[2022-06-21] MEDS: LIPASE/PROTEASE/AMYLASE 36,000 UNIT CAPSULE PO SCH ×3 (09:06→16:45)
[2022-06-21] MEDS: FERROUS GLUCONATE 324 MG TAB (FP) PO SCH ×3 (09:06→16:44)
[2022-06-21] MEDS: FOLIC ACID 1 MG TABLET (FP) PO SCH (09:06)
[2022-06-21] MEDS: metoPROLOL SUCCINATE 25 MG TAB.SR.24H (FP) PO SCH (09:06)
[2022-06-21] MEDS: MULTIVITAMINS (DAILY MVI) TABLET (FP) PO SCH (09:07)
[2022-06-21] MEDS: ASCORBIC ACID 500 MG TABLET (FP) PO SCH (09:07)
[2022-06-21] MEDS: FINASTERIDE 5 MG TABLET (FP) PO SCH (09:07)
[2022-06-21] MEDS: PANTOPRAZOLE 40 MG TABLET PO SCH (09:07)
[2022-06-21] MEDS: POLYETHYLENE GLYCOL (HEALTHYLAX) 3350 17 GM PACKET PO SCH (09:28)
[2022-06-21] MEDS: ATORVASTATIN CA 10 MG TABLET (FP) PO SCH (21:39)
[2022-06-22] MEDS: CEFAZOLIN SODIUM 2 GM in DEXTROSE 5%-WATER 100 ML IVPB SCH ×3 (00:42→15:53)
[2022-06-22] MEDS: hydrALAZINE HCL 25 MG TABLET (FP) PO SCH ×3 (06:45→21:52)
[2022-06-22] MEDS: INSULIN SLIDING SCALE (NOVOLOG) 1 VIAL SQ SCH ×4 (06:45→21:55)
[2022-06-22] MEDS: LIPASE/PROTEASE/AMYLASE 36,000 UNIT CAPSULE PO SCH ×3 (09:33→17:43)
[2022-06-22] MEDS: MULTIVITAMINS (DAILY MVI) TABLET (FP) PO SCH (09:33)
[2022-06-22] MEDS: FERROUS GLUCONATE 324 MG TAB (FP) PO SCH ×3 (09:33→17:43)
[2022-06-22] MEDS: PANTOPRAZOLE 40 MG TABLET PO SCH (09:34)
[2022-06-22] MEDS: amLODIPine BESYLATE 5 MG TABLET (FP) PO SCH (09:34)
[2022-06-22] MEDS: FINASTERIDE 5 MG TABLET (FP) PO SCH (09:34)
[2022-06-22] MEDS: ASCORBIC ACID 500 MG TABLET (FP) PO SCH (09:34)
[2022-06-22] MEDS: FOLIC ACID 1 MG TABLET (FP) PO SCH (09:34)
[2022-06-22] MEDS: metoPROLOL SUCCINATE 25 MG TAB.SR.24H (FP) PO SCH (09:34)
[2022-06-22] MEDS: POLYETHYLENE GLYCOL (HEALTHYLAX) 3350 17 GM PACKET PO SCH (09:44)
[2022-06-22] MEDS: ATORVASTATIN CA 10 MG TABLET (FP) PO SCH (21:52)
[2022-06-23] MEDS: CEFAZOLIN SODIUM 2 GM in DEXTROSE 5%-WATER 100 ML IVPB SCH ×3 (01:28→16:34)
[2022-06-23] MEDS: hydrALAZINE HCL 25 MG TABLET (FP) PO SCH ×3 (05:45→21:28)
[2022-06-23] MEDS: INSULIN SLIDING SCALE (NOVOLOG) 1 VIAL SQ SCH ×4 (06:04→21:38)
[2022-06-23] MEDS: LIPASE/PROTEASE/AMYLASE 36,000 UNIT CAPSULE PO SCH ×3 (08:50→17:29)
[2022-06-23] MEDS: FERROUS GLUCONATE 324 MG TAB (FP) PO SCH ×3 (08:50→17:29)
[2022-06-23] MEDS: POLYETHYLENE GLYCOL (HEALTHYLAX) 3350 17 GM PACKET PO SCH (10:15)
[2022-06-23] MEDS: ASCORBIC ACID 500 MG TABLET (FP) PO SCH (10:16)
[2022-06-23] MEDS: FOLIC ACID 1 MG TABLET (FP) PO SCH (10:16)
[2022-06-23] MEDS: amLODIPine BESYLATE 5 MG TABLET (FP) PO SCH (10:16)
[2022-06-23] MEDS: metoPROLOL SUCCINATE 25 MG TAB.SR.24H (FP) PO SCH (10:16)
[2022-06-23] MEDS: PANTOPRAZOLE 40 MG TABLET PO SCH (10:16)
[2022-06-23] MEDS: MULTIVITAMINS (DAILY MVI) TABLET (FP) PO SCH (10:16)
[2022-06-23] MEDS: FINASTERIDE 5 MG TABLET (FP) PO SCH (10:17)
[2022-06-23 18:34] VITALS: RESP 18
[2022-06-23] MEDS: ATORVASTATIN CA 10 MG TABLET (FP) PO SCH (21:28)
[2022-06-24] MEDS: CEFAZOLIN SODIUM 2 GM in DEXTROSE 5%-WATER 100 ML IVPB SCH ×4 (00:31→23:27)
[2022-06-24] MEDS: hydrALAZINE HCL 25 MG TABLET (FP) PO SCH ×3 (05:33→21:54)
[2022-06-24] MEDS: INSULIN SLIDING SCALE (NOVOLOG) 1 VIAL SQ SCH ×4 (06:12→23:09)
[2022-06-24 08:59] LABS: BASO % 1.5 % (0-2.0); EOS % 2.9 % (0-4.5); HEMOGLOBIN 9.6 GM/dL (11.7-16.9); LYMPH % 23.4 % (8-40); MCH 25.8 pg (25.7-33.7); MCHC 31.9 g/dl (32.0-35.9); MEAN CELL VOLUME 81.1 fl (80-96); MEAN PLT VOLUME 7.5 fl (7.5-11.1); MONO % 6.3 % (3.8-10.2); NEUT % 65.9 % (42.8-82.8); PLATELET COUNT 460 10^3/uL (134-434); RDW 21.8 % (11.9-15.9); WHITE BLOOD COUNT 8.2 K/mm3 (4.0-10.0)
[2022-06-24] MEDS: FERROUS GLUCONATE 324 MG TAB (FP) PO SCH ×3 (09:02→18:03)
[2022-06-24] MEDS: LIPASE/PROTEASE/AMYLASE 36,000 UNIT CAPSULE PO SCH ×3 (09:02→18:03)
[2022-06-24 09:06] LABS: ALBUMIN 2.5 g/dl (3.4-5.0); CREATININE 1.4 mg/dL (0.55-1.3)
[2022-06-24 09:07] LABS: TOT PROT 7.9 g/dl (6.4-8.2)
[2022-06-24 09:08] LABS: BILIRUBIN,TOTAL 0.2 mg/dL (0.2-1)
[2022-06-24 09:11] LABS: BLOOD UREA NITROGEN 37.9 mg/dL (7-18); CALCIUM 9.2 mg/dL (8.5-10.1)
[2022-06-24] MEDS: ASCORBIC ACID 500 MG TABLET (FP) PO SCH (10:49)
[2022-06-24] MEDS: FOLIC ACID 1 MG TABLET (FP) PO SCH (10:49)
[2022-06-24] MEDS: PANTOPRAZOLE 40 MG TABLET PO SCH (10:49)
[2022-06-24] MEDS: FINASTERIDE 5 MG TABLET (FP) PO SCH (10:49)
[2022-06-24] MEDS: MULTIVITAMINS (DAILY MVI) TABLET (FP) PO SCH (10:49)
[2022-06-24] MEDS: amLODIPine BESYLATE 5 MG TABLET (FP) PO SCH (10:50)
[2022-06-24] MEDS: metoPROLOL SUCCINATE 25 MG TAB.SR.24H (FP) PO SCH (10:50)
[2022-06-24] MEDS: POLYETHYLENE GLYCOL (HEALTHYLAX) 3350 17 GM PACKET PO SCH (10:50)
[2022-06-24 13:36] LABS: ANISOCYTOSIS 1+; MACROCYTOSIS 0; OVALOCYTE 1+
[2022-06-24] MEDS: ALBUTEROL SO4 HFA INHALER IH PRN (14:54)
[2022-06-24] MEDS: ATORVASTATIN CA 10 MG TABLET (FP) PO SCH (21:54)
[2022-06-24] MEDS ORDERED: APIXABAN 5 MG TABLET PO SCH (22:00)
[2022-06-24] MEDS ORDERED: CEFAZOLIN SODIUM 2 GM VIAL ONE (23:26)
[2022-06-25] MEDS: hydrALAZINE HCL 25 MG TABLET (FP) PO SCH ×2 (05:08→13:59)
[2022-06-25] MEDS: INSULIN SLIDING SCALE (NOVOLOG) 1 VIAL SQ SCH ×2 (06:05→11:36)
[2022-06-25] MEDS ORDERED: amLODIPine BESYLATE 10 MG TABLET (FP) PO SCH (08:04)
[2022-06-25 10:06] LABS: BASO % 2.3 % (0-2.0); EOS % 2.8 % (0-4.5); HEMATOCRIT 30.7 % (35.4-49); HEMOGLOBIN 9.8 GM/dL (11.7-16.9); LYMPH % 22.2 % (8-40); MCH 25.9 pg (25.7-33.7); MEAN PLT VOLUME 7.1 fl (7.5-11.1); NEUT % 66.7 % (42.8-82.8); PLATELET COUNT 512 10^3/uL (134-434); RBC 3.79 M/mm3 (4.00-5.60); RDW 22.3 % (11.9-15.9); WHITE BLOOD COUNT 8.3 K/mm3 (4.0-10.0)
[2022-06-25 10:31] LABS: ALBUMIN 2.8 g/dl (3.4-5.0); CALCIUM 9.5 mg/dL (8.5-10.1)
[2022-06-25 10:34] LABS: CREATININE 1.4 mg/dL (0.55-1.3)
[2022-06-25 10:36] LABS: BILIRUBIN,TOTAL 0.6 mg/dL (0.2-1); TOT PROT 8.9 g/dl (6.4-8.2)
[2022-06-25] MEDS: CEFAZOLIN SODIUM 2 GM in DEXTROSE 5%-WATER 100 ML IVPB SCH (11:30)
[2022-06-25] MEDS: MULTIVITAMINS (DAILY MVI) TABLET (FP) PO SCH (11:31)
[2022-06-25] MEDS: ASCORBIC ACID 500 MG TABLET (FP) PO SCH (11:31)
[2022-06-25] MEDS: FERROUS GLUCONATE 324 MG TAB (FP) PO SCH ×2 (11:31→12:18)
[2022-06-25] MEDS: metoPROLOL SUCCINATE 25 MG TAB.SR.24H (FP) PO SCH (11:32)
[2022-06-25] MEDS: PANTOPRAZOLE 40 MG TABLET PO SCH (11:32)
[2022-06-25] MEDS: POLYETHYLENE GLYCOL (HEALTHYLAX) 3350 17 GM PACKET PO SCH (11:32)
[2022-06-25] MEDS: FINASTERIDE 5 MG TABLET (FP) PO SCH (11:32)
[2022-06-25] MEDS: FOLIC ACID 1 MG TABLET (FP) PO SCH (11:32)
[2022-06-25] MEDS: LIPASE/PROTEASE/AMYLASE 36,000 UNIT CAPSULE PO SCH ×2 (11:39→12:18)
[2022-06-25 13:59] VITALS: BP 184/76; PULSE 79; TEMP 97.7
== END 2022-06-25 14:31 | DRG 41 ==
LOC: JER 10:33 → JERBED 18:25 → J5S 23:58
PROVIDERS: ADMIT Internal Medicine; ATTEND Internal Medicine
PROC: 30233N1 Transfusion of Nonautologous Red Blood Cells into Peripheral Vein, Percutaneous Approach (ICD-10-PCS; 2022-06-11)
PROC: 0KBV0ZZ Excision of Right Foot Muscle, Open Approach (ICD-10-PCS; 2022-06-18)
PROC: 0QBL0ZZ Excision of Right Tarsal, Open Approach (ICD-10-PCS; 2022-06-18)
PROC: 0JBQ0ZZ Excision of Right Foot Subcutaneous Tissue and Fascia, Open Approach (ICD-10-PCS; principal; 2022-06-18 14:30)
PROC: 02HV33Z Insertion of Infusion Device into Superior Vena Cava, Percutaneous Approach (ICD-10-PCS; 2022-06-25)
DX: E11.610 Type 2 diabetes mellitus with diabetic neuropathic arthropathy (principal); I13.0 Hypertensive heart and chronic kidney disease with heart failure and stage 1 through stage 4 chronic kidney disease, or unspecified chronic kidney disease; L03.115 Cellulitis of right lower limb; M86.171 Other acute osteomyelitis, right ankle and foot; N17.9 Acute kidney failure, unspecified; I42.9 Cardiomyopathy, unspecified; E11.69 Type 2 diabetes mellitus with other specified complication; E11.621 Type 2 diabetes mellitus with foot ulcer; E78.5 Hyperlipidemia, unspecified; I10 Essential (primary) hypertension; J44.9 Chronic obstructive pulmonary disease, unspecified; D50.0 Iron deficiency anemia secondary to blood loss (chronic); I48.91 Unspecified atrial fibrillation; L97.509 Non-pressure chronic ulcer of other part of unspecified foot with unspecified severity; N18.9 Chronic kidney disease, unspecified; R14.0 Abdominal distension (gaseous); N40.0 Benign prostatic hyperplasia without lower urinary tract symptoms; K21.9 Gastro-esophageal reflux disease without esophagitis; I50.9 Heart failure, unspecified
CPT/HCPCS: 0241U-QW; 11044; 11720; 36415; 36430; 36569; 71045-TC-FY; 73630-TC-RT-FY; 73718-TC-RT; 74177-TC; 76775-TC; 77001-TC-FY; 78452-TC; 80048; 80053; 80061; 82272; 82728; 82962; 83036; 83540; 83550; 83880; 83883; 84155; 84165; 85025; 85027; 85384; 85610; 85651; 85730; 86140; 86850; 86900; 86901; 86922; 87040; 87070; 87075; 87186; 87205; 88307-TC; 88311-TC; 93005; 93010; 93017; 93306-TC; 94640; 97116-GP; 97162-GP; 99285-25; A9502; C1713; C1751; C9803-CS; J2785; P9058; Q9967; U0003; U0005